=== PATIENT | female | born 1945 | race Caucasian/White ===

== ENCOUNTER → 2019-08-15 16:35 | Outpatient (CLI) | payer MEDICARE, SELFPAY ==
[2019-08-15 18:02] LABS: CRP < 2.90 mg/L (0.0-3.0)
[2019-08-17 20:07] LABS: Endomysial Antibody IgA Negative (Negative)
[2019-08-17 22:44] LABS: Immunoglobulin A 140 mg/dL (64-422); t-Transglutaminase IgA <2 U/mL (0-3)
== END ==
PROVIDERS: PCP Student in an Organized Health Care Education/Training Program; Referring Provider Internal Medicine Gastroenterology; Visit Provider Internal Medicine Gastroenterology
DX: R19.7 Diarrhea, unspecified (principal)
CPT/HCPCS: 36415; 82784; 83516; 86140; 86255

== ENCOUNTER → 2020-05-02 | Outpatient (CLI) | payer MEDICARE, SELFPAY ==
--- NOTE | 2020-05-02 13:52 | ECHOD_ITS ---
Reason For Study: Aortic Stenosis Procedure This was a 2D Doppler, Color Flow transthoracic echocardiogram. Exam performed in department. Left Ventricle Normal LV size. The estimated ejection fraction is 70 %. Unable to assess diastolic dysfunction. No regional wall motion abnormalities noted. Right Ventricle Normal RV size. Normal systolic function. Atria Normal left atrium. Normal right atrium. No doppler evidence for ASD. Mitral Valve There is moderate mitral annular calcification. There is no mitral valve stenosis. No mitral valve insufficiency. Tricuspid Valve There is no tricuspid stenosis. Mild tricuspid valve insufficiency. Pulmonary artery systolic pressure is 25-30 mmHg. Aortic Valve Mild diffuse aortic valve thickening. Mild aortic stenosis. Mild (1+) aortic valve insufficiency. Pulmonic Valve There is no pulmonic valvular stenosis. Trivial pulmonic valve insufficiency. Great Vessels Normal aortic root. Pericardium/Pleural There is a small to moderate localized pericardial effusion along the RV and RA with echodensities in it suggestive of hemorrhagic effusion. No evidence of tamponade physiology. MMode/2D Measurements & Calculations LVIDd: 2.7 cm IVSd: 1.1 cm LVOT diam: 2.0 cm LVIDs: 1.9 cm LVPWd: 1.1 cm LVOT area: 3.2 cm2 RVDd: 3.0 cm FS: 28.6 % Ao root diam: 4.0 cm LAV(MOD-bp): 23.0 ml LVAd ap4: 23.5 cm2 LA dimension: 2.6 cm LAV(MOD-bp) Indexed: 15.9 ml/m2 EDV(MOD-sp4): 61.3 ml LAV(MOD-sp2): 25.9 ml EDV(sp4-el): 62.5 ml LAV(MOD-sp4): 19.5 ml LVAs ap4: 11.6 cm2 ESV(MOD-sp4): 17.9 ml ESV(sp4-el): 18.3 ml EF(MOD-sp4): 70.7 % EF(sp4-el): 70.7 % SV(MOD-sp4): 43.4 ml SV(sp4-el): 44.2 ml Aortic Valve Planimetry: 1.5 cm2 LA A4 area: 10.4 cm2 RA A4 area: 10.8 cm2 Time Measurements MV dec time: 0.22 sec Doppler Measurements & Calculations MV E max homero: 64.2 cm/sec Lat Peak E' Homero: 3.5 cm/sec Med Peak E' Homero: 5.6 cm/sec MV A max homero: 104.9 cm/sec E/E' lat: 18.1 E/E' med: 11.4 MV E/A: 0.61 MV V2 max: 129.6 cm/sec MV P1/2t max homero: 98.1 cm/sec Ao V2 max: 242.3 cm/sec MV max P.7 mmHg MV P1/2t: 96.5 msec Ao max P.5 mmHg MV V2 mean: 65.2 cm/sec Ao V2 mean: 158.9 cm/sec MV mean P.0 mmHg MV dec slope: 297.8 cm/sec2 Ao mean P.0 mmHg MV V2 VTI: 34.4 cm MVA(P1/2t): 2.3 cm2 Ao V2 VTI: 53.0 cm MVA(VTI): 2.4 cm2 JORDNE(I,D): 1.6 cm2 JORDEN(V,D): 1.3 cm2 AI max homero: 368.5 cm/sec LV V1 max: 97.0 cm/sec SV(LVOT): 82.4 ml AI max P.3 mmHg LV V1 max P.8 mmHg LV V1 mean P.1 mmHg AI dec slope: 201.4 cm/sec2 LV V1 mean: 67.5 cm/sec AI P1/2t: 535.9 msec LV V1 VTI: 25.8 cm PA V2 max: 92.9 cm/sec TR max homero: 254.7 cm/sec TR max P.9 mmHg Interpretation Summary The estimated ejection fraction is 70 %. Unable to assess diastolic dysfunction. Mild aortic stenosis. Mild (1+) aortic valve insufficiency. There is a small to moderate localized pericardial effusion along the RV and RA with echodensities in it suggestive of hemorrhagic effusion. No evidence of tamponade physiology. Ordering Physician: Sean Cleary Referring Physician: Ed Maradiaga Performed By: Jared Shrestha RCS
== END | disposition home or self-care (01) ==
LOC: CVS 13:50
PROVIDERS: PCP Student in an Organized Health Care Education/Training Program; Referring Provider Colon & Rectal Surgery; Visit Provider Colon & Rectal Surgery
DX: I35.0 Nonrheumatic aortic (valve) stenosis (principal)
CPT/HCPCS: 93306

== ENCOUNTER → 2021-01-08 05:00 | Outpatient (REF) | payer MEDICARE, SELFPAY ==
[2021-01-08 06:57] LABS: Absolute Lymphocyte Count 2.42 X10^3/uL (0.83-4.51); Basophil# 0.04 X10^3/uL; Basophil% 0.6 % (0-1); Eosinophil# 0.09 X10^3/uL; Eosinophils% 1.5 % (0-5); Hematocrit 34.6 % (37-47); Lymphocyte # 2.42 X10^3/ul (0.83-4.51); Mean Corp Hgb Conc 31.8 g/dL (32-36); Mean Corpuscular Hgb 29.6 pg (27.0-32.0); Mean Corpuscular Volume 93.3 fL (81-99); Mean Platelet Vol. 11.1 fl (6.2-12.0); Monocyte# 0.61 X10^3/uL; Monocyte% 9.8 % (0-10); NRBC Flagged by Analyzer 0 % (0-5); Neutrophil # 3.01 X10^3/uL (2.7-7.7); Neutrophil % 48.6 % (47-70); Platelet Count 237 K/mm3 (150-450); RBC Distribution Width CV 17.1 % (11.6-14.6); RBC Distribution Width SD 58.9 fl (35.1-43.9); Red Blood Count 3.71 M/mm3 (4.2-5.4); White Blood Count 6.2 K/mm3 (4.4-11.0)
[2021-01-08 07:34] LABS: AST(SGOT) 11 U/L (15-37); Alanine Aminotransfer ALT/SGPT 14 U/L (13-56); Albumin, Serum 3.2 g/dL (3.2-5.0); Alkaline Phosphatase 71 U/L (45-117); Anion Gap 3 (5-15); BUN 24 mg/dL (7-18); BUN/Creat Ratio 18.6 RATIO (10-20); Calcium,Total 9.1 mg/dL (8.5-10.1); Chloride 111 mmol/L (98-107); Creatinine, Serum 1.29 mg/dL (0.55-1.02); EST Glomerular Filtration Rate 43 mL/min (>60); Est Glom Filt Rate - Afr Amer 52 mL/min (>60); Globulin 3.3 g/dL (2.2-4.2); Glucose 91 mg/dL (74-106); Potassium 3.9 mmol/L (3.5-5.1); Protein, Total 6.5 g/dL (6.4-8.2); Sodium Level 143 mmol/L (136-145); Thyroid Stim Hormone (TSH) 2.33 uIU/mL (0.358-3.74)
== END ==
LOC: OLS.DANBUR 05:00
PROVIDERS: PCP Student in an Organized Health Care Education/Training Program; Visit Provider Family Medicine
DX: I12.9 Hypertensive chronic kidney disease with stage 1 through stage 4 chronic kidney disease, or unspecified chronic kidney disease (principal); N18.30 Chronic kidney disease, stage 3 unspecified; G45.9 Transient cerebral ischemic attack, unspecified; E78.5 Hyperlipidemia, unspecified
CPT/HCPCS: 36415; 80053; 84443; 85025

== ENCOUNTER → 2021-03-12 05:00 | Outpatient (REF) | payer MEDICARE, SELFPAY ==
[2021-03-12 07:23] LABS: Hematocrit 35.1 % (37-47); Hemoglobin 11.5 g/dL (12.0-15.0); Mean Corp Hgb Conc 32.8 g/dL (32-36); Mean Corpuscular Hgb 31.5 pg (27.0-32.0); Mean Corpuscular Volume 96.2 fL (81-99); Mean Platelet Vol. 11.5 fl (6.2-12.0); Platelet Count 206 K/mm3 (150-450); RBC Distribution Width CV 15.3 % (11.6-14.6); RBC Distribution Width SD 53.3 fl (35.1-43.9); Red Blood Count 3.65 M/mm3 (4.2-5.4); White Blood Count 5.7 K/mm3 (4.4-11.0)
[2021-03-12 07:48] LABS: AST(SGOT) 15 U/L (15-37); Alanine Aminotransfer ALT/SGPT 18 U/L (13-56); Albumin, Serum 3.2 g/dL (3.2-5.0); Alkaline Phosphatase 75 U/L (45-117); Anion Gap 10 (5-15); BUN 19 mg/dL (7-18); BUN/Creat Ratio 16.8 RATIO (10-20); Calcium,Total 8.8 mg/dL (8.5-10.1); Chloride 108 mmol/L (98-107); Creatinine, Serum 1.13 mg/dL (0.55-1.02); EST Glomerular Filtration Rate 50 mL/min (>60); Est Glom Filt Rate - Afr Amer 60 mL/min (>60); Globulin 3.3 g/dL (2.2-4.2); Glucose 83 mg/dL (74-106); Potassium 3.6 mmol/L (3.5-5.1); Protein, Total 6.5 g/dL (6.4-8.2); Sodium Level 144 mmol/L (136-145)
== END ==
LOC: OLS.DANBUR 05:00
PROVIDERS: PCP Student in an Organized Health Care Education/Training Program; Visit Provider Family Medicine
DX: I10 Essential (primary) hypertension (principal); E78.5 Hyperlipidemia, unspecified
CPT/HCPCS: 36415; 80053; 85027

== ENCOUNTER → 2022-05-11 | Outpatient (REF) | payer MEDICARE, SELFPAY ==
[2022-05-12 08:16] LABS: Color, Urine Straw (Yellow); Glucose, Dipstick Normal (Normal); Ketone-Dipstick Negative (Negative); Leukocyte Esterase-Dipstick 100 /ul (Negative); Nitrite-Dipstick Negative (Negative); Occult Blood-Urine 25 /ul (Negative); Protein-Dipstick 30 mg/dl (Negative); Urine Bilirubin Dipstick Negative (Negative); Urine Clarity Sl. Cloudy (Clear); Urine Urobilinogen Normal (Normal)
== END ==
LOC: OLS.DANBUR 13:15
PROVIDERS: PCP Student in an Organized Health Care Education/Training Program; Visit Provider Family Medicine
DX: N39.0 Urinary tract infection, site not specified (principal)
CPT/HCPCS: 81002

== ENCOUNTER → 2022-05-13 | Outpatient (REF) | payer MEDICARE, SELFPAY ==
[2022-05-13 10:02] LABS: Hematocrit 41.6 % (37-47); Hemoglobin 13.3 g/dL (12.0-15.0); Mean Corpuscular Hgb 32.1 pg (27.0-32.0); Mean Corpuscular Volume 100.5 fL (81-99); Mean Platelet Vol. 11.4 fl (6.2-12.0); Platelet Count 243 K/mm3 (150-450); RBC Distribution Width CV 14.5 % (11.6-14.6); RBC Distribution Width SD 53.1 fl (35.1-43.9); Red Blood Count 4.14 M/mm3 (4.2-5.4)
[2022-05-13 10:16] LABS: ALB/GLOB Ratio 0.8 RATIO (0.9-2.4); AST(SGOT) 14 U/L (15-37); Alanine Aminotransfer ALT/SGPT 25 U/L (13-56); Albumin, Serum 3.5 g/dL (3.2-5.0); Alkaline Phosphatase 89 U/L (45-117); Anion Gap 5 (5-15); BUN 28 mg/dL (7-18); Calcium,Total 9.3 mg/dL (8.5-10.1); Chloride 108 mmol/L (98-107); Creatinine, Serum 1.47 mg/dL (0.55-1.02); EST Glomerular Filtration Rate 37 mL/min (>60); Est Glom Filt Rate - Afr Amer 44 mL/min (>60); Globulin 4.2 g/dL (2.2-4.2); Glucose 86 mg/dL (74-106); Potassium 3.6 mmol/L (3.5-5.1); Protein, Total 7.7 g/dL (6.4-8.2); Sodium Level 142 mmol/L (136-145)
== END ==
LOC: OLS.DANBUR 05:00
PROVIDERS: PCP Student in an Organized Health Care Education/Training Program; Visit Provider Family Medicine
DX: I12.9 Hypertensive chronic kidney disease with stage 1 through stage 4 chronic kidney disease, or unspecified chronic kidney disease (principal); N18.30 Chronic kidney disease, stage 3 unspecified; E78.5 Hyperlipidemia, unspecified
CPT/HCPCS: 36415; 80053; 85027

== ENCOUNTER 2022-07-27 10:23 | Inpatient (IN) | payer MEDICARE, SELFPAY ==
[2022-07-27] VITALS (14 sets, daily range): BP systolic 133–184; BP diastolic 66–97; PULSE 59–95; RESP 18–30; TEMP 36.1–36.7; O2SAT 85–99; BMI 19.5
--- NOTE | 2022-07-27 10:47 | EDS_ITS ---
HPI History of Present Illness Chief Complaint: Shortness of Breath Narrative Narrative: 76-year-old female past medical history of hypertension presents with increasing shortness of breath, cough, runny nose and nasal congestion that she has had intermittently over the last few days. She states her symptoms began on morning, 2 days ago, where she was congested and had mild shortness of breath. She denies any chest pain but has a loose, sometimes productive cough. That improved and she felt better until she woke up today and felt much worse. She has had increased difficulty breathing. She denies any leg swelling, no other symptoms. Upon arrival to the ED, she was hypoxic at 85% on room air. She does not wear oxygen at home. She is a former smoker but quit years ago. PFSH PFSH Allergy/AdvReac Type Severity Reaction Status Date / Time No Known Allergies Allergy Verified 07/27/22 10:26 Social History Smoking Status: Former smoker ROS ROS ED ROS Narrative Constitutional: No fever, no chills. HEENT: No sore throat. No neck pain. No loss of vision. Positive right-sided nasal congestion and rhinorrhea. Cardiovascular: No chest pain. No palpitations. No pedal edema. Respiratory: Positive cough, increasing shortness of breath. Abdominal: No abdominal pain. No nausea. No vomiting. Genitourinary: No dysuria. No hematuria. Musculoskeletal: No myalgias. No arthralgias. Neurologic: No headaches. No dizziness. No lightheadedness. Skin: No rash. No change in color. Psychiatric: No depression. No anxiety. EXAM Physical Exam Narrative Exam Narrative: Afebrile. Vital signs noted. HEENT: Normocephalic. Atraumatic. PERRL, EOMI. Neck soft and supple. No point tenderness or step off. Cardiovascular: Regular rate and rhythm. No murmurs, rubs, or gallops appreciated. Respiratory: No tachypnea. Decreased breath sounds left base greater than right. Rare rhonchi. Gastrointestinal: Abdomen soft, nontender, with normoactive bowel sounds. No rebound or guarding. Neurological: Awake. Alert. Nonfocal, nonlateralizing. Skin: No rash. Normal color. No pallor. Musculoskeletal: No pedal edema. Full range of motion extremities. Const Vital Signs: 07/27/22 10:24 07/27/22 10:54 07/27/22 11:41 Temperature 96.9 F L Temperature Source Temporal Pulse Rate 95 93 85 Respiratory Rate 20 H 20 H Respiratory Effort Respiratory Pattern Normal Blood Pressure 184/84 H 163/73 H Blood Pressure Mean 117 103 Pulse Ox 85 88 Oxygen Delivery Method Room Air Nasal Cannula Oxygen Flow Rate (L/min) 3 07/27/22 11:42 07/27/22 11:44 07/27/22 12:35 Temperature Temperature Source Pulse Rate 76 Respiratory Rate 26 H Respiratory Effort Short of Breath Respiratory Pattern Blood Pressure 150/73 H Blood Pressure Mean 98 Pulse Ox 89 91 Oxygen Delivery Method Nasal Cannula Nasal Cannula Oxygen Flow Rate (L/min) 5 5 MDM MDM MDM Narrative Medical decision making narrative: Comprehensive work-up was pursued. She was placed on nasal cannula oxygen with good resultant SPO2. She was swabbed for COVID and flu along with RSV. I do feel that given her physical examination with decreased breath sounds in the right base, that she may have developed a pneumonia causing her hypoxia. CBC shows normal white count of 5.3, hemoglobin 13.7 with hematocrit 42.7. Normal platelet count at 208. BNP normal at 77. High-sensitivity troponin within normal limits. CMP remarkable for BUN of 33 and a creatinine of 1.47. Chest x-ray 2 view interpreted by myself demonstrates a left lower lobe pneumonia. After aerosol treatment, she has a pulse ox of 91% on 5 L. Given her hypoxia and pneumonia, I do feel she requires admission. She was started on azithromycin and Rocephin 2 g intravenously. Patient discussed with Dr. Owens for admission to PCU. Patient is in stable condition. Lab Data Attestation: I reviewed the patient's lab results. Labs: Laboratory Results - last 24 hr 07/27/22 07/27/22 07/27/22 11:05 11:05 11:05 WBC 5.3 RBC 4.31 Hgb 13.7 Hct 42.7 MCV 99.1 H MCH 31.8 MCHC 32.1 RDW Std Deviation 53.2 H RDW Coeff of Arnulfo 14.6 Plt Count 208 MPV 11.8 Immature Gran % (Auto) 0.400 Neut % (Auto) 69.3 Lymph % (Auto) 24.8 Walker % (Auto) 5.1 Eos % (Auto) 0.0 Baso % (Auto) 0.4 Absolute Neuts (auto) 3.7 Absolute Lymphs (auto) 1.32 Nucleated RBC % 0 Sodium Potassium Chloride Carbon Dioxide Anion Gap BUN Creatinine Estim Creat Clear Calc Est GFR (MDRD) Af Amer Est GFR (MDRD) Non-Af BUN/Creatinine Ratio Glucose Calcium Total Bilirubin AST ALT Alkaline Phosphatase Troponin I High Sens Cancelled B-Natriuretic Peptide 77.8 Total Protein Albumin Globulin Albumin/Globulin Ratio 07/27/22 07/27/22 11:46 11:46 WBC RBC Hgb Hct MCV MCH MCHC RDW Std Deviation RDW Coeff of Arnulfo Plt Count MPV Immature Gran % (Auto) Neut % (Auto) Lymph % (Auto) Walker % (Auto) Eos % (Auto) Baso % (Auto) Absolute Neuts (auto) Absolute Lymphs (auto) Nucleated RBC % Sodium 141 Potassium 4.3 Chloride 108 H Carbon Dioxide 25.0 Anion Gap 8 BUN 33 H Creatinine 1.47 H Estim Creat Clear Calc 24.18 Est GFR (MDRD) Af Amer 44 L Est GFR (MDRD) Non-Af 37 L BUN/Creatinine Ratio 22.4 H Glucose 94 Calcium 9.1 Total Bilirubin 0.40 AST 38 H ALT 33 Alkaline Phosphatase 90 Troponin I High Sens 28 B-Natriuretic Peptide Total Protein 7.5 Albumin 3.5 Globulin 4.0 Albumin/Globulin Ratio 0.9 Radiography Diagnostic Testing: Clinical Impression(s) from Imaging Studies Chest X-Ray 07/27/22 11:48 IMPRESSION: Left lower lobe pneumonia. Electronically Signed: Kris Cavanaugh MD at 12:19 EST , Discharge Plan Dx/Rx/DC Orders Clinical Impression: Left lower lobe pneumonia, Hypoxia, SOB (shortness of breath) Disposition Disposition: Acute Care [facility]
[2022-07-27] MEDS: Ipratropium/Albuterol Sulfate 3 ML AMPUL.NEB INHALATION ×3 (10:54→23:06)
[2022-07-27 11:16] LABS: Absolute Lymphocyte Count 1.32 X10^3/uL (0.83-4.51); Absolute Neutrophil Count 3.7 X10^3/uL (2.0-7.7); Basophil# 0.02 X10^3/uL; Basophil% 0.4 % (0-1); Hematocrit 42.7 % (37-47); Hemoglobin 13.7 g/dL (12.0-15.0); Lymphocyte # 1.32 X10^3/ul (0.83-4.51); Lymphocyte % 24.8 % (19-41); Mean Corp Hgb Conc 32.1 g/dL (32-36); Mean Corpuscular Hgb 31.8 pg (27.0-32.0); Mean Corpuscular Volume 99.1 fL (81-99); Mean Platelet Vol. 11.8 fl (6.2-12.0); Monocyte# 0.27 X10^3/uL; Monocyte% 5.1 % (0-10); NRBC Flagged by Analyzer 0 % (0-5); Neutrophil # 3.69 X10^3/uL (2.7-7.7); Neutrophil % 69.3 % (47-70); Platelet Count 208 K/mm3 (150-450); RBC Distribution Width CV 14.6 % (11.6-14.6); RBC Distribution Width SD 53.2 fl (35.1-43.9); Red Blood Count 4.31 M/mm3 (4.2-5.4); White Blood Count 5.3 K/mm3 (4.4-11.0)
[2022-07-27 11:34] LABS: BNP,B-Type NATRIURETIC PEPTIDE 77.8 pg/mL (0-100)
--- NOTE | 2022-07-27 11:48 | RAD_ITS ---
STUDY: X-RAY CHEST REASON FOR EXAM: Female, 76 years old. shortness of breath TECHNIQUE: PA and lateral views of the chest. COMPARISON: None. FINDINGS: Alveolar opacity in the lower left lung consistent with left lower lobe pneumonia. There is no demonstrated pleural abnormality. There is moderate cardiac enlargement. Normal mediastinum and riana. Normal visualized pulmonary arteries. Normal visualized aortic arch and descending thoracic aorta. Moderate dextroscoliosis of the thoracic spine with deformity of the chest and abdomen. Normal visualized ribs, clavicles, and shoulders. There is no demonstrated abnormality of the visualized soft tissue structures of the upper abdomen. RAD/Chest PA and Lateral IMPRESSION: Left lower lobe pneumonia. Electronically Signed: Kris Cavanaugh MD at 12:19 EST ,
[2022-07-27 12:14] LABS: Troponin-I HS 28 pg/mL (3.0-54.0)
[2022-07-27 12:16] LABS: ALB/GLOB Ratio 0.9 RATIO (0.9-2.4); AST(SGOT) 38 U/L (15-37); Alanine Aminotransfer ALT/SGPT 33 U/L (13-56); Albumin, Serum 3.5 g/dL (3.2-5.0); Alkaline Phosphatase 90 U/L (45-117); Anion Gap 8 (5-15); BUN 33 mg/dL (7-18); BUN/Creat Ratio 22.4 RATIO (10-20); Calcium,Total 9.1 mg/dL (8.5-10.1); Chloride 108 mmol/L (98-107); Creatinine, Serum 1.47 mg/dL (0.55-1.02); EST Glomerular Filtration Rate 37 mL/min (>60); Est Glom Filt Rate - Afr Amer 44 mL/min (>60); Estimated Creatinine Clearance 24.18 ml/min; Glucose 94 mg/dL (74-106); Potassium 4.3 mmol/L (3.5-5.1); Protein, Total 7.5 g/dL (6.4-8.2); Sodium Level 141 mmol/L (136-145)
[2022-07-27] MEDS: levoFLOXacin IV 750 MG/150 ML BAG 100 MG IV (12:40)
--- NOTE | 2022-07-27 13:10 | PCM.HP.STD ---
HPI - General General Date of Admission: 07/27/22 Date of Service: 07/27/22 Chief Complaint: Increasing shortness of breath HPI Narrative SHERRI ZACARIAS, is a 76 F with a history of hypertension who presented to [facility] from [place] 07/27/2022 with increasing shortness of breath over the past 2 days. It did wax and wane in intensity but today worsened to the point that she was brought to the ER. Has also had a cough with thick sputum that was hard to expectorate. In the ED she was 85% on room air and was found to have a left lower lobe infiltrate on chest x-ray and received a breathing treatment and antibiotics and felt slight improvement. Given her hypoxia hospitalist consulted for admission. Seen in the ED with family at bedside. Does report the shortness of breath that has been worsening, slightly better with the breathing treatment in the ED. Also endorses a cough. Said she has multiple sick contacts because multiple things are going through [facility] where she currently resides but was negative for COVID a week ago. On 5 L in the ED and when conversing drops down to 86%. Will proceed with admission [facility] Allergy/AdvReac Type Severity Reaction Status Date / Time No Known Allergies Allergy Verified 07/27/22 10:26 Social History Smoking Status: Former smoker ROS Constitutional Constitutional: Denies change in weight, chills, fever(s) or night sweats Eyes Eyes: Denies change in vision ENT HEENT: Reports nasal congestion and other Details: Right-sided nasal congestion with some ear fullness ; Denies headache(s) or sore throat Cardiovascular Cardiovascular: Denies chest pain or palpitations Respiratory/Chest Respiratory/Chest: Reports cough, productive cough, shortness of breath at rest and shortness of breath with exertion Gastrointestinal Gastrointestinal: Reports other Details: denies changes in bowel or bladder ; Denies abdominal pain Genitourinary Genitourinary: Reports other Details: denies changes in urination Musculoskeletal Musculoskeletal: Denies joint pain Neurologic Neurologic: Denies dizziness, focal weakness, headache(s), numbness or tingling Psychiatric Psychiatric: Denies anxiety Hematologic/Lymphatic Hematologic/Lymphatic: Denies easy bleeding Allergic/Immunologic Allergic/Immunologic: Reports other Details: denies rashes Vital Signs Vital Signs Vital Signs: 07/27/22 10:24 07/27/22 10:54 07/27/22 11:41 Temperature 96.9 F L Temperature Source Temporal Pulse Rate 95 93 85 Respiratory Rate 20 H 20 H Respiratory Effort Respiratory Pattern Normal Blood Pressure 184/84 H 163/73 H Blood Pressure Mean 117 103 Pulse Ox 85 88 Oxygen Delivery Method Room Air Nasal Cannula Oxygen Flow Rate (L/min) 3 07/27/22 11:42 07/27/22 11:44 07/27/22 12:35 Temperature Temperature Source Pulse Rate 76 Respiratory Rate 26 H Respiratory Effort Short of Breath Respiratory Pattern Blood Pressure 150/73 H Blood Pressure Mean 98 Pulse Ox 89 91 Oxygen Delivery Method Nasal Cannula Nasal Cannula Oxygen Flow Rate (L/min) 5 5 Weight Weight: 48.081 kg Body Mass Index (BMI) 20.0 Physical Exam Const alert and no apparent distress Constitutional Narrative: Oriented HEENT normocephalic and head/scalp atraumatic Eyes Eyes Narrative: EOM grossly intact, anicteric Neck supple Resp Resp Narrative: Somewhat increased work of breathing, left side diminished at the base Cardio regular rate and regular rhythm GI soft to palpation, non-tender and non-distended Extremity Extremity Narrative: No edema appreciated Neuro moves all extremities Neuro Narrative: No overt focal deficits appreciated Psych Psych Narrative: Cooperative Results Lab / Micro Data Result Diagrams: 07/27/22 11:05 07/27/22 11:46 Labs: Laboratory Results - last 24 hr 07/27/22 11:05: WBC 5.3, RBC 4.31, Hgb 13.7, Hct 42.7, MCV 99.1 H, MCH 31.8, MCHC 32.1, RDW Std Deviation 53.2 H, RDW Coeff of Arnulfo 14.6, Plt Count 208, MPV 11.8, Immature Gran % (Auto) 0.400, Neut % (Auto) 69.3, Lymph % (Auto) 24.8, [place] % (Auto) 5.1, Eos % (Auto) 0.0, Baso % (Auto) 0.4, Absolute Neuts (auto) 3.7, Absolute Lymphs (auto) 1.32, Nucleated RBC % 0 07/27/22 11:05: Troponin I High Sens Cancelled 07/27/22 11:05: B-Natriuretic Peptide 77.8 07/27/22 11:46: Troponin I High Sens 28 07/27/22 11:46: Sodium 141, Potassium 4.3, Chloride 108 H, Carbon Dioxide 25.0, Anion Gap 8, BUN 33 H, Creatinine 1.47 H, Estim Creat Clear Calc 24.18, Est GFR (MDRD) Af Amer 44 L, Est GFR (MDRD) Non-Af 37 L, BUN/Creatinine Ratio 22.4 H, Glucose 94, Calcium 9.1, Total Bilirubin 0.40, AST 38 H, ALT 33, Alkaline Phosphatase 90, Total Protein 7.5, Albumin 3.5, Globulin 4.0, Albumin/Globulin Ratio 0.9 Micro: Microbiology 07/27/22 11:30 Nasal Secretion SARS-CoV-2 & FLU Antigen (Rapid) - Final 07/27/22 11:19 Interface Orders Rapid RSV (DFA) - Final Radiology Impression Chest X-Ray 07/27/22 11:48 IMPRESSION: Left lower lobe pneumonia. Electronically Signed: Kris Cavanaugh MD at 12:19 EST , Assessment & Plan Assessment/Plan (1) Left lower lobe pneumonia: (2) Hypoxia: PLAN: Plan #Hypoxia secondary to community-acquired pneumonia Chest x-ray with left lower lobe infiltrate DuoNebs and as needed albuterol Sputum culture, COVID and flu, respiratory panel Urine antigens Mucinex, I/S Rocephin and azithromycin #Hypertension Continue home medications Has systolic ejection murmur on exam, will check echo #CKD stage IIIb Avoid nephrotoxic agents Monitor BMP #DVT ppx: Subcu heparin Bisi Owens MD Charges/Coding Visit Charges Inpatient E&M: 48829 Init Hosp L2
--- NOTE | 2022-07-27 14:13 | ECHOD_ITS ---
Reason For Study: MURMUR Procedure This was a 2D Doppler, Color Flow transthoracic echocardiogram. The study was technically difficult. Exam performed portable in ED. Left Ventricle Normal size and thickness. The left ventricular ejection fraction is 65 %. Stage 2 diastolic dysfunction. Right Ventricle Normal right ventricle. Atria The left and right atria are normal. Mitral Valve Mild (1+) mitral valve insufficiency. Tricuspid Valve Normal pulmonary artery pressure. Mild tricuspid valve insufficiency. Aortic Valve The aortic valve is not well visualized. Mild aortic stenosis. Mild (1+) aortic valve insufficiency. Pulmonic Valve The pulmonic valve is not well visualized. Great Vessels Mildly dilated aortic root. Pericardium/Pleural Small pericardial effusion. MMode/2D Measurements & Calculations LVIDd: 4.0 cm IVSd: 1.0 cm LVOT diam: 2.0 cm LVIDs: 2.8 cm LVPWd: 1.0 cm LVOT area: 3.2 cm2 RVDd: 3.1 cm FS: 29.4 % Ao root diam: 3.7 cm LAV(MOD-bp): 38.8 ml LVAd ap4: 25.6 cm2 LAV(MOD-bp) Indexed: 27.3 ml/m2 LVLd ap4: 7.2 cm LAV(MOD-sp2): 33.3 ml EDV(MOD-sp4): 73.9 ml LAV(MOD-sp4): 40.7 ml EDV(sp4-el): 77.0 ml LVAs ap4: 13.6 cm2 LVLs ap4: 7.0 cm ESV(MOD-sp4): 25.9 ml ESV(sp4-el): 22.6 ml EF(MOD-sp4): 64.9 % EF(sp4-el): 70.7 % LVAd ap2: 18.9 cm2 SV(MOD-sp4): 47.9 ml SV(MOD-sp2): 29.4 ml LVLd ap2: 6.9 cm EDV(MOD-sp2): 42.0 ml EDV(sp2-el): 43.6 ml LVAs ap2: 9.6 cm2 LVLs ap2: 6.7 cm ESV(MOD-sp2): 12.5 ml ESV(sp2-el): 11.7 ml EF(MOD-sp2): 70.1 % SV(sp4-el): 54.5 ml LA A4 area: 15.6 cm2 RA A4 area: 11.1 cm2 Time Measurements MV dec time: 0.47 sec Doppler Measurements & Calculations MV E max homero: 75.0 cm/sec Lat Peak E' Homero: 3.9 cm/sec Med Peak E' Homero: 6.2 cm/sec MV A max homero: 119.5 cm/sec E/E' lat: 19.3 E/E' med: 12.1 MV E/A: 0.63 Ao V2 max: 217.4 cm/sec AI max homero: 361.4 cm/sec LV V1 max: 113.3 cm/sec Ao max P.9 mmHg AI max P.2 mmHg LV V1 max P.1 mmHg Ao V2 mean: 155.6 cm/sec AI dec slope: 224.4 cm/sec2 LV V1 mean P.6 mmHg Ao mean P.7 mmHg AI P1/2t: 471.7 msec LV V1 mean: 74.5 cm/sec Ao V2 VTI: 43.4 cm LV V1 VTI: 21.3 cm AV (velocity ratio): 0.49 JORDEN(I,D): 1.6 cm2 JORDEN(V,D): 1.7 cm2 SV(LVOT): 67.8 ml PA V2 max: 96.0 cm/sec TR max homero: 252.4 cm/sec TR max P.5 mmHg ECHO/Echo Complete Interpretation Summary The left ventricular ejection fraction is 65 %. Stage 2 diastolic dysfunction. Mild (1+) mitral valve insufficiency. Mild aortic stenosis. Mild (1+) aortic valve insufficiency. Mildly dilated aortic root. Small pericardial effusion. Ordering Physician: Bisi Owens Referring Physician: Umang Boyer Performed By: Sarah Ramos, ALOKCS, RVT
[2022-07-27] MEDS: Heparin Injection (Vial) 5,000 UNIT/ML VIAL 5000 UNIT SC (21:28)
[2022-07-27] MEDS: guaiFENesin 1,200 MG Tablet 1200 MG PO (21:28)
[2022-07-28] VITALS (21 sets, daily range): BP systolic 137–182; BP diastolic 72–89; PULSE 69–108; RESP 12–30; TEMP 36.6–37.1; O2SAT 91–94
[2022-07-28] MEDS: hydrALAZINE 20 MG/ML Vial 10 MG IV ×3 (03:04→16:54)
[2022-07-28] MEDS: Ipratropium/Albuterol Sulfate 3 ML AMPUL.NEB INHALATION ×5 (03:40→23:14)
--- NOTE | 2022-07-28 04:01 | PCM.HOSP.N ---
Hospitalist Note Patient with worsened hypoxia, discussed with RT, will place on BIPAP. Will dose with low dose ativan as extremely anxious about her dyspnea while transitioning onto BIPAP.
[2022-07-28] MEDS: LORazepam 2 MG/ML Syringe 0.5 MG IV (04:19)
[2022-07-28] MEDS: 0.9% Saline Lock 10 ML Syringe IV (04:19)
[2022-07-28 06:38] LABS: Absolute Lymphocyte Count 0.74 X10^3/uL (0.83-4.51); Absolute Neutrophil Count 4.9 X10^3/uL (2.0-7.7); Basophil# 0.01 X10^3/uL; Basophil% 0.2 % (0-1); Hematocrit 38.6 % (37-47); Hemoglobin 12.7 g/dL (12.0-15.0); Lymphocyte # 0.74 X10^3/ul (0.83-4.51); Mean Corp Hgb Conc 32.9 g/dL (32-36); Mean Corpuscular Hgb 33.2 pg (27.0-32.0); Mean Platelet Vol. 12.1 fl (6.2-12.0); Monocyte# 0.46 X10^3/uL; Monocyte% 7.5 % (0-10); NRBC Flagged by Analyzer 0 % (0-5); Neutrophil # 4.92 X10^3/uL (2.7-7.7); Platelet Count 179 K/mm3 (150-450); RBC Distribution Width CV 14.5 % (11.6-14.6); RBC Distribution Width SD 53.5 fl (35.1-43.9); Red Blood Count 3.82 M/mm3 (4.2-5.4); White Blood Count 6.2 K/mm3 (4.4-11.0)
[2022-07-28 09:31] LABS: ALB/GLOB Ratio 0.8 RATIO (0.9-2.4); AST(SGOT) 21 U/L (15-37); Alanine Aminotransfer ALT/SGPT 33 U/L (13-56); Albumin, Serum 3.3 g/dL (3.2-5.0); Alkaline Phosphatase 85 U/L (45-117); Anion Gap 9 (5-15); BUN 30 mg/dL (7-18); BUN/Creat Ratio 17.8 RATIO (10-20); Calcium,Total 9.3 mg/dL (8.5-10.1); Chloride 109 mmol/L (98-107); Creatinine, Serum 1.69 mg/dL (0.55-1.02); EST Glomerular Filtration Rate 31 mL/min (>60); Est Glom Filt Rate - Afr Amer 38 mL/min (>60); Estimated Creatinine Clearance 20.64 ml/min; Globulin 4.1 g/dL (2.2-4.2); Glucose 117 mg/dL (74-106); Potassium 3.9 mmol/L (3.5-5.1); Protein, Total 7.4 g/dL (6.4-8.2); Sodium Level 142 mmol/L (136-145)
[2022-07-28] MEDS: Heparin Injection (Vial) 5,000 UNIT/ML VIAL 5000 UNIT SC ×2 (09:44→22:36)
[2022-07-28] MEDS: guaiFENesin 1,200 MG Tablet 1200 MG PO ×2 (09:44→22:36)
--- NOTE | 2022-07-28 15:35 | PN.HOSP_ITS ---
Subjective Subjective Continues to be short of breath, feels generally unwell Objective Data Objective Data Vital Signs: Vital Signs Temp Pulse Resp BP Pulse Ox O2 Del Method O2 Flow Rate 98.8 F 105 H 18 142/75 H 91 Nasal Cannula 6 07/28/22 10:43 07/28/22 11:01 07/28/22 11:01 07/28/22 10:43 07/28/22 11:01 07/28/22 11:01 07/28/22 11:01 FiO2 50 07/28/22 05:41 Oxygen Flow Rate (L/min) 6 Oxygen Delivery Method Nasal Cannula Weight: 46.901 kg Body Mass Index (BMI) 19.5 Intake & Output: Intake and Output for Last 24 Hours 07/26/22 07/27/22 07/28/22 23:59 23:59 23:59 Intake Total 455 / 455 305 / 305 Balance 455 / 455 305 / 305 Lab / Micro Data Result Diagrams: 07/28/22 06:00 07/28/22 08:57 Labs: Laboratory Results - last 24 hr 07/27/22 17:20: COVID-19 (GRANT) Not Detected 07/28/22 06:00: WBC 6.2, RBC 3.82 L, Hgb 12.7, Hct 38.6, MCV 101.0 H, MCH 33.2 H , MCHC 32.9, RDW Std Deviation 53.5 H, RDW Coeff of Arnulfo 14.5, Plt Count 179, MPV 12.1 H, Immature Gran % (Auto) 0.300, Neut % (Auto) 80.0 H, Lymph % (Auto) 12.0 L, [place] % (Auto) 7.5, Eos % (Auto) 0.0, Baso % (Auto) 0.2, Absolute Neuts (auto) 4.9, Absolute Lymphs (auto) 0.74 L, Nucleated RBC % 0 07/28/22 06:00: Sodium Cancelled, Potassium Cancelled, Chloride Cancelled, Carbon Dioxide Cancelled, Anion Gap Cancelled, BUN Cancelled, Creatinine Cancelled, Estim Creat Clear Calc Cancelled, Est GFR (MDRD) Af Amer Cancelled, Est GFR (MDRD) Non-Af Cancelled, BUN/Creatinine Ratio Cancelled, Glucose Cance lled, Calcium Cancelled, Total Bilirubin Cancelled, AST Cancelled, ALT Cancelled, Alkaline Phosphatase Cancelled, Total Protein Cancelled, Albumin Cancelled, Globulin Cancelled, Albumin/Globulin Ratio Cancelled 07/28/22 08:57: Sodium 142, Potassium 3.9, Chloride 109 H, Carbon Dioxide 24.0, Anion Gap 9, BUN 30 H, Creatinine 1.69 H, Estim Creat Clear Calc 20.64, Est GFR (MDRD) Af Amer 38 L, Est GFR (MDRD) Non-Af 31 L, BUN/Creatinine Ratio 17.8, Glu cose 117 H, Calcium 9.3, Total Bilirubin 0.30, AST 21, ALT 33, Alkaline Phosphatase 85, Total Protein 7.4, Albumin 3.3, Globulin 4.1, Albumin/Globulin Ratio 0.8 L Micro: Microbiology 07/28/22 02:22 Urine, Clean Catch Legionella Antigen - Final 07/28/22 02:22 Urine, Clean Catch Streptococcus pneumoniae Antigen (M - Final 07/27/22 11:30 Nasal Secretion SARS-CoV-2 & FLU Antigen (Rapid) - Final 07/27/22 11:19 Interface Orders Rapid RSV (DFA) - Final Radiography Diagnostic Testing: Radiology Impression Echocardiogram 07/27/22 14:13 Interpretation Summary The left ventricular ejection fraction is 65 %. Stage 2 diastolic dysfunction. Mild (1+) mitral valve insufficiency. Mild aortic stenosis. Mild (1+) aortic valve insufficiency. Mildly dilated aortic root. Small pericardial effusion. Ordering Physician: Bisi Owens Referring Physician: Umang Boyer Performed By: Sarah Ramos, DEMETRI, RVT Physical Exam Const alert and no apparent distress Constitutional Narrative: Oriented HEENT normocephalic and head/scalp atraumatic Eyes Eyes Narrative: EOM grossly intact, anicteric Neck supple Resp Resp Narrative: Somewhat increased work of breathing, coarse at the bases Cardio regular rate and regular rhythm GI soft to palpation, non-tender and non-distended Extremity Extremity Narrative: No edema appreciated Neuro moves all extremities Neuro Narrative: No overt focal deficits appreciated Psych Psych Narrative: Cooperative Assessment & Plan Assessment/Plan (1) Left lower lobe pneumonia: (2) Hypoxia: PLAN: Plan #Hypoxia secondary to community-acquired pneumonia Chest x-ray with left lower lobe infiltrate DuoNebs and as needed albuterol Sputum culture, COVID and flu, respiratory panel Urine antigens Mucinex, I/S Rocephin and azithromycin 07/28/: Continues to have high oxygen requirements. Continue nebs and antibiotics #Hypertension Continue home medications Has systolic ejection murmur on exam, will check echo 07/28: Stage II diastolic dysfunction with mild mitral and aortic valve insufficiency and mild aortic stenosis #CKD stage IIIb Avoid nephrotoxic agents Monitor BMP 07/28: Slightly worsened today, given her diastolic dysfunction hesitant to give fluids. Will get renal ultrasound and urine lytes. Continue to hold ARB #DVT ppx: Subcu heparin Bisi Owens MD Charges/Coding Visit Charges Inpatient E&M: 58641 Subs Hosp L2
--- NOTE | 2022-07-28 15:40 | US_ITS ---
INDICATION: worsening kidney function EXAMINATION: US Kidney(s) complete (eg, kidneys and bladder) TECHNIQUE: Valenzuela scale and color doppler images were obtained of the kidneys. COMPARISON: None. FINDINGS: RIGHT KIDNEY: Measures 11.5 cm in length. Slight increased echogenicity.. There is no hydronephrosis. No shadowing calculus, focal solid mass or perinephric collection is demonstrated. Multiple anechoic simple cysts are again seen. LEFT KIDNEY: Measures 9.4 cm in length. slight increase in echogenicity... There is no hydronephrosis. No shadowing calculus, focal solid mass or perinephric collection is demonstrated. Multiple anechoic simple cysts are again seen. URINARY BLADDER: No acute abnormality. US/Kidney and Bladder IMPRESSION: Slight increase in echogenicity of the bilateral kidneys compatible with medical renal disease. No hydronephrosis. Electronically Signed: Deondre Sparrow MD at 19:39 EST ,
[2022-07-28] MEDS: Ensure Plus High Protein 120 ML LIQUID PO (16:54)
[2022-07-28 17:17] LABS: Urine Chloride 25 mmol/L (Not Establ.); Urine Sodium 32 mmol/L (Not Establ.)
[2022-07-29] VITALS (21 sets, daily range): BP systolic 149–197; BP diastolic 71–99; PULSE 85–109; RESP 12–28; TEMP 36.2–36.9; O2SAT 91–96
[2022-07-29] MEDS: Ipratropium/Albuterol Sulfate 3 ML AMPUL.NEB INHALATION ×5 (02:31→23:28)
[2022-07-29] MEDS: hydrALAZINE 20 MG/ML Vial 10 MG IV ×3 (04:39→22:45)
[2022-07-29 07:13] LABS: Absolute Lymphocyte Count 0.88 X10^3/uL (0.83-4.51); Absolute Neutrophil Count 4.2 X10^3/uL (2.0-7.7); Basophil# 0.01 X10^3/uL; Basophil% 0.2 % (0-1); Hematocrit 38.3 % (37-47); Hemoglobin 12.6 g/dL (12.0-15.0); Lymphocyte # 0.88 X10^3/ul (0.83-4.51); Lymphocyte % 16.2 % (19-41); Mean Corp Hgb Conc 32.9 g/dL (32-36); Mean Corpuscular Hgb 32.6 pg (27.0-32.0); Mean Corpuscular Volume 99.2 fL (81-99); Mean Platelet Vol. 11.6 fl (6.2-12.0); Monocyte# 0.34 X10^3/uL; Monocyte% 6.3 % (0-10); NRBC Flagged by Analyzer 0 % (0-5); Neutrophil # 4.18 X10^3/uL (2.7-7.7); Neutrophil % 76.9 % (47-70); Platelet Count 192 K/mm3 (150-450); RBC Distribution Width CV 14.7 % (11.6-14.6); RBC Distribution Width SD 53.4 fl (35.1-43.9); Red Blood Count 3.86 M/mm3 (4.2-5.4); White Blood Count 5.4 K/mm3 (4.4-11.0)
[2022-07-29 07:46] LABS: ALB/GLOB Ratio 0.8 RATIO (0.9-2.4); AST(SGOT) 28 U/L (15-37); Alanine Aminotransfer ALT/SGPT 29 U/L (13-56); Albumin, Serum 3.3 g/dL (3.2-5.0); Alkaline Phosphatase 82 U/L (45-117); Anion Gap 8 (5-15); BUN 25 mg/dL (7-18); BUN/Creat Ratio 19.4 RATIO (10-20); Calcium,Total 9.1 mg/dL (8.5-10.1); Chloride 112 mmol/L (98-107); Creatinine, Serum 1.29 mg/dL (0.55-1.02); EST Glomerular Filtration Rate 43 mL/min (>60); Est Glom Filt Rate - Afr Amer 51 mL/min (>60); Estimated Creatinine Clearance 27.04 ml/min; Globulin 3.9 g/dL (2.2-4.2); Glucose 112 mg/dL (74-106); Potassium 3.6 mmol/L (3.5-5.1); Protein, Total 7.2 g/dL (6.4-8.2); Sodium Level 144 mmol/L (136-145)
--- NOTE | 2022-07-29 09:00 | PCM.PN.HOSP ---
Subjective Subjective To have waxing and waning shortness of breath, slight cough, receiving breathing treatment this morning during evaluation Objective Data Objective Data Vital Signs: Vital Signs Temp Pulse Resp BP Pulse Ox O2 Del Method O2 Flow Rate 97.2 F L 107 H 24 H 171/99 H 91 Nasal Cannula 6 07/29/22 04:40 07/29/22 06:59 07/29/22 06:45 07/29/22 04:40 07/29/22 06:45 07/29/22 06:45 07/29/22 06:45 FiO2 50 07/29/22 04:40 Oxygen Flow Rate (L/min) 6 Oxygen Delivery Method Nasal Cannula Weight: 46.901 kg Body Mass Index (BMI) 19.5 Intake & Output: Intake and Output for Last 24 Hours 07/27/22 07/28/22 07/29/22 23:59 23:59 23:59 Intake Total 455 / 455 305 / 305 Balance 455 / 455 305 / 305 Lab / Micro Data Result Diagrams: 07/29/22 06:22 07/29/22 06:22 Labs: Laboratory Results - last 24 hr 07/28/22 08:57: Sodium 142, Potassium 3.9, Chloride 109 H, Carbon Dioxide 24.0, Anion Gap 9, BUN 30 H, Creatinine 1.69 H, Estim Creat Clear Calc 20.64, Est GFR (MDRD) Af Amer 38 L, Est GFR (MDRD) Non-Af 31 L, BUN/Creatinine Ratio 17.8, Glucose 117 H, Calcium 9.3, Total Bilirubin 0.30, AST 21, ALT 33, Alkaline Phosphatase 85, Total Protein 7.4, Albumin 3.3, Globulin 4.1, Albumin/Globulin Ratio 0.8 L 07/28/22 16:45: Ur Random Sodium 32, Urine Creatinine 124.00, Urine Potassium 59.0, Urine Chloride 25 07/29/22 06:22: WBC 5.4, RBC 3.86 L, Hgb 12.6, Hct 38.3, MCV 99.2 H, MCH 32.6 H, MCHC 32.9, RDW Std Deviation 53.4 H, RDW Coeff of Arnulfo 14.7 H, Plt Count 192, MPV 11.6, Immature Gran % (Auto) 0.400, Neut % (Auto) 76.9 H, Lymph % (Auto) 16.2 L, [place] % (Auto) 6.3, Eos % (Auto) 0.0, Baso % (Auto) 0.2, Absolute Neuts (auto) 4.2, Absolute Lymphs (auto) 0.88, Nucleated RBC % 0 07/29/22 06:22: Sodium 144, Potassium 3.6, Chloride 112 H, Carbon Dioxide 24.0, Anion Gap 8, BUN 25 H, Creatinine 1.29 H, Estim Creat Clear Calc 27.04, Est GFR (MDRD) Af Amer 51 L, Est GFR (MDRD) Non-Af 43 L, BUN/Creatinine Ratio 19.4, Glucose 112 H, Calcium 9.1, Total Bilirubin 0.50, AST 28, ALT 29, Alkaline Phosphatase 82, Total Protein 7.2, Albumin 3.3, Globulin 3.9, Albumin/Globulin Ratio 0.8 L Micro: Microbiology 07/27/22 17:20 Mucosa - Nasopharyngeal Respiratory Panel (PCR) - Final Parainfluenza 1 07/28/22 02:22 Urine, Clean Catch Legionella Antigen - Final 07/28/22 02:22 Urine, Clean Catch Streptococcus pneumoniae Antigen (M - Final 07/27/22 11:30 Nasal Secretion SARS-CoV-2 & FLU Antigen (Rapid) - Final 07/27/22 11:19 Interface Orders Rapid RSV (DFA) - Final Radiography Diagnostic Testing: Radiology Impression Renal Ultrasound 07/28/22 15:40 IMPRESSION: Slight increase in echogenicity of the bilateral kidneys compatible with medical renal disease. No hydronephrosis. Electronically Signed: Deondre Sparrow MD at 19:39 EST , Physical Exam Const alert and no apparent distress Constitutional Narrative: Oriented HEENT normocephalic and head/scalp atraumatic Eyes Eyes Narrative: EOM grossly intact, anicteric Neck supple Resp Resp Narrative: Somewhat increased work of breathing, coarse at the bases Cardio regular rate and regular rhythm GI soft to palpation, non-tender and non-distended Extremity Extremity Narrative: No edema appreciated Neuro moves all extremities Neuro Narrative: No overt focal deficits appreciated Psych Psych Narrative: Cooperative Assessment & Plan Assessment/Plan (1) Left lower lobe pneumonia: (2) Hypoxia: PLAN: Plan #Hypoxia secondary to community-acquired pneumonia Chest x-ray with left lower lobe infiltrate DuoNebs and as needed albuterol Sputum culture, COVID and flu, respiratory panel Urine antigens Mucinex, I/S Rocephin and azithromycin 07/28/22: Continues to have high oxygen requirements. Continue nebs and antibiotics 07/29: Urine antigens negative, continues to have high O2 requirements, respiratory panel did come back with parainfluenza which explains the lack of improvement with antibiotics. #Hypertension Continue home medications Has systolic ejection murmur on exam, will check echo 07/28: Stage II diastolic dysfunction with mild mitral and aortic valve insufficiency and mild aortic stenosis #CKD stage IIIb Avoid nephrotoxic agents Monitor BMP 07/28: Slightly worsened today, given her diastolic dysfunction hesitant to give fluids. Will get renal ultrasound and urine lytes. Continue to hold ARB 07/29: Slightly improved today, ultrasound showed slight increase in echogenicity compatible with medical renal disease #DVT ppx: Subcu heparin Bisi Owens MD Charges/Coding Visit Charges Inpatient E&M: 47283 Subs Hosp L2
[2022-07-29] MEDS: dilTIAZem CD 180 MG Capsule PO ×2 (10:10→12:08)
[2022-07-29] MEDS: Heparin Injection (Vial) 5,000 UNIT/ML VIAL 5000 UNIT SC ×2 (10:10→21:52)
[2022-07-29] MEDS: guaiFENesin 1,200 MG Tablet 1200 MG PO ×2 (10:11→21:52)
[2022-07-29] MEDS: Ensure Plus High Protein 120 ML LIQUID PO ×3 (10:18→16:52)
--- NOTE | 2022-07-29 11:37 | CASEMGMT ---
Social Work SW to room to meet with patient for initial transition planning/care coordination assessment. SWintroduced self and role at [facility]. Pt voices understanding and consents to assessment at this time. Pt resting in bed, is A/O at this time and answers all questions appropriately. Care providers, pharmacy, and demographics verified/updated at this time. PCP: Rosalind Specialists: none Preferred Pharmacy: [facility] Insurance: [facility] Living Will/HPOA: Pt states she does have a living will and Health care POA naming her daughter Nicole Arboleda LNOK: Daughter Nicole Arboleda Living Arrangements: Pt lives in the Independent Living at [facility]. Pt states she is able to ambulate independently without device, complete ADLS, and manage own meds. Pt goes to dining room for meals. Transportation: Pt does not drive. Dgt Nicole Arboleda transports as needed. DME: Denies using any DME. Pt does have a built in seat in the shower. Plan: Pt plans to return to her home at [place] and has no concerns at this time. Pt states her dgt Nicole will transport her at time of discharge. RNCM updated that pt will need to be monitored for home oxygen needs. MELISSA Wang
[2022-07-29] MEDS: Loperamide 2 MG Capsule PO (17:52)
[2022-07-30] VITALS (16 sets, daily range): BP systolic 135–165; BP diastolic 77–86; PULSE 74–95; RESP 16–20; TEMP 36.5–36.9; O2SAT 91–95
[2022-07-30 05:52] LABS: Absolute Lymphocyte Count 1.21 X10^3/uL (0.83-4.51); Absolute Neutrophil Count 5.2 X10^3/uL (2.0-7.7); Basophil# 0.02 X10^3/uL; Basophil% 0.3 % (0-1); Eosinophil# 0.01 X10^3/uL; Eosinophils% 0.1 % (0-5); Hematocrit 36.6 % (37-47); Hemoglobin 11.9 g/dL (12.0-15.0); Lymphocyte # 1.21 X10^3/ul (0.83-4.51); Lymphocyte % 17.4 % (19-41); Mean Corp Hgb Conc 32.5 g/dL (32-36); Mean Corpuscular Hgb 32.2 pg (27.0-32.0); Mean Corpuscular Volume 99.2 fL (81-99); Monocyte% 7.2 % (0-10); NRBC Flagged by Analyzer 0 % (0-5); Neutrophil # 5.18 X10^3/uL (2.7-7.7); Neutrophil % 74.4 % (47-70); Platelet Count 203 K/mm3 (150-450); RBC Distribution Width CV 14.9 % (11.6-14.6); RBC Distribution Width SD 53.5 fl (35.1-43.9); Red Blood Count 3.69 M/mm3 (4.2-5.4)
[2022-07-30 06:20] LABS: ALB/GLOB Ratio 0.8 RATIO (0.9-2.4); AST(SGOT) 26 U/L (15-37); Alanine Aminotransfer ALT/SGPT 29 U/L (13-56); Albumin, Serum 3.1 g/dL (3.2-5.0); Alkaline Phosphatase 75 U/L (45-117); Anion Gap 8 (5-15); BUN 29 mg/dL (7-18); BUN/Creat Ratio 23.8 RATIO (10-20); Chloride 111 mmol/L (98-107); Creatinine, Serum 1.22 mg/dL (0.55-1.02); EST Glomerular Filtration Rate 45 mL/min (>60); Est Glom Filt Rate - Afr Amer 55 mL/min (>60); Estimated Creatinine Clearance 28.59 ml/min; Globulin 3.7 g/dL (2.2-4.2); Glucose 102 mg/dL (74-106); Potassium 3.4 mmol/L (3.5-5.1); Protein, Total 6.8 g/dL (6.4-8.2); Sodium Level 143 mmol/L (136-145)
[2022-07-30] MEDS: Ipratropium/Albuterol Sulfate 3 ML AMPUL.NEB INHALATION ×5 (06:48→23:05)
[2022-07-30] MEDS: Ensure Plus High Protein 120 ML LIQUID PO (09:48)
[2022-07-30] MEDS: dilTIAZem CD 180 MG Capsule 360 MG PO (09:55)
[2022-07-30] MEDS: Heparin Injection (Vial) 5,000 UNIT/ML VIAL 5000 UNIT SC ×2 (09:56→22:12)
[2022-07-30] MEDS: guaiFENesin 1,200 MG Tablet 1200 MG PO ×2 (09:56→22:12)
[2022-07-30] MEDS: 0.9% Saline Lock 10 ML Syringe IV ×2 (09:57→14:05)
[2022-07-30] MEDS: Loperamide 2 MG Capsule PO (10:00)
--- NOTE | 2022-07-30 14:41 | PN.HOSP_ITS ---
Subjective Subjective Continues to be short of breath with high O2 requirements however feels better than she did yesterday, still has somewhat of a cough Objective Data Objective Data Vital Signs: Vital Signs Temp Pulse Resp BP Pulse Ox O2 Del Method O2 Flow Rate 98.0 F 90 18 135/77 H 95 Nasal Cannula 6 07/30/22 14:03 07/30/22 14:03 07/30/22 14:03 07/30/22 14:03 07/30/22 14:03 07/30/22 14:03 07/30/22 14:03 FiO2 92 07/30/22 10:00 Oxygen Flow Rate (L/min) 6 Oxygen Delivery Method Nasal Cannula Weight: 46.901 kg Body Mass Index (BMI) 19.5 Intake & Output: Intake and Output for Last 24 Hours 07/28/22 07/29/22 07/30/22 23:59 23:59 23:59 Intake Total 305 / 305 305 / 305 305 / 305 Output Total 100 / 100 Balance 305 / 305 205 / 205 305 / 305 Lab / Micro Data Result Diagrams: 07/30/22 05:08 07/30/22 05:08 Labs: Laboratory Results - last 24 hr 07/30/22 05:08: WBC 7.0, RBC 3.69 L, Hgb 11.9 L, Hct 36.6 L, MCV 99.2 H, MCH 32.2 H, MCHC 32.5, RDW Std Deviation 53.5 H, RDW Coeff of Arnulfo 14.9 H, Plt Count 203, MPV 12.0, Immature Gran % (Auto) 0.600, Neut % (Auto) 74.4 H, Lymph % (Auto) 17.4 L, [place] % (Auto) 7.2, Eos % (Auto) 0.1, Baso % (Auto) 0.3, Absolute Neuts (auto) 5.2, Absolute Lymphs (auto) 1.21, Nucleated RBC % 0 07/30/22 05:08: Sodium 143, Potassium 3.4 L, Chloride 111 H, Carbon Dioxide 24.0, Anion Gap 8, BUN 29 H, Creatinine 1.22 H, Estim Creat Clear Calc 28.59, Est GFR (MDRD) Af Amer 55 L, Est GFR (MDRD) Non-Af 45 L, BUN/Creatinine Ratio 23.8 H, Glucose 102, Calcium 9.0, Total Bilirubin 0.30, AST 26, ALT 29, Alkaline Phosphatase 75, Total Protein 6.8, Albumin 3.1 L, Globulin 3.7, Albumin/Globulin Ratio 0.8 L Micro: Microbiology 07/27/22 17:20 Mucosa - Nasopharyngeal Respiratory Panel (PCR) - Final Parainfluenza 1 07/28/22 02:22 Urine, Clean Catch Legionella Antigen - Final 07/28/22 02:22 Urine, Clean Catch Streptococcus pneumoniae Antigen (M - Final 07/27/22 11:30 Nasal Secretion SARS-CoV-2 & FLU Antigen (Rapid) - Final 07/27/22 11:19 Interface Orders Rapid RSV (DFA) - Final Physical Exam Const alert and no apparent distress Constitutional Narrative: Oriented HEENT normocephalic and head/scalp atraumatic Eyes Eyes Narrative: EOM grossly intact, anicteric Neck supple Resp Resp Narrative: Somewhat increased work of breathing, coarse at the bases Cardio regular rate and regular rhythm GI soft to palpation, non-tender and non-distended Extremity Extremity Narrative: No edema appreciated Neuro moves all extremities Neuro Narrative: No overt focal deficits appreciated Psych Psych Narrative: Cooperative Assessment & Plan Assessment/Plan (1) Left lower lobe pneumonia: (2) Hypoxia: PLAN: Plan #Hypoxia secondary to community-acquired pneumonia Chest x-ray with left lower lobe infiltrate DuoNebs and as needed albuterol Sputum culture, COVID and flu, respiratory panel Urine antigens Mucinex, I/S Rocephin and azithromycin 07/28/22: Continues to have high oxygen requirements. Continue nebs and antibiotics 07/29: Urine antigens negative, continues to have high O2 requirements, respiratory panel did come back with parainfluenza which explains the lack of improvement with antibiotics. 07/30: Slowly improving continue current management #Hypertension Continue home medications Has systolic ejection murmur on exam, will check echo 07/28: Stage II diastolic dysfunction with mild mitral and aortic valve insufficiency and mild aortic stenosis 07/30: Doing that her on home dose of Cardizem #CKD stage IIIb Avoid nephrotoxic agents Monitor BMP 07/28: Slightly worsened today, given her diastolic dysfunction hesitant to give fluids. Will get renal ultrasound and urine lytes. Continue to hold ARB 07/29: Slightly improved today, ultrasound showed slight increase in echogenicity compatible with medical renal disease #DVT ppx: Subcu heparin Bisi Owens MD Charges/Coding Visit Charges Inpatient E&M: 07339 Subs Hosp L2
[2022-07-30] MEDS: Potassium Chloride Oral Tablet 20 MEQ 40 MEQ PO (16:55)
--- NOTE | 2022-07-30 17:22 | CASEMGMT ---
Addendum entered by Fabby Reaves 07/30/22 17:49: SN also added to HHC order and VM left w/Chanell @ [facility] re: same Original Note: JULIA TAYLOR NOTE: Per Dr Owens, pt may be medically ready for discharge back to [facility] over the weekend, as long as she is requiring less than 6 l/m w/ambulation. Currently pt on 6 l/m @ rest. JULIA CM to room to talk w/pt and to discuss discharge planning. Pt states she wishes to return to [facility]. She is aware she may qualify for O2 @ discharge and has no preference of DME co. She was made aware [facility] is affiliated w/[facility] and she chooses [employer]. She also states would like a walker and chooses [employer]. Script for Adebayo walker placed on pt's chart, awaiting signature from physician. Melissa from [facility] made aware pt may d/c over the weekend. She placed a Jr walker on MS2 @ ns station. Walker to be provided to pt if she d/c's over the weekend, once script is signed by physician. Script to be faxed to [facility] as well. Pt states is interested in HHC and she denies having a preference. She was made aware [facility] has HHC and she chooses [facility]. Order placed for PT/OT and ST. Call placed to [facility] re: referral. No answer. VM left for return call. JULIA TAYLOR to f/u with [facility] on Tuesday re: referral. Green sheet placed on chart. D/C plan: Return to [facility]. Follow for Home O2 needs and pt to be provided w/adebayo walker. Favian SINGLETON RN, CM
[2022-07-31] VITALS (18 sets, daily range): BP systolic 142–174; BP diastolic 72–89; PULSE 74–93; RESP 16–22; TEMP 36.6–37.2; O2SAT 92–96
[2022-07-31] MEDS: Ipratropium/Albuterol Sulfate 3 ML AMPUL.NEB INHALATION ×5 (06:56→23:10)
[2022-07-31 07:06] LABS: Absolute Lymphocyte Count 1.54 X10^3/uL (0.83-4.51); Absolute Neutrophil Count 5.1 X10^3/uL (2.0-7.7); Basophil# 0.02 X10^3/uL; Basophil% 0.3 % (0-1); Eosinophil# 0.01 X10^3/uL; Eosinophils% 0.1 % (0-5); Hematocrit 38.5 % (37-47); Hemoglobin 12.2 g/dL (12.0-15.0); Lymphocyte # 1.54 X10^3/ul (0.83-4.51); Lymphocyte % 21.2 % (19-41); Mean Corp Hgb Conc 31.7 g/dL (32-36); Mean Platelet Vol. 11.8 fl (6.2-12.0); Monocyte# 0.55 X10^3/uL; Monocyte% 7.6 % (0-10); NRBC Flagged by Analyzer 0 % (0-5); Neutrophil # 5.09 X10^3/uL (2.7-7.7); Neutrophil % 70.2 % (47-70); Platelet Count 204 K/mm3 (150-450); RBC Distribution Width CV 14.9 % (11.6-14.6); RBC Distribution Width SD 54.9 fl (35.1-43.9); Red Blood Count 3.81 M/mm3 (4.2-5.4); White Blood Count 7.3 K/mm3 (4.4-11.0)
[2022-07-31 07:31] LABS: Anion Gap 4 (5-15); BUN 27 mg/dL (7-18); BUN/Creat Ratio 24.8 RATIO (10-20); Calcium,Total 9.1 mg/dL (8.5-10.1); Chloride 112 mmol/L (98-107); Creatinine, Serum 1.09 mg/dL (0.55-1.02); EST Glomerular Filtration Rate 52 mL/min (>60); Est Glom Filt Rate - Afr Amer 62 mL/min (>60); Glucose 97 mg/dL (74-106); Sodium Level 143 mmol/L (136-145)
[2022-07-31] MEDS: Potassium Chloride Oral Tablet 20 MEQ 40 MEQ PO (08:12)
[2022-07-31] MEDS: Loperamide 2 MG Capsule PO ×2 (08:15→20:13)
--- NOTE | 2022-07-31 09:07 | PCM.PN.HOSP ---
Subjective Subjective Breathing was slightly better this morning however she began having coughing check and it worsened her breathing, having difficulty coughing up thick secretions. Overall is feeling better but is weak. Physical therapy recommended placement and she is tentatively willing to consider this Objective Data Objective Data Vital Signs: Vital Signs Temp Pulse Resp BP Pulse Ox O2 Del Method O2 Flow Rate 98.4 F 77 20 H 160/84 H 92 High Flow 6 07/31/22 06:15 07/31/22 08:00 07/31/22 06:58 07/31/22 06:15 07/31/22 06:58 07/31/22 06:58 07/31/22 06:58 FiO2 93 07/30/22 22:00 Oxygen Flow Rate (L/min) 6 Oxygen Delivery Method High Flow Weight: 46.901 kg Body Mass Index (BMI) 19.5 Intake & Output: Intake and Output for Last 24 Hours 07/29/22 07/30/22 07/31/22 23:59 23:59 23:59 Intake Total 305 / 305 505 / 505 Output Total 100 / 100 Balance 205 / 205 505 / 505 Lab / Micro Data Result Diagrams: 07/31/22 06:30 07/31/22 06:30 Labs: Laboratory Results - last 24 hr 07/31/22 06:30: WBC 7.3, RBC 3.81 L, Hgb 12.2, Hct 38.5, MCV 101.0 H, MCH 32.0, MCHC 31.7 L, RDW Std Deviation 54.9 H, RDW Coeff of Arnulfo 14.9 H, Plt Count 204, MPV 11.8, Immature Gran % (Auto) 0.600, Neut % (Auto) 70.2 H, Lymph % (Auto) 21.2, [place] % (Auto) 7.6, Eos % (Auto) 0.1, Baso % (Auto) 0.3, Absolute Neuts (auto) 5.1, Absolute Lymphs (auto) 1.54, Nucleated RBC % 0 07/31/22 06:30: Sodium 143, Potassium 4.0, Chloride 112 H, Carbon Dioxide 27.0, Anion Gap 4 L, BUN 27 H, Creatinine 1.09 H, Estim Creat Clear Calc 32.00, Est GFR (MDRD) Af Amer 62, Est GFR (MDRD) Non-Af 52 L, BUN/Creatinine Ratio 24.8 H, Glucose 97, Calcium 9.1 Micro: Microbiology 07/27/22 17:20 Mucosa - Nasopharyngeal Respiratory Panel (PCR) - Final Parainfluenza 1 07/28/22 02:22 Urine, Clean Catch Legionella Antigen - Final 07/28/22 02:22 Urine, Clean Catch Streptococcus pneumoniae Antigen (M - Final 07/27/22 11:30 Nasal Secretion SARS-CoV-2 & FLU Antigen (Rapid) - Final 07/27/22 11:19 Interface Orders Rapid RSV (DFA) - Final Physical Exam Const alert Constitutional Narrative: Oriented HEENT normocephalic and head/scalp atraumatic Eyes Eyes Narrative: EOM grossly intact, anicteric Neck supple Resp Resp Narrative: Actively coughing, somewhat coarse at the bases, improved work of breathing Cardio regular rate and regular rhythm GI soft to palpation, non-tender and non-distended Extremity Extremity Narrative: No edema appreciated Neuro moves all extremities Neuro Narrative: No overt focal deficits appreciated Psych Psych Narrative: Cooperative Assessment & Plan Assessment/Plan (1) Left lower lobe pneumonia: (2) Hypoxia: PLAN: Plan #Hypoxia secondary to community-acquired pneumonia Chest x-ray with left lower lobe infiltrate DuoNebs and as needed albuterol Sputum culture, COVID and flu, respiratory panel Urine antigens Mucinex, I/S Rocephin and azithromycin 07/28/22: Continues to have high oxygen requirements. Continue nebs and antibiotics 07/29: Urine antigens negative, continues to have high O2 requirements, respiratory panel did come back with parainfluenza which explains the lack of improvement with antibiotics. 07/30: Slowly improving continue current management 07/31: Had been doing better this morning until she began coughing, continue Mucinex, will order chest physiotherapy. Slowly improving, will likely need placement upon discharge. Remains on antibiotics and nebs #Hypertension Continue home medications Has systolic ejection murmur on exam, will check echo 07/28: Stage II diastolic dysfunction with mild mitral and aortic valve insufficiency and mild aortic stenosis 07/30: Doing better on her home dose of Cardizem #CKD stage IIIb Avoid nephrotoxic agents Monitor BMP 07/28: Slightly worsened today, given her diastolic dysfunction hesitant to give fluids. Will get renal ultrasound and urine lytes. Continue to hold ARB 07/29: Slightly improved today, ultrasound showed slight increase in echogenicity compatible with medical renal disease #DVT ppx: Subcu heparin Bisi Owens MD Charges/Coding Visit Charges Inpatient E&M: 86559 Subs Hosp L2
[2022-07-31] MEDS: guaiFENesin 1,200 MG Tablet 1200 MG PO ×2 (10:30→20:13)
[2022-07-31] MEDS: Heparin Injection (Vial) 5,000 UNIT/ML VIAL 5000 UNIT SC ×2 (10:31→20:13)
[2022-07-31] MEDS: dilTIAZem CD 180 MG Capsule 360 MG PO (10:31)
[2022-07-31] MEDS: Psyllium 1 PACKET PO ×2 (13:19→20:13)
[2022-08-01] VITALS (18 sets, daily range): BP systolic 129–165; BP diastolic 63–86; PULSE 71–105; RESP 16–21; TEMP 36.4–36.8; O2SAT 87–98
[2022-08-01] MEDS: hydrALAZINE 20 MG/ML Vial 10 MG IV (02:09)
[2022-08-01] MEDS: 0.9% Saline Lock 10 ML Syringe IV ×2 (02:09→09:12)
[2022-08-01 05:17] LABS: Absolute Lymphocyte Count 1.36 X10^3/uL (0.83-4.51); Absolute Neutrophil Count 5.6 X10^3/uL (2.0-7.7); Basophil# 0.03 X10^3/uL; Basophil% 0.4 % (0-1); Eosinophil# 0.05 X10^3/uL; Eosinophils% 0.6 % (0-5); Hematocrit 37.7 % (37-47); Hemoglobin 12.4 g/dL (12.0-15.0); Lymphocyte # 1.36 X10^3/ul (0.83-4.51); Lymphocyte % 17.6 % (19-41); Mean Corp Hgb Conc 32.9 g/dL (32-36); Mean Corpuscular Hgb 33.5 pg (27.0-32.0); Mean Corpuscular Volume 101.9 fL (81-99); Mean Platelet Vol. 11.8 fl (6.2-12.0); Monocyte# 0.69 X10^3/uL; Monocyte% 8.9 % (0-10); NRBC Flagged by Analyzer 0 % (0-5); Neutrophil # 5.57 X10^3/uL (2.7-7.7); Neutrophil % 72.1 % (47-70); Platelet Count 182 K/mm3 (150-450); RBC Distribution Width CV 14.6 % (11.6-14.6); RBC Distribution Width SD 54.7 fl (35.1-43.9); White Blood Count 7.7 K/mm3 (4.4-11.0)
[2022-08-01 05:44] LABS: Anion Gap 6 (5-15); BUN 30 mg/dL (7-18); Calcium,Total 8.9 mg/dL (8.5-10.1); Chloride 111 mmol/L (98-107); Creatinine, Serum 1.07 mg/dL (0.55-1.02); EST Glomerular Filtration Rate 53 mL/min (>60); Est Glom Filt Rate - Afr Amer 64 mL/min (>60); Glucose 89 mg/dL (74-106); Potassium 4.3 mmol/L (3.5-5.1); Sodium Level 141 mmol/L (136-145)
[2022-08-01] MEDS: Ipratropium/Albuterol Sulfate 3 ML AMPUL.NEB INHALATION ×5 (07:25→23:23)
--- NOTE | 2022-08-01 08:46 | PN.HOSP_ITS ---
Subjective Subjective Continues to improve, on O2 but O2 sat improving. Still generally weak. Beginning to work toward d/c planning once she can ambulate and needs 6L O2 or less can work on placement. Objective Data Objective Data Vital Signs: Vital Signs Temp Pulse Resp BP Pulse Ox O2 Del Method O2 Flow Rate 97.5 F L 78 18 155/79 H 95 Nasal Cannula 5 08/01/22 02:15 08/01/22 07:05 08/01/22 07:05 08/01/22 02:28 08/01/22 08:41 08/01/22 08:41 08/01/22 08:41 FiO2 93 07/30/22 22:00 Oxygen Flow Rate (L/min) 5 Oxygen Delivery Method Nasal Cannula Weight: 46.901 kg Body Mass Index (BMI) 19.5 Intake & Output: Intake and Output for Last 24 Hours 07/30/22 07/31/22 08/01/22 23:59 23:59 23:59 Intake Total 505 / 505 1605 / 1605 Balance 505 / 505 1605 / 1605 Lab / Micro Data Result Diagrams: 08/01/22 04:35 08/01/22 04:35 Labs: Laboratory Results - last 24 hr 08/01/22 04:35: WBC 7.7, RBC 3.70 L, Hgb 12.4, Hct 37.7, MCV 101.9 H, MCH 33.5 H , MCHC 32.9, RDW Std Deviation 54.7 H, RDW Coeff of Arnulfo 14.6, Plt Count 182, MPV 11.8, Immature Gran % (Auto) 0.400, Neut % (Auto) 72.1 H, Lymph % (Auto) 17.6 L, [place] % (Auto) 8.9, Eos % (Auto) 0.6, Baso % (Auto) 0.4, Absolute Neuts (auto) 5.6, Absolute Lymphs (auto) 1.36, Nucleated RBC % 0 08/01/22 04:35: Sodium 141, Potassium 4.3, Chloride 111 H, Carbon Dioxide 24.0, Anion Gap 6, BUN 30 H, Creatinine 1.07 H, Estim Creat Clear Calc 32.60, Est GFR (MDRD) Af Amer 64, Est GFR (MDRD) Non-Af 53 L, BUN/Creatinine Ratio 28.0 H, Glucose 89, Calcium 8.9 Micro: Microbiology 07/27/22 17:20 Mucosa - Nasopharyngeal Respiratory Panel (PCR) - Final Parainfluenza 1 07/28/22 02:22 Urine, Clean Catch Legionella Antigen - Final 07/28/22 02:22 Urine, Clean Catch Streptococcus pneumoniae Antigen (M - Final 07/27/22 11:30 Nasal Secretion SARS-CoV-2 & FLU Antigen (Rapid) - Final 07/27/22 11:19 Interface Orders Rapid RSV (DFA) - Final Physical Exam Const alert Constitutional Narrative: Oriented HEENT normocephalic and head/scalp atraumatic Eyes Eyes Narrative: EOM grossly intact, anicteric Neck supple Resp Resp Narrative: Aeration improving, work of breathing improving Cardio regular rate and regular rhythm GI soft to palpation, non-tender and non-distended Extremity Extremity Narrative: No edema appreciated Neuro moves all extremities Neuro Narrative: No overt focal deficits appreciated Psych Psych Narrative: Cooperative Assessment & Plan Assessment/Plan (1) Left lower lobe pneumonia: (2) Hypoxia: PLAN: Plan #Hypoxia secondary to community-acquired pneumonia Chest x-ray with left lower lobe infiltrate DuoNebs and as needed albuterol Sputum culture, COVID and flu, respiratory panel Urine antigens Mucinex, I/S Rocephin and azithromycin 07/28/22: Continues to have high oxygen requirements. Continue nebs and antibiotics 07/29: Urine antigens negative, continues to have high O2 requirements, respiratory panel did come back with parainfluenza which explains the lack of improvement with antibiotics. 07/30: Slowly improving continue current management 07/31: Had been doing better this morning until she began coughing, continue Mucinex, will order chest physiotherapy. Slowly improving, will likely need placement upon discharge. Remains on antibiotics and nebs 08/01: Certainly improving, once able to ambulate and need 6 L of oxygen or less we will work towards placement. Have discussed with her and her daughter and they are open to discussion of SNF prior to going back to [place] #Hypertension Continue home medications Has systolic ejection murmur on exam, will check echo 07/28: Stage II diastolic dysfunction with mild mitral and aortic valve insufficiency and mild aortic stenosis 07/30: Doing better on her home dose of Cardizem #CKD stage IIIb Avoid nephrotoxic agents Monitor BMP 07/28: Slightly worsened today, given her diastolic dysfunction hesitant to give fluids. Will get renal ultrasound and urine lytes. Continue to hold ARB 07/29: Slightly improved today, ultrasound showed slight increase in echogenicity compatible with medical renal disease 08/01: Continues to improve but BUN increased, concern she is slightly dry, will give very small bolus #DVT ppx: Subcu heparin Bisi Owens MD Charges/Coding Visit Charges Inpatient E&M: 46127 Subs Hosp L2
[2022-08-01] MEDS: Loperamide 2 MG Capsule PO (09:06)
[2022-08-01] MEDS: guaiFENesin 1,200 MG Tablet 1200 MG PO ×2 (09:07→21:27)
[2022-08-01] MEDS: Heparin Injection (Vial) 5,000 UNIT/ML VIAL 5000 UNIT SC ×2 (09:07→21:27)
[2022-08-01] MEDS: dilTIAZem CD 180 MG Capsule 360 MG PO (09:07)
[2022-08-01] MEDS: Ensure Plus High Protein 120 ML LIQUID PO ×3 (09:22→17:39)
[2022-08-02] VITALS (17 sets, daily range): BP systolic 135–161; BP diastolic 71–81; PULSE 83–103; RESP 16–20; TEMP 36.6–37; O2SAT 90–98
[2022-08-02] MEDS: Ipratropium/Albuterol Sulfate 3 ML AMPUL.NEB INHALATION ×3 (07:11→15:32)
[2022-08-02 07:30] LABS: Absolute Lymphocyte Count 1.39 X10^3/uL (0.83-4.51); Absolute Neutrophil Count 5.3 X10^3/uL (2.0-7.7); Basophil# 0.03 X10^3/uL; Basophil% 0.4 % (0-1); Eosinophil# 0.06 X10^3/uL; Eosinophils% 0.8 % (0-5); Hematocrit 34.7 % (37-47); Hemoglobin 11.1 g/dL (12.0-15.0); Lymphocyte # 1.39 X10^3/ul (0.83-4.51); Lymphocyte % 18.4 % (19-41); Mean Corpuscular Hgb 32.7 pg (27.0-32.0); Mean Corpuscular Volume 102.4 fL (81-99); Mean Platelet Vol. 11.7 fl (6.2-12.0); Monocyte# 0.72 X10^3/uL; Monocyte% 9.5 % (0-10); NRBC Flagged by Analyzer 0 % (0-5); Neutrophil # 5.32 X10^3/uL (2.7-7.7); Neutrophil % 70.4 % (47-70); Platelet Count 196 K/mm3 (150-450); RBC Distribution Width CV 14.7 % (11.6-14.6); RBC Distribution Width SD 54.7 fl (35.1-43.9); Red Blood Count 3.39 M/mm3 (4.2-5.4); White Blood Count 7.6 K/mm3 (4.4-11.0)
[2022-08-02 07:52] LABS: Anion Gap 2 (5-15); BUN 39 mg/dL (7-18); Calcium,Total 8.8 mg/dL (8.5-10.1); Chloride 113 mmol/L (98-107); Creatinine, Serum 1.26 mg/dL (0.55-1.02); EST Glomerular Filtration Rate 44 mL/min (>60); Est Glom Filt Rate - Afr Amer 53 mL/min (>60); Estimated Creatinine Clearance 27.68 ml/min; Glucose 93 mg/dL (74-106); Potassium 4.5 mmol/L (3.5-5.1); Sodium Level 140 mmol/L (136-145)
--- NOTE | 2022-08-02 08:01 | PCM.PN.HOSP ---
Subjective Subjective Complains of pimples on inside of mouth. Having diarrhea. Concerned that she is not on loperamide. Objective Data Objective Data Vital Signs: Vital Signs Temp Pulse Resp BP Pulse Ox O2 Del Method O2 Flow Rate 37.0 C 103 H 20 H 155/71 H 97 Nasal Cannula 3 08/02/22 04:00 08/02/22 07:12 08/02/22 07:12 08/02/22 04:00 08/02/22 07:12 08/02/22 07:12 08/02/22 07:12 FiO2 93 07/30/22 22:00 Oxygen Flow Rate (L/min) 3 Oxygen Delivery Method Nasal Cannula Weight: 46.901 kg Body Mass Index (BMI) 19.5 Intake & Output: Intake and Output for Last 24 Hours 07/31/22 08/01/22 08/02/22 23:59 23:59 23:59 Intake Total 1605 / 1605 615 / 615 Balance 1605 / 1605 615 / 615 Lab / Micro Data Result Diagrams: 08/02/22 06:10 08/02/22 06:10 Labs: Laboratory Results - last 24 hr 08/02/22 06:10: WBC 7.6, RBC 3.39 L, Hgb 11.1 L, Hct 34.7 L, MCV 102.4 H, MCH 32.7 H, MCHC 32.0, RDW Std Deviation 54.7 H, RDW Coeff of [place] 14.7 H, Plt Count 196, MPV 11.7, Immature Gran % (Auto) 0.500, Neut % (Auto) 70.4 H, Lymph % (Auto) 18.4 L, [place] % (Auto) 9.5, Eos % (Auto) 0.8, Baso % (Auto) 0.4, Absolute Neuts (auto) 5.3, Absolute Lymphs (auto) 1.39, Nucleated RBC % 0 08/02/22 06:10: Sodium 140, Potassium 4.5, Chloride 113 H, Carbon Dioxide 25.0, Anion Gap 2 L, BUN 39 H, Creatinine 1.26 H, Estim Creat Clear Calc 27.68, Est GFR (MDRD) Af Amer 53 L, Est GFR (MDRD) Non-Af 44 L, BUN/Creatinine Ratio 31.0 H, Glucose 93, Calcium 8.8 Micro: Microbiology 07/27/22 17:20 Mucosa - Nasopharyngeal Respiratory Panel (PCR) - Final Parainfluenza 1 07/28/22 02:22 Urine, Clean Catch Legionella Antigen - Final 07/28/22 02:22 Urine, Clean Catch Streptococcus pneumoniae Antigen (M - Final 07/27/22 11:30 Nasal Secretion SARS-CoV-2 & FLU Antigen (Rapid) - Final 07/27/22 11:19 Interface Orders Rapid RSV (DFA) - Final Physical Exam Const alert and no apparent distress HEENT HEENT Narrative: thrush on buccal mucosa. Resp normal respiratory effort, no retractions, no use of accessory muscles and clear to auscultation bilaterally Cardio regular rate, regular rhythm, S1 normal heart sound and S2 normal heart sound GI normal to inspection, nondistended, normoactive bowel sounds, soft to palpation, non-tender and non-distended Assessment & Plan Assessment/Plan (1) Left lower lobe pneumonia: PLAN: Suspect pneumococcal + Parainfluenza 1 Chest x-ray with left lower lobe infiltrate DuoNebs and as needed albuterol Sputum culture, COVID and flu, respiratory panel Urine antigens Mucinex, I/S Rocephin and azithromycin 07/28/22: Continues to have high oxygen requirements. Continue nebs and antibiotics 07/29: Urine antigens negative, continues to have high O2 requirements, respiratory panel did come back with parainfluenza which explains the lack of improvement with antibiotics. 07/30: Slowly improving continue current management 07/31: Had been doing better this morning until she began coughing, continue Mucinex, will order chest physiotherapy. Slowly improving, will likely need placement upon discharge. Remains on antibiotics and nebs 08/01: Certainly improving, once able to ambulate and need 6 L of oxygen or less we will work towards placement. Have discussed with her and her daughter and they are open to discussion of SNF prior to going back to [place] (2) Hypoxia: PLAN: Improved 2/2 pneumonia (3) Aortic stenosis: PLAN: Mild on Follow up with cardiology as outpt. (4) Thrush: PLAN: add nystatin (5) Diarrhea: PLAN: chronic. takes immodium chronically. unclear etiology, but not different than at baseline check C. diff, if negative, resume anticoagulation. PLAN: Plan chronic conditions: Hypertension: Continue home medications. 07/28: Stage II diastolic dysfunction with mild mitral and aortic valve insufficiency and mild aortic stenosis. 07/30: Doing better on her home dose of Cardizem CKD stage IIIb: Avoid nephrotoxic agents Monitor BMP 07/28: Slightly worsened today, given her diastolic dysfunction hesitant to give fluids. Will get renal ultrasound and urine lytes. Continue to hold ARB 07/29: Slightly improved today, ultrasound showed slight increase in echogenicity compatible with medical renal disease 08/01: Continues to improve but BUN increased, concern she is slightly dry, will give very small bolus #DVT ppx: Subcu heparin Charges/Coding Visit Charges Inpatient E&M: 08946 Subs Hosp L2
[2022-08-02] MEDS: 0.9% Saline Lock 10 ML Syringe IV ×2 (09:10→16:41)
[2022-08-02] MEDS: Ensure Plus High Protein 120 ML LIQUID PO ×3 (09:16→16:40)
[2022-08-02] MEDS: dilTIAZem CD 180 MG Capsule 360 MG PO (09:16)
[2022-08-02] MEDS: Heparin Injection (Vial) 5,000 UNIT/ML VIAL 5000 UNIT SC ×2 (09:16→22:11)
[2022-08-02] MEDS: guaiFENesin 1,200 MG Tablet 1200 MG PO ×2 (11:36→22:11)
[2022-08-02] MEDS: Sodium Chloride 0.65% 1 SPRAY SPRAY.BTL 2 SPRAY NASAL (15:52)
[2022-08-02] MEDS: hydrALAZINE 20 MG/ML Vial 10 MG IV (16:40)
[2022-08-02] MEDS: NYSTATIN 500,000 UNIT/5 ML UDC 500000 UNIT PO ×2 (16:40→22:11)
--- NOTE | 2022-08-02 17:47 | EKG12_ITS ---
Test Reason : SOB Blood Pressure : / mmHG Vent. Rate : 087 BPM Atrial Rate : 087 BPM P-R Int : 142 ms QRS Dur : 084 ms QT Int : 358 ms P-R-T Axes : 071 066 064 degrees QTc Int : 430 ms Normal sinus rhythm Left ventricular hypertrophy Abnormal ECG Confirmed by YAIMA UKO, EILEEN ([id number]), rewrite editor EDUAR JESUS ([id number]) on 08/05/2022 10:17:18 AM Referred By: ULICES Confirmed By:EILEEN ERWIN MD
--- NOTE | 2022-08-02 18:40 | RAD_ITS ---
STUDY: X-RAY CHEST REASON FOR EXAM: Female, 76 years old. SOB TECHNIQUE: XR Chest 1 View COMPARISON: 07.27.22 FINDINGS: There is atherosclerotic calcification of the aortic arch with tortuosity. There are diffuse degenerative changes of the visualized thoracic spine. There is degenerative osteoarthritis of the bilateral shoulders. Scoliosis of the thoracic spine. Normal size heart. Normal mediastinum and riana. Normal visualized pulmonary arteries. There is no demonstrated abnormality of the visualized soft tissue structures of the upper abdomen. RAD/Chest 1 View (Portable) IMPRESSION: There are no acute findings. Electronically Signed: Mark Gannon MD at 18:57 EST ,
[2022-08-02] MEDS: Albuterol 2.5 MG/3 ML VIAL.NEB. INHALATION (19:15)
--- NOTE | 2022-08-02 21:05 | NURSING ---
Called RT to inquire about vest percussion therapy. States they will be up to place on patient.
[2022-08-02] MEDS: Psyllium 1 PACKET PO (22:11)
[2022-08-03] VITALS (13 sets, daily range): BP systolic 142–159; BP diastolic 70–86; PULSE 76–94; RESP 16–20; TEMP 36.7–36.9; O2SAT 92–96
--- NOTE | 2022-08-03 02:05 | CPS ---
RT busy with critical patient, unable to do TX or PEP
[2022-08-03] MEDS: Ipratropium/Albuterol Sulfate 3 ML AMPUL.NEB INHALATION ×5 (03:43→20:37)
--- NOTE | 2022-08-03 04:35 | CPS ---
Chest vest held per physician until 08/03/22 AM
[2022-08-03 06:48] LABS: Anion Gap 5 (5-15); BUN 29 mg/dL (7-18); BUN/Creat Ratio 28.2 RATIO (10-20); Calcium,Total 9.1 mg/dL (8.5-10.1); Chloride 111 mmol/L (98-107); Creatinine, Serum 1.03 mg/dL (0.55-1.02); EST Glomerular Filtration Rate 55 mL/min (>60); Est Glom Filt Rate - Afr Amer 67 mL/min (>60); Estimated Creatinine Clearance 33.87 ml/min; Glucose 96 mg/dL (74-106); Potassium 4.3 mmol/L (3.5-5.1); Sodium Level 142 mmol/L (136-145)
--- NOTE | 2022-08-03 07:21 | PCM.PN.HOSP ---
Subjective Subjective Became acutely short of breath yesterday. Breathing better today. Objective Data Objective Data Vital Signs: Vital Signs Temp Pulse Resp BP Pulse Ox O2 Del Method O2 Flow Rate 36.9 C 76 16 153/76 H 95 Nasal Cannula 3 08/03/22 04:00 08/03/22 04:11 08/03/22 04:11 08/03/22 04:00 08/03/22 04:20 08/03/22 04:20 08/03/22 04:20 FiO2 93 07/30/22 22:00 Oxygen Flow Rate (L/min) 3 Oxygen Delivery Method Nasal Cannula Weight: 46.901 kg Body Mass Index (BMI) 19.5 Intake & Output: Intake and Output for Last 24 Hours 08/01/22 08/02/22 08/03/22 23:59 23:59 23:59 Intake Total 615 / 615 305 / 305 330 / 330 Output Total 300 / 300 Balance 615 / 615 305 / 305 30 / 30 Lab / Micro Data Result Diagrams: 08/02/22 06:10 08/03/22 05:16 Labs: Laboratory Results - last 24 hr 08/02/22 06:10: WBC 7.6, RBC 3.39 L, Hgb 11.1 L, Hct 34.7 L, MCV 102.4 H, MCH 32.7 H, MCHC 32.0, RDW Std Deviation 54.7 H, RDW Coeff of [place] 14.7 H, Plt Count 196, MPV 11.7, Immature Gran % (Auto) 0.500, Neut % (Auto) 70.4 H, Lymph % (Auto) 18.4 L, [place] % (Auto) 9.5, Eos % (Auto) 0.8, Baso % (Auto) 0.4, Absolute Neuts (auto) 5.3, Absolute Lymphs (auto) 1.39, Nucleated RBC % 0 08/02/22 06:10: Sodium 140, Potassium 4.5, Chloride 113 H, Carbon Dioxide 25.0, Anion Gap 2 L, BUN 39 H, Creatinine 1.26 H, Estim Creat Clear Calc 27.68, Est GFR (MDRD) Af Amer 53 L, Est GFR (MDRD) Non-Af 44 L, BUN/Creatinine Ratio 31.0 H, Glucose 93, Calcium 8.8 08/03/22 05:16: Sodium 142, Potassium 4.3, Chloride 111 H, Carbon Dioxide 26.0, Anion Gap 5, BUN 29 H, Creatinine 1.03 H, Estim Creat Clear Calc 33.87, Est GFR (MDRD) Af Amer 67, Est GFR (MDRD) Non-Af 55 L, BUN/Creatinine Ratio 28.2 H, Glucose 96, Calcium 9.1 Micro: Microbiology 07/27/22 17:20 Mucosa - Nasopharyngeal Respiratory Panel (PCR) - Final Parainfluenza 1 07/28/22 02:22 Urine, Clean Catch Legionella Antigen - Final 07/28/22 02:22 Urine, Clean Catch Streptococcus pneumoniae Antigen (M - Final 07/27/22 11:30 Nasal Secretion SARS-CoV-2 & FLU Antigen (Rapid) - Final 07/27/22 11:19 Interface Orders Rapid RSV (DFA) - Final Radiography Diagnostic Testing: Radiology Impression Chest X-Ray 08/02/22 18:40 IMPRESSION: There are no acute findings. Electronically Signed: Mark Gannon MD at 18:57 EST Reading Location ID and State: [facility] / [place] , Service support , Physical Exam Const alert and no apparent distress HEENT HEENT Narrative: Improving thrush on the buccal mucosa. Resp normal respiratory effort, no retractions, no use of accessory muscles and clear to auscultation bilaterally Cardio regular rate, regular rhythm, S1 normal heart sound and S2 normal heart sound GI normal to inspection, nondistended, normoactive bowel sounds and soft to palpation Assessment & Plan Assessment/Plan (1) Left lower lobe pneumonia: PLAN: Suspect pneumococcal + Parainfluenza 1 Chest x-ray with left lower lobe infiltrate DuoNebs and as needed albuterol Sputum culture, COVID and flu, respiratory panel Urine antigens Mucinex, I/S Rocephin and azithromycin 07/28/22: Continues to have high oxygen requirements. Continue nebs and antibiotics 07/29: Urine antigens negative, continues to have high O2 requirements, respiratory panel did come back with parainfluenza which explains the lack of improvement with antibiotics. 07/30: Slowly improving continue current management 07/31: Had been doing better this morning until she began coughing, continue Mucinex, will order chest physiotherapy. Slowly improving, will likely need placement upon discharge. Remains on antibiotics and nebs 08/01: Certainly improving, once able to ambulate and need 6 L of oxygen or less we will work towards placement. Have discussed with her and her daughter and they are open to discussion of SNF prior to going back to [place] 08/02: repeat CXR showed no change. oxygen has been able to be weaned back down. (2) Hypoxia: PLAN: Improved /2 pneumonia (3) Aortic stenosis: PLAN: Mild on Follow up with cardiology as outpt. (4) Thrush: PLAN: add nystatin. Continue for 14 days, through the (5) Diarrhea: PLAN: chronic. Discussed with nursing is more of soft stool. takes immodium chronically. unclear etiology, but not different than at baseline check C. diff, if negative, resume anticoagulation. PLAN: Plan chronic conditions: Hypertension: Continue home medications. 07/28: Stage II diastolic dysfunction with mild mitral and aortic valve insufficiency and mild aortic stenosis. 07/30: Doing better on her home dose of Cardizem CKD stage IIIb: Avoid nephrotoxic agents Monitor BMP 07/28: Slightly worsened today, given her diastolic dysfunction hesitant to give fluids. Will get renal ultrasound and urine lytes. Continue to hold ARB 07/29: Slightly improved today, ultrasound showed slight increase in echogenicity compatible with medical renal disease 08/01: Continues to improve but BUN increased, concern she is slightly dry, will give very small bolus #DVT ppx: Subcu heparin Charges/Coding Visit Charges Inpatient E&M: 24815 Subs Hosp L2
[2022-08-03] MEDS: dilTIAZem CD 180 MG Capsule 360 MG PO (09:23)
[2022-08-03] MEDS: Loperamide 2 MG Capsule PO (09:24)
[2022-08-03] MEDS: Heparin Injection (Vial) 5,000 UNIT/ML VIAL 5000 UNIT SC ×2 (09:25→22:32)
[2022-08-03] MEDS: Ensure Plus High Protein 120 ML LIQUID PO ×3 (09:27→17:09)
[2022-08-03] MEDS: 0.9% Saline Lock 10 ML Syringe IV (09:28)
[2022-08-03] MEDS: NYSTATIN 500,000 UNIT/5 ML UDC 500000 UNIT PO ×4 (09:29→22:32)
[2022-08-03] MEDS: guaiFENesin 1,200 MG Tablet 1200 MG PO ×2 (09:35→22:32)
--- NOTE | 2022-08-03 16:04 | CASEMGMT ---
Social Work SW in to meet with pt following update from that pt will need placement at nursing facility. SW introduced self and role at the hospital. Pt agreeable to discussing discharge planning. A list of SNF providers including quality and resource use data and consistent with the patient?s preferred geographic region, medical needs, and insurance network were provided from the [employer]. Pt unable to review list due to limited eye sight. Pt also unable to hear SW well due to hearing impairment. Pt requested SW speak with daughter, Nicole regarding choice. [facility] called Nicole. Nicole willing to review SNF List. [facility] sent list electronically via [employer]. Nicole to review and pick choices electronically this evening. [facility] to send referral tomorrow morning. PLAN: SNF? [facility]? ?
--- NOTE | 2022-08-03 19:17 | CASEMGMT ---
JULIA TAYLOR NOTE: PEDRITO left @ [facility] to notify them pt is now going to SNF. Order for HHC cancelled. E-mail sent to Melissa @ [facility] to inform her the Jr walker placed on MS2 @ the [facility] station will need to be picked up, as pt will no longer need it. Favian SINGLETON RN CM
[2022-08-04] VITALS (11 sets, daily range): BP systolic 127–170; BP diastolic 66–84; PULSE 84–93; RESP 16–32; TEMP 36.6–37.3; O2SAT 94–97
[2022-08-04] MEDS: Ipratropium/Albuterol Sulfate 3 ML AMPUL.NEB INHALATION ×4 (07:10→19:57)
--- NOTE | 2022-08-04 07:18 | CPS ---
Pt declined Vest Therapy @this time.
--- NOTE | 2022-08-04 07:38 | PN.HOSP_ITS ---
Subjective Subjective No events overnight. Objective Data Objective Data Vital Signs: Vital Signs Temp Pulse Resp BP Pulse Ox O2 Del Method O2 Flow Rate 36.6 C 84 22 H 137/69 H 95 Nasal Cannula 2 08/04/22 04:00 08/04/22 07:10 08/04/22 07:10 08/04/22 04:00 08/04/22 07:18 08/04/22 07:18 08/04/22 07:18 FiO2 93 07/30/22 22:00 Oxygen Flow Rate (L/min) 2 Oxygen Delivery Method Nasal Cannula Weight: 46.901 kg Body Mass Index (BMI) 19.5 Intake & Output: Intake and Output for Last 24 Hours 08/02/22 08/03/22 08/04/22 23:59 23:59 23:59 Intake Total 305 / 305 380 / 380 Output Total 300 / 300 Balance 305 / 305 80 / 80 Lab / Micro Data Result Diagrams: 08/02/22 06:10 08/03/22 05:16 Micro: Microbiology 08/03/22 09:45 Stool C. difficile DNA Amplification - Final 07/27/22 17:20 Mucosa - Nasopharyngeal Respiratory Panel (PCR) - Final Parainfluenza 1 07/28/22 02:22 Urine, Clean Catch Legionella Antigen - Final 07/28/22 02:22 Urine, Clean Catch Streptococcus pneumoniae Antigen (M - Final 07/27/22 11:30 Nasal Secretion SARS-CoV-2 & FLU Antigen (Rapid) - Final 07/27/22 11:19 Interface Orders Rapid RSV (DFA) - Final Physical Exam Const alert and no apparent distress HEENT head/scalp atraumatic, moist oral mucous membranes, oropharynx normal and dentition normal Eyes PERRL Resp normal respiratory effort, no retractions, no use of accessory muscles and clear to auscultation bilaterally Cardio regular rate, regular rhythm, S1 normal heart sound and S2 normal heart sound GI normal to inspection, nondistended, normoactive bowel sounds, soft to palpation, non-tender and non-distended Assessment & Plan Assessment/Plan (1) Left lower lobe pneumonia: QUALIFIERS: Pneumonia type: due to Pneumococcus Qualified Code(s): J13 - Pneumonia due to Streptococcus pneumoniae PLAN: Suspect pneumococcal + Parainfluenza 1 Mucinex, I/S Rocephin and azithromycin 07/28/22: Continues to have high oxygen requirements. Continue nebs and antibiotics 07/29: Urine antigens negative, continues to have high O2 requirements, respiratory panel did come back with parainfluenza which explains the lack of improvement with antibiotics. 07/30: Slowly improving continue current management 07/31: Had been doing better this morning until she began coughing, continue Mucinex, will order chest physiotherapy. Slowly improving, will likely need placement upon discharge. Remains on antibiotics and nebs 08/01: Certainly improving, once able to ambulate and need 6 L of oxygen or less we will work towards placement. Have discussed with her and her daughter and they are open to discussion of SNF prior to going back to [place] 08/02: repeat CXR showed no change. oxygen has been able to be weaned back down. 08/04: Abx discontinued. (2) Hypoxia: PLAN: Improved 09/02 pneumonia (3) Aortic stenosis: PLAN: Mild on Follow up with cardiology as outpt. (4) Thrush: PLAN: Improving with nystatin Continue for 14 days, through the (5) Diarrhea: PLAN: chronic. Discussed with nursing is more of soft stool. takes immodium chronically. unclear etiology, but not different than at baseline C. diff negative. May be IBS. PLAN: Plan chronic conditions: * Hypertension: Continue home medications. 07/28: Stage II diastolic dysfunction with mild mitral and aortic valve insufficiency and mild aortic stenosis. 07/30: Doing better on her home dose of Cardizem * CKD stage IIIb: Avoid nephrotoxic agents Monitor BMP 07/28: Slightly worsened today, given her diastolic dysfunction hesitant to give fluids. Will get renal ultrasound and urine lytes. Continue to hold ARB 07/29: Slightly improved today, ultrasound showed slight increase in echogenicity compatible with medical renal disease 08/01: Continues to improve but BUN increased, concern she is slightly dry, will give very small bolus * Macular degeneration #DVT ppx: Subcu heparin Disposition: to SNF pending pt and family decision on location. Charges/Coding Visit Charges Inpatient E&M: 16189 Subs Hosp L2
--- NOTE | 2022-08-04 08:27 | CASEMGMT ---
Social Work SW noticed pt daughter selected choices for SNF in [facility]. [facility] is first choice. SW sent referral to Bhumi at TCU. Bhumi stated next bed would be open tomorrow. Bhumi to review case and inform SW if able to accept pt. PLAN: TCU, pending acceptance [facility]
[2022-08-04] MEDS: 0.9% Saline Lock 10 ML Syringe IV (09:18)
[2022-08-04] MEDS: guaiFENesin 1,200 MG Tablet 1200 MG PO ×2 (09:18→20:20)
[2022-08-04] MEDS: NYSTATIN 500,000 UNIT/5 ML UDC 500000 UNIT PO ×4 (09:18→20:20)
[2022-08-04] MEDS: dilTIAZem CD 180 MG Capsule 360 MG PO (09:19)
[2022-08-04] MEDS: Psyllium 1 PACKET PO ×2 (09:19→20:20)
[2022-08-04] MEDS: Heparin Injection (Vial) 5,000 UNIT/ML VIAL 5000 UNIT SC ×2 (09:19→20:20)
[2022-08-04] MEDS: Ensure Plus High Protein 120 ML LIQUID PO ×2 (13:43→17:49)
--- NOTE | 2022-08-04 14:17 | CPS ---
Vest therapy not done, pt just now got done eating lunch.
[2022-08-05] VITALS (8 sets, daily range): BP systolic 147–193; BP diastolic 75–96; PULSE 82–100; RESP 18–20; TEMP 37.1–37.3; O2SAT 85–96
--- NOTE | 2022-08-05 07:34 | PCM.PN.HOSP ---
Subjective Subjective No events overnight. Objective Data Objective Data Vital Signs: Vital Signs Temp Pulse Resp BP Pulse Ox O2 Del Method O2 Flow Rate 37.3 C H 90 18 147/75 H 91 Nasal Cannula 3 08/05/22 02:45 08/05/22 02:45 08/05/22 02:45 08/05/22 02:45 08/05/22 07:32 08/05/22 07:32 08/05/22 07:32 FiO2 93 07/30/22 22:00 Oxygen Flow Rate (L/min) [ 3 AMBULATING with Oxygen #1] Oxygen Flow Rate (L/min) 3 Oxygen Delivery Method Nasal Cannula Weight: 46.901 kg Body Mass Index (BMI) 19.5 Intake & Output: Intake and Output for Last 24 Hours 08/03/22 08/04/22 08/05/22 23:59 23:59 23:59 Intake Total 380 / 380 50 / 250 200 / 200 Output Total 300 / 300 Balance 80 / 80 50 / 250 200 / 200 Lab / Micro Data Result Diagrams: 08/02/22 06:10 08/03/22 05:16 Micro: Microbiology 08/03/22 09:45 Stool C. difficile DNA Amplification - Final 07/27/22 17:20 Mucosa - Nasopharyngeal Respiratory Panel (PCR) - Final Parainfluenza 1 07/28/22 02:22 Urine, Clean Catch Legionella Antigen - Final 07/28/22 02:22 Urine, Clean Catch Streptococcus pneumoniae Antigen (M - Final 07/27/22 11:30 Nasal Secretion SARS-CoV-2 & FLU Antigen (Rapid) - Final 07/27/22 11:19 Interface Orders Rapid RSV (DFA) - Final Physical Exam Const alert and no apparent distress Resp normal respiratory effort, no retractions, no use of accessory muscles and clear to auscultation bilaterally Cardio regular rate, regular rhythm, S1 normal heart sound and S2 normal heart sound GI normal to inspection, nondistended, normoactive bowel sounds, soft to palpation, non-tender and non-distended Assessment & Plan Assessment/Plan (1) Left lower lobe pneumonia: QUALIFIERS: Pneumonia type: due to Pneumococcus Qualified Code(s): J13 - Pneumonia due to Streptococcus pneumoniae PLAN: Suspect pneumococcal + Parainfluenza 1 Mucinex, I/S Rocephin and azithromycin 07/28/22: Continues to have high oxygen requirements. Continue nebs and antibiotics 07/29: Urine antigens negative, continues to have high O2 requirements, respiratory panel did come back with parainfluenza which explains the lack of improvement with antibiotics. 07/30: Slowly improving continue current management 07/31: Had been doing better this morning until she began coughing, continue Mucinex, will order chest physiotherapy. Slowly improving, will likely need placement upon discharge. Remains on antibiotics and nebs 08/01: Certainly improving, once able to ambulate and need 6 L of oxygen or less we will work towards placement. Have discussed with her and her daughter and they are open to discussion of SNF prior to going back to [place] 08/02: repeat CXR showed no change. oxygen has been able to be weaned back down. 08/04: Abx discontinued. (2) Hypoxia: PLAN: Improved 09/02 pneumonia (3) Aortic stenosis: PLAN: Mild on Follow up with cardiology as outpt. (4) Thrush: PLAN: Improving with nystatin Continue for 14 days, through the (5) Diarrhea: PLAN: chronic. Discussed with nursing is more of soft stool. takes immodium chronically. unclear etiology, but not different than at baseline C. diff negative. May be IBS. (6) Debility: PLAN: Therapy Note: Gait training performed to monitor safety and maximize performance in simulated household environments. Avg. gait speed across 4m = . 46 m/sec. Ambulating nonconsecutive distances of 40 'x2 with FWW and SBA for safety due to impaired vision , progressing to no AD ambulating 20' and 40' with SBA for safety and O2 line management. Ambulating with continuous reciprocal gait , chronic postural deficits limiting trunk ext. Performed task initiation/ progression, multi directional head movements, obstacle negotiation, and challenging patient outside [place], while facilitating self-correction to simulate functional task performance during mobility and facilitate minimized risk for falls Pt will need SNF PLAN: Plan chronic conditions: Hypertension: Continue home medications. 07/28: Stage II diastolic dysfunction with mild mitral and aortic valve insufficiency and mild aortic stenosis. 07/30: Doing better on her home dose of Cardizem CKD stage IIIb: Avoid nephrotoxic agents Monitor BMP 07/28: Slightly worsened today, given her diastolic dysfunction hesitant to give fluids. Will get renal ultrasound and urine lytes. Continue to hold ARB 07/29: Slightly improved today, ultrasound showed slight increase in echogenicity compatible with medical renal disease 08/01: Continues to improve but BUN increased, concern she is slightly dry, will give very small bolus Macular degeneration #DVT ppx: Subcu heparin Disposition: to [facility] today
[2022-08-05] MEDS: Loperamide 2 MG Capsule PO (09:15)
[2022-08-05] MEDS: hydrALAZINE 20 MG/ML Vial 10 MG IV (09:15)
[2022-08-05] MEDS: Ensure Plus High Protein 120 ML LIQUID PO ×2 (09:15→13:16)
[2022-08-05] MEDS: NYSTATIN 500,000 UNIT/5 ML UDC 500000 UNIT PO ×2 (09:15→13:16)
[2022-08-05] MEDS: Psyllium 1 PACKET PO (09:16)
[2022-08-05] MEDS: guaiFENesin 1,200 MG Tablet 1200 MG PO (09:17)
[2022-08-05] MEDS: dilTIAZem CD 180 MG Capsule 360 MG PO (09:17)
[2022-08-05] MEDS: Heparin Injection (Vial) 5,000 UNIT/ML VIAL 5000 UNIT SC (09:17)
[2022-08-05] MEDS: 0.9% Saline Lock 10 ML Syringe IV (09:19)
--- NOTE | 2022-08-05 09:43 | TREXTCAR_ITS ---
Diet Diet Order/Speech Therapy: 07/30/22 14:07 Diet: Renal - General Food consistency:: Easy to Chew Liquid Consistency:: Regular/Thin Is pt able to select menu?: Yes Routine Orders/Code Status Routine Lab Work: CBC and BMP Code Status: Full Code Therapies Physical Therapy: Eval and Treat Occupational Therapy: Eval and Treat Problem/Diagnosis (1) Left lower lobe pneumonia: Status: Acute Code(s): J18.9 - Pneumonia, unspecified organism Plan: Suspect pneumococcal + Parainfluenza 1 Mucinex, I/S Rocephin and azithromycin 07/28/22: Continues to have high oxygen requirements. Continue nebs and antibiotics 07/29: Urine antigens negative, continues to have high O2 requirements, respiratory panel did come back with parainfluenza which explains the lack of improvement with antibiotics. 07/30: Slowly improving continue current management 07/31: Had been doing better this morning until she began coughing, continue Mucinex, will order chest physiotherapy. Slowly improving, will likely need placement upon discharge. Remains on antibiotics and nebs 08/01: Certainly improving, once able to ambulate and need 6 L of oxygen or less we will work towards placement. Have discussed with her and her daughter and they are open to discussion of SNF prior to going back to [place] 08/02: repeat CXR showed no change. oxygen has been able to be weaned back down. 08/04: Abx discontinued. (2) Hypoxia: Status: Acute Code(s): R09.02 - Hypoxemia Plan: Improved 2/2 pneumonia (3) Aortic stenosis: Status: Acute Code(s): I35.0 - Nonrheumatic aortic (valve) stenosis Plan: Mild on Follow up with cardiology as outpt. (4) Thrush: Status: Acute Code(s): B37.0 - Candidal stomatitis Plan: Improving with nystatin Continue for 14 days, through the (5) Diarrhea: Status: Acute Code(s): R19.7 - Diarrhea, unspecified Plan: chronic. Discussed with nursing is more of soft stool. takes immodium chronically. unclear etiology, but not different than at baseline C. diff negative. May be IBS. (6) Debility: Status: Acute Code(s): R53.81 - Other malaise Plan: Therapy Note: * Gait training performed to monitor safety and maximize performance in simulated household environments. Avg. gait speed across 4m = . 46 m/sec. Ambulating nonconsecutive distances of 40 'x2 with FWW and SBA for safety due to impaired vision , progressing to no AD ambulating 20' and 40' with SBA for safety and O2 line management. Ambulating with continuous reciprocal gait , chronic postural deficits limiting trunk ext. Performed task initiation/ progression, multi directional head movements, obstacle negotiation, and challenging patient outside [place], while facilitating self-correction to simulate functional task performance during mobility and facilitate minimized risk for falls Pt will need SNF Plan chronic conditions: * Hypertension: Continue home medications. 07/28: Stage II diastolic dysfunction with mild mitral and aortic valve insufficiency and mild aortic stenosis. 07/30: Doing better on her home dose of Cardizem * CKD stage IIIb: Avoid nephrotoxic agents Monitor BMP 07/28: Slightly worsened today, given her diastolic dysfunction hesitant to give fluids. Will get renal ultrasound and urine lytes. Continue to hold ARB 07/29: Slightly improved today, ultrasound showed slight increase in echogenicity compatible with medical renal disease 08/01: Continues to improve but BUN increased, concern she is slightly dry, will give very small bolus * Macular degeneration #DVT ppx: Subcu heparin Disposition: to SNF today Allergies/Procedures Done in Hospital Allergies No Known Allergies Allergy (Verified 07/27/22 10:26) Procedures: 2-D Echocardiogram Type of Care/Length of Stay Estimated LOS: Convalescent Care Less Than 30 days Type of Care Needed: Skilled Rehab Potential: Good Prognosis: Good Additional Orders/Day of Discharge Day of Discharge: 08/05/22 Dietary and Speech Recommendations Dietitian Recommendations/Changes: consider resumption of regular diet pending renal function; otherwise continue regular diet as tolerated; ensure plus high protein 120mL 4x/day given risk for malnutrition Discharge Plan Admission Admit Date/Time: 07/27/22 12:56 Primary Reason for Your Visit: pneumonia Attending Provider: Lizandro Singh Primary Care Provider: Umang Boyer Consulting Providers: Bisi Owens Discharge Orders/Prescriptions Prescriptions: New nystatin 100,000 unit/mL Suspension 500,000 unit PO 4X/DAY Qty: 60 0RF acetaminophen [Tylenol] 325 mg Tablet 650 mg PO Q6H PRN PRN (Reason: Pain 1-10 Or Fever>100.7) Qty: 0 0RF Deep Sea Nasal 0.65 % Aerosol,[place] 2 spray NASAL TID PRN PRN (Reason: NASAL DRYNESS) Qty: 0 0RF Chloraseptic Sore Throat 6-10 mg Lozenge 1 joan mucous membrane Q2H PRN PRN (Reason: SORE THROAT) Qty: 0 0RF Ensure Plus High Protein 0.08 gram-1.5 kcal/mL Liquid 120 ml PO 4X/DAY Qty: 0 0RF Continued atorvastatin 10 mg tablet 10 mg PO QHS diltiazem HCl 180 mg capsule,extended release 24hr 360 mg PO DAILY telmisartan 80 mg tablet 80 mg PO DAILY probenecid 500 mg tablet 500 mg PO DAILY omega 2-spb-ueq-fish oil [Fish Oil] 1,200 (144-216) mg Capsule 1 cap PO DAILY loperamide 2 mg Tablet 2 mg PO BID PRN (Reason: Diarrhea) aspirin 81 mg Tablet,Delayed Release (Dr/Ec) 81 mg PO DAILY Referrals / Follow Up: [facility] [Provider Group] - Within 1 Month Umang Boyer MD [Primary Care Provider] - Within 2 Weeks Disposition Disposition (needs filled in before D/C Order can be placed): [facility] (1) Left lower lobe pneumonia Qualifiers: Pneumonia type: due to Pneumococcus Qualified Code(s): J13 - Pneumonia due to Streptococcus pneumoniae
--- NOTE | 2022-08-05 09:50 | DS.PCM_ITS ---
Providers Date of Admission: 07/27/22 Primary Care Physician: Dr. Umang Boyer MD Reason For Visit: RENEWED ACQUIRED PNEUMONIA W HYPOXIA Diagnosis Discharge Diagnosis (1) Left lower lobe pneumonia: Status: Acute Code(s): J18.9 - Pneumonia, unspecified organism Qualifiers: Pneumonia type: due to Pneumococcus Qualified Code(s): J13 - Pneumonia due to Streptococcus pneumoniae Plan: Suspect pneumococcal + Parainfluenza 1 Mucinex, I/S Rocephin and azithromycin 07/28/22: Continues to have high oxygen requirements. Continue nebs and antibiotics 07/29: Urine antigens negative, continues to have high O2 requirements, respiratory panel did come back with parainfluenza which explains the lack of improvement with antibiotics. 07/30: Slowly improving continue current management 07/31: Had been doing better this morning until she began coughing, continue Mucinex, will order chest physiotherapy. Slowly improving, will likely need placement upon discharge. Remains on antibiotics and nebs 08/01: Certainly improving, once able to ambulate and need 6 L of oxygen or less we will work towards placement. Have discussed with her and her daughter and they are open to discussion of SNF prior to going back to [place] 08/02: repeat CXR showed no change. oxygen has been able to be weaned back down. 08/04: Abx discontinued. (2) Hypoxia: Status: Acute Code(s): R09.02 - Hypoxemia Plan: Improved 2/2 pneumonia (3) Aortic stenosis: Status: Acute Code(s): I35.0 - Nonrheumatic aortic (valve) stenosis Plan: Mild on Follow up with cardiology as outpt. (4) Thrush: Status: Acute Code(s): B37.0 - Candidal stomatitis Plan: Improving with nystatin Continue for 14 days, through the (5) Diarrhea: Status: Acute Code(s): R19.7 - Diarrhea, unspecified Plan: chronic. Discussed with nursing is more of soft stool. takes immodium chronically. unclear etiology, but not different than at baseline C. diff negative. May be IBS. (6) Debility: Status: Acute Code(s): R53.81 - Other malaise Plan: Therapy Note: * Gait training performed to monitor safety and maximize performance in simulated household environments. Avg. gait speed across 4m = . 46 m/sec. Ambulating nonconsecutive distances of 40 'x2 with FWW and SBA for safety due to impaired vision , progressing to no AD ambulating 20' and 40' with SBA for safety and O2 line management. Ambulating with continuous reciprocal gait , chronic postural deficits limiting trunk ext. Performed task initiation/ progression, multi directional head movements, obstacle negotiation, and challenging patient outside [place], while facilitating self-correction to simulate functional task performance during mobility and facilitate minimized risk for falls Pt will need SNF Plan chronic conditions: * Hypertension: Continue home medications. 07/28: Stage II diastolic dysfunction with mild mitral and aortic valve insufficiency and mild aortic stenosis. 07/30: Doing better on her home dose of Cardizem * CKD stage IIIb: Avoid nephrotoxic agents Monitor BMP 07/28: Slightly worsened today, given her diastolic dysfunction hesitant to give fluids. Will get renal ultrasound and urine lytes. Continue to hold ARB 07/29: Slightly improved today, ultrasound showed slight increase in echogenicity compatible with medical renal disease 08/01: Continues to improve but BUN increased, concern she is slightly dry, will give very small bolus * Macular degeneration #DVT ppx: Subcu heparin Disposition: to SNF today Medications at Discharge Home Medications aspirin 81 mg tablet,delayed release 81 mg PO DAILY HEART HEALTH 07/27/22 atorvastatin 10 mg tablet 10 mg PO QHS CHOLESTEROL 07/27/22 diltiazem HCl 180 mg capsule,extended release 24 hr 360 mg PO DAILY BLOOD PRESSURE 07/27/22 loperamide 2 mg tablet 2 mg PO BID PRN Diarrhea 07/27/22 omega 8-ehq-nan-fish oil 1,200 mg (144 mg-216 mg) capsule (Fish Oil) 1 cap PO DAILY SUPPLEMENT 07/27/22 probenecid 500 mg tablet 500 mg PO DAILY GOUT 07/27/22 telmisartan 80 mg tablet 80 mg PO DAILY BLOOD PRESSURE 07/27/22 acetaminophen 325 mg tablet (Tylenol) 650 mg PO Q6H PRN PRN Pain 1-10 Or Fever>100.7 #0 tabs 08/05/22 benzocaine 6 mg-menthol 10 mg lozenges (Chloraseptic Sore Throat) 1 joan mucous membrane Q2H PRN PRN SORE THROAT #0 ea 08/05/22 food supplemt, lactose-reduced 0.08 gram-1.5 kcal/mL oral liquid (Ensure Plus High Protein) 120 ml PO 4X/DAY #0 mL 08/05/22 nystatin 100,000 unit/mL oral suspension 500,000 unit (5 mL) PO 4X/DAY #60 mL 08/05/22 sodium chloride 0.65 % nasal spray aerosol (Deep Sea Nasal) 2 spray NASAL TID P RN PRN NASAL DRYNESS #0 mL 08/05/22 Hospital Course Operations None Procedures 2-D Echocardiogram Summary of Care Provided Minutes Spent on Discharge: 32 Weight / BMI Weight Weight: 46.901 kg Body Mass Index (BMI) 19.5 ABG / Lab / Microbiology Data Result Diagrams: 08/02/22 06:10 08/03/22 05:16 Microbiology: Microbiology 08/03/22 09:45 Stool C. difficile DNA Amplification - Final 07/27/22 17:20 Mucosa - Nasopharyngeal Respiratory Panel (PCR) - Final Parainfluenza 1 07/28/22 02:22 Urine, Clean Catch Legionella Antigen - Final 07/28/22 02:22 Urine, Clean Catch Streptococcus pneumoniae Antigen (M - Final 07/27/22 11:30 Nasal Secretion SARS-CoV-2 & FLU Antigen (Rapid) - Final 07/27/22 11:19 Interface Orders Rapid RSV (DFA) - Final Meaningful Use Info Meaningful Use Diagnoses (Choose all that apply): None applicable Discharge Plan Admission Admit Date/Time: 07/27/22 12:56 Primary Reason for Your Visit: pneumonia Attending Provider: Lizandro Singh Primary Care Provider: Umang Boyer Consulting Providers: Bisi Owens Discharge Orders/Prescriptions Prescriptions: New nystatin 100,000 unit/mL Suspension 500,000 unit PO 4X/DAY Qty: 60 0RF acetaminophen [Tylenol] 325 mg Tablet 650 mg PO Q6H PRN PRN (Reason: Pain 1-10 Or Fever>100.7) Qty: 0 0RF Deep Sea Nasal 0.65 % Aerosol,[place] 2 spray NASAL TID PRN PRN (Reason: NASAL DRYNESS) Qty: 0 0RF Chloraseptic Sore Throat 6-10 mg Lozenge 1 joan mucous membrane Q2H PRN PRN (Reason: SORE THROAT) Qty: 0 0RF Ensure Plus High Protein 0.08 gram-1.5 kcal/mL Liquid 120 ml PO 4X/DAY Qty: 0 0RF Continued atorvastatin 10 mg tablet 10 mg PO QHS diltiazem HCl 180 mg capsule,extended release 24hr 360 mg PO DAILY telmisartan 80 mg tablet 80 mg PO DAILY probenecid 500 mg tablet 500 mg PO DAILY omega 5-enf-mol-fish oil [Fish Oil] 1,200 (144-216) mg Capsule 1 cap PO DAILY loperamide 2 mg Tablet 2 mg PO BID PRN (Reason: Diarrhea) aspirin 81 mg Tablet,Delayed Release (Dr/Ec) 81 mg PO DAILY Referrals / Follow Up: [facility] [Provider Group] - Within 1 Month Umang Boyer MD [Primary Care Provider] - Within 2 Weeks Disposition Disposition (needs filled in before D/C Order can be placed): Shelter Facility Charges/Coding Visit Charges Inpatient E&M: 63535 Disch Hosp >30min
--- NOTE | 2022-08-05 10:17 | CASEMGMT ---
Social Work SW spoke with Bhumi in TCU and pt is able to admit to TCU today. Physician updated and pt is ready for discharge. Phone call to pt dgt Nicole and updated on discharge plan, Nicole is agreeable and states she has spoken to pt regarding plan and pt is agreeable. Charge nurse updated, Pt can discharge after negative covid test obtained and nursing to work out time of discharge with TCU nurse. Disposition: TCU, skilled level of care MELISSA Becerra
[2022-08-05] MEDS: Ipratropium/Albuterol Sulfate 3 ML AMPUL.NEB INHALATION (10:53)
== END 2022-08-05 14:19 | disposition skilled nursing facility (03) | DRG 193 ==
LOC: ED 12:27 → PCU 12:55 → MS2 07-28 08:59
PROVIDERS: Admitting Provider Internal Medicine; Emergency Provider Emergency Medicine; PCP Family Medicine
DX: J12.2 Parainfluenza virus pneumonia (principal); J96.01 Acute respiratory failure with hypoxia; B37.0 Candidal stomatitis; J13 Pneumonia due to Streptococcus pneumoniae; N18.32 Chronic kidney disease, stage 3b; I08.0 Rheumatic disorders of both mitral and aortic valves; I12.9 Hypertensive chronic kidney disease with stage 1 through stage 4 chronic kidney disease, or unspecified chronic kidney disease; H35.30 Unspecified macular degeneration; K52.9 Noninfective gastroenteritis and colitis, unspecified; Z20.822 Contact with and (suspected) exposure to COVID-19; Z79.82 Long term (current) use of aspirin; Z79.899 Other long term (current) drug therapy; Z87.891 Personal history of nicotine dependence
CPT/HCPCS: 36415; 71045; 71046; 76770; 80048; 80053; 82436; 82570; 83880; 84133; 84300; 84484; 85025; 87426; 87428; 87449; 87493; 87633; 87635; 87807; 92507; 92526; 92610; 93005; 93306; 94002; 94003; 94640; 94667; 94668; 94762; 97110; 97116; 97162; 97166; 97530; 97535; 99251; 99285; J7050; A4216; G0463; J0696; U0003; U0005

== ENCOUNTER 2022-08-05 14:30 | Inpatient (IN) | payer MEDICARE, SELFPAY ==
[2022-08-05 14:59] VITALS: BP 151/83; PULSE 104; RESP 20; TEMP 36.6; O2SAT 94
--- NOTE | 2022-08-05 18:37 | HP.PCM_ITS ---
HPI - General General Date of Admission: 08/05/22 Date of Service: 08/05/22 Chief Complaint: Here for rehabilitation. HPI Narrative 07/27/2022 SHERRI ZACARIAS, is a 76 Female who presents to [facility] Emergency Department with shortness of breath. Worsening shortness of breath, cough, runny nose, nasal congestion, for a few days. Mild shortness of breath, productive cough. Pulsox 85% on room air, oxygen applied. WBC okay, Hemoglobin ok, BMP okay, Troponin okay, BUN 33, Creatinine 1.47. Chest X-ray showed left lower lobe pneumonia. 91% on 5 liters oxygen. Rocephin, Azithromycin given for pneumonia. 07/27/2022 Admit to Hospital. Rocephin, Azithromycin, Duoneb, Albuterol, sputum culture, covid19, flu, respiratory panel, urine antigens for left lower lobe pneumonia. 07/27/2022 Echo LVEF 65%. Stage 2 diastolic dysfunction. Small pericardial effusion. 07/28/2022 BiPAP, Ativan for worsening hypoxia. 07/28/2022 Sick, short of breath. Renal ultrasound, urine lytes, hold ARB for acute kidney injury. 07/29/2022 Waxing, waning shortness of breath. Respiratory panel positive parainfluenza. Renal ultrasound consistent with medical renal disease. 07/30/2022 High oxygen requirements. 07/31/2022 Breathing slightly better. PT/OT recommends SNF. 08/01/2022 Weak. Hypertension improved on cardizem. IV fluids for dehydration. 08/02/2022 Nystatin for thrush. Check C. diff for diarrhea. 08/03/2022 Breathing better today, Chest Xray unchanged. C. Diff negative. 08/04/2022 Antibiotics stopped. 08/05/2022 Admit to TCU with debility, here for rehabilitation, strengthening, prior to discharge to [facility]. [facility] Medical History Gout Hypertension Macular degeneration Stroke/cerebrovascular accident Wrist fracture Home Medications aspirin 81 mg tablet,delayed release 81 mg PO DAILY HEART HEALTH 07/27/22 [History Last Taken 07/27/22] atorvastatin 10 mg tablet 10 mg PO QHS CHOLESTEROL 07/27/22 [History Last Taken 07/26/22] diltiazem HCl 180 mg capsule,extended release 24 hr 360 mg PO DAILY BLOOD PRESSURE 07/27/22 [History Last Taken 07/27/22] loperamide 2 mg tablet 2 mg PO BID PRN Diarrhea 07/27/22 [History Last Taken Unknown] omega 3-hhu-yqb-fish oil 1,200 mg (144 mg-216 mg) capsule (Fish Oil) 1 cap PO DAILY SUPPLEMENT 07/27/22 [History Last Taken 07/27/22] probenecid 500 mg tablet 500 mg PO DAILY GOUT 07/27/22 [History Last Taken 07/27/22] telmisartan 80 mg tablet 80 mg PO DAILY BLOOD PRESSURE 07/27/22 [History Last Taken 07/27/22] acetaminophen 325 mg tablet (Tylenol) 650 mg PO Q6H PRN PRN Pain 1-10 Or Fever>100.7 #0 tabs 08/05/22 [Rx Last Taken Unknown] benzocaine 6 mg-menthol 10 mg lozenges (Chloraseptic Sore Throat) 1 joan mucous membrane Q2H PRN PRN SORE THROAT #0 ea 08/05/22 [Rx Last Taken Unknown] food supplemt, lactose-reduced 0.08 gram-1.5 kcal/mL oral liquid (Ensure Plus High Protein) 120 ml PO 4X/DAY Supplement 08/05/22 [History Last Taken Unknown] nystatin 100,000 unit/mL oral suspension 500,000 unit PO 4X/DAY Skin 08/05/22 [History Last Taken Unknown] sodium chloride 0.65 % nasal spray aerosol (Deep Sea Nasal) 2 spray NASAL TID PRN PRN NASAL DRYNESS #0 mL 08/05/22 [Rx Last Taken Unknown] Allergy/AdvReac Type Severity Reaction Status Date / Time No Known Allergies Allergy Verified 07/27/22 10:26 Social History (Updated 08/05/22 @ 18:[address] Medardo Vegas MD) housing: assisted living facility Smoking Status: Former smoker alcohol intake: never substance use type: does not use ROS Constitutional Constitutional: Reports fatigue and weakness; Denies chills, fever(s) or weight gain ENT HEENT: Denies headache(s), nasal congestion or nasal discharge Cardiovascular Cardiovascular: Denies chest pain or palpitations Respiratory/Chest Respiratory/Chest: Reports shortness of breath with exertion; Denies cough or excessive phlegm production Gastrointestinal Gastrointestinal: Denies abdominal pain, nausea or vomiting Genitourinary Genitourinary: Denies dysuria Musculoskeletal Musculoskeletal: Denies joint pain or joint swelling Integumentary Integumentary: Denies rash or wounds Neurologic Neurologic: Denies focal weakness, numbness or tingling Psychiatric Psychiatric: Denies anxiety, auditory hallucinations, depression, homicidal ideation or suicidal ideation Vital Signs Vital Signs Vital Signs: 08/05/22 14:59 08/05/22 16:44 Temperature 97.8 F Temperature Source Temporal Pulse Rate 104 H Pulse Rhythm Regular Pulse Strength Normal (2+) Respiratory Rate 20 H Respiratory Effort Normal Non-Labored Respiratory Depth Normal Respiratory Pattern Normal Blood Pressure 151/83 H Blood Pressure Mean 105 Blood Pressure Source Monitor Blood Pressure Position Semi-Fowlers Blood Pressure Location Left Arm Pulse Ox 94 Oxygen Delivery Method Nasal Cannula Room Air Oxygen Flow Rate (L/min) 3 Weight Weight: 43.5 kg Physical Exam Const alert General Appearance: cooperative HEENT normocephalic Eyes PERRL and EOMs intact bilaterally Neck supple, no JVD and no carotid bruits Resp normal respiratory effort, normal air movement and clear to auscultation bilaterally Auscultation: rhonchi, wheezes and diminished lung sounds Cardio regular rate and regular rhythm GI normal to inspection, nondistended, normoactive bowel sounds, non-tender and non-distended Extremity normal capillary refill General Extremity: Negative for edema Skin no rashes or lesions noted General Skin Exam: no breakdown Psych affect normal Appearance: appropriate Assessment & Plan Assessment/Plan (1) Debility: (2) Acute respiratory failure with hypoxia: (3) Left lower lobe pneumonia: QUALIFIERS: Pneumonia type: due to Pneumococcus Qualified Code(s): J13 - Pneumonia due to Streptococcus pneumoniae (4) Acute kidney injury: (5) Dehydration: (6) Parainfluenza: (7) Thrush: (8) Hypertension: (9) Stroke: (10) Gout: PLAN: Plan 76 year old female with below past medical history hospitalized for acute respiratory failure with hypoxia secondary parainfluenza pneumonia, complicated by acute kidney injury, dehydration, thrush, admitted to TCU with debility, here for rehabilitation, strengthening, prior to discharge to [facility]. * Debility - PT/OT. * Pain - Tylenol 1000mg q6h prn pain (1-10). * Bowel - Loperamide 2mg bid prn, monitor for constipation. * Adult immunization - Administer pneumonia vaccine, covid19 vaccine, flu vaccine as appropriate. * DVT prophylaxis - HAS-BLED score 3 high risk of bleeding, Luke score 6 high risk of blood clots, Rx Xarelto 10mg daily x 10 days. * Hypoxia - wean oxygen as tolerated. * Stroke - Aspirin 81mg daily. * Hyperlipidemia - Atorvastatin 10mg qhs, [place] 3 1 gm daily. * Sore throat - Cepacol 1 lozenge q2h prn. * Hypertension - Losartan 100mg daily, Cardizem 360mg daily. * Nutrition - Ensure Plus 120ml 4x/day. * Thrush - Nystatin 500,000 4x/day thru 08/12/2022. * Gout - Probenecid 500mg daily. * Dry nose - sodium chloride 2 sprays nasal tid prn.
[2022-08-05] MEDS: NYSTATIN 500,000 UNIT/5 ML UDC 500000 UNIT PO ×2 (18:51→22:11)
[2022-08-05] MEDS: Ensure Plus High Protein 120 ML LIQUID PO (18:51)
--- NOTE | 2022-08-05 18:58 | NURSING ---
Updated family and Pt on positive covid resident.
[2022-08-05] MEDS: Atorvastatin Calcium 10 MG Tablet PO (22:11)
[2022-08-06 05:16] LABS: Absolute Lymphocyte Count 1.81 X10^3/uL (0.83-4.51); Absolute Neutrophil Count 4.1 X10^3/uL (2.0-7.7); Basophil# 0.05 X10^3/uL; Basophil% 0.7 % (0-1); Eosinophil# 0.11 X10^3/uL; Eosinophils% 1.6 % (0-5); Hematocrit 34.7 % (37-47); Hemoglobin 11.1 g/dL (12.0-15.0); Lymphocyte # 1.81 X10^3/ul (0.83-4.51); Lymphocyte % 26.1 % (19-41); Mean Corpuscular Hgb 32.4 pg (27.0-32.0); Mean Corpuscular Volume 101.2 fL (81-99); Mean Platelet Vol. 11.3 fl (6.2-12.0); Monocyte# 0.84 X10^3/uL; Monocyte% 12.1 % (0-10); NRBC Flagged by Analyzer 0 % (0-5); Neutrophil # 4.05 X10^3/uL (2.7-7.7); Neutrophil % 58.5 % (47-70); Platelet Count 211 K/mm3 (150-450); RBC Distribution Width CV 14.7 % (11.6-14.6); RBC Distribution Width SD 54.3 fl (35.1-43.9); Red Blood Count 3.43 M/mm3 (4.2-5.4); White Blood Count 6.9 K/mm3 (4.4-11.0)
[2022-08-06 05:43] LABS: Anion Gap 6 (5-15); BUN 35 mg/dL (7-18); Calcium,Total 9.1 mg/dL (8.5-10.1); Chloride 112 mmol/L (98-107); Creatinine, Serum 1.06 mg/dL (0.55-1.02); EST Glomerular Filtration Rate 53 mL/min (>60); Est Glom Filt Rate - Afr Amer 65 mL/min (>60); Estimated Creatinine Clearance 30.04 ml/min; Glucose 94 mg/dL (74-106); Potassium 4.7 mmol/L (3.5-5.1); Sodium Level 143 mmol/L (136-145)
[2022-08-06] MEDS: Omega-3 Acid Ethyl Esters 1 GM Capsule PO (06:11)
[2022-08-06] MEDS: 0.9% Saline Lock 10 ML Syringe IV (06:11)
[2022-08-06] MEDS: Losartan Potassium 100 MG Tablet PO (06:11)
[2022-08-06] MEDS: Ensure Plus High Protein 120 ML LIQUID PO ×3 (06:11→16:24)
[2022-08-06] MEDS: NYSTATIN 500,000 UNIT/5 ML UDC 500000 UNIT PO ×4 (06:11→19:44)
[2022-08-06] MEDS: dilTIAZem CD 180 MG Capsule 360 MG PO (06:11)
[2022-08-06] MEDS: Menthol/Lanolin/Calamine/Znox 113 GM Tube 1 APPLIC TOPICAL ×2 (06:36→16:32)
[2022-08-06] MEDS: Aspirin E.C. 81 MG Tablet PO (08:02)
[2022-08-06] MEDS: Loperamide 2 MG Capsule PO ×2 (09:23→19:48)
[2022-08-06 10:03] VITALS: O2SAT 99
[2022-08-06 10:08] VITALS: O2SAT 94
[2022-08-06] MEDS: Tuberculin,Purif.prot.deriv. 50 TU/ML Vial 0.1 ML ID (11:58)
--- NOTE | 2022-08-06 13:21 | NURSING ---
Meteorological Technician Note; Activity Asset: Kathy Islas is legally blind and unable to read or watch tv however she enjoys listing to the game show channel. She is very pleasant and will need 1.1 weekly visits for extra social interaction.
[2022-08-06 14:36] VITALS: O2SAT 93
[2022-08-06 15:01] VITALS: BP 127/68; PULSE 81; RESP 18; TEMP 36.3; O2SAT 98
--- NOTE | 2022-08-06 15:14 | CASEMGMT ---
Addendum entered by Tierra Vera 08/06/22 15:26: Per pt, family is unable to provide copies of advanced directives Original Note: Social Work Met with patient to complete initial assessment. Introduced self and role. Verified contacts. Discussed patient's code status and MOLST form. Pt confirmed full code. MOLST completed and placed in Dr folder. Educated to Medicare benefit. Pt does not have a secondary insurance. Educated to day 21-100 is OOP cost of $200/day. [place] and legally blind. SW to update family in POC mtg as well. Pt's goal is to return to [facility]. Pt is new on O2 and was going to get a JR FWW ordered through [facility] prior to DC home. SW to coordinate. CAN DuttonW
[2022-08-06] MEDS: Rivaroxaban 10 MG Tablet PO (16:24)
--- NOTE | 2022-08-06 16:27 | NURSING ---
PCP office called and they do not have records of a pneumo vaccine and patient has agreed to get one while here.
[2022-08-06] MEDS: Atorvastatin Calcium 10 MG Tablet PO (19:45)
[2022-08-07] MEDS: NYSTATIN 500,000 UNIT/5 ML UDC 500000 UNIT PO ×4 (05:45→20:09)
[2022-08-07] MEDS: Ensure Plus High Protein 120 ML LIQUID PO ×4 (05:45→20:11)
[2022-08-07] MEDS: Losartan Potassium 100 MG Tablet PO (05:46)
[2022-08-07] MEDS: Omega-3 Acid Ethyl Esters 1 GM Capsule PO (05:46)
[2022-08-07] MEDS: dilTIAZem CD 180 MG Capsule 360 MG PO (05:46)
[2022-08-07] MEDS: Menthol/Lanolin/Calamine/Znox 113 GM Tube 1 APPLIC TOPICAL ×2 (05:54→18:16)
[2022-08-07 07:50] VITALS: O2SAT 98
--- NOTE | 2022-08-07 07:50 | CPS ---
Went into pt room, pt on 3L NC, pt sat was 98%. Turn pt down to 2L NC
[2022-08-07] MEDS: Aspirin E.C. 81 MG Tablet PO (08:05)
[2022-08-07] MEDS: Pneumococcal Vaccine 20 Valent 0.5 ML Syringe IM (11:38)
[2022-08-07 16:00] VITALS: BP 136/71; PULSE 86; RESP 18; TEMP 36.8; O2SAT 95
[2022-08-07] MEDS: Rivaroxaban 10 MG Tablet PO (18:15)
[2022-08-07] MEDS: Atorvastatin Calcium 10 MG Tablet PO (20:09)
[2022-08-07 20:36] VITALS: PULSE 84; RESP 16; O2SAT 98
[2022-08-08 04:47] VITALS: BP 142/59; PULSE 71
[2022-08-08] MEDS: NYSTATIN 500,000 UNIT/5 ML UDC 500000 UNIT PO ×3 (04:48→20:27)
[2022-08-08] MEDS: Omega-3 Acid Ethyl Esters 1 GM Capsule PO (04:48)
[2022-08-08] MEDS: dilTIAZem CD 180 MG Capsule 360 MG PO (04:49)
[2022-08-08] MEDS: Losartan Potassium 100 MG Tablet PO (04:49)
[2022-08-08] MEDS: Menthol/Lanolin/Calamine/Znox 113 GM Tube 1 APPLIC TOPICAL ×2 (04:51→17:39)
[2022-08-08] MEDS: Ensure Plus High Protein 120 ML LIQUID PO ×3 (04:51→17:42)
[2022-08-08] MEDS: Aspirin E.C. 81 MG Tablet PO (08:51)
[2022-08-08] MEDS: Loperamide 2 MG Capsule PO (08:58)
[2022-08-08 11:10] VITALS: O2SAT 99
[2022-08-08 16:00] VITALS: BP 146/76; PULSE 91; RESP 20; TEMP 36.3; O2SAT 96
[2022-08-08] MEDS: Rivaroxaban 10 MG Tablet PO (17:39)
--- NOTE | 2022-08-08 20:15 | NURSING ---
Pt w/ a bloody nose. Is gently blowing nose. Multiple small spots of blood noted on several tissues. Denies passing any clots. No drainage dripping from nare(s). Denies any chest pain, dizziness, lightheadedness, shortness of breath, or palpitations. Currently on Xarelto for DVT prophylaxis. Will update Dr. Vegas.
[2022-08-08] MEDS: Atorvastatin Calcium 10 MG Tablet PO (20:26)
[2022-08-08] MEDS: Sodium Chloride 0.65% 1 SPRAY SPRAY.BTL 2 SPRAY NASAL (20:27)
--- NOTE | 2022-08-08 21:20 | NURSING ---
Paged Dr. Vegas w/ immediate return phone call. Updated on nosebleed. New order received to [facility]. Will continue to monitor.
[2022-08-09] MEDS: Omega-3 Acid Ethyl Esters 1 GM Capsule PO (05:56)
[2022-08-09] MEDS: dilTIAZem CD 180 MG Capsule 360 MG PO (05:56)
[2022-08-09] MEDS: Losartan Potassium 100 MG Tablet PO (05:56)
[2022-08-09] MEDS: NYSTATIN 500,000 UNIT/5 ML UDC 500000 UNIT PO ×4 (05:57→20:10)
[2022-08-09] MEDS: Sodium Chloride 0.65% 1 SPRAY SPRAY.BTL 2 SPRAY NASAL (05:58)
[2022-08-09] MEDS: Menthol/Lanolin/Calamine/Znox 113 GM Tube 1 APPLIC TOPICAL ×2 (06:02→17:24)
[2022-08-09 06:04] VITALS: BP 176/90; PULSE 87
--- NOTE | 2022-08-09 07:56 | NURSING ---
COVID swab held at this time d/t continued bloody nares. JULIA Mariee, updated.
[2022-08-09] MEDS: Aspirin E.C. 81 MG Tablet PO (08:24)
[2022-08-09 08:29] VITALS: O2SAT 98
--- NOTE | 2022-08-09 14:45 | NURSING ---
Notified patient's daughter of staff member testing positive for covid.
--- NOTE | 2022-08-09 15:23 | PHA.CONS_ITS ---
TCU RX Drug Regimen Review Subjective: TCU Admission. 77 YOF presented to the ER with shortness of breath. Hospitalized for acute respiratory failure with hypoxia secondary parainfluenza pneumonia, complicated by acute kidney injury, dehydration, thrush. Admitted to TCU with debility for strengthening and rehabilitation. Objective: Allergies No Known Allergies Allergy (Verified 07/27/22 10:26) Current Medications Generic Name Dose Route Start Last Admin Trade Name Freq PRN Reason Stop Dose Admin Acetaminophen 1,000 mg 08/05/22 19:02 Acetaminophen 500 Mg Tablet PO Q6H PRN PRN Pain Score 1-10 Aspirin 81 mg 08/06/22 08:00 08/09/22 08:24 Aspirin E.C. 81 Mg Tablet PO 81 mg DAILYCM DHARA Administration Atorvastatin Calcium 10 mg 08/05/22 22:00 08/08/22 20:26 Atorvastatin Calcium 10 Mg Tablet PO 10 mg QHS DHARA Administration Calamine/Phenol 1 applic 08/06/22 06:00 08/09/22 06:02 Menthol/Lanolin/Calamine/Znox 113 Gm Tube TOPICAL 1 applic BID DHARA Administration Protocol Diltiazem HCl 360 mg 08/06/22 06:00 08/09/22 05:56 Diltiazem Cd 180 Mg Capsule PO 360 mg DAILY DHARA Administration Loperamide HCl 2 mg 08/05/22 15:31 08/08/22 08:58 Loperamide 2 Mg Capsule PO 2 mg BID PRN Administration Diarrhea Losartan Potassium 100 mg 08/06/22 06:00 08/09/22 05:56 Losartan Potassium 100 Mg Tablet PO 100 mg DAILY DHARA Administration Nutritional Formula (Lactose Free) 120 ml 08/05/22 17:00 08/09/22 12:58 Ensure Plus High Protein 120 Ml Liquid PO Not Given 4X/DAY DHARA Nystatin 500,000 unit 08/05/22 17:00 08/09/22 12:58 Nystatin 500,000 Unit/5 Ml Udc PO 08/12/22 23:59 500,000 unit 4X/DAY DHARA Administration Gsyjs-4-Xtvh Ethyl Esters 1 gm 08/06/22 06:00 08/09/22 05:56 [place]-3 Acid Ethyl Esters 1 Gm Capsule PO 1 gm DAILY DHARA Administration Probenecid 500 mg 08/07/22 06:00 08/09/22 05:56 Probenecid 500 Mg Tablet PO 500 mg DAILY DHARA Administration Sodium Chloride 2 spray 08/05/22 15:04 08/09/22 05:58 Sodium Chloride 0.65% 1 [place].Btl NASAL 2 spray TID PRN PRN Administration NASAL DRYNESS Sodium Chloride 10 - 40 ml 08/05/22 15:55 08/06/22 06:11 0.9% Saline Lock 10 Ml Syringe IV 10 ml UD PRN Administration SALINE FLUSH Throat Lozenges 1 lozenge 08/05/22 15:04 Benzocaine/Menthol 1 Lozenge MUCOUS MEM Q2H PRN PRN SORE THROAT Tuberculin PPD 0.1 ml 08/13/22 10:00 Tuberculin,Purif.Prot.Deriv. 50 Tu/Ml Vial ID 08/13/22 10:01 X1 ONE Problem List (Last Reviewed 08/05/22 @ 18:[address] Medardo Vegas MD) Gout (Acute) Stroke (Acute) Hypertension (Chronic) Thrush (Acute) Parainfluenza (Acute) Dehydration (Acute) Acute kidney injury (Acute) Acute respiratory failure with hypoxia (Acute) Debility (Acute) Left lower lobe pneumonia (Acute) Vital Signs Temp Pulse Resp BP Pulse Ox O2 Del Method O2 Flow Rate 97.3 F L 87 20 H 176/90 H 98 Nasal Cannula 1 08/08/22 16:00 08/09/22 06:04 08/08/22 16:00 08/09/22 06:04 08/09/22 08:29 08/09/22 12:48 08/09/22 10:57 Oxygen Flow Rate (L/min) 1 Oxygen Delivery Method Nasal Cannula Weight: 43.5 kg Sodium 143 mmol/L (136-145) 08/06/22 04:54 Potassium 4.7 mmol/L (3.5-5.1) 08/06/22 04:54 Chloride 112 mmol/L (98-107) H 08/06/22 04:54 Carbon Dioxide 25.0 mmol/L (21.0-32.0) 08/06/22 04:54 Anion Gap 6 (5-15) 08/06/22 04:54 BUN 35 mg/dL (7-18) H 08/06/22 04:54 Creatinine 1.06 mg/dL (0.55-1.02) H 08/06/22 04:54 Est GFR (MDRD) Af Amer 65 mL/min (>60) 08/06/22 04:54 Est GFR (MDRD) Non-Af 53 mL/min (>60) L 08/06/22 04:54 BUN/Creatinine Ratio 33.0 RATIO (10-20) H 08/06/22 04:54 Glucose 94 mg/dL (74-106) 08/06/22 04:54 Assessment/Plan: 1. Pain: acetaminophen 1000mg PO Q6H PRN pain 1-10. Resident has not had any doses so far. Please continue to monitor for increased pain and PRN usage. 2. Bowel: loperamide 2mg PO BID PRN diarrhea. Resident has had 3 doses of loperamide. Last documented bowel movement 08/08/22. Please continue to monitor for diarrhea, constipation and PRN usage. 3. Stroke: aspirin 81mg PO daily. Please continue to monitor for S/S of bleeding and hemoglobin (last 11.1g/dL). 4. Hyperlipidemia: atorvastatin 10mg PO QHS and omega-3 1gm PO daily. Please consider ordering a lipid panel now and then annually if clinically appropriate. Resident does not have a lipid panel in the chart. Thanks. Please continue to monitor LFTs (last 07/30/22) and muscle pain. 5. Sore throat: Cepacol 1lozenge MM Q2H PRN sore throat. Resident has not had a ny doses so far. Please continue to monitor for sore throat and PRN usage. 6. Hypertension: losartan 100mg PO daily and diltiazem CD 360mg PO daily. Please continue to monitor BP (last 176/90), HR (last 87), potassium (last 4.7mmol/L) and renal function. 7. Gout: probenecid 500mg PO daily. Please continue to monitor for S/S of gout and renal function (BEERs criteria, dose appropriate at this time, not recommenced for CrCl <30mL/min due to loss of effectiveness, resident's CrCl is 30mL/min). 8. Dry nose: sodium chloride nasal spray 2sprays nasal TID PRN nasal dryness. Resident has used 2 doses. Please continue to monitor for nasal dryness and PRN usage. 9. Thrush: nystatin 500,000units 4x/day thru 08/12/22. Please continue to monitor for improvement in thrush and dry mouth. Assessment/Plan for indications treated with psychotropic medications: None Medical chart and medication regimen reviewed. The following medication irregularities or issues were identified: *1. Atorvastatin 10mg PO QHS and omega-3 1gm PO daily. Please consider ordering a lipid panel now and then annually if clinically appropriate. Resident does not have a lipid panel in the chart. Thanks. Date of Note:: 08/09/22
[2022-08-09 15:54] VITALS: BP 169/75; PULSE 84; RESP 16; TEMP 36.2; O2SAT 96
--- NOTE | 2022-08-09 17:20 | NURSING ---
Patient agreed to the covid vaccine booster.
[2022-08-09] MEDS: Atorvastatin Calcium 10 MG Tablet PO (20:09)
[2022-08-09 22:00] VITALS: PULSE 75; RESP 18; O2SAT 95
[2022-08-10] MEDS: Omega-3 Acid Ethyl Esters 1 GM Capsule PO (06:12)
[2022-08-10] MEDS: Losartan Potassium 100 MG Tablet PO (06:12)
[2022-08-10] MEDS: Menthol/Lanolin/Calamine/Znox 113 GM Tube 1 APPLIC TOPICAL ×2 (06:12→18:43)
[2022-08-10] MEDS: NYSTATIN 500,000 UNIT/5 ML UDC 500000 UNIT PO ×4 (06:12→22:44)
[2022-08-10] MEDS: dilTIAZem CD 180 MG Capsule 360 MG PO (06:12)
[2022-08-10] MEDS: Aspirin E.C. 81 MG Tablet PO (08:11)
[2022-08-10] MEDS: Sodium Chloride 0.65% 1 SPRAY SPRAY.BTL 2 SPRAY NASAL (08:12)
[2022-08-10 10:47] VITALS: BP 92/49; PULSE 62
[2022-08-10 11:00] VITALS: O2SAT 93
[2022-08-10] MEDS: Loperamide 2 MG Capsule PO (11:16)
[2022-08-10 15:23] VITALS: PULSE 76
[2022-08-10 15:30] VITALS: BP 151/69; PULSE 83; RESP 16; TEMP 36.2; O2SAT 97
[2022-08-10] MEDS: Atorvastatin Calcium 10 MG Tablet PO (22:44)
[2022-08-11] MEDS: Omega-3 Acid Ethyl Esters 1 GM Capsule PO (06:15)
[2022-08-11] MEDS: NYSTATIN 500,000 UNIT/5 ML UDC 500000 UNIT PO ×4 (06:15→20:21)
[2022-08-11] MEDS: Menthol/Lanolin/Calamine/Znox 113 GM Tube 1 APPLIC TOPICAL ×2 (06:15→17:35)
[2022-08-11] MEDS: Loperamide 2 MG Capsule PO (06:15)
[2022-08-11] MEDS: Losartan Potassium 100 MG Tablet PO (06:17)
[2022-08-11] MEDS: dilTIAZem CD 180 MG Capsule 360 MG PO (06:17)
[2022-08-11 06:19] VITALS: BP 183/88; PULSE 87
[2022-08-11] MEDS: Sodium Chloride 0.65% 1 SPRAY SPRAY.BTL 2 SPRAY NASAL (06:23)
[2022-08-11] MEDS: Aspirin E.C. 81 MG Tablet PO (08:00)
--- NOTE | 2022-08-11 09:05 | CASEMGMT ---
Social Work IDT met with patient, son and dtr for care plan meeting. Discussed patient's progress in PT/OT/SN. Educated to Medicare benefit. Pt does not have a secondary insurance, thus copays start on day 21 which is 08/25. Pt is new on O2 and goal is to wean off by DC. Pt will return to [facility]. Offered for pt/family to set DC when ready. IDT states pt will be ready before/by 08/25. SW to coordinate HHC and DME needs. SW to continue to follow. Tierra Vera, CD REACTOR OPERATOR HEAD WET CHEMISTRY ANALYST
--- NOTE | 2022-08-11 10:37 | CASEMGMT ---
Social Work Brief interview for mental status (BIMS) and resident mood assessment (PHQ-9) completed on this day. BIMS score . PHQ-9 score 08/27. Dutch NORTH, JOHNS
[2022-08-11 16:00] VITALS: BP 162/85; PULSE 91; RESP 16; TEMP 36.3; O2SAT 94
[2022-08-11] MEDS: Ensure Clear 120 ML Liquid PO (17:29)
--- NOTE | 2022-08-11 18:27 | RAD_ITS ---
STUDY: X-RAY - ABDOMEN/PELVIS REASON FOR EXAM: Female, 77 years old. Diarrhea. TECHNIQUE: Single AP view of the abdomen / pelvis. COMPARISON: None. FINDINGS: Normal visualized lung bases. There is an unremarkable bowel gas pattern. There is no demonstrated free abdominal air. There are atherosclerotic calcifications. There is demineralization of the visualized osseous structures. RAD/Abdomen Single View IMPRESSION: No obstruction. Electronically Signed: Tam Joseph MD at 23:53 EST ,
[2022-08-11] MEDS: Atorvastatin Calcium 10 MG Tablet PO (20:21)
[2022-08-11 20:27] VITALS: PULSE 78; RESP 16; O2SAT 93
[2022-08-12] MEDS: dilTIAZem CD 180 MG Capsule 360 MG PO (04:50)
[2022-08-12] MEDS: Omega-3 Acid Ethyl Esters 1 GM Capsule PO (04:50)
[2022-08-12] MEDS: Losartan Potassium 100 MG Tablet PO (04:52)
[2022-08-12] MEDS: NYSTATIN 500,000 UNIT/5 ML UDC 500000 UNIT PO ×4 (04:57→21:24)
[2022-08-12 05:25] VITALS: BP 168/89; PULSE 87
[2022-08-12] MEDS: Aspirin E.C. 81 MG Tablet PO (08:01)
[2022-08-12] MEDS: Ensure Clear 120 ML Liquid PO ×3 (08:01→17:35)
[2022-08-12] MEDS: Menthol/Lanolin/Calamine/Znox 113 GM Tube 1 APPLIC TOPICAL ×2 (08:02→17:35)
[2022-08-12 15:08] VITALS: BP 157/79; PULSE 79; RESP 18; TEMP 36.7; O2SAT 94
[2022-08-12] MEDS: Atorvastatin Calcium 10 MG Tablet PO (21:24)
[2022-08-13 05:05] VITALS: BP 177/68; PULSE 73
[2022-08-13] MEDS: Menthol/Lanolin/Calamine/Znox 113 GM Tube 1 APPLIC TOPICAL ×2 (05:16→17:11)
[2022-08-13] MEDS: Losartan Potassium 100 MG Tablet PO (05:16)
[2022-08-13] MEDS: Omega-3 Acid Ethyl Esters 1 GM Capsule PO (05:16)
[2022-08-13] MEDS: dilTIAZem CD 180 MG Capsule 360 MG PO (05:16)
[2022-08-13 05:29] LABS: Absolute Lymphocyte Count 1.46 X10^3/uL (0.83-4.51); Absolute Neutrophil Count 3.3 X10^3/uL (2.0-7.7); Basophil# 0.05 X10^3/uL; Basophil% 0.9 % (0-1); Eosinophils% 3.6 % (0-5); Hematocrit 34.8 % (37-47); Hemoglobin 11.1 g/dL (12.0-15.0); Lymphocyte # 1.46 X10^3/ul (0.83-4.51); Lymphocyte % 26.3 % (19-41); Mean Corp Hgb Conc 31.9 g/dL (32-36); Mean Corpuscular Hgb 32.5 pg (27.0-32.0); Mean Corpuscular Volume 101.8 fL (81-99); Mean Platelet Vol. 10.8 fl (6.2-12.0); Monocyte# 0.56 X10^3/uL; Monocyte% 10.1 % (0-10); NRBC Flagged by Analyzer 0 % (0-5); Neutrophil # 3.25 X10^3/uL (2.7-7.7); Neutrophil % 58.6 % (47-70); Platelet Count 207 K/mm3 (150-450); RBC Distribution Width CV 14.6 % (11.6-14.6); RBC Distribution Width SD 53.8 fl (35.1-43.9); Red Blood Count 3.42 M/mm3 (4.2-5.4); White Blood Count 5.6 K/mm3 (4.4-11.0)
[2022-08-13 05:48] LABS: Anion Gap 6 (5-15); BUN 29 mg/dL (7-18); BUN/Creat Ratio 26.1 RATIO (10-20); Calcium,Total 8.8 mg/dL (8.5-10.1); Chloride 109 mmol/L (98-107); Creatinine, Serum 1.11 mg/dL (0.55-1.02); EST Glomerular Filtration Rate 51 mL/min (>60); Est Glom Filt Rate - Afr Amer 61 mL/min (>60); Estimated Creatinine Clearance 28.59 ml/min; Glucose 91 mg/dL (74-106); Potassium 3.9 mmol/L (3.5-5.1); Sodium Level 143 mmol/L (136-145)
[2022-08-13] MEDS: Ensure Clear 120 ML Liquid PO ×3 (08:14→17:02)
[2022-08-13] MEDS: Aspirin E.C. 81 MG Tablet PO (08:16)
--- NOTE | 2022-08-13 09:04 | NURSING ---
Show Host/Hostess Note; MDS for 08/12/2022 Complete
[2022-08-13 09:14] VITALS: PULSE 79
[2022-08-13] MEDS: Metoprolol Tartrate 25 MG Tablet 12.5 MG PO ×2 (09:14→17:02)
[2022-08-13] MEDS: Tuberculin,Purif.prot.deriv. 50 TU/ML Vial 0.1 ML ID (10:26)
[2022-08-13 11:50] VITALS: PULSE 79; RESP 16
[2022-08-13 14:28] VITALS: BP 152/71; PULSE 67; RESP 14; TEMP 36.5; O2SAT 93
[2022-08-13 17:02] VITALS: BP 152/71; PULSE 67
[2022-08-13] MEDS: Atorvastatin Calcium 10 MG Tablet PO (20:55)
[2022-08-14] MEDS: Omega-3 Acid Ethyl Esters 1 GM Capsule PO (05:14)
[2022-08-14] MEDS: Losartan Potassium 100 MG Tablet PO (05:14)
[2022-08-14 05:15] VITALS: BP 147/64; PULSE 62
[2022-08-14] MEDS: Metoprolol Tartrate 25 MG Tablet 12.5 MG PO ×2 (05:15→18:03)
[2022-08-14] MEDS: Menthol/Lanolin/Calamine/Znox 113 GM Tube 1 APPLIC TOPICAL ×2 (05:15→18:04)
[2022-08-14] MEDS: dilTIAZem CD 180 MG Capsule 360 MG PO (05:17)
[2022-08-14] MEDS: Loperamide 2 MG Capsule PO (05:22)
[2022-08-14] MEDS: Aspirin E.C. 81 MG Tablet PO (08:11)
[2022-08-14] MEDS: Ensure Clear 120 ML Liquid PO ×3 (08:11→18:03)
[2022-08-14 15:24] VITALS: BP 147/62; PULSE 63; RESP 14; TEMP 36.9; O2SAT 95
[2022-08-14 18:03] VITALS: BP 166/73; PULSE 77
[2022-08-14] MEDS: Atorvastatin Calcium 10 MG Tablet PO (20:57)
[2022-08-14 22:00] VITALS: O2SAT 99
[2022-08-15] MEDS: Menthol/Lanolin/Calamine/Znox 113 GM Tube 1 APPLIC TOPICAL ×2 (05:10→17:11)
[2022-08-15 05:11] VITALS: BP 157/60; PULSE 66
[2022-08-15] MEDS: dilTIAZem CD 180 MG Capsule 360 MG PO (05:11)
[2022-08-15] MEDS: Omega-3 Acid Ethyl Esters 1 GM Capsule PO (05:11)
[2022-08-15] MEDS: Losartan Potassium 100 MG Tablet PO (05:11)
[2022-08-15] MEDS: Metoprolol Tartrate 25 MG Tablet 12.5 MG PO ×2 (05:11→17:06)
[2022-08-15] MEDS: Loperamide 2 MG Capsule PO (05:17)
[2022-08-15] MEDS: Ensure Clear 120 ML Liquid PO ×3 (08:55→17:06)
[2022-08-15] MEDS: Aspirin E.C. 81 MG Tablet PO (08:55)
[2022-08-15 10:00] VITALS: O2SAT 93
[2022-08-15 14:43] VITALS: BP 141/67; PULSE 68; RESP 16; TEMP 36.8; O2SAT 94
[2022-08-15 17:06] VITALS: BP 157/70; PULSE 66
--- NOTE | 2022-08-15 21:00 | NURSING ---
Paged Dr. Vegas w/ return phone call within minutes. Requested an order for a nocturnal pulse ox prior to dc as pt does not have O2 at home. Order read back for nocturnal pulse ox to be completed prior to dc.
[2022-08-15] MEDS: Atorvastatin Calcium 10 MG Tablet PO (21:17)
[2022-08-16 05:19] VITALS: BP 157/68; PULSE 65
[2022-08-16] MEDS: Losartan Potassium 100 MG Tablet PO (05:19)
[2022-08-16] MEDS: Metoprolol Tartrate 25 MG Tablet 12.5 MG PO ×2 (05:19→17:41)
[2022-08-16] MEDS: dilTIAZem CD 180 MG Capsule 360 MG PO (05:19)
[2022-08-16] MEDS: Menthol/Lanolin/Calamine/Znox 113 GM Tube 1 APPLIC TOPICAL ×2 (05:23→17:43)
[2022-08-16] MEDS: Omega-3 Acid Ethyl Esters 1 GM Capsule PO (05:23)
[2022-08-16] MEDS: Loperamide 2 MG Capsule PO (05:27)
[2022-08-16] MEDS: Aspirin E.C. 81 MG Tablet PO (08:21)
[2022-08-16] MEDS: Ensure Clear 120 ML Liquid PO ×3 (08:22→17:41)
--- NOTE | 2022-08-16 15:06 | CASEMGMT ---
Addendum entered by Tierra Vera 08/16/22 16:05: Added C SN for monitoring of O2 needs and admitting dx. Original Note: Social Work Pt requesting to DC home this weekend, per therapy. SW spoke with dtr to discuss. Pt is doing well in therapy; just needing some assistance with bathing. IDT agreeable with pt discharging home this weekend. Dtr is agreeable as well and will transport. SW stated pt requesting [facility]. SW to coordinate PT/OT and UNIFORM ROOM ATTENDANT for bathing assistance. Dtr agreeable. Pt is off of O2 currently. Dtr stated she purchased pt a rollator. SW educated to difference of rollator and FWW, and on acute CM ordered pt a FWW before pt DC to TCU. SW offered for dtr to bring in rollator for therapy to practice and assess safety prior to DC. Dtr agreeable and appreciative. Dtr and pt requesting DC 08/21. SW phoned referral to [facility] for PT/OT/GALICIA. Will monitor for O2 needs. Plan: DC 08/21 to [facility] (home) [facility] PT/OT/GALICIA Tierra Vera, PRECISION LENS TECHNICIAN DIRECTOR OF COLLECTIONS AND ARCHIVES
[2022-08-16 15:21] VITALS: BP 134/65; PULSE 63; RESP 16; TEMP 36.3; O2SAT 94
[2022-08-16 17:41] VITALS: PULSE 63
--- NOTE | 2022-08-16 18:58 | DS.PCM_ITS ---
Providers Date of Admission: 08/05/22 Primary Care Physician: Dr. Umang Boyer MD Reason For Visit: RENEWED AQUIRED PNEMONIA WITH HYPOXIA Diagnosis Discharge Diagnosis (1) Debility: Status: Acute Code(s): R53.81 - Other malaise (2) Acute respiratory failure with hypoxia: Status: Acute Code(s): J96.01 - Acute respiratory failure with hypoxia (3) Left lower lobe pneumonia: Status: Resolved Code(s): J18.9 - Pneumonia, unspecified organism Qualifiers: Pneumonia type: due to Pneumococcus Qualified Code(s): J13 - Pneumonia due to Streptococcus pneumoniae (4) Acute kidney injury: Status: Acute Code(s): N17.9 - Acute kidney failure, unspecified (5) Dehydration: Status: Acute Code(s): E86.0 - Dehydration (6) Parainfluenza: Status: Acute Code(s): B34.8 - Other viral infections of unspecified site (7) Thrush: Status: Acute Code(s): B37.0 - Candidal stomatitis (8) Hypertension: Status: Chronic Code(s): I10 - Essential (primary) hypertension (9) Stroke: Status: Acute Code(s): I63.9 - Cerebral infarction, unspecified (10) Gout: Status: Acute Code(s): M10.9 - Gout, unspecified Plan 76 year old female with below past medical history hospitalized for acute respiratory failure with hypoxia secondary parainfluenza pneumonia, complicated by acute kidney injury, dehydration, thrush, admitted to TCU with debility, here for rehabilitation, strengthening, prior to discharge to [facility]. * Debility - PT/OT. * Pain - Tylenol 1000mg q6h prn pain (1-10). * Bowel - Loperamide 2mg bid prn, monitor for constipation. * Adult immunization - Administer pneumonia vaccine, covid19 vaccine, flu vaccine as appropriate. * DVT prophylaxis - HAS-BLED score 3 high risk of bleeding, Luke score 6 high risk of blood clots, Rx Xarelto 10mg daily x 10 days. * Hypoxia - wean oxygen as tolerated. * Stroke - Aspirin 81mg daily. * Hyperlipidemia - Atorvastatin 10mg qhs, Ecru 3 1 gm daily. * Sore throat - Cepacol 1 lozenge q2h prn. * Hypertension - Losartan 100mg daily, Cardizem 360mg daily. * Nutrition - Ensure Plus 120ml 4x/day. * Thrush - Nystatin 500,000 4x/day thru 08/12/2022. * Gout - Probenecid 500mg daily. * Dry nose - sodium chloride 2 sprays nasal tid prn. Medications at Discharge Home Medications aspirin 81 mg tablet,delayed release 81 mg PO DAILY HEART HEALTH 07/27/22 atorvastatin 10 mg tablet 10 mg PO QHS CHOLESTEROL 07/27/22 diltiazem HCl 180 mg capsule,extended release 24 hr 360 mg PO DAILY BLOOD PRESSURE 07/27/22 omega 1-gyz-mqh-fish oil 1,200 mg (144 mg-216 mg) capsule (Fish Oil) 1 cap PO DAILY SUPPLEMENT 07/27/22 probenecid 500 mg tablet 500 mg PO DAILY GOUT 07/27/22 telmisartan 80 mg tablet 80 mg PO DAILY BLOOD PRESSURE 07/27/22 sodium chloride 0.65 % nasal spray aerosol (Deep Sea Nasal) 2 spray NASAL TID PRN PRN NASAL DRYNESS #0 mL 08/05/22 loperamide 2 mg capsule 2 mg PO Q6H PRN PRN Diarrhea #0 caps 08/16/22 metoprolol tartrate 25 mg tablet 12.5 mg PO BID 30 days #30 tabs 08/16/22 Hospital Course Operations None Procedures None Summary of Care Provided Minutes Spent on Discharge: 35 Hospital Course: 76 year old female with below past medical history hospitalized for acute r espiratory failure with hypoxia secondary parainfluenza pneumonia, complicated by acute kidney injury, dehydration, thrush, admitted to TCU with debility, here for rehabilitation, strengthening, prior to discharge to [facility]. Discharge to [facility] (Home) 08/21/2022, [facility] PT/OT/GALICIA. Physical Exam Const alert General Appearance: cooperative HEENT normocephalic Eyes PERRL and EOMs intact bilaterally Neck supple, no JVD and no carotid bruits Resp normal respiratory effort, normal air movement and clear to auscultation bilaterally Cardio regular rate and regular rhythm GI normal to inspection, nondistended, normoactive bowel sounds, non-tender and non-distended Extremity normal capillary refill General Extremity: Negative for edema Skin no rashes or lesions noted General Skin Exam: no breakdown Psych affect normal Appearance: appropriate Medical Records Data Medical Nutrition Assessment Dietitian: Malnutrition Criteria Met Start: 08/06/22 13:28 Freq: Status: Active Protocol: Document 08/06/22 13:28 GUZMAN (Rec: 08/06/22 13:29 [facility] [id number]) Nutrition Malnutrition Evidence of Malnutrition Exists Yes Malnutrition (severe): Acute Illness/Injury Evidenced By Suboptimal Energy Intake ( Severe),Weight Loss (Severe), Physical Changes (Moderate) Clinical Problem Acute Disease or Injury Related Malnutrition Etiology related to acute illness making it difficult for res to consume adequate nutrition to meet est needs Signs/Symptoms as evidenced by 7.3% wt loss x past 10 days and po intake meeting <75% of est needs; also fat/muscle loss in temporals/buccal/orbital, scapula, clavicle, upper/lower extremities Status Active Problem Recommendation Dietitian Recommendations/Changes Will continue liberal regular diet, consistency per TEMPER MILL ROLLER, d/t signs and symptoms of malnutrition Will continue ensure plus high protein w/ medpass 4x/day Will provide fortified foods at meals as able. Weight / BMI Weight Weight: 43.363 kg ABG / Lab / Microbiology Data Result Diagrams: 08/13/22 05:11 08/13/22 05:11 Microbiology: Microbiology 08/13/22 10:20 Nasal Secretion SARS-CoV-2 Antigen (Rapid) - Final 08/11/22 06:22 Nasal Secretion SARS-CoV-2 Antigen (Rapid) - Final 08/09/22 13:30 Nasal Secretion SARS-CoV-2 Antigen (Rapid) - Final 08/07/22 05:00 Nasal Secretion SARS-CoV-2 Antigen (Rapid) - Final D/C Instructions Discharge Diet: No restrictions Discharge Activity: Return to Normal Activity, May Shower and Use Walker Weight Bearing Status: Weight bearing as tolerated Call your doctor if you observe: Fever of 101 or Higher, Inability to urinate, Inability to have a bowel movement, Shortness of breath, Dizziness, Fainting spells, Swelling in the ankles, Chest pain and Uncontrolled pain Additional Instructions: Discharge to [facility] (Home) 08/21/2022, [facility] PT/OT/GALICIA. Meaningful Use Info Meaningful Use Diagnoses (Choose all that apply): None applicable Discharge Plan Admission Admit Date/Time: 08/05/22 14:30 Primary Reason for Your Visit: Debility. Attending Provider: Medardo Vegas Chi Primary Care Provider: Umang Boyer Instructions Additional Instructions / Restrictions: Discharge to [facility] (Home) 08/21/2022, [facility] PT/OT/GALICIA. Discharge Orders/Prescriptions Prescriptions: New loperamide 2 mg Capsule 2 mg PO Q6H PRN PRN (Reason: Diarrhea) Qty: 0 0RF metoprolol tartrate 25 mg Tablet 12.5 mg PO BID 30 Days Qty: 30 0RF Continued atorvastatin 10 mg tablet 10 mg PO QHS diltiazem HCl 180 mg capsule,extended release 24hr 360 mg PO DAILY telmisartan 80 mg tablet 80 mg PO DAILY probenecid 500 mg tablet 500 mg PO DAILY omega 3-gcb-upe-fish oil [Fish Oil] 1,200 (144-216) mg Capsule 1 cap PO DAILY aspirin 81 mg Tablet,Delayed Release (Dr/Ec) 81 mg PO DAILY Deep Sea Nasal 0.65 % Aerosol,[place] 2 spray NASAL TID PRN PRN (Reason: NASAL DRYNESS) Qty: 0 0RF Discontinued loperamide 2 mg Tablet 2 mg PO BID PRN (Reason: Diarrhea) acetaminophen [Tylenol] 325 mg Tablet 650 mg PO Q6H PRN PRN (Reason: Pain 1-10 Or Fever>100.7) Qty: 0 0RF Chloraseptic Sore Throat 6-10 mg Lozenge 1 joan mucous membrane Q2H PRN PRN (Reason: SORE THROAT) Qty: 0 0RF nystatin 100,000 unit/mL suspension 500,000 unit PO 4X/DAY Ensure Plus High Protein 0.08 gram-1.5 kcal/mL liquid 120 ml PO 4X/DAY Referrals / Follow Up: Umang Boyer MD [Primary Care Provider] - Disposition Disposition (needs filled in before D/C Order can be placed): Home Health Service
[2022-08-16] MEDS: Atorvastatin Calcium 10 MG Tablet PO (20:12)
[2022-08-16 20:15] VITALS: PULSE 63; RESP 16; O2SAT 93
[2022-08-17] MEDS: Loperamide 2 MG Capsule PO (05:29)
[2022-08-17] MEDS: Omega-3 Acid Ethyl Esters 1 GM Capsule PO (05:29)
[2022-08-17 05:30] VITALS: BP 169/67; PULSE 71
[2022-08-17] MEDS: dilTIAZem CD 180 MG Capsule 360 MG PO (05:30)
[2022-08-17] MEDS: Metoprolol Tartrate 25 MG Tablet 12.5 MG PO ×2 (05:30→17:28)
[2022-08-17] MEDS: Losartan Potassium 100 MG Tablet PO (05:31)
[2022-08-17] MEDS: Menthol/Lanolin/Calamine/Znox 113 GM Tube 1 APPLIC TOPICAL ×2 (05:32→17:29)
[2022-08-17] MEDS: Ensure Clear 120 ML Liquid PO ×3 (09:01→17:28)
[2022-08-17] MEDS: Aspirin E.C. 81 MG Tablet PO (09:01)
--- NOTE | 2022-08-17 10:02 | MDS.RN ---
Information for the mds was obtained from review of the clinical record, interview of resident, staff, and direct observation of resident's care.
[2022-08-17 12:46] VITALS: O2SAT 97
[2022-08-17 14:40] VITALS: BP 130/67; PULSE 70; RESP 16; TEMP 36.1; O2SAT 96
[2022-08-17 17:28] VITALS: BP 130/67; PULSE 70
[2022-08-17] MEDS: Atorvastatin Calcium 10 MG Tablet PO (19:55)
[2022-08-17 21:30] VITALS: PULSE 62; O2SAT 92
--- NOTE | 2022-08-18 00:25 | NURSING ---
Patient with night SpO2 monitor on, currently reading at 92% on rounds. No distress noted. Will continue to monitor.
[2022-08-18 06:09] VITALS: BP 144/64; PULSE 64
[2022-08-18] MEDS: Metoprolol Tartrate 25 MG Tablet 12.5 MG PO ×2 (06:09→17:32)
[2022-08-18] MEDS: Omega-3 Acid Ethyl Esters 1 GM Capsule PO (06:09)
[2022-08-18] MEDS: Menthol/Lanolin/Calamine/Znox 113 GM Tube 1 APPLIC TOPICAL ×2 (06:14→17:31)
[2022-08-18] MEDS: Losartan Potassium 100 MG Tablet PO (06:14)
[2022-08-18] MEDS: Loperamide 2 MG Capsule PO (06:14)
[2022-08-18] MEDS: dilTIAZem CD 180 MG Capsule 360 MG PO (06:14)
[2022-08-18] MEDS: Aspirin E.C. 81 MG Tablet PO (08:11)
[2022-08-18] MEDS: Ensure Clear 120 ML Liquid PO ×3 (08:11→17:32)
[2022-08-18 14:07] VITALS: BP 155/77; PULSE 74; RESP 19; TEMP 36.1; O2SAT 96
[2022-08-18 17:32] VITALS: BP 163/80; PULSE 68
[2022-08-18] MEDS: Atorvastatin Calcium 10 MG Tablet PO (20:39)
[2022-08-18 20:42] VITALS: PULSE 63; RESP 18; O2SAT 97
[2022-08-19] VITALS (9 sets, daily range): BP systolic 125–157; BP diastolic 56–63; PULSE 52–62; RESP 16; TEMP 36.4; O2SAT 93–95
[2022-08-19] MEDS: Metoprolol Tartrate 25 MG Tablet 12.5 MG PO ×2 (05:07→17:27)
[2022-08-19] MEDS: Losartan Potassium 100 MG Tablet PO (05:07)
[2022-08-19] MEDS: dilTIAZem CD 180 MG Capsule 360 MG PO (05:07)
[2022-08-19] MEDS: Menthol/Lanolin/Calamine/Znox 113 GM Tube 1 APPLIC TOPICAL ×2 (05:08→17:29)
[2022-08-19] MEDS: Omega-3 Acid Ethyl Esters 1 GM Capsule PO (05:08)
[2022-08-19] MEDS: Loperamide 2 MG Capsule PO (05:16)
[2022-08-19] MEDS: Aspirin E.C. 81 MG Tablet PO (08:16)
[2022-08-19] MEDS: Ensure Clear 120 ML Liquid PO (08:16)
[2022-08-19] MEDS: hydrALAZINE 25 MG Tablet PO ×3 (08:39→20:48)
--- NOTE | 2022-08-19 11:51 | CASEMGMT ---
Social Work BIMS () and PHQ-9 () completed for MDS assessment. Tierra Vera MSW ENERGY AND SUSTAINABILITY MANAGER
--- NOTE | 2022-08-19 14:05 | MDS.RN ---
Pain assessment for TABBY 08/21/22.
[2022-08-19] MEDS: Atorvastatin Calcium 10 MG Tablet PO (20:48)
[2022-08-20] VITALS (7 sets, daily range): BP systolic 130–155; BP diastolic 49–71; PULSE 53–81; RESP 16; TEMP 36.4; O2SAT 95
[2022-08-20] MEDS: Menthol/Lanolin/Calamine/Znox 113 GM Tube 1 APPLIC TOPICAL ×2 (05:28→17:15)
[2022-08-20] MEDS: Losartan Potassium 100 MG Tablet PO (05:32)
[2022-08-20] MEDS: Loperamide 2 MG Capsule PO (05:32)
[2022-08-20] MEDS: dilTIAZem CD 180 MG Capsule 360 MG PO (05:32)
[2022-08-20] MEDS: Omega-3 Acid Ethyl Esters 1 GM Capsule PO (05:33)
[2022-08-20] MEDS: Metoprolol Tartrate 25 MG Tablet 12.5 MG PO ×2 (05:33→17:13)
[2022-08-20] MEDS: hydrALAZINE 25 MG Tablet PO ×2 (05:37→20:56)
[2022-08-20 05:41] LABS: Absolute Neutrophil Count 3.3 X10^3/uL (2.0-7.7); Basophil# 0.03 X10^3/uL; Basophil% 0.5 % (0-1); Eosinophil# 0.09 X10^3/uL; Eosinophils% 1.5 % (0-5); Hematocrit 33.7 % (37-47); Hemoglobin 10.9 g/dL (12.0-15.0); Lymphocyte % 30.9 % (19-41); Mean Corp Hgb Conc 32.3 g/dL (32-36); Mean Corpuscular Hgb 32.5 pg (27.0-32.0); Mean Corpuscular Volume 100.6 fL (81-99); Mean Platelet Vol. 10.6 fl (6.2-12.0); Monocyte# 0.54 X10^3/uL; Monocyte% 9.3 % (0-10); NRBC Flagged by Analyzer 0 % (0-5); Neutrophil # 3.33 X10^3/uL (2.7-7.7); Neutrophil % 57.1 % (47-70); Platelet Count 259 K/mm3 (150-450); RBC Distribution Width CV 14.6 % (11.6-14.6); RBC Distribution Width SD 53.6 fl (35.1-43.9); Red Blood Count 3.35 M/mm3 (4.2-5.4); White Blood Count 5.8 K/mm3 (4.4-11.0)
[2022-08-20 06:07] LABS: Anion Gap 9 (5-15); BUN 36 mg/dL (7-18); BUN/Creat Ratio 27.3 RATIO (10-20); Calcium,Total 8.6 mg/dL (8.5-10.1); Chloride 113 mmol/L (98-107); Creatinine, Serum 1.32 mg/dL (0.55-1.02); EST Glomerular Filtration Rate 41 mL/min (>60); Est Glom Filt Rate - Afr Amer 50 mL/min (>60); Glucose 89 mg/dL (74-106); Potassium 3.9 mmol/L (3.5-5.1); Sodium Level 144 mmol/L (136-145)
[2022-08-20] MEDS: Ensure Clear 120 ML Liquid PO ×3 (08:08→17:13)
[2022-08-20] MEDS: Aspirin E.C. 81 MG Tablet PO (08:08)
[2022-08-20] MEDS: Atorvastatin Calcium 10 MG Tablet PO (20:56)
[2022-08-21] MEDS: Loperamide 2 MG Capsule PO (06:27)
[2022-08-21 06:28] VITALS: BP 156/67; PULSE 74
[2022-08-21] MEDS: Omega-3 Acid Ethyl Esters 1 GM Capsule PO (06:28)
[2022-08-21] MEDS: dilTIAZem CD 180 MG Capsule 360 MG PO (06:28)
[2022-08-21] MEDS: Losartan Potassium 100 MG Tablet PO (06:28)
[2022-08-21] MEDS: Metoprolol Tartrate 25 MG Tablet 12.5 MG PO (06:28)
[2022-08-21 06:32] VITALS: BP 156/67; PULSE 74
[2022-08-21] MEDS: hydrALAZINE 25 MG Tablet PO (06:32)
[2022-08-21] MEDS: Menthol/Lanolin/Calamine/Znox 113 GM Tube 1 APPLIC TOPICAL (06:40)
[2022-08-21] MEDS: Aspirin E.C. 81 MG Tablet PO (07:57)
[2022-08-21] MEDS: Ensure Clear 120 ML Liquid PO (07:57)
[2022-08-21 08:03] VITALS: BP 154/85; PULSE 75; RESP 16; TEMP 36.6; O2SAT 95
[2022-08-21 08:04] VITALS: PULSE 75; RESP 16; O2SAT 95
[2022-08-21 08:10] VITALS: O2SAT 94
== END 2022-08-21 10:18 | disposition home health service (06) | DRG 194 ==
PROVIDERS: Admitting Provider Family Medicine Geriatric Medicine; PCP Family Medicine; Visit Provider Family Medicine Geriatric Medicine
DX: J13 Pneumonia due to Streptococcus pneumoniae (principal); B37.0 Candidal stomatitis; M10.9 Gout, unspecified; I10 Essential (primary) hypertension; Z79.82 Long term (current) use of aspirin; B95.3 Streptococcus pneumoniae as the cause of diseases classified elsewhere; B97.89 Other viral agents as the cause of diseases classified elsewhere; Z87.891 Personal history of nicotine dependence; Z79.899 Other long term (current) drug therapy; Z23 Encounter for immunization
CPT/HCPCS: 0134A; 36415; 74018; 80048; 85025; 87426; 87811; 90677; 91313; 94762; 97110; 97116; 97162; 97166; 97530; 97535; 97802; G0009; A4216

== ENCOUNTER 2023-05-11 09:02 | Inpatient (IN) | payer MEDICARE, SELFPAY ==
[2023-05-11] VITALS (9 sets, daily range): BP systolic 162–189; BP diastolic 64–88; PULSE 85–100; RESP 14–24; TEMP 36.7–36.9; O2SAT 87–96; BMI 19.7
--- NOTE | 2023-05-11 09:26 | EKG12_ITS ---
Test Reason : SOB Blood Pressure : / mmHG Vent. Rate : 091 BPM Atrial Rate : 091 BPM P-R Int : 174 ms QRS Dur : 086 ms QT Int : 350 ms P-R-T Axes : 058 063 049 degrees QTc Int : 430 ms Normal sinus rhythm Normal ECG Confirmed by MARGOT KUO, GERMAINE ([id number]), editorial manager ANAI LANZA ([id number]) on 05/16/2023 2:13:26 PM Referred By: RONNIE Confirmed By:GERMAINE FROST MD
--- NOTE | 2023-05-11 09:27 | ED.VIS.DYS ---
HPI History of Present Illness Chief Complaint: Shortness of Breath Detail of Chief Complaint: Shortness of breath Informant: patient Narrative Narrative: Patient presents with shortness of breath that started this morning. She got up to use the restroom and noted she was short of breath. She had a hard time getting down to breakfast this morning at the assisted living without feeling very short of breath. At shelter pulse ox to 89% on room air. In triage pulse ox was 87% on room air. Patient denies chest pain. She denies fever. She has had minimal cough. No history of CHF or COPD. She denies recent travel or surgery. [facility] Medical History Gout Hypertension Macular degeneration Stroke/cerebrovascular accident Wrist fracture Home Medications aspirin 81 mg tablet,delayed release 81 mg PO DAILY HEART HEALTH 07/27/22 [History Last Taken 07/27/22] atorvastatin 10 mg tablet 10 mg PO QHS CHOLESTEROL 07/27/22 [History Last Taken 07/26/22] diltiazem HCl 180 mg capsule,extended release 24 hr 360 mg PO DAILY BLOOD PRESSURE 07/27/22 [History Last Taken 07/27/22] omega 4-uvd-xmk-fish oil 1,200 mg (144 mg-216 mg) capsule (Fish Oil) 1 cap PO DAILY SUPPLEMENT 07/27/22 [History Last Taken 07/27/22] probenecid 500 mg tablet 500 mg PO DAILY GOUT 07/27/22 [History Last Taken 07/27/22] telmisartan 80 mg tablet 80 mg PO DAILY BLOOD PRESSURE 07/27/22 [History Last Taken 07/27/22] sodium chloride 0.65 % nasal spray aerosol (Deep Sea Nasal) 2 spray NASAL TID PRN PRN NASAL DRYNESS #0 mL 08/05/22 [Rx Last Taken Unknown] loperamide 2 mg capsule 2 mg PO Q6H PRN PRN Diarrhea #0 caps 08/16/22 [Rx Last Taken Unknown] metoprolol tartrate 25 mg tablet 12.5 mg (1/2 x 25 mg) PO BID 30 days #30 tabs 08/16/22 [Rx Last Taken Unknown] Allergy/AdvReac Type Severity Reaction Status Date / Time No Known Allergies Allergy Verified 05/11/23 09:04 Social History (Updated 08/05/22 @ 18:[address] Medardo Vegas MD) housing: assisted living facility Smoking Status: Former smoker alcohol intake: never substance use type: does not use ROS ROS ED Review of Systems ROS Unobtainable: other Constitutional Constitutional ED: Reports lethargy; Denies chills, fever(s), sweats or weight loss Eyes Eyes: Denies blurry vision, change in vision or diplopia ENT ENT ED: Denies rhinorrhea or sore throat Cardiovascular Cardiovascular: Denies chest pain, orthopnea or racing heartbeat Respiratory/Chest Respiratory/Chest: Reports cough, dyspnea and dyspnea on exertion; Denies orthopnea or sputum Gastrointestinal Gastrointestinal: Denies abdominal pain, diarrhea, nausea or vomiting Genitourinary Genitourinary ED: Denies dysuria, hematuria or urinary frequency Musculoskeletal Musculoskeletal: Denies arthralgias, back pain, myalgias or neck pain Integumentary Denies abscess, Abrasions or rash Neurologic Neurologic: Denies headache(s) or weakness Psychiatric Psychiatric: Denies anxiety, depression or suicidal thoughts Endocrine Endocrinology: Denies polydipsia, polyphagia or polyuria Hematologic/Lymphatic Hematologic/Lymphatic: Denies easy bleeding, easy bruising or lymphadenopathy Allergic/Immunologic Allergic/Immunologic ED: Denies mouth swelling, tongue swelling or urticaria EXAM Physical Exam Const Vital Signs: 05/11/23 09:03 05/11/23 09:26 05/11/23 09:26 Temperature 98.4 F Temperature Source Temporal Pulse Rate 100 Respiratory Rate 20 H Respiratory Effort Short of Breath Respiratory Depth Normal Respiratory Pattern Normal Blood Pressure 182/88 H Blood Pressure Mean 119 Pulse Ox 87 Oxygen Delivery Method Room Air Room Air 05/11/23 10:02 Temperature Temperature Source Pulse Rate 90 Respiratory Rate 14 Respiratory Effort Respiratory Depth Respiratory Pattern Blood Pressure 172/64 H Blood Pressure Mean 100 Pulse Ox 88 Oxygen Delivery Method Room Air Positive well nourished and well developed General Appearance ED: well developed and NAD HEENT Reports TM's clear and moist mucous membranes normocephalic and atraumatic; Negative for trauma or tenderness Tympanic Membrane ED: Yes TM's clear Eyes PERRL and EOMs intact bilaterally General Eye ED: Negative for pale conjunctiva or scleral icterus Neck no lymphadenopathy, supple and no JVD General: Negative for tenderness Chest Wall inspection of chest normal and palpation of chest normal Chest: Negative for tenderness Resp normal respiratory effort and clear to auscultation bilaterally Effort and Inspection: Negative for respiratory distress or pain with movement Auscultation: Negative for rhonchi, wheezes or diminished lung sounds Cardio regular rate, regular rhythm, S1 normal heart sound, S2 normal heart sound and no murmurs Peripheral Pulses: pulses 2+ throughout GI normal to inspection, nondistended, normoactive bowel sounds, soft to palpation, non-tender, non-distended and no masses Back/Spine no CVA tenderness and no thoracic nor lumbar tenderness Back/Spine Narrative: Severe scoliosis Extremity normal to inspection General Extremety ED: Negative for edema General Extremity: Negative for edema Neuro oriented x3, CN's II-XII intact bilaterally, no sensory deficits noted and gait normal Sensorium / Orientation: awake, alert, oriented to person, oriented to place and oriented to time Motor Exam: strength 5/5 throughout and strength abnormal Psych mental status grossly normal Skin no rashes or lesions noted and no wounds MDM MDM MDM Narrative Medical decision making narrative: Patient presents with dyspnea with hypoxemia. In the differential would be infectious etiology such as pneumonia versus pneumothorax or PE. IV line established. Patient placed on a satellite project site monitor. CBC with differential obtained showed a white count of 13.9 with platelet count of 376 and hemoglobin 11.4. Chemistries unremarkable. BUN 24 and creatinine 1.55. Troponin was 14 and BNP was 311. Chest x-ray obtained noted possible infiltrate in the right lower lobe with small right pleural effusion. Patient's D-dimer was elevated at 1.[address] of the chest was obtained to rule out PE. There is no evidence of PE. There was evidence of consolidation in the right lung may be related to pneumonia and atelectasis. Patient started on Rocephin and Zithromax IV. Blood cultures ordered and lactate ordered. Case discussed with hospitalist to evaluate patient for admission Lab Data Attestation: I reviewed the patient's lab results. Labs: Laboratory Results - last 24 hr 05/11/23 10:20 WBC 13.9 H RBC 3.57 L Hgb 11.4 L Hct 35.8 L MCV 100.3 H MCH 31.9 MCHC 31.8 L RDW Std Deviation 54.1 H RDW Coeff of Arnulfo 14.6 Plt Count 376 MPV 9.5 Immature Gran % (Auto) 1.800 H Neut % (Auto) 84.2 H Lymph % (Auto) 6.8 L [place] % (Auto) 6.6 Eos % (Auto) 0.1 Baso % (Auto) 0.5 Absolute Neuts (auto) 11.7 H Absolute Lymphs (auto) 0.95 Nucleated RBC % 0 D-Dimer Quant (PE/DVT) 1.46 H* Sodium 138 Potassium 3.9 Chloride 106 Carbon Dioxide 27.0 Anion Gap 5 BUN 24 H Creatinine 1.55 H Estim Creat Clear Calc 23.13 Est GFR (MDRD) Af Amer 42 L Est GFR (MDRD) Non-Af 34 L BUN/Creatinine Ratio 15.5 Glucose 110 H Calcium 9.2 Troponin I High Sens 14 B-Natriuretic Peptide 311.0 H Radiography Diagnostic Testing: Clinical Impression(s) from Imaging Studies Chest X-Ray 05/11/23 10:15 IMPRESSION: Possible airspace disease at the right lung base and small right pleural effusion appearing since the prior study. Electronically Signed: Sascha Maxwell MD at 10:28 EDT Reading Location ID and State: [address] [place] [address] Tel , Service support , EKG Initial EKG: Attestation: I personally reviewed and interpreted this EKG as follows: Comments: Sinus rhythm with a rate of 91 bpm, no acute ST segment changes noted Discharge Plan Triage Chief Complaint: Shortness of Breath ED Provider: Renée Tamayo Dx/Rx/DC Orders Clinical Impression: Acute dyspnea, Hypoxemia, Hypertension, Pneumonia Prescriptions: No Action atorvastatin 10 mg tablet 10 mg PO QHS diltiazem HCl 180 mg capsule,extended release 24hr 360 mg PO DAILY telmisartan 80 mg tablet 80 mg PO DAILY probenecid 500 mg tablet 500 mg PO DAILY omega 5-mgr-dyf-fish oil [Fish Oil] 1,200 (144-216) mg Capsule 1 cap PO DAILY aspirin 81 mg Tablet,Delayed Release (Dr/Ec) 81 mg PO DAILY Deep Sea Nasal 0.65 % Aerosol,[place] 2 spray NASAL TID PRN PRN (Reason: NASAL DRYNESS) Qty: 0 0RF loperamide 2 mg Capsule 2 mg PO Q6H PRN PRN (Reason: Diarrhea) Qty: 0 0RF metoprolol tartrate 25 mg Tablet 12.5 mg PO BID 30 Days Qty: 30 0RF Primary Care Provider: Umang Boyer Referrals: Umang Boyer MD [Primary Care Provider] - Disposition Disposition: Acute Care Hospital [facility]
--- NOTE | 2023-05-11 10:15 | RAD_ITS ---
INDICATION: dyspnea EXAMINATION/TECHNIQUE: X-RAY - XR Chest 1 View COMPARISON: August 02, 2022 FINDINGS: LINES/DEVICES: None. LUNGS: There is airspace disease at the right lung base and possible small right pleural effusion. MEDIASTINUM AND CARDIOVASCULAR STRUCTURES: Cardiac silhouette not enlarged. Central airways and mediastinal contour are unremarkable. BONES AND SOFT TISSUES: Unremarkable. RAD/Chest 1 View (Portable) IMPRESSION: Possible airspace disease at the right lung base and small right pleural effusion appearing since the prior study. Electronically Signed: Sascha Maxwell MD at 10:28 EDT ,
[2023-05-11 10:31] LABS: Absolute Lymphocyte Count 0.95 X10^3/uL (0.83-4.51); Absolute Neutrophil Count 11.7 X10^3/uL (2.0-7.7); Basophil# 0.07 X10^3/uL; Basophil% 0.5 % (0-1); Eosinophil# 0.01 X10^3/uL; Eosinophils% 0.1 % (0-5); Hematocrit 35.8 % (37-47); Hemoglobin 11.4 g/dL (12.0-15.0); Lymphocyte # 0.95 X10^3/ul (0.83-4.51); Lymphocyte % 6.8 % (19-41); Mean Corp Hgb Conc 31.8 g/dL (32-36); Mean Corpuscular Hgb 31.9 pg (27.0-32.0); Mean Corpuscular Volume 100.3 fL (81-99); Mean Platelet Vol. 9.5 fl (6.2-12.0); Monocyte# 0.92 X10^3/uL; Monocyte% 6.6 % (0-10); NRBC Flagged by Analyzer 0 % (0-5); Neutrophil % 84.2 % (47-70); Platelet Count 376 K/mm3 (150-450); RBC Distribution Width CV 14.6 % (11.6-14.6); RBC Distribution Width SD 54.1 fl (35.1-43.9); Red Blood Count 3.57 M/mm3 (4.2-5.4); White Blood Count 13.9 K/mm3 (4.4-11.0)
[2023-05-11 10:56] LABS: Anion Gap 5 (5-15); BUN 24 mg/dL (7-18); BUN/Creat Ratio 15.5 RATIO (10-20); Calcium,Total 9.2 mg/dL (8.5-10.1); Chloride 106 mmol/L (98-107); Creatinine, Serum 1.55 mg/dL (0.55-1.02); EST Glomerular Filtration Rate 34 mL/min (>60); Est Glom Filt Rate - Afr Amer 42 mL/min (>60); Estimated Creatinine Clearance 23.13 ml/min; Glucose 110 mg/dL (74-106); Potassium 3.9 mmol/L (3.5-5.1); Sodium Level 138 mmol/L (136-145); Troponin-I HS 14 pg/mL (3.0-54.0)
[2023-05-11 11:05] LABS: D-Dimer Quantitative (DVT/PE) 1.46 FEU/ug/m (0.27-0.49)
--- NOTE | 2023-05-11 11:16 | CT_ITS ---
STUDY: CTA CHEST REASON FOR EXAM: Female, 77 years old. Elevated d-dimer, dyspnea RADIATION DOSAGE (If Supplied By Facility): CTDIvol = ( 5.17 ) mGy, DLP = ( 148.50 ) mGycm TECHNIQUE: The examination was performed with the intravenous administration of 100 CC ISOVUE 370. Post-processing of the angiographic images was performed, with multiplanar reformation and 3D reconstruction. Individualized dose optimization techniques were used for this CT. COMPARISON: No relevant prior comparison study available FINDINGS: There is a right pleural effusion. There is right middle lobe consolidation. Normal enhancement of the main pulmonary artery and right and left pulmonary arteries. Normal enhancement of the bilateral peripheral pulmonary arteries. There is no demonstrated pulmonary embolism. There is atherosclerotic calcification of the aortic arch with tortuosity. The ascending thoracic aorta measures 4.4 x 4.2 cm in diameter. The descending thoracic aorta measures 2.7 x 2.1 cm in diameter. There is no demonstrated aortic dissection. There are calcifications of the coronary arteries. Normal mediastinum. Normal hilar regions. Normal visualized trachea and bronchi. Normal chest wall structures. There is a dextroscoliosis of the upper/mid thoracic spine. There are degenerative changes of the thoracic spine. The limited images of the upper abdomen demonstrate right renal cysts. CT/CTA Chest W/WO Contrast IMPRESSION: No demonstrated pulmonary embolism or arterial dissection. Right middle lobe consolidation likely secondary to atelectasis and possible pneumonia, cannot exclude a neoplastic process, recommend follow-up chest CT in 6-8 weeks. Right pleural effusion. Atherosclerosis. Ectatic ascending thoracic aorta measuring up to 4.4 x 4.2 cm. Dextroscoliosis of the thoracic spine. Electronically Signed: Ada Lee MD at 12:28 EDT ,
--- NOTE | 2023-05-11 13:04 | NURSING ---
pcu bautista pneumonia, hypoxia, hypertension
--- NOTE | 2023-05-11 13:26 | HP.PCM.HOS_ITS ---
HPI - General General Date of Admission: 05/11/23 Date of Service: 05/11/23 Chief Complaint: SOB and hypoxia HPI Narrative SHERRI ZACARIAS, is a 77 F with a history of hypertension, chronic HFpEF, and gout who presented to [facility] 05/11/2023 from her assisted living facility due to low O2. She reports she was in her usual health but when she woke up in the middle of the night she was short of breath going to the bath room but went back to bed and went to sleep. In the morning she got up to go to breakfast and was found to have an O2 sat of 89% and was short of breath so she sent to the ED. In ED she was 87% on room air and dropped to 85 when she went to the bathroom, O2 sats in the 90s on 2 L of O2. Chest x-ray concerning for right lower lobe infiltrate and a D-dimer slightly elevated so CTA obtained which demonstrated right middle lobe consolidation possibly pneumonia and recommended follow-up chest CT in 6 to 8 weeks to exclude underlying neoplastic process. White blood cell count also 13.9 patient hypertensive in ED with blood pressure 182/88. Hospitalist consulted for admission due to her hypoxia. Patient seen with family member at bedside and they confirm above story, patient has had slight dry cough but nothing productive, will have clear nasal drainage at times but nothing new and no sore throat. She feels slightly better in the ED right now but did drop to 85% when she took her oxygen off and went to the bathroom. Aside from shortness of breath ROS negative. [facility] Medical History Gout Hypertension Macular degeneration Stroke/cerebrovascular accident Wrist fracture Home Medications aspirin 81 mg tablet,delayed release 81 mg PO DAILY HEART HEALTH 07/27/22 [History Last Taken 07/27/22] atorvastatin 10 mg tablet 10 mg PO QHS CHOLESTEROL 07/27/22 [History Last Taken 07/26/22] diltiazem HCl 180 mg capsule,extended release 24 hr 360 mg PO DAILY BLOOD PRESSURE 07/27/22 [History Last Taken 07/27/22] omega 3-zye-art-fish oil 1,200 mg (144 mg-216 mg) capsule (Fish Oil) 1 cap PO DAILY SUPPLEMENT 07/27/22 [History Last Taken 07/27/22] probenecid 500 mg tablet 500 mg PO DAILY GOUT 07/27/22 [History Last Taken 07/27/22] telmisartan 80 mg tablet 80 mg PO DAILY BLOOD PRESSURE 07/27/22 [History Last Taken 07/27/22] sodium chloride 0.65 % nasal spray aerosol (Deep Sea Nasal) 2 spray NASAL TID PRN PRN NASAL DRYNESS #0 mL 08/05/22 [Rx Last Taken Unknown] loperamide 2 mg capsule 2 mg PO Q6H PRN PRN Diarrhea #0 caps 08/16/22 [Rx Last Taken Unknown] metoprolol tartrate 25 mg tablet 12.5 mg (1/2 x 25 mg) PO BID 30 days #30 tabs 08/16/22 [Rx Last Taken Unknown] Allergy/AdvReac Type Severity Reaction Status Date / Time No Known Allergies Allergy Verified 05/11/23 09:04 Social History (Updated 08/05/22 @ 18:[address] Medardo Vegas MD) housing: assisted living facility Smoking Status: Former smoker alcohol intake: never substance use type: does not use ROS ROS Narrative General: Denies fever/chills HENT: Denies headache, occasionally has runny nose, denies sore throat EYES: Denies changes in vision Resp: Occasional dry cough, shortness of breath for past 1 day Cardiac: Denies chest pain GI: Denies abdominal pain, denies changes in bowel, denies nausea/vomiting : Denies changes in urination Extremity: Denies swelling MSK: Denies weakness Neuro: Denies any numbness/tingling Heme: Denies any bleeding or bruising Skin: Denies rashes Psychiatric: No complaints voiced Vital Signs Vital Signs Vital Signs: 05/11/23 09:03 05/11/23 09:26 05/11/23 09:26 Temperature 98.4 F Temperature Source Temporal Pulse Rate 100 Respiratory Rate 20 H Respiratory Effort Short of Breath Respiratory Depth Normal Respiratory Pattern Normal Blood Pressure 182/88 H Blood Pressure Mean 119 Pulse Ox 87 Oxygen Delivery Method Room Air Room Air 05/11/23 10:02 Temperature Temperature Source Pulse Rate 90 Respiratory Rate 14 Respiratory Effort Respiratory Depth Respiratory Pattern Blood Pressure 172/64 H Blood Pressure Mean 100 Pulse Ox 88 Oxygen Delivery Method Room Air Weight Weight: 48.988 kg Body Mass Index (BMI) 19.7 Physical Exam Narrative General: Alert, oriented, no apparent distress HEENT: Atraumatic, normocephalic Eyes: Anicteric, normal conjunctiva, extraocular movements grossly intact Neck: Supple Respiratory: Coarse right middle lobe, normal respiratory effort Cardiovascular: Regular rate and rhythm GI: Soft, nontender, nondistended Extremities: No edema Musculoskeletal: Moving all extremities, does have significant scoliosis Neuro: No overt focal neurological deficits Skin: No rashes appreciated Psych: Cooperative Results Lab / Micro Data 05/11/23 10:20 05/11/23 10:20 Labs: Laboratory Results - last 24 hr 05/11/23 10:20: WBC 13.9 H, RBC 3.57 L, Hgb 11.4 L, Hct 35.8 L, MCV 100.3 H, MCH 31.9, MCHC 31.8 L, RDW Std Deviation 54.1 H, RDW Coeff of Arnulfo 14.6, Plt Count 376, MPV 9.5, Immature Gran % (Auto) 1.800 H, Neut % (Auto) 84.2 H, Lymph % (Auto) 6.8 L, [place] % (Auto) 6.6, Eos % (Auto) 0.1, Baso % (Auto) 0.5, Absolute Neuts (auto) 11.7 H, Absolute Lymphs (auto) 0.95, Nucleated RBC % 0, D-Dimer Quant (PE/DVT) 1.46 H*, Sodium 138, Potassium 3.9, Chloride 106, Carbon Dioxide 27.0, Anion Gap 5, BUN 24 H, Creatinine 1.55 H, Estim Creat Clear Calc 23.13, Est GFR (MDRD) Af Amer 42 L, Est GFR (MDRD) Non-Af 34 L, BUN/Creatinine Ratio 15.5, Glucose 110 H, Calcium 9.2, Troponin I High Sens 14, B-Natriuretic Peptide 311.0 H Micro: Microbiology 05/11/23 10:40 Nasal Secretion SARS-CoV-2 & FLU Antigen (Rapid) - Final Radiology Impression Chest X-Ray 05/11/23 10:15 IMPRESSION: Possible airspace disease at the right lung base and small right pleural effusion appearing since the prior study. Electronically Signed: Sascha Maxwell MD at 10:28 EDT Reading Location ID and State: [address] [place] [address] Tel , Service support , Chest CTA 05/11/23 11:16 IMPRESSION: No demonstrated pulmonary embolism or arterial dissection. Right middle lobe consolidation likely secondary to atelectasis and possible pneumonia, cannot exclude a neoplastic process, recommend follow-up chest CT in 6-8 weeks. Right pleural effusion. Atherosclerosis. Ectatic ascending thoracic aorta measuring up to 4.4 x 4.2 cm. Dextroscoliosis of the thoracic spine. Electronically Signed: Ada Lee MD at 12:28 EDT , Assessment & Plan Assessment/Plan (1) Hypoxemia: (2) Pneumonia: PLAN: Plan #Community-acquired pneumonia and hypoxia with O2 down to 85% on room air -Imaging: Chest x-ray concerning for infiltrate and CTA showed no PE however had right middle lobe consolidation and was recommended repeat CT in 6 to 8 weeks to verify no other underlying neoplastic process -DuoNebs and as needed albuterol -Sputum culture, COVID and flu, respiratory panel -Urine antigens -I/S -Rocephin and azithromycin #HTN/HFpEF chronic -BP elevated with systolic 170s to 180s in ED -Continue home blood pressure medications -Monitor I's and O's, daily weights -Last echocardiogram 07/27/2022 with stage II diastolic dysfunction and preserved EF -BNP 311 however patient does not appear fluid overloaded, only has small right pleural effusion and does not appear to have pulmonary edema and history does not seem to be consistent with exacerbation of heart failure #CKD stage IIIb -Baseline Cr between 1.03 and 1.3, today is 1.55, slightly up from baseline but no [place] -Monitor closely #DVT ppx: William Owens MD Time spent in the patient's overall evaluation,decision-making process, review of diagnostic data, adjustment of management, discussion with other providers, nursing nursing and ancillary staff involved in patient's care documentation, 56 minutes Charges/Coding Visit Charges Inpatient E&M: 50917 Init Hosp L2
[2023-05-11] MEDS: Ceftriaxone 1 GM/50 ML BAG IV (13:28)
[2023-05-11 14:22] LABS: Lactic Acid 1.5 mmol/L (0.4-1.9)
[2023-05-11] MEDS: Azithromycin 500 MG in Dextrose 5%-Water (250mL Bag) 250 ML 250 MG IV (15:23)
[2023-05-11] MEDS: 0.9% Normal Saline (250mL Bag) 250 ML 15 ML IV (15:23)
[2023-05-11] MEDS: 0.9% Saline Lock 10 ML Syringe IV (15:25)
[2023-05-11] MEDS: Ipratropium/Albuterol Sulfate 3 ML AMPUL.NEB INHALATION (20:20)
[2023-05-11] MEDS: Acetaminophen 325 MG Tablet 650 MG PO (20:45)
[2023-05-11] MEDS: Atorvastatin Calcium 10 MG Tablet PO (20:45)
[2023-05-11] MEDS: Metoprolol Tartrate 25 MG Tablet 12.5 MG PO (20:45)
[2023-05-12] VITALS (11 sets, daily range): BP systolic 161–184; BP diastolic 71–92; PULSE 88–110; RESP 18; TEMP 36.7–37.2; O2SAT 86–95; BMI 20.5
[2023-05-12 06:16] LABS: Absolute Lymphocyte Count 0.89 X10^3/uL (0.83-4.51); Absolute Neutrophil Count 10.3 X10^3/uL (2.0-7.7); Basophil# 0.05 X10^3/uL; Basophil% 0.4 % (0-1); Eosinophil# 0.04 X10^3/uL; Eosinophils% 0.3 % (0-5); Hematocrit 32.5 % (37-47); Hemoglobin 10.4 g/dL (12.0-15.0); Lymphocyte # 0.89 X10^3/ul (0.83-4.51); Lymphocyte % 7.1 % (19-41); Mean Corpuscular Hgb 32.1 pg (27.0-32.0); Mean Corpuscular Volume 100.3 fL (81-99); Mean Platelet Vol. 9.8 fl (6.2-12.0); Monocyte# 1.07 X10^3/uL; Monocyte% 8.5 % (0-10); NRBC Flagged by Analyzer 0 % (0-5); Neutrophil # 10.27 X10^3/uL (2.7-7.7); Platelet Count 354 K/mm3 (150-450); RBC Distribution Width CV 14.6 % (11.6-14.6); Red Blood Count 3.24 M/mm3 (4.2-5.4); White Blood Count 12.5 K/mm3 (4.4-11.0)
[2023-05-12 06:42] LABS: Anion Gap 8 (5-15); BUN 20 mg/dL (7-18); BUN/Creat Ratio 13.6 RATIO (10-20); Calcium,Total 8.7 mg/dL (8.5-10.1); Chloride 107 mmol/L (98-107); Creatinine, Serum 1.47 mg/dL (0.55-1.02); EST Glomerular Filtration Rate 37 mL/min (>60); Est Glom Filt Rate - Afr Amer 44 mL/min (>60); Estimated Creatinine Clearance 24.95 ml/min; Glucose 91 mg/dL (74-106); Sodium Level 140 mmol/L (136-145)
[2023-05-12] MEDS: Aspirin E.C. 81 MG Tablet PO (08:51)
[2023-05-12] MEDS: Metoprolol Tartrate 25 MG Tablet 12.5 MG PO (08:51)
[2023-05-12] MEDS: dilTIAZem CD 180 MG Capsule 360 MG PO (08:52)
[2023-05-12] MEDS: Ceftriaxone 2 GM in 0.9% Normal Saline (50mL MB+) 50 ML IV (08:52)
[2023-05-12] MEDS: Enoxaparin 30 MG/0.3 ML Syringe SC (08:52)
[2023-05-12] MEDS: Acetaminophen 325 MG Tablet 650 MG PO (09:01)
[2023-05-12] MEDS: Azithromycin 500 MG in Dextrose 5%-Water (250mL Bag) 250 ML 250 MG IV (10:02)
--- NOTE | 2023-05-12 13:35 | DCINST_ITS ---
Discharge Instructions Diet Discharge Diet: - (DASH diet) Activity Discharge Activity: Use Walker Follow Up Care Test Results: Test results from this visit will be discussed in further detail at your follow- up appointment, if applicable. Discharge Plan Admission Admit Date/Time: 05/11/23 13:25 Primary Reason for Your Visit: Shortness of breath Attending Provider: Bisi Owens Primary Care Provider: Umang Boyer Instructions Patient Instructions: ED Pneumonia (Adult) Additional Instructions / Restrictions: DISCHARGE INSTRUCTIONS PLEASE READ *Please take this with you to your next doctors appointment* -You will be discharged on Augmentin 500 mg twice daily for 6 more days and azithromycin 500 mg daily for 5 more days -You are found to have a right-sided pneumonia, however it is recommended that you have a repeat chest CT in 6 to 8 weeks to assess for improvement as the CT was unable to rule out any other underlying process -Please call your primary care provider's office upon discharge to schedule a hospital follow up within 1 week. -For any concerning signs or symptoms please call 911 or proceed to the nearest emergency department Discharge Orders/Prescriptions Prescriptions: New amoxicillin-pot clavulanate [Augmentin] 500-125 mg tablet 1 tab PO BID 6 Days Qty: 12 0RF azithromycin 500 mg tablet 500 mg PO DAILY 5 Days Qty: 5 0RF Continued atorvastatin 10 mg tablet 10 mg PO QHS diltiazem HCl 180 mg capsule,extended release 24hr 360 mg PO DAILY telmisartan 80 mg tablet 80 mg PO DAILY probenecid 500 mg tablet 500 mg PO DAILY omega 3-jza-bjt-fish oil [Fish Oil] 1,200 (144-216) mg Capsule 1 cap PO DAILY aspirin 81 mg Tablet,Delayed Release (Dr/Ec) 81 mg PO DAILY loperamide 2 mg Capsule 2 mg PO Q6H PRN PRN (Reason: Diarrhea) Qty: 0 0RF metoprolol tartrate 25 mg Tablet 12.5 mg PO BID 30 Days Qty: 30 0RF acetaminophen [Aphen] 325 mg tablet 650 mg PO Q6H PRN (Reason: back pain) Referrals / Follow Up: Umang Boyer MD [Primary Care Provider] - Within 1 Week Disposition Disposition (needs filled in before D/C Order can be placed): Assisted Living
--- NOTE | 2023-05-12 13:39 | PCM.DC.SUM ---
Providers Date of Admission: 05/11/23 Date of Discharge: 05/12/23 Primary Care Physician: Dr. Umang Boyer MD Reason For Visit: PNEUMONIA Diagnosis Discharge Diagnosis (1) Hypoxemia: Status: Acute Code(s): R09.02 - Hypoxemia (2) Pneumonia: Status: Acute Code(s): J18.9 - Pneumonia, unspecified organism Plan #Community-acquired pneumonia and hypoxia with O2 down to 85% on room air #HTN/HFpEF chronic #CKD stage IIIb Medications at Discharge Home Medications aspirin 81 mg tablet,delayed release 81 mg PO DAILY HEART HEALTH 07/27/22 atorvastatin 10 mg tablet 10 mg PO QHS CHOLESTEROL 07/27/22 diltiazem HCl 180 mg capsule,extended release 24 hr 360 mg PO DAILY BLOOD PRESSURE 07/27/22 omega 1-hfp-lcn-fish oil 1,200 mg (144 mg-216 mg) capsule (Fish Oil) 1 cap PO DAILY SUPPLEMENT 07/27/22 probenecid 500 mg tablet 500 mg PO DAILY GOUT 07/27/22 telmisartan 80 mg tablet 80 mg PO DAILY BLOOD PRESSURE 07/27/22 loperamide 2 mg capsule 2 mg PO Q6H PRN PRN Diarrhea #0 caps 08/16/22 metoprolol tartrate 25 mg tablet 12.5 mg (1/2 x 25 mg) PO BID 30 days #30 tabs 08/16/22 acetaminophen 325 mg tablet (Aphen) 650 mg PO Q6H PRN back pain 05/11/23 amoxicillin 500 mg-potassium clavulanate 125 mg tablet (Augmentin) 1 tab PO BID 6 days #12 tabs 05/12/23 azithromycin 500 mg tablet 500 mg PO DAILY 5 days #5 tabs 05/12/23 Hospital Course Summary of Care Provided Minutes Spent on Discharge: 32 Hospital Course: SHERRI ZACARIAS, is a 77 F with a history of hypertension, chronic HFpEF, and gout who presented to [facility] 05/11/2023 from her assisted living facility due to low O2. She reports she was in her usual health but when she woke up in the middle of the night she was short of breath going to the bathroom but went back to bed and went to sleep. In the morning she got up to go to breakfast and was found to have an O2 sat of 89% and was short of breath so she sent to the ED. In ED she was 87% on room air and dropped to 85 when she went to the bathroom, O2 sats in the 90s on 2 L of O2. Chest x-ray concerning for right lower lobe infiltrate and a D-dimer slightly elevated so CTA obtained which demonstrated right middle lobe consolidation possibly pneumonia and recommended follow-up chest CT in 6 to 8 weeks to exclude underlying neoplastic process. White blood cell count also 13.9 patient hypertensive in ED with blood pressure 182/88. Hospitalist consulted for admission due to her hypoxia. Patient improved on antibiotics and felt much better, ambulated to assess for short-term home O2 needs prior to discharge. Patient is ambulatory in the home and in the community and requires home oxygen with portability. Discharged on appropriate oral antibiotic regimen in stable condition. Physical Exam Narrative General: Alert, oriented, no apparent distress HEENT: Atraumatic, normocephalic Eyes: Anicteric, normal conjunctiva, extraocular movements grossly intact Neck: Supple Respiratory: Improving aeration, normal respiratory effort Cardiovascular: Regular rate and rhythm GI: Soft, nontender, nondistended Extremities: No edema Musculoskeletal: Moving all extremities, does have significant scoliosis Neuro: No overt focal neurological deficits Skin: No rashes appreciated Psych: Cooperative Weight / BMI Weight Weight: 50.8 kg Body Mass Index (BMI) 20.5 ABG / Lab / Microbiology Data 05/12/23 04:50 05/12/23 04:50 Laboratory: Laboratory Results - last 24 hr 05/11/23 13:05: Lactic Acid 1.5 05/12/23 04:50: WBC 12.5 H, RBC 3.24 L, Hgb 10.4 L, Hct 32.5 L, MCV 100.3 H, MCH 32.1 H, MCHC 32.0, RDW Std Deviation 55.0 H, RDW Coeff of Arnulfo 14.6, Plt Count 354, MPV 9.8, Immature Gran % (Auto) 1.700 H, Neut % (Auto) 82.0 H, Lymph % (Auto) 7.1 L, [place] % (Auto) 8.5, Eos % (Auto) 0.3, Baso % (Auto) 0.4, Absolute Neuts (auto) 10.3 H, Absolute Lymphs (auto) 0.89, Nucleated RBC % 0, Sodium 140, Potassium 4.0, Chloride 107, Carbon Dioxide 25.0, Anion Gap 8, BUN 20 H, Creatinine 1.47 H, Estim Creat Clear Calc 24.95, Est GFR (MDRD) Af Amer 44 L, Est GFR (MDRD) Non-Af 37 L, BUN/Creatinine Ratio 13.6, Glucose 91, Calcium 8.7 Microbiology: Microbiology 05/12/23 05:12 Urine, Random Legionella Antigen - Final 05/12/23 05:12 Urine, Random Streptococcus pneumoniae Antigen (M - Final 05/11/23 14:05 Mucosa - Nose Respiratory Panel (PCR) - Final 05/11/23 10:40 Nasal Secretion SARS-CoV-2 & FLU Antigen (Rapid) - Final D/C Instructions Discharge Diet: - (DASH diet) Meaningful Use Info Meaningful Use Diagnoses (Choose all that apply): None applicable Discharge Plan Admission Admit Date/Time: 05/11/23 13:25 Primary Reason for Your Visit: Shortness of breath Attending Provider: Bisi Owens Primary Care Provider: Umang Boyer Instructions Patient Instructions: ED Pneumonia (Adult) Additional Instructions / Restrictions: DISCHARGE INSTRUCTIONS PLEASE READ *Please take this with you to your next doctors appointment* -You will be discharged on Augmentin 500 mg twice daily for 6 more days and azithromycin 500 mg daily for 5 more days -You are found to have a right-sided pneumonia, however it is recommended that you have a repeat chest CT in 6 to 8 weeks to assess for improvement as the CT was unable to rule out any other underlying process -Please call your primary care provider's office upon discharge to schedule a hospital follow up within 1 week. -For any concerning signs or symptoms please call 911 or proceed to the nearest emergency department Discharge Orders/Prescriptions Prescriptions: New amoxicillin-pot clavulanate [Augmentin] 500-125 mg tablet 1 tab PO BID 6 Days Qty: 12 0RF azithromycin 500 mg tablet 500 mg PO DAILY 5 Days Qty: 5 0RF Continued atorvastatin 10 mg tablet 10 mg PO QHS diltiazem HCl 180 mg capsule,extended release 24hr 360 mg PO DAILY telmisartan 80 mg tablet 80 mg PO DAILY probenecid 500 mg tablet 500 mg PO DAILY omega 2-mhj-pmr-fish oil [Fish Oil] 1,200 (144-216) mg Capsule 1 cap PO DAILY aspirin 81 mg Tablet,Delayed Release (Dr/Ec) 81 mg PO DAILY loperamide 2 mg Capsule 2 mg PO Q6H PRN PRN (Reason: Diarrhea) Qty: 0 0RF metoprolol tartrate 25 mg Tablet 12.5 mg PO BID 30 Days Qty: 30 0RF acetaminophen [Aphen] 325 mg tablet 650 mg PO Q6H PRN (Reason: back pain) Referrals / Follow Up: Umang Boyer MD [Primary Care Provider] - Within 1 Week Disposition Disposition (needs filled in before D/C Order can be placed): Assisted Living Charges/Coding Visit Charges Inpatient E&M: 27911 Disch Hosp >30min
--- NOTE | 2023-05-12 14:02 | CASEMGMT ---
Per Jayne d/c gynecological assistant Ame prefers [employer] for O2 company. TREE spoke with patient and asked if her daughter would be transporting her and patient was not sure. TREE called patient's daughter, Nicole and let her know patient will be discharged today. Nicole will transport patient back to [place] around 530. Plan: d/c back to [place] [facility] [employer]
--- NOTE | 2023-05-12 14:15 | CASEMGMT ---
JULIA TAYLOR updated that patient will need home oxygen at discharge. JULIA TAYLOR updated by TREE that [place] [facility] [place]. Script received and referral sent to [facility] [place] [employer]. JULIA TAYLOR arranged for portable tank to be delivered to patient's room. JULIA TAYLOR updated SW of oxygen setup.
--- NOTE | 2023-05-12 14:27 | PHA.DC.MR.R ---
Pharmacy [place] Med Reconciliation Pharmacy Service has performed discharge medication reconciliation for this patient upon transfer to [facility]. The patient's discharge medication list was reviewed for discrepancies and discrepancies were resolved. Medications at Discharge Home Medications aspirin 81 mg tablet,delayed release 81 mg PO DAILY HEART HEALTH 07/27/22 atorvastatin 10 mg tablet 10 mg PO QHS CHOLESTEROL 07/27/22 diltiazem HCl 180 mg capsule,extended release 24 hr 360 mg PO DAILY BLOOD PRESSURE 07/27/22 omega 2-xkq-asi-fish oil 1,200 mg (144 mg-216 mg) capsule (Fish Oil) 1 cap PO DAILY SUPPLEMENT 07/27/22 probenecid 500 mg tablet 500 mg PO DAILY GOUT 07/27/22 telmisartan 80 mg tablet 80 mg PO DAILY BLOOD PRESSURE 07/27/22 loperamide 2 mg capsule 2 mg PO Q6H PRN PRN Diarrhea #0 caps 08/16/22 metoprolol tartrate 25 mg tablet 12.5 mg (1/2 x 25 mg) PO BID 30 days #30 tabs 08/16/22 acetaminophen 325 mg tablet (Aphen) 650 mg PO Q6H PRN back pain 05/11/23 amoxicillin 500 mg-potassium clavulanate 125 mg tablet (Augmentin) 1 tab PO BID 6 days #12 tabs 05/12/23 azithromycin 500 mg tablet 500 mg PO DAILY 5 days #5 tabs 05/12/23
[2023-05-12] MEDS: Flu Vacc QS2023-24(65YR UP)/PF 240 MCG/0.7 ML Syringe IM (17:56)
== END 2023-05-12 18:11 | disposition home or self-care (01) | DRG 194 ==
LOC: ED 12:54 → PCU 13:41
PROVIDERS: Admitting Provider Internal Medicine; Emergency Provider Emergency Medicine; PCP Family Medicine; Visit Provider Internal Medicine
DX: J18.9 Pneumonia, unspecified organism (principal); I50.32 Chronic diastolic (congestive) heart failure; I13.0 Hypertensive heart and chronic kidney disease with heart failure and stage 1 through stage 4 chronic kidney disease, or unspecified chronic kidney disease; N18.32 Chronic kidney disease, stage 3b; R09.02 Hypoxemia; Z23 Encounter for immunization; Z79.82 Long term (current) use of aspirin; Z79.899 Other long term (current) drug therapy; Z87.891 Personal history of nicotine dependence; Z86.73 Personal history of transient ischemic attack (TIA), and cerebral infarction without residual deficits
CPT/HCPCS: 36415; 71045; 71275; 80048; 83605; 83880; 84484; 85025; 85379; 87040; 87428; 87449; 87633; 93005; 94640; 94668; 97162; 97166; 99283; J7050; Q9967; 90662; A4216; J0696

== ENCOUNTER 2023-07-05 16:14 | Inpatient (IN) | payer MEDICARE, SELFPAY ==
[2023-07-05 16:15] VITALS: BP 183/82; PULSE 69; RESP 16; TEMP 36.9; O2SAT 94
--- NOTE | 2023-07-05 16:36 | RAD_ITS ---
STUDY: X-RAY - PELVIS AND LEFT HIP REASON FOR EXAM: Female, 77 years old. pain, fall TECHNIQUE: 3 views of the pelvis and hip. COMPARISON: None. FINDINGS: Comminuted intratrochanteric fractures are seen of the left femur, with mild displacement and moderate angulation. No dislocation. Normal bilateral iliac wings, sacroiliac joints and visualized sacrum. Normal bilateral superior and inferior pubic rami. Normal pubic symphysis. Normal bilateral ischial tuberosities. RAD/HIP, UNI W/ Pelvis 2-3 Views IMPRESSION: Angulated and mildly displaced intratrochanteric fractures of the proximal left femur. Electronically Signed: Louis Herring MD at 16:55 EST ,
--- NOTE | 2023-07-05 16:40 | EDS_ITS ---
HPI HPI - Fall History of Present Illness Chief Complaint: Fall Informant: patient Occured/Mechanism Occurred: Today Mechanism/Context: Yes trip Pain/Injury Location: Left hip, left back, and left face Pain Location: face, back and lower extremity (Left hip) Quality of Pain: Aching Worsened by: Nothing Relieved by: Nothing Associated Symptoms Associated Symptoms: Positive for Inability to ambulate; Negative for Parasthesias, Weakness, Loss of function, Loss of consciousness or Amnesia Narrative Narrative: Patient presents with pain in her left hip and back that began after a fall today. Patient states she was getting up from her recliner and her foot got caught on the footboard of the recliner which caused her to fall. Patient hit her face and hit the left side of her hip. Patient was unable to ambulate after the fall. Patient states her pain is worse with any movement. Patient states nothing seems to help with her pain. Patient denies any loss of consciousness. Patient denies any paresthesias or weakness. Patient denies any other injuries. PFSH [facility] Medical History Aortic stenosis Former smoker Gout Hypertension Macular degeneration Stroke/cerebrovascular accident Wrist fracture Home Medications aspirin 81 mg tablet,delayed release 81 mg PO DAILY HEART HEALTH 07/27/22 [History Last Taken 07/27/22] atorvastatin 10 mg tablet 10 mg PO QHS CHOLESTEROL 07/27/22 [History Last Taken 07/26/22] diltiazem HCl 180 mg capsule,extended release 24 hr 360 mg PO DAILY BLOOD PRESSURE 07/27/22 [History Last Taken 07/27/22] omega 5-uzw-nlq-fish oil 1,200 mg (144 mg-216 mg) capsule (Fish Oil) 1 cap PO DAILY SUPPLEMENT 07/27/22 [History Last Taken 07/27/22] probenecid 500 mg tablet 500 mg PO DAILY GOUT 07/27/22 [History Last Taken 07/27/22] telmisartan 80 mg tablet 80 mg PO DAILY BLOOD PRESSURE 07/27/22 [History Last Taken 07/27/22] loperamide 2 mg capsule 2 mg PO Q6H PRN PRN Diarrhea #0 caps 08/16/22 [Rx Last Taken Unknown] metoprolol tartrate 25 mg tablet 12.5 mg (1/2 x 25 mg) PO BID 30 days #30 tabs 08/16/22 [Rx Last Taken Unknown] acetaminophen 325 mg tablet (Aphen) 650 mg PO Q6H PRN back pain 05/11/23 [History Last Taken Unknown] amoxicillin 500 mg-potassium clavulanate 125 mg tablet (Augmentin) 1 tab PO BID 6 days #12 tabs 05/12/23 [Rx Last Taken Unknown] azithromycin 500 mg tablet 500 mg PO DAILY 5 days #5 tabs 05/12/23 [Rx Last Taken Unknown] Allergy/AdvReac Type Severity Reaction Status Date / Time No Known Allergies Allergy Verified 07/05/23 16:15 Surgical History History of appendectomy Social History housing: assisted living facility Smoking Status: Former smoker alcohol intake: never substance use type: does not use ROS ROS ED Constitutional Constitutional ED: Denies chills or fever(s) Eyes Eyes: Denies blurry vision or change in vision ENT ENT ED: Denies rhinorrhea or sore throat Cardiovascular Cardiovascular: Denies chest pain or palpitations Respiratory/Chest Respiratory/Chest: Denies cough or dyspnea Gastrointestinal Gastrointestinal: Denies nausea or vomiting Genitourinary Genitourinary ED: Denies dysuria or hematuria Musculoskeletal Musculoskeletal: Reports back pain; Denies neck pain Integumentary Denies abscess or rash Neurologic Neurologic: Denies headache(s) or weakness Allergic/Immunologic Allergic/Immunologic ED: Denies mouth swelling or urticaria EXAM Physical Exam Const Vital Signs: 07/05/23 16:15 07/05/23 17:10 Temperature 98.5 F Temperature Source Oral Pulse Rate 69 75 Respiratory Rate 16 Blood Pressure 183/82 H Blood Pressure Mean 115 Pulse Ox 94 92 Oxygen Delivery Method Room Air Room Air Positive well nourished and well developed General Appearance ED: well developed and NAD HEENT Reports normocephalic HEENT Narrative: There is mild tenderness over the left cheek. There is no bony crepitance or step-off noted. There is some mild edema. There is no ecchymosis noted. Neck full ROM and supple GI non-tender and non-distended Palpation: soft Back/Spine Back/Spine Narrative: There is tenderness over the lower lumbar spine and paraspinal muscles. There is some mild midline tenderness. There is no bony crepitance or step-off. Strength is 5/5 bilaterally in the lower extremities. There are no sensory deficits noted. Extremity Extremity Narrative: There is tenderness to palpation over the left hip. There is no obvious deformity noted. Range of motion was limited in all motions of the left hip secondary to pain. Sensation was intact to light touch bilaterally in the lower extremities. Pedal pulses are equal bilaterally. Neuro oriented x3, CN's II-XII intact bilaterally, moves all extremities, no focal motor deficits and no sensory deficits noted [place] Coma Scale: document GCS findings Spontaneous Obeys Commands Oriented 15 Sensorium / Orientation: alert Motor Exam: strength 5/5 throughout Psych mental status grossly normal MDM MDM MDM Narrative Medical decision making narrative: Differential diagnosis includes hip fracture, lumbar compression fracture, contusion, and closed head injury. X-rays of the left hip will be obtained to assess for left hip fracture. Lab Data Labs: Laboratory Results - last 24 hr 07/05/23 17:15 WBC 7.7 RBC 3.67 L Hgb 12.2 Hct 37.2 MCV 101.4 H MCH 33.2 H MCHC 32.8 RDW Std Deviation 57.3 H RDW Coeff of Arnulfo 15.3 H Plt Count 243 MPV 10.8 Immature Gran % (Auto) 0.800 Neut % (Auto) 66.5 Lymph % (Auto) 24.7 [place] % (Auto) 6.6 Eos % (Auto) 1.0 Baso % (Auto) 0.4 Absolute Neuts (auto) 5.1 Absolute Lymphs (auto) 1.91 Nucleated RBC % 0 Sodium 141 Potassium 4.0 Chloride 110 H Carbon Dioxide 24.0 Anion Gap 7 BUN 37 H Creatinine 1.67 H Estim Creat Clear Calc 22.97 Est GFR (MDRD) Af Amer 38 L Est GFR (MDRD) Non-Af 32 L BUN/Creatinine Ratio 22.2 H Glucose 95 Calcium 8.7 Troponin I High Sens 11 Radiography Chest X-Ray - ED: 1 View, Read by ED Physician, Read by Radiologist, No Acute Disease and Chronic Changes Diagnostic Testing: Clinical Impression(s) from Imaging Studies Hip/Pelvis X-Ray 07/05/23 16:36 IMPRESSION: Angulated and mildly displaced intratrochanteric fractures of the proximal left femur. Electronically Signed: Louis Herring MD at 16:55 EST , Chest X-Ray 07/05/23 16:45 IMPRESSION: There are findings consistent with COPD. There is no evidence of acute chest disease. Electronically Signed: Louis Herring MD at 16:57 EST , X-rays of the left hip were obtained. There are 3 views. On my independent interpretation, there is an intertrochanteric fracture of the left hip that is angulated. There are some degenerative changes of the visualized portion of the lumbar spine. There is no acute fracture noted. Radiologist also interpreted the x-rays and agrees. Portable chest x-ray was obtained. There is 1 view. On my independent interpretation, there is no acute cardiopulmonary process. There is no infiltrate noted. There is scoliosis noted. There is no pneumothorax noted. There is no cardiomegaly noted. There is evidence of COPD. Radiologist also interpreted the x-rays and agrees. EKG Initial EKG: Attestation: I personally reviewed and interpreted this EKG as follows: Interpretation: Sinus Rhythm (71) and No Acute Injury Pattern Comments: EKG was obtained. On my independent interpretation, it showed a normal sinus rhythm with a rate of 71. VT interval, QRS interval, and QTc intervals were all normal. [place] was normal. There are no acute ST or T wave changes. Prior EKG tracings: available for review Prior: Unchanged (05/11/2023) Management Discussion w/another healthcare provider: Hospitalist and Hand Plug Shaper (Dr. Steiner) Treatment and Re-Evaluation Narrative: Patient was advised of her findings. Because of the hip fracture, preoperative labs will be obtained. CBC will be obtained to assess for leukocytosis and anem ia. Basic metabolic profile will be obtained to assess for electrolyte abnormality and renal function. PT with INR and PTT will be obtained to assess for coagulopathy. EKG will be obtained to assess for cardiac dysrhythmia and cardiac ischemia. Chest x-ray will be obtained to assess for pneumonia and congestive heart failure. High-sensitivity troponin will be obtained to assess for cardiac ischemia. Case will be discussed with orthopedics and hospitalist. Case was discussed with Dr. Blunt from orthopedics. He recommend placing the patient in Cannon's traction when she gets to the floor. He is planning on taking her to the operating room tomorrow for fixation. Case was discussed with the hospitalist. He will admit the patient to his service. Patient and family understand and are agreeable with the plan. All questions were answered. Discharge Plan Dx/Rx/DC Orders Clinical Impression: Intertrochanteric fracture of left hip, Hypertension, Fall Disposition Disposition: Acute Care Hospital [facility] [place]
--- NOTE | 2023-07-05 16:45 | RAD_ITS ---
STUDY: X-RAY CHEST REASON FOR EXAM: Female, 77 years old. Fall TECHNIQUE: Single AP portable view of the chest. COMPARISON: Chest x-ray and CT scan 05/11/2023. FINDINGS: The lungs are clear and hyperexpanded. No evidence for COPD. There is no demonstrated pleural abnormality. There is mild cardiac enlargement. Normal mediastinum and riana. Normal visualized pulmonary arteries. Normal visualized aortic arch and descending thoracic aorta. There is marked dextroscoliosis of the thoracic spine. Normal visualized ribs, clavicles, and shoulders. There is no demonstrated abnormality of the visualized soft tissue structures of the upper abdomen. RAD/Chest 1 View (Portable) IMPRESSION: There are findings consistent with COPD. There is no evidence of acute chest disease. Electronically Signed: Louis Herring MD at 16:57 EST ,
[2023-07-05 17:10] VITALS: PULSE 75; O2SAT 92
[2023-07-05] MEDS: Ondansetron 4 MG/2 ML Vial IV (17:10)
[2023-07-05] MEDS: Morphine 4 MG/ML Syringe IV ×2 (17:10→17:48)
[2023-07-05 17:11] VITALS: BMI 23.8
[2023-07-05 17:25] LABS: Absolute Lymphocyte Count 1.91 X10^3/uL (0.83-4.51); Absolute Neutrophil Count 5.1 X10^3/uL (2.0-7.7); Basophil# 0.03 X10^3/uL; Basophil% 0.4 % (0-1); Eosinophil# 0.08 X10^3/uL; Hematocrit 37.2 % (37-47); Hemoglobin 12.2 g/dL (12.0-15.0); Lymphocyte # 1.91 X10^3/ul (0.83-4.51); Lymphocyte % 24.7 % (19-41); Mean Corp Hgb Conc 32.8 g/dL (32-36); Mean Corpuscular Hgb 33.2 pg (27.0-32.0); Mean Corpuscular Volume 101.4 fL (81-99); Mean Platelet Vol. 10.8 fl (6.2-12.0); Monocyte# 0.51 X10^3/uL; Monocyte% 6.6 % (0-10); NRBC Flagged by Analyzer 0 % (0-5); Neutrophil # 5.14 X10^3/uL (2.7-7.7); Neutrophil % 66.5 % (47-70); Platelet Count 243 K/mm3 (150-450); RBC Distribution Width CV 15.3 % (11.6-14.6); RBC Distribution Width SD 57.3 fl (35.1-43.9); Red Blood Count 3.67 M/mm3 (4.2-5.4); White Blood Count 7.7 K/mm3 (4.4-11.0)
[2023-07-05 17:45] LABS: Anion Gap 7 (5-15); BUN 37 mg/dL (7-18); BUN/Creat Ratio 22.2 RATIO (10-20); Calcium,Total 8.7 mg/dL (8.5-10.1); Chloride 110 mmol/L (98-107); Creatinine, Serum 1.67 mg/dL (0.55-1.02); EST Glomerular Filtration Rate 32 mL/min (>60); Est Glom Filt Rate - Afr Amer 38 mL/min (>60); Estimated Creatinine Clearance 22.97 ml/min; Glucose 95 mg/dL (74-106); Sodium Level 141 mmol/L (136-145); Troponin-I HS 11 pg/mL (3.0-54.0)
[2023-07-05 17:49] LABS: Bacteria 0 SEEN /hpf (None Seen); Mucous, Urine 0 SEEN /hpf (<or=2+); Red Blood Cells-Urine 0 SEEN /hpf (0-5); Squamous Epithelial Cells - UA 0 SEEN /hpf (5-10); White Blood Cells 0 SEEN /hpf (0-5)
--- NOTE | 2023-07-05 17:49 | NURSING ---
DR REN FOR DR BHAKTA
[2023-07-05 17:58] LABS: Color, Urine Yellow (Yellow); Glucose, Dipstick Normal (Normal); Ketone-Dipstick Negative (Negative); Leukocyte Esterase-Dipstick Negative /ul (Negative); Nitrite-Dipstick Negative (Negative); Occult Blood-Urine 10 /ul (Negative); Protein-Dipstick 30 mg/dl (Negative); Urine Bilirubin Dipstick Negative (Negative); Urine Clarity Clear (Clear); Urine Urobilinogen Normal (Normal)
[2023-07-05 18:04] LABS: International Normalized Ratio 0.9; Prothrombin Time (Protime)PT. 12.5 SECONDS (11.7-14.9)
--- NOTE | 2023-07-05 18:17 | NURSING ---
MED SURG MIKAL INTEROCHANTERIC FRACTURE LEFT HIP, HYPERTENSION
[2023-07-05 18:29] VITALS: BMI 21.2
[2023-07-05 18:32] VITALS: BP 185/81; PULSE 68; RESP 18; TEMP 36.1; O2SAT 92
--- NOTE | 2023-07-05 19:05 | PCM.HP.STD ---
HPI - General General Date of Admission: 07/05/23 HPI Narrative SHERRI ZACARIAS, is a 77 F who presents to the hospital after mechanical fall with a left intertrochanteric femur fracture. She was try to get out of her chair and she tripped over the foot rest, she denies any loss of consciousness but does think that that she hit the side of her face as it is little bit swollen. She denies any headaches and only complains of left hip pain. Orthopedic surgery was consulted by the ER recommended a Cannon traction system on admission. She denies any palpitations or chest pain prior to the event and no seizure-like activity. FORMERLY [facility], [facility] Medical History Aortic stenosis Former smoker Gout Hypertension Macular degeneration Stroke/cerebrovascular accident Wrist fracture Home Medications aspirin 81 mg tablet,delayed release 81 mg PO DAILY HEART HEALTH 07/27/22 [History Last Taken 07/27/22] atorvastatin 10 mg tablet 10 mg PO QHS CHOLESTEROL 07/27/22 [History Last Taken 07/26/22] diltiazem HCl 180 mg capsule,extended release 24 hr 360 mg PO DAILY BLOOD PRESSURE 07/27/22 [History Last Taken 07/27/22] probenecid 500 mg tablet 500 mg PO DAILY GOUT 07/27/22 [History Last Taken 07/27/22] telmisartan 80 mg tablet 80 mg PO DAILY BLOOD PRESSURE 07/27/22 [History Last Taken 07/27/22] loperamide 2 mg capsule 2 mg PO Q6H PRN PRN Diarrhea #0 caps 08/16/22 [Rx Last Taken Unknown] metoprolol tartrate 25 mg tablet 12.5 mg (1/2 x 25 mg) PO BID blood pressure 30 days #30 tabs 08/16/22 [Rx Last Taken Unknown] Allergy/AdvReac Type Severity Reaction Status Date / Time No Known Allergies Allergy Verified 07/05/23 16:15 Family History (Updated 07/05/23 @ 19:[address] Gilbert Blevins MD) Other Heart disease Surgical History History of appendectomy Social History housing: assisted living facility Smoking Status: Former smoker alcohol intake: never substance use type: does not use ROS Constitutional Constitutional: Denies chills, fatigue, fever(s) or malaise Eyes Eyes: Denies blurry vision ENT HEENT: Denies headache(s) or nasal discharge Cardiovascular Cardiovascular: Denies chest pain, dyspnea on exertion or syncope Respiratory/Chest Respiratory/Chest: Denies cough, shortness of breath at rest or shortness of breath with exertion Gastrointestinal Gastrointestinal: Denies constipation, diarrhea, nausea or vomiting Genitourinary Genitourinary: Denies dysuria Musculoskeletal Musculoskeletal: Reports joint pain Neurologic Neurologic: Denies focal weakness, numbness or tremor(s) Psychiatric Psychiatric: Denies anxiety or depression Vital Signs Vital Signs Vital Signs: 07/05/23 16:15 07/05/23 17:10 07/05/23 18:30 Temperature 98.5 F Temperature Source Oral Pulse Rate 69 75 Respiratory Rate 16 Respiratory Effort Normal Non-Labored Respiratory Pattern Normal Blood Pressure 183/82 H Blood Pressure Mean 115 Pulse Ox 94 92 Oxygen Delivery Method Room Air Room Air Room Air 07/05/23 18:32 Temperature 97 F L Temperature Source Pulse Rate 68 Respiratory Rate 18 Respiratory Effort Respiratory Pattern Blood Pressure 185/81 H Blood Pressure Mean 115 Pulse Ox 92 Oxygen Delivery Method Weight Weight: 119 lb 11.376 oz Body Mass Index (BMI) 21.2 Physical Exam Narrative General: Alert, Oriented x3, Cooperative, No apparent distress HEENT: Atraumatic, PERRLA, EOMI, Normocephalic Oral: Moist Mucosa Neck: Supple, No JVD Lungs: Clear to auscultation, Normal air movement, No rhonchi, No wheeze, No rales Cardiovascular: Regular rate, Regular Rhythm, Normal S1, Normal S2, murmurs Abdomen: Soft, Non Tender, Non-Distended, No Hepato-splenomegaly Extremities: No edema, Capillary Refill Less than 3 Seconds Skin: No rashes, No breakdown Musculoskeletal: Tenderness to palpation of the left hip Neurological: Cranial nerves II-XII grossly intact, Motor Exam 5/5 strength throughout, Sensory exam intact to light touch and pain Psych/Mental Status: Normal Affect, Appropriate Results Lab / Micro Data 07/05/23 17:15 07/05/23 17:15 Labs: Laboratory Results - last 24 hr 07/05/23 17:15: WBC 7.7, RBC 3.67 L, Hgb 12.2, Hct 37.2, MCV 101.4 H, MCH 33.2 H, MCHC 32.8, RDW Std Deviation 57.3 H, RDW Coeff of Arnulfo 15.3 H, Plt Count 243, MPV 10.8, Immature Gran % (Auto) 0.800, Neut % (Auto) 66.5, Lymph % (Auto) 24.7, [place] % (Auto) 6.6, Eos % (Auto) 1.0, Baso % (Auto) 0.4, Absolute Neuts (auto) 5.1, Absolute Lymphs (auto) 1.91, Nucleated RBC % 0, PT 12.5, INR 0.9, APTT 29.0, Sodium 141, Potassium 4.0, Chloride 110 H, Carbon Dioxide 24.0, Anion Gap 7, BUN 37 H, Creatinine 1.67 H, Estim Creat Clear Calc 22.97, Est GFR (MDRD) Af Amer 38 L, Est GFR (MDRD) Non-Af 32 L, BUN/Creatinine Ratio 22.2 H, Glucose 95, Calcium 8.7, Troponin I High Sens 11 07/05/23 17:45: Urine Color Yellow, Urine Clarity Clear, Urine pH 6.0, Ur Specific [place] 1.020, Urine Protein 30 H, Urine Glucose (UA) Normal, Urine Ketones Negative, Urine Occult Blood 10 H, Urine Nitrite Negative, Urine Bilirubin Negative, Urine Urobilinogen Normal, Ur Leukocyte Esterase Negative, Urine RBC 0 SEEN, Urine WBC 0 SEEN, Ur Squamous Epith Cells 0 SEEN, Urine Bacteria 0 SEEN, Urine Mucus 0 SEEN Imagaing Radiology Impression Hip/Pelvis X-Ray 07/05/23 16:36 IMPRESSION: Angulated and mildly displaced intratrochanteric fractures of the proximal left femur. Electronically Signed: Louis Herring MD at 16:55 EST , Chest X-Ray 07/05/23 16:45 IMPRESSION: There are findings consistent with COPD. There is no evidence of acute chest disease. Electronically Signed: Louis Herring MD at 16:57 EST , Assessment & Plan Assessment/Plan (1) Intertrochanteric fracture of left hip: PLAN: Plan 1. Left intertrochanteric hip fracture from mechanical fall ? Consult orthopedic surgery ? Low to moderate risk for surgery ? Continue with pain medications 2. HTN/HLD ? Blood pressures are stable ? Can resume her home blood pressure medications and make adjustments as necessary ? Pending surgery therefore we will hold her aspirin ? Continue with Lipitor DVT: SCDs Charges/Coding Visit Charges Inpatient E&M: 74643 Init Hosp L2
[2023-07-05 19:11] VITALS: BP 194/82; O2SAT 94
[2023-07-05 20:02] VITALS: BMI 20.3
[2023-07-05] MEDS: oxyCODONE 5 MG Tablet PO (21:29)
[2023-07-05] MEDS: 0.9% Saline Lock 10 ML Syringe IV (21:30)
[2023-07-05] MEDS: Acetaminophen 500 MG Tablet 1000 MG PO (21:30)
[2023-07-05 21:44] VITALS: BP 163/80; PULSE 76
[2023-07-05 21:46] VITALS: BP 163/80; PULSE 76
[2023-07-05] MEDS: Metoprolol Tartrate 25 MG Tablet 12.5 MG PO (21:46)
[2023-07-05] MEDS: Atorvastatin Calcium 10 MG Tablet PO (21:46)
[2023-07-05] MEDS: Morphine 2 MG/ML Syringe IV (22:49)
[2023-07-06] VITALS (17 sets, daily range): BP systolic 126–192; BP diastolic 53–98; PULSE 71–87; RESP 14–18; TEMP 36.4–37.1; O2SAT 86–97; BMI 20.4
[2023-07-06] MEDS: Morphine 4 MG/ML Syringe IV (04:18)
[2023-07-06 06:08] LABS: Absolute Lymphocyte Count 1.36 X10^3/uL (0.83-4.51); Absolute Neutrophil Count 7.7 X10^3/uL (2.0-7.7); Basophil# 0.04 X10^3/uL; Basophil% 0.4 % (0-1); Eosinophil# 0.01 X10^3/uL; Eosinophils% 0.1 % (0-5); Hematocrit 29.5 % (37-47); Hemoglobin 9.2 g/dL (12.0-15.0); Lymphocyte # 1.36 X10^3/ul (0.83-4.51); Lymphocyte % 13.7 % (19-41); Mean Corp Hgb Conc 31.2 g/dL (32-36); Mean Corpuscular Hgb 32.2 pg (27.0-32.0); Mean Corpuscular Volume 103.1 fL (81-99); Mean Platelet Vol. 10.5 fl (6.2-12.0); Monocyte# 0.82 X10^3/uL; Monocyte% 8.2 % (0-10); NRBC Flagged by Analyzer 0 % (0-5); Neutrophil # 7.67 X10^3/uL (2.7-7.7); Neutrophil % 77.2 % (47-70); Platelet Count 202 K/mm3 (150-450); RBC Distribution Width CV 15.4 % (11.6-14.6); RBC Distribution Width SD 58.4 fl (35.1-43.9); Red Blood Count 2.86 M/mm3 (4.2-5.4); White Blood Count 9.9 K/mm3 (4.4-11.0)
[2023-07-06 06:39] LABS: Anion Gap 3 (5-15); BUN 38 mg/dL (7-18); BUN/Creat Ratio 20.9 RATIO (10-20); Calcium,Total 8.5 mg/dL (8.5-10.1); Chloride 112 mmol/L (98-107); Creatinine, Serum 1.82 mg/dL (0.55-1.02); EST Glomerular Filtration Rate 29 mL/min (>60); Est Glom Filt Rate - Afr Amer 35 mL/min (>60); Estimated Creatinine Clearance 20.98 ml/min; Glucose 114 mg/dL (74-106); Potassium 4.3 mmol/L (3.5-5.1); Sodium Level 140 mmol/L (136-145)
[2023-07-06] MEDS: dilTIAZem CD 180 MG Capsule 360 MG PO (08:37)
[2023-07-06] MEDS: Losartan Potassium 100 MG Tablet PO (08:37)
[2023-07-06] MEDS: Metoprolol Tartrate 25 MG Tablet 12.5 MG PO ×2 (08:37→22:31)
[2023-07-06] MEDS: Morphine 2 MG/ML Syringe IV (10:58)
[2023-07-06] MEDS: 0.9% Saline Lock 10 ML Syringe IV ×2 (10:58→11:47)
[2023-07-06 11:24] LABS: Bedside Glucose 102 mg/dL (74-106)
--- NOTE | 2023-07-06 11:28 | RAD_ITS ---
STUDY: X-RAY - LEFT FEMUR REASON FOR STUDY: Female, 77 years old. Known fracture, pain TECHNIQUE: 4 view(s) of the femur. COMPARISON: 07/05/2023 FINDINGS: Bones are demineralized. No interval change in the appearance of a previously noted acute, displaced intertrochanteric fracture of the left femur with varus angulation. No other fracture identified. Specifically, no pelvic fracture or femoral shaft fracture noted. There is associated soft tissue swelling. Age consistent left hip and knee joint arthrosis. RAD/Femur Min 2 Views IMPRESSION: Stable appearance of a previously noted acute, displaced intertrochanteric fracture of the left femur with varus angulation. Electronically Signed: Palomo Solano MD at 12:35 EST ,
[2023-07-06] MEDS: hydrALAZINE 20 MG/ML Vial 10 MG IV (11:47)
--- NOTE | 2023-07-06 13:09 | PCM.PN.HOSP ---
Reason for Visit Reason for Visit: Diagnoses Displaced intertrochanteric fracture of left femur, initial encounter for closed fracture (07/05/23) Objective Data Objective Data Vital Signs: Vital Signs Temp Pulse Resp BP Pulse Ox O2 Del Method 98.4 F 76 18 137/68 H 86 Room Air 07/06/23 11:45 07/06/23 11:47 07/06/23 11:45 07/06/23 12:28 07/06/23 11:45 07/06/23 11:45 Oxygen Delivery Method Room Air Weight: 115 lb Body Mass Index (BMI) 20.3 Intake & Output: Intake and Output for Last 24 Hours 07/04/23 07/05/23 07/06/23 23:59 23:59 23:59 Intake Total 280 / 280 Output Total 500 / 500 Balance -220 / -220 Lab / Micro Data 07/06/23 05:55 07/06/23 05:55 Labs: Laboratory Results - last 24 hr 07/05/23 17:15: WBC 7.7, RBC 3.67 L, Hgb 12.2, Hct 37.2, MCV 101.4 H, MCH 33.2 H, MCHC 32.8, RDW Std Deviation 57.3 H, RDW Coeff of Arnulfo 15.3 H, Plt Count 243, MPV 10.8, Immature Gran % (Auto) 0.800, Neut % (Auto) 66.5, Lymph % (Auto) 24.7, [place] % (Auto) 6.6, Eos % (Auto) 1.0, Baso % (Auto) 0.4, Absolute Neuts (auto) 5.1, Absolute Lymphs (auto) 1.91, Nucleated RBC % 0, PT 12.5, INR 0.9, APTT 29.0, Sodium 141, Potassium 4.0, Chloride 110 H, Carbon Dioxide 24.0, Anion Gap 7, BUN 37 H, Creatinine 1.67 H, Estim Creat Clear Calc 22.97, Est GFR (MDRD) Af Amer 38 L, Est GFR (MDRD) Non-Af 32 L, BUN/Creatinine Ratio 22.2 H, Glucose 95, Calcium 8.7, Troponin I High Sens 11 07/05/23 17:45: Urine Color Yellow, Urine Clarity Clear, Urine pH 6.0, Ur Specific [place] 1.020, Urine Protein 30 H, Urine Glucose (UA) Normal, Urine Ketones Negative, Urine Occult Blood 10 H, Urine Nitrite Negative, Urine Bilirubin Negative, Urine Urobilinogen Normal, Ur Leukocyte Esterase Negative, Urine RBC 0 SEEN, Urine WBC 0 SEEN, Ur Squamous Epith Cells 0 SEEN, Urine Bacteria 0 SEEN, Urine Mucus 0 SEEN 07/05/23 18:01: Blood Type A POSITIVE, Antibody Screen NEGATIVE 07/06/23 05:55: WBC 9.9, RBC 2.86 L, Hgb 9.2 L, Hct 29.5 L, MCV 103.1 H, MCH 32.2 H, MCHC 31.2 L, RDW Std Deviation 58.4 H, RDW Coeff of Arnulfo 15.4 H, Plt Count 202, MPV 10.5, Immature Gran % (Auto) 0.400, Neut % (Auto) 77.2 H, Lymph % (Auto) 13.7 L, [place] % (Auto) 8.2, Eos % (Auto) 0.1, Baso % (Auto) 0.4, Absolute Neuts (auto) 7.7, Absolute Lymphs (auto) 1.36, Nucleated RBC % 0, Sodium 140, Potassium 4.3, Chloride 112 H, Carbon Dioxide 25.0, Anion Gap 3 L, BUN 38 H, Creatinine 1.82 H, Estim Creat Clear Calc 20.98, Est GFR (MDRD) Af Amer 35 L, Est GFR (MDRD) Non-Af 29 L, BUN/Creatinine Ratio 20.9 H, Glucose 114 H, Calcium 8.5 07/06/23 10:54: POC Glucose 102 Radiography Diagnostic Testing: Radiology Impression Hip/Pelvis X-Ray 07/05/23 16:36 IMPRESSION: Angulated and mildly displaced intratrochanteric fractures of the proximal left femur. Electronically Signed: Louis Herring MD at 16:55 EST , Chest X-Ray 07/05/23 16:45 IMPRESSION: There are findings consistent with COPD. There is no evidence of acute chest disease. Electronically Signed: Louis Herring MD at 16:57 EST , Femur X-Ray 07/06/23 11:28 IMPRESSION: Stable appearance of a previously noted acute, displaced intertrochanteric fracture of the left femur with varus angulation. Electronically Signed: Palomo Solano MD at 12:35 EST , Physical Exam Narrative Seen and examined. Patient looks debilitated. Denies history of smoking or COPD but chest x-ray suggestive of COPD. Physical exam General: Alert, Oriented x3, Cooperative HEENT: Atraumatic, PERRLA, EOMI, Normocephalic Oral: No Gingival or Mucosal Lesions/ Ulcerations Neck: Supple, No JVD, Negative Carotid Bruits Lungs: Air entry diminished in bilateral lung bases. No crepitation/rhonchi/wheezing. Cardiovascular: Regular rate, Regular Rhythm, Normal S1, Normal S2, systolic and diastolic murmur 2-3+. Abdomen: Bowel Sounds Present, Soft, Non Tender, Non-Distended : No renal angle tenderness. No suprapubic tenderness. Extremities: No edema, Capillary Refill Less than 3 Seconds Skin: No rashes, No breakdown Musculoskeletal: Tenderness over left hip. Left hip externally rotated and flexed. ROM not attempted. Neurological: Cranial nerves II-XII grossly intact, DTR 2+/4. No acute focal neurological deficit. Psych/Mental Status: Normal Affect, Appropriate. Assessment & Plan Assessment/Plan (1) Intertrochanteric fracture of left hip: PLAN: Plan 1. Left intertrochanteric hip fracture from mechanical fall: Patient is being admitted for preorthopedic surgery consulted. Note reviewed. Patient scheduled for surgery probably cephalomedullary nailing. Perioperative risk evaluation done and moderate risk. 2. Chronic HFpEF, valvular heart disease, HTN/HLD: Blood pressures are in normal range. Continue home medications. 2D echo from July 2022 reviewed. EF 65% stage II diastolic dysfunction, mild aortic insufficiency and aortic Estinyl. Mild TR. On auscultation, it seems AI about 2-3+ and more predominant than aortic stenosis. Need outpatient follow-up with canine enforcement officer. ? Continue with Lipitor 3. X-ray suggestive of COPD: Patient had remote history of smoking in the past. Incentive spirometry ordered. DuoNeb as needed. DVT: SCDs Charges/Coding Visit Charges Inpatient E&M: 38379 Subs Hosp L2
[2023-07-06] MEDS: Lactated Ringers 1,000 ML 15 ML IV (13:55)
--- NOTE | 2023-07-06 14:21 | CON.PCM_ITS ---
Assessment & Plan Assessment/Plan (1) Intertrochanteric fracture of left hip: QUALIFIERS: Encounter type: initial encounter Fracture type: closed Fracture alignment: displaced Qualified Code(s): S72.142A - Displaced intertrochanteric fracture of left femur, initial encounter for closed fracture PLAN: Plan Patient was seen at bedside with her family including her power of clinical project assistant we discussed operative versus nonoperative intervention of her left hip fracture we discussed proceeding with cephalomedullary fixation. She understands risk benefits alternatives of the procedure including risk of bleeding infection nerve artery tissue damage need for source surgery continued pain. Antibiotics were ordered on-call to the OR as well as tranexamic acid 1 g We will proceed formal consent signed and placed on the chart. HPI Consult Data Date of Consult: 07/06/23 HPI Narrative HPI Narrative: SHERRI ZACARIAS, is a 77 F who presents who had a ground-level fall tripping getting out of her chair injuring her left hip denies any other injury immediate pain inability ambulate x-rays taken in the ER demonstrated left hip intertrochanteric fracture displaced she was placed in 7 pounds of Cannon's traction and medically cleared [facility] Medical History (Updated 07/06/23 @ 14:[address] Mario Steiner, ) Aortic stenosis Former smoker Gout Hypertension Macular degeneration On home oxygen therapy Stroke/cerebrovascular accident TIA (transient ischemic attack) Wrist fracture Home Medications aspirin 81 mg tablet,delayed release 81 mg PO DAILY HEART HEALTH 07/27/22 [History Last Taken 07/27/22] atorvastatin 10 mg tablet 10 mg PO QHS CHOLESTEROL 07/27/22 [History Last Taken 07/26/22] diltiazem HCl 180 mg capsule,extended release 24 hr 360 mg PO DAILY BLOOD PRESSURE 07/27/22 [History Last Taken 07/27/22] probenecid 500 mg tablet 500 mg PO DAILY GOUT 07/27/22 [History Last Taken 07/27/22] telmisartan 80 mg tablet 80 mg PO DAILY BLOOD PRESSURE 07/27/22 [History Last Taken 07/27/22] loperamide 2 mg capsule 2 mg PO Q6H PRN PRN Diarrhea #0 caps 08/16/22 [Rx Last Taken Unknown] metoprolol tartrate 25 mg tablet 12.5 mg (1/2 x 25 mg) PO BID blood pressure 30 days #30 tabs 08/16/22 [Rx Last Taken Unknown] Allergy/AdvReac Type Severity Reaction Status Date / Time No Known Allergies Allergy Verified 07/05/23 16:15 Family History (Updated 07/05/23 @ 19:[address] Gilbert Blevins MD) Other Heart disease Surgical History History of appendectomy Social History housing: assisted living facility Smoking Status: Former smoker alcohol intake: never substance use type: does not use Physical Exam Const alert, oriented x3 and no apparent distress Extremity Extremity Narrative: Left hip no open wounds ecchymosis she is tender she has a positive logroll intact sensation to light touch she is able to wiggle her toes Lab / Micro Data 07/06/23 05:55 07/06/23 05:55 Labs: Laboratory Results - last 24 hr 07/05/23 17:15: WBC 7.7, RBC 3.67 L, Hgb 12.2, Hct 37.2, MCV 101.4 H, MCH 33.2 H , MCHC 32.8, RDW Std Deviation 57.3 H, RDW Coeff of Arnulfo 15.3 H, Plt Count 243, MPV 10.8, Immature Gran % (Auto) 0.800, Neut % (Auto) 66.5, Lymph % (Auto) 24.7, [place] % (Auto) 6.6, Eos % (Auto) 1.0, Baso % (Auto) 0.4, Absolute Neuts (auto) 5.1, Absolute Lymphs (auto) 1.91, Nucleated RBC % 0, PT 12.5, INR 0.9, APTT 29.0, Sodium 141, Potassium 4.0, Chloride 110 H, Carbon Dioxide 24.0, Anion Gap 7, BUN 37 H, Creatinine 1.67 H, Estim Creat Clear Calc 22.97, Est GFR (MDRD) Af Amer 38 L, Est GFR (MDRD) Non-Af 32 L, BUN/Creatinine Ratio 22.2 H, Glucose 95, Calcium 8.7, Troponin I High Sens 11 07/05/23 17:45: Urine Color Yellow, Urine Clarity Clear, Urine pH 6.0, Ur Specific [place] 1.020, Urine Protein 30 H, Urine Glucose (UA) Normal, Urine Ketones Negative, Urine Occult Blood 10 H, Urine Nitrite Negative, Urine B ilirubin Negative, Urine Urobilinogen Normal, Ur Leukocyte Esterase Negative, Urine RBC 0 SEEN, Urine WBC 0 SEEN, Ur Squamous Epith Cells 0 SEEN, Urine Bacteria 0 SEEN, Urine Mucus 0 SEEN 07/05/23 18:01: Blood Type A POSITIVE, Antibody Screen NEGATIVE 07/06/23 05:55: WBC 9.9, RBC 2.86 L, Hgb 9.2 L, Hct 29.5 L, MCV 103.1 H, MCH 32.2 H, MCHC 31.2 L, RDW Std Deviation 58.4 H, RDW Coeff of Arnulfo 15.4 H, Plt Count 202, MPV 10.5, Immature Gran % (Auto) 0.400, Neut % (Auto) 77.2 H, Lymph % (Auto) 13.7 L, [place] % (Auto) 8.2, Eos % (Auto) 0.1, Baso % (Auto) 0.4, Absolute Neuts (auto) 7.7, Absolute Lymphs (auto) 1.36, Nucleated RBC % 0, Sodium 140, Potassium 4.3, Chloride 112 H, Carbon Dioxide 25.0, Anion Gap 3 L, BUN 38 H, Creatinine 1.82 H, Estim Creat Clear Calc 20.98, Est GFR (MDRD) Af Amer 35 L, Est GFR (MDRD) Non-Af 29 L, BUN/Creatinine Ratio 20.9 H, Glucose 114 H, Calcium 8.5 07/06/23 10:54: POC Glucose 102 Imagaing Radiology Impression Hip/Pelvis X-Ray 07/05/23 16:36 IMPRESSION: Angulated and mildly displaced intratrochanteric fractures of the proximal left femur. Electronically Signed: Louis Herring MD at 16:55 EST , Chest X-Ray 07/05/23 16:45 IMPRESSION: There are findings consistent with COPD. There is no evidence of acute chest disease. Electronically Signed: Louis Herring MD at 16:57 EST , Femur X-Ray 07/06/23 11:28 IMPRESSION: Stable appearance of a previously noted acute, displaced intertrochanteric fracture of the left femur with varus angulation. Electronically Signed: Palomo Solano MD at 12:35 EST ,
[2023-07-06] MEDS: Cefazolin 2 GM in 0.9% Normal Saline (100mL Bag) 100 ML IV (14:27)
--- NOTE | 2023-07-06 14:36 | RAD_ITS ---
EXAM: FL FLUOROSCOPY < 1 HOUR CLINICAL INDICATION: NAIL FIXATION TECHNIQUE: Fluoroscopic images performed in multiple projections. A total 7 fluoroscopically guided spot images were obtained. Fluoroscopic guidance was provided by a physician. 98.3 seconds of fluoroscopy time was utilized. COMPARISON: No relevant prior studies available. FINDINGS: BONES/JOINTS: Final image demonstrates nail fixation of the left hip in good position. SOFT TISSUES: Unremarkable. RAD/HIP, UNI W/ Pelvis 2-3 Views IMPRESSION: Fluoroscopically guided needle fixation left hip. Electronically Signed: Ed Gandara MD at 22:40 EST ,
[2023-07-06] MEDS: TRANEXAMIC ACID 1,000 MG in 0.9% Normal Saline (100mL Bag) 100 ML 440 MG IV (14:42)
--- NOTE | 2023-07-06 14:45 | CASEMGMT ---
Social Work Pt is admitted from [facility]. Pt currently in surgery. SW will followup tomorrow for discharge planning. MELISSA Wang
[2023-07-06] MEDS: Bupivacaine 0.25% 30 ML Vial (15:51)
--- NOTE | 2023-07-06 15:53 | OP.PCM_ITS ---
Operative Report Date of Procedure: 07/06/23 Preoperative diagnosis: Left hip intertrochanteric femur fracture Postoperative diagnosis: Same Procedure: Cephalo-medullary fixation left hip Implants: Synthes long nail [id number], 95 mm helical blade, 48 mm screw Anesthesia: General EBL: 75 Complications: None Condition: Stable to PACU Indication for procedure: 77-year-old female ground-level fall sustaining injury to left hip. fracture demonstrated displaced intertrochanteric femur fracture, risk benefits and alternatives were reviewed including risk of bleeding infection nerve, artery, bone, tissue damage, blood clot, RSD need for further surgery and continued pain. Procedure: Patient met in the preoperative holding area once again the operative extremity was identified by both patient and physician and was marked. Patient was met by anesthesia and IV was started she was brought back to the to the operating room anesthesia was started. She was then positioned on the fracture table all bony prominences were well-padded. She was then positioned with adduction internal rotation and traction and fluoroscopy was brought in to ensure that an adequate reduction could be performed. Patient was then prepped and draped in usual sterile fashion and timeout was called to ensure the proper patient procedure and extremity were being contemplated. Fluoroscopy was used to effie the tip of the greater trochanter and a 3 fingerbreadth incision was made 2 finger breaths proximal to the tip of the greater trochanter. Was ca rried carried down through the skin and subcutaneous tissue as well as the gluteal fascia. A guide pin was then inserted through the tip of the greater trochanter directed towards the level of lesser trochanter this was checked in both AP and lateral projections. An opening reamer was performed. A guide pin was bent and placed down the femoral canal to the level of the superior patella then measured this and placed the corresponding length nail after flexible reamers were used to achieve cortical chatter and achieving 1.5 mm greater than the nail was chosen . following this was the insertion of the nail the appropriate height jig was used and a triple trocar sleeve was advanced to the skin and a stab incision was made at the trocar was inserted to the level of the bone and a guidepin was placed into the femoral neck and head checked on both AP and lateral projections. This was then measured and appropriately sized helical blade was inserted the nail was locked proximally to allow dynamic compression, the fracture was compressed and a locking screw was placed distally using perfect [place] technique. This was then drilled and measured under fluoroscopy and the appropriate size screw was inserted. Final AP and lateral projections were saved to the PACS system of the entire construct. the wounds were thoroughly irrigated the fascia was closed with #1 [id number] Vicryls f ollowed by 2-0 Vicryl in the subcutaneous tissues followed by brayan in the skin. 0.5% Marcaine with epinephrine was injected into the subcutaneous tissues dressing was applied form of Xeroform 4 x 4 ABD and Ioban tape. Patient tolerated procedure well there is no intraoperative complications she was brought back to the PACU in stable condition.
--- NOTE | 2023-07-06 16:03 | CASEMGMT ---
Received tc from who states pt had OR and family is leaving for cruise in the morning and is wanting rehab. He states they would like [facility] or [facility] and not [facility] or [facility]. Pt dtr is MAX and her info is listed on the chart. Updated SW.
[2023-07-06 17:12] LABS: Hematocrit 30.3 % (37-47); Hemoglobin 9.7 g/dL (12.0-15.0); Mean Corpuscular Hgb 33.3 pg (27.0-32.0); Mean Corpuscular Volume 104.1 fL (81-99); Mean Platelet Vol. 11.1 fl (6.2-12.0); Platelet Count 234 K/mm3 (150-450); RBC Distribution Width CV 15.6 % (11.6-14.6); RBC Distribution Width SD 59.4 fl (35.1-43.9); Red Blood Count 2.91 M/mm3 (4.2-5.4); White Blood Count 15.4 K/mm3 (4.4-11.0)
[2023-07-06 18:51] LABS: Anion Gap 10 (5-15); BUN 40 mg/dL (7-18); BUN/Creat Ratio 19.9 RATIO (10-20); Calcium,Total 8.5 mg/dL (8.5-10.1); Chloride 110 mmol/L (98-107); Creatinine, Serum 2.01 mg/dL (0.55-1.02); EST Glomerular Filtration Rate 25 mL/min (>60); Est Glom Filt Rate - Afr Amer 31 mL/min (>60); Glucose 115 mg/dL (74-106); Potassium 4.5 mmol/L (3.5-5.1); Sodium Level 142 mmol/L (136-145)
[2023-07-06] MEDS: Atorvastatin Calcium 10 MG Tablet PO (22:31)
[2023-07-06] MEDS: Acetaminophen 500 MG Tablet 1000 MG PO (22:32)
[2023-07-06] MEDS: oxyCODONE 5 MG Tablet PO (22:32)
[2023-07-07] VITALS (7 sets, daily range): BP systolic 126–142; BP diastolic 57–64; PULSE 67–80; RESP 18; TEMP 36.5–37.1; O2SAT 91–95; BMI 20.4
[2023-07-07] MEDS: Morphine 4 MG/ML Syringe IV (04:27)
[2023-07-07] MEDS: Acetaminophen 500 MG Tablet 1000 MG PO ×3 (06:38→20:30)
[2023-07-07 08:02] LABS: Absolute Lymphocyte Count 0.81 X10^3/uL (0.83-4.51); Absolute Neutrophil Count 10.1 X10^3/uL (2.0-7.7); Basophil# 0.02 X10^3/uL; Basophil% 0.2 % (0-1); Hemoglobin 8.5 g/dL (12.0-15.0); Lymphocyte # 0.81 X10^3/ul (0.83-4.51); Lymphocyte % 6.8 % (19-41); Mean Corp Hgb Conc 31.5 g/dL (32-36); Mean Corpuscular Hgb 33.1 pg (27.0-32.0); Mean Corpuscular Volume 105.1 fL (81-99); Mean Platelet Vol. 11.6 fl (6.2-12.0); Monocyte# 0.78 X10^3/uL; Monocyte% 6.6 % (0-10); NRBC Flagged by Analyzer 0 % (0-5); Neutrophil # 10.14 X10^3/uL (2.7-7.7); Neutrophil % 85.6 % (47-70); Platelet Count 200 K/mm3 (150-450); RBC Distribution Width CV 15.7 % (11.6-14.6); Red Blood Count 2.57 M/mm3 (4.2-5.4); White Blood Count 11.8 K/mm3 (4.4-11.0)
--- NOTE | 2023-07-07 08:06 | PCM.PN.ORT ---
Subjective Subjective Examined. Doing okay. Pain controlled. Denies nausea vomit shortness of breath or chest pain fevers or chills. Objective Data Objective Data Vital Signs: Vital Signs Temp Pulse Resp BP Pulse Ox O2 Del Method O2 Flow Rate 98.3 F 71 18 132/57 H 91 Room Air 2 07/07/23 06:35 07/07/23 06:35 07/07/23 06:35 07/07/23 06:35 07/07/23 06:35 07/07/23 06:35 07/07/23 01:48 Oxygen Flow Rate (L/min) 2 Oxygen Delivery Method Room Air Weight: 115 lb Body Mass Index (BMI) 20.3 Intake & Output: Intake and Output for Last 24 Hours 07/05/23 07/06/23 07/07/23 23:59 23:59 23:59 Intake Total 510 / 1010 500 / 500 Output Total 800 / 1350 550 / 550 Balance -290 / -340 -50 / -50 Lab / Micro Data 07/07/23 06:45 07/06/23 16:45 Labs: Laboratory Results - last 24 hr 07/06/23 10:54: POC Glucose 102 07/06/23 16:45: WBC 15.4 H, RBC 2.91 L, Hgb 9.7 L, Hct 30.3 L, MCV 104.1 H, MCH 33.3 H, MCHC 32.0, RDW Std Deviation 59.4 H, RDW Coeff of Arnulfo 15.6 H, Plt Count 234, MPV 11.1, Sodium 142, Potassium 4.5, Chloride 110 H, Carbon Dioxide 22.0, Anion Gap 10, BUN 40 H, Creatinine 2.01 H, Estim Creat Clear Calc 19.00, Est GFR (MDRD) Af Amer 31 L, Est GFR (MDRD) Non-Af 25 L, BUN/Creatinine Ratio 19.9, Glucose 115 H, Calcium 8.5 07/07/23 06:45: WBC 11.8 H, RBC 2.57 L, Hgb 8.5 L, Hct 27.0 L, MCV 105.1 H, MCH 33.1 H, MCHC 31.5 L, RDW Std Deviation 60.0 H, RDW Coeff of [place]ul[place] 15.7 H, Plt Count 200, MPV 11.6, Immature Gran % (Auto) 0.800, Neut % (Auto) 85.6 H, Lymph % (Auto) 6.8 L, [place] % (Auto) 6.6, Eos % (Auto) 0.0, Baso % (Auto) 0.2, Absolute Neuts (auto) 10.1 H, Absolute Lymphs (auto) 0.81 L, Nucleated RBC % 0 Radiography Diagnostic Testing: Radiology Impression Femur X-Ray 07/06/23 11:28 IMPRESSION: Stable appearance of a previously noted acute, displaced intertrochanteric fracture of the left femur with varus angulation. Electronically Signed: Palomo Solano MD at 12:35 EST , Hip/Pelvis X-Ray 07/06/23 14:36 IMPRESSION: Fluoroscopically guided needle fixation left hip. Electronically Signed: Ed Gandara MD at 22:40 EST , Physical Exam Narrative Left hip dressing clean dry intact compartment soft neurovascular intact EHL tibialis anterior gastrocsoleus intact sensation light touch palpable pedal pulses Const alert, oriented x3 and no apparent distress General Appearance: cooperative Assessment & Plan Assessment/Plan (1) Intertrochanteric fracture of left hip: QUALIFIERS: Encounter type: initial encounter Fracture type: closed Fracture alignment: displaced Qualified Code(s): S72.142A - Displaced intertrochanteric fracture of left femur, initial encounter for closed fracture PLAN: Plan Postop day #1 left hip trochanteric femoral nail for intertrochanteric femur fracture PT OT weightbearing as tolerated DVT prophylaxis SCDs ANDRIY hose Eliquis 2.5 mg twice daily for 3 weeks Dressing should be undisturbed for 72 hours postop then should be removed prior to first shower and cleaned with warm water and antibacterial soap and change to daily after at this point. Patient will need rehab/TCU , if she is there am happy to see her there for her 2-week postop otherwise follow-up in the office in 2 weeks.
[2023-07-07 08:49] LABS: Anion Gap 8 (5-15); BUN 47 mg/dL (7-18); BUN/Creat Ratio 20.3 RATIO (10-20); Calcium,Total 8.5 mg/dL (8.5-10.1); Chloride 109 mmol/L (98-107); Creatinine, Serum 2.32 mg/dL (0.55-1.02); EST Glomerular Filtration Rate 22 mL/min (>60); Est Glom Filt Rate - Afr Amer 26 mL/min (>60); Estimated Creatinine Clearance 16.46 ml/min; Glucose 127 mg/dL (74-106); Potassium 4.6 mmol/L (3.5-5.1); Sodium Level 139 mmol/L (136-145)
[2023-07-07] MEDS: Calcium Carbonate 500 MG Tablet PO ×3 (09:17→17:03)
[2023-07-07] MEDS: Cholecalciferol (VIT D3) 25 MCG TABLET (1,000 UNITS) PO (09:18)
[2023-07-07] MEDS: Losartan Potassium 100 MG Tablet PO (09:24)
[2023-07-07] MEDS: dilTIAZem CD 180 MG Capsule 360 MG PO (09:24)
[2023-07-07] MEDS: Metoprolol Tartrate 25 MG Tablet 12.5 MG PO ×2 (09:24→20:30)
--- NOTE | 2023-07-07 09:59 | CASEMGMT ---
Social Work SW met with pt, pt's dgt and son in law Rivera and Darrian Arboleda and introduced self and role of SW. Pt currently resides in the independent living at [facility]. Pt is independent with all ADLS including med management. Pt ambulate at community distances with a walker. Facility provides cleaning, meals and laundry services. SW spoke with pt and family regarding discharge plan. Pt is agreeable that she will need SNF placement for short term rehab prior to return to her home at [facility]. A list of SNF providers including quality and resource use data and consistent with the patient?s preferred geographic region, medical needs, and insurance network were provided from the [facility] Guide. Pt's preferred providers are 1. [facility] 2. [facility]. Referral made to [facility] will await determination of acceptance. Plan: TCU, pending acceptance MELISSA Wang
--- NOTE | 2023-07-07 10:08 | CASEMGMT ---
Social Work SW spoke with pt's family. Pt's daughter and NADEEN Nicole and Darrian Arboleda are able to be reached by phone until 5pm on Tuesday ([phone]). They will be going on a cruise over the weekend and unavailable by phone until Tuesday at 6am. Pt's granddaughter will be contact while Nicole is away. Xi Worrell [phone]. Contacts: Nicole Arboleda [phone] Now through 5pm on Tuesday and after Tuesday at 6am Xi Worrell [phone] Tuesday at 5pm through Tuesday at 6am MELISSA Wang
--- NOTE | 2023-07-07 12:04 | CHAPLAIN ---
Type of Pastoral Visit _x__ Initial Visit ___ Follow-up Visit ___ On-call Visit ___ General Patient Visit ___ Spiritual Assessment ___ Family Conference ___ Bereavement ___ Rapid Response ___ Code Blue ___ Other (describe below) Pastoral Care Referral From _x__ Patient ___ Family ___ Nurse ___ Physician ___ Centerless Grinder Operator ___ Handle Turner ___ Other (describe below) Sacrament/Intervention _x__ Active listening ___ Anointing ___ Hindu ___ Bereavement ___ Communion ___ Vandana exploration ___ _x__ Life review _x__ Prayer ___ Reconciliation ___ Sacrament of Sick _x__ Supportive presence ___ Wedding ___ Other (describe below) Pastoral Comments patient was napping in the chair but awoke easily to mention of her name; pt had to be reminded where she was but then as able to answer questions about her surgery and about her overall life summary; pt enjoys music and this was topic of some discussion; pt does not present with any concerns and expresses contentment at her senior living community; prayer is welcomed
--- NOTE | 2023-07-07 13:31 | CASEMGMT ---
Social Work TCU is able to accept pt on Tuesday. SW updated pt and phone call to Dgt Nicole and updated that TCU can accept tomorrow. Both pt and dgt agreeable. Plan: TCU, pt can be accepted on Tuesday. MELISSA Becerra
--- NOTE | 2023-07-07 16:43 | PCM.PN.HOSP ---
Reason for Visit Reason for Visit: Diagnoses Displaced intertrochanteric fracture of left femur, initial encounter for closed fracture (07/05/23) Objective Data Objective Data Vital Signs: Vital Signs Temp Pulse Resp BP Pulse Ox O2 Del Method O2 Flow Rate 98.2 F 80 18 130/64 H 95 Room Air 2 07/07/23 09:22 07/07/23 09:24 07/07/23 09:22 07/07/23 09:24 07/07/23 09:22 07/07/23 09:35 07/07/23 01:48 Oxygen Flow Rate (L/min) 2 Oxygen Delivery Method Room Air Weight: 115 lb Body Mass Index (BMI) 20.3 Intake & Output: Intake and Output for Last 24 Hours 07/05/23 07/06/23 07/07/23 23:59 23:59 23:59 Intake Total 510 / 1010 1100 / 1100 Output Total 800 / 1350 550 / 550 Balance -290 / -340 550 / 550 Lab / Micro Data 07/07/23 06:45 07/07/23 06:45 Labs: Laboratory Results - last 24 hr 07/06/23 16:45: WBC 15.4 H, RBC 2.91 L, Hgb 9.7 L, Hct 30.3 L, MCV 104.1 H, MCH 33.3 H, MCHC 32.0, RDW Std Deviation 59.4 H, RDW Coeff of Arnulfo 15.6 H, Plt Count 234, MPV 11.1, Sodium 142, Potassium 4.5, Chloride 110 H, Carbon Dioxide 22.0, Anion Gap 10, BUN 40 H, Creatinine 2.01 H, Estim Creat Clear Calc 19.00, Est GFR (MDRD) Af Amer 31 L, Est GFR (MDRD) Non-Af 25 L, BUN/Creatinine Ratio 19.9, Glucose 115 H, Calcium 8.5 07/07/23 06:45: WBC 11.8 H, RBC 2.57 L, Hgb 8.5 L, Hct 27.0 L, MCV 105.1 H, MCH 33.1 H, MCHC 31.5 L, RDW Std Deviation 60.0 H, RDW Coeff of Arnulfo 15.7 H, Plt Count 200, MPV 11.6, Immature Gran % (Auto) 0.800, Neut % (Auto) 85.6 H, Lymph % (Auto) 6.8 L, [place] % (Auto) 6.6, Eos % (Auto) 0.0, Baso % (Auto) 0.2, Absolute Neuts (auto) 10.1 H, Absolute Lymphs (auto) 0.81 L, Nucleated RBC % 0, Sodium 139, Potassium 4.6, Chloride 109 H, Carbon Dioxide 22.0, Anion Gap 8, BUN 47 H, Creatinine 2.32 H, Estim Creat Clear Calc 16.46, Est GFR (MDRD) Af Amer 26 L, Est GFR (MDRD) Non-Af 22 L, BUN/Creatinine Ratio 20.3 H, Glucose 127 H, Calcium 8.5 Radiography Diagnostic Testing: Radiology Impression Hip/Pelvis X-Ray 07/06/23 14:36 IMPRESSION: Fluoroscopically guided needle fixation left hip. Electronically Signed: Ed Gandara MD at 22:40 EST Reading Location ID and State: [address] [place] [address] Tel , Service support , Physical Exam Narrative Seen and examined. Patient looks debilitated. No acute pain. Had hip surgery. Denies history of smoking or COPD but chest x-ray suggestive of COPD. Physical exam General: Alert, Oriented x3, Cooperative HEENT: Atraumatic, PERRLA, EOMI, Normocephalic Oral: No Gingival or Mucosal Lesions/ Ulcerations Neck: Supple, No JVD, Negative Carotid Bruits Lungs: Air entry diminished in bilateral lung bases. No crepitation/rhonchi/wheezing. Cardiovascular: Regular rate, Regular Rhythm, Normal S1, Normal S2, systolic and diastolic murmur 2-3+. Abdomen: Bowel Sounds Present, Soft, Non Tender, Non-Distended : No renal angle tenderness. No suprapubic tenderness. Extremities: No edema, Capillary Refill Less than 3 Seconds Skin: No rashes, No breakdown Musculoskeletal: Left hip surgical dressing is dry. No hematoma or acute bruising. ROM not attempted. Neurological: Cranial nerves II-XII grossly intact, DTR 2+/4. No acute focal neurological deficit. Psych/Mental Status: Normal Affect, Appropriate. Assessment & Plan Assessment/Plan (1) Intertrochanteric fracture of left hip: QUALIFIERS: Encounter type: initial encounter Fracture type: closed Fracture alignment: displaced Qualified Code(s): S72.142A - Displaced intertrochanteric fracture of left femur, initial encounter for closed fracture PLAN: Plan 1. Left intertrochanteric hip fracture from mechanical fall: Patient is being admitted for preorthopedic surgery consulted. Note reviewed. Patient scheduled for surgery probably cephalomedullary nailing. Perioperative risk evaluation done and moderate risk. 07/07: Mild acute blood loss postoperative anemia due to hip surgery: Mild drop in hemoglobin 8.5 from baseline 10.5 g on 05/12/2023. No indication for blood transfusion. Ferrous sulfate ordered. Bladder and bowel care. On stool softeners. PT and OT. 2. Chronic HFpEF, valvular heart disease, HTN/HLD: Blood pressures are in normal range. Continue home medications. 2D echo from July 2022 reviewed. EF 65% stage II diastolic dysfunction, mild aortic insufficiency and aortic Estinyl. Mild TR. On auscultation, it seems AI about 2-3+ and more predominant than aortic stenosis. Need outpatient follow-up with welding engineer. ? Continue with Lipitor 3. X-ray suggestive of COPD: Patient had remote history of smoking in the past. Incentive spirometry ordered. DuoNeb as needed. DVT: SCDs Charges/Coding Visit Charges Inpatient E&M: 45569 Subs Hosp L2
[2023-07-07] MEDS: Atorvastatin Calcium 10 MG Tablet PO (20:30)
[2023-07-08 02:30] VITALS: BP 140/68; PULSE 68; RESP 16; TEMP 36.6; O2SAT 92
[2023-07-08] MEDS: Acetaminophen 500 MG Tablet 1000 MG PO (05:07)
[2023-07-08 05:33] LABS: Basophil# 0.03 X10^3/uL; Basophil% 0.2 % (0-1); Hematocrit 24.4 % (37-47); Hemoglobin 7.8 g/dL (12.0-15.0); Lymphocyte % 12.5 % (19-41); Mean Corpuscular Hgb 33.2 pg (27.0-32.0); Mean Corpuscular Volume 103.8 fL (81-99); Mean Platelet Vol. 11.6 fl (6.2-12.0); Monocyte# 1.12 X10^3/uL; Monocyte% 8.7 % (0-10); NRBC Flagged by Analyzer 0 % (0-5); Neutrophil # 10.01 X10^3/uL (2.7-7.7); Neutrophil % 78.2 % (47-70); Platelet Count 193 K/mm3 (150-450); RBC Distribution Width CV 15.9 % (11.6-14.6); RBC Distribution Width SD 60.3 fl (35.1-43.9); Red Blood Count 2.35 M/mm3 (4.2-5.4); White Blood Count 12.8 K/mm3 (4.4-11.0)
[2023-07-08 06:12] LABS: Anion Gap 6 (5-15); BUN 61 mg/dL (7-18); Calcium,Total 8.5 mg/dL (8.5-10.1); Chloride 108 mmol/L (98-107); Creatinine, Serum 2.44 mg/dL (0.55-1.02); EST Glomerular Filtration Rate 20 mL/min (>60); Est Glom Filt Rate - Afr Amer 25 mL/min (>60); Estimated Creatinine Clearance 15.65 ml/min; Glucose 101 mg/dL (74-106); Potassium 4.2 mmol/L (3.5-5.1); Sodium Level 139 mmol/L (136-145)
[2023-07-08] MEDS: Calcium Carbonate 500 MG Tablet PO ×2 (07:42→12:04)
[2023-07-08 07:43] VITALS: BP 150/78; PULSE 78
[2023-07-08] MEDS: Losartan Potassium 100 MG Tablet PO (07:43)
[2023-07-08] MEDS: dilTIAZem CD 180 MG Capsule 360 MG PO (07:43)
[2023-07-08] MEDS: Cholecalciferol (VIT D3) 25 MCG TABLET (1,000 UNITS) PO (07:43)
[2023-07-08] MEDS: Metoprolol Tartrate 25 MG Tablet 12.5 MG PO (07:43)
[2023-07-08] MEDS: Ascorbic Acid 500 MG Tablet PO (07:47)
[2023-07-08 08:30] VITALS: BP 150/78; PULSE 78; RESP 16; TEMP 36.9; O2SAT 98
--- NOTE | 2023-07-08 09:47 | TREXTCAR_ITS ---
Diet Diet Order/Speech Therapy: 07/06/23 17:52 Diet: Regular - General Is pt able to select menu?: Yes Routine Orders/Code Status Suppository Type: Dulcolax 10mg Suppository Frequency: Daily PRN Code Status: Full Code Wound(s) LEFT HIP: Wound Type: Surgical Incision Therapies Weight Bearing: Weight bearing as tolerated Extremity Affected:: Left Lower Physical Therapy: Eval and Treat Occupational Therapy: Eval and Treat Speech Therapy: Eval and Treat Problem/Diagnosis (1) Intertrochanteric fracture of left hip: Status: Acute Code(s): S72.142A - Displaced intertrochanteric fracture of left femur, initial encounter for closed fracture Plan 1. Left intertrochanteric hip fracture from mechanical fall: Patient is being admitted for preorthopedic surgery consulted. Note reviewed. Patient scheduled for surgery probably cephalomedullary nailing. Perioperative risk evaluation done and moderate risk. 07/07: Mild acute blood loss postoperative anemia due to hip surgery: Mild drop in hemoglobin 8.5 from baseline 10.5 g on 05/12/2023. No indication for blood transfusion. Ferrous sulfate ordered. Bladder and bowel care. On stool softeners. PT and OT. 2. Chronic HFpEF, valvular heart disease, HTN/HLD: Blood pressures are in normal range. Continue home medications. 2D echo from July 2022 reviewed. EF 65% stage II diastolic dysfunction, mild aortic insufficiency and aortic Estinyl. Mild TR. On auscultation, it seems AI about 2-3+ and more predominant than aortic stenosis. Need outpatient follow-up with tankroom worker. ? Continue with Lipitor 3. X-ray suggestive of COPD: Patient had remote history of smoking in the past. Incentive spirometry ordered. DuoNeb as needed. DVT: SCDs Allergies/Procedures Done in Hospital Allergies No Known Allergies Allergy (Verified 07/05/23 16:15) Type of Care/Length of Stay Estimated LOS: Convalescent Care Less Than 30 days Type of Care Needed: Skilled Rehab Potential: Good Prognosis: Good Additional Orders/Day of Discharge Day of Discharge: 07/08/23 Discharge Plan Admission Admit Date/Time: 07/05/23 17:50 Primary Reason for Your Visit: Left intertrochanteric hip fracture Attending Provider: Sidney Gonzalez Primary Care Provider: Umang Boyer Consulting Providers: Mario Steiner; Glibert Blevins Discharge Orders/Prescriptions Prescriptions: New sennosides-docusate sodium [Stool Softener-Stimulant Laxat] 8.6-50 mg Tablet 2 tab PO BID Qty: 0 0RF polyethylene glycol 3350 17 gram Powder In Packet 17 g PO DAILY Qty: 0 0RF oxycodone 5 mg Tablet 2.5 - 5 mg PO Q4H PRN PRN (Reason: Pain Score 4-10) Qty: 0 0RF Rx Instructions: 2.5 mg for moderate pain and 5 mg for severe pain respectively. cholecalciferol (vitamin D3) 25 mcg (1,000 unit) Tablet 125 mcg PO DAILYCM Qty: 0 0RF calcium carbonate 200 mg calcium (500 mg) Tablet,Chewable 500 mg PO TIDCM Qty: 0 0RF bisacodyl 10 mg Suppository 10 mg DC DAILY PRN (Reason: Severe constipation.) Qty: 0 0RF ascorbic acid (vitamin C) 500 mg Tablet 500 mg PO BIDCM Qty: 0 0RF acetaminophen 500 mg Tablet 1,000 mg PO Q8 Qty: 0 0RF Rx Instructions: 1000 mg daily for 1 week and then as needed as needed for moderate pain. ferrous sulfate [FeroSul] 325 mg (65 mg iron) Tablet 325 mg PO DAILY@1200 Qty: 0 0RF Eliquis 2.5 mg tablet 2.5 mg PO BID Qty: 60 0RF Rx Instructions: DVT prophylaxis for 1 month for hip surgery. Continued atorvastatin 10 mg tablet 10 mg PO QHS diltiazem HCl 180 mg capsule,extended release 24hr 360 mg PO DAILY telmisartan 80 mg tablet 80 mg PO DAILY probenecid 500 mg tablet 500 mg PO DAILY loperamide 2 mg Capsule 2 mg PO Q6H PRN PRN (Reason: Diarrhea) Qty: 0 0RF metoprolol tartrate 25 mg Tablet 12.5 mg PO BID 30 Days Qty: 30 0RF Held aspirin 81 mg Tablet,Delayed Release (Dr/Ec) 81 mg PO DAILY Hold Instructions: Hold while patient is on Eliquis for Referrals / Follow Up: Umang Boyer MD [Primary Care Provider] - In 1 Week Mario Steiner DO [Med Staff - Active Staff] - Within 2 Weeks Disposition Disposition (needs filled in before D/C Order can be placed): Home, Self Care (1) Intertrochanteric fracture of left hip Qualifiers: Encounter type: initial encounter Fracture type: closed Fracture alignment: displaced Qualified Code(s): S72.142A - Displaced intertrochanteric fracture of left femur, initial encounter for closed fracture
--- NOTE | 2023-07-08 09:56 | DS.PCM_ITS ---
Providers Date of Admission: 07/05/23 Date of Discharge: 07/08/23 Primary Care Physician: Dr. Umang Boyer MD Consultations 07/05/23 20:21 Consult: Orthopedics Routine Consulting Provider: Mario Steiner Reason for Consult: left femur fracture EMERGENT Consult: No MD Notified: Yes Date Notified: 07/05/23 Time Notified: 17:55 Method of Notification: ED Physician Initiated Reason For Visit: FEMUR FRACTURE Diagnosis Discharge Diagnosis (1) Intertrochanteric fracture of left hip: Status: Acute Code(s): S72.142A - Displaced intertrochanteric fracture of left femur, initial encounter for closed fracture Qualifiers: Encounter type: initial encounter Fracture alignment: displaced Fracture type: closed Qualified Code(s): S72.142A - Displaced intertrochanteric fracture of left femur, initial encounter for closed fracture Plan This 77-year-old female was admitted after mechanical fall leading to left intertrochanteric femur fracture. 1. Left intertrochanteric hip fracture from mechanical fall: Patient is being admitted for preorthopedic surgery consulted. Note reviewed. Patient scheduled for surgery probably cephalomedullary nailing. Perioperative risk evaluation done and moderate risk. 07/07: Mild acute blood loss postoperative anemia due to hip surgery: Mild drop in hemoglobin 8.5 from baseline 10.5 g on 05/12/2023. No indication for blood transfusion. Ferrous sulfate ordered. Bladder and bowel care. On stool softeners. PT and OT. 07/08: Patient hemoglobin further dropped to 7.8. IV iron infusion ordered. Patient on ferrous sulfate and ascorbic acid. PT and OT. Patient is approved for TCU and is discharged after IV infusion. 2. Chronic HFpEF, valvular heart disease, HTN/HLD: Blood pressures are in normal range. Continue home medications. 2D echo from July 2022 reviewed. EF 65% stage II diastolic dysfunction, mild aortic insufficiency and aortic Estinyl. Mild TR. On auscultation, it seems AI about 2-3+ and more predominant than aortic stenosis. Need outpatient follow-up with inspector paper products. ? Continue with Lipitor 3. X-ray suggestive of COPD: Patient had remote history of smoking in the past. Incentive spirometry ordered. DuoNeb as needed. DVT: SCDs Discharge medication reconciliation done. Discharge follow-up instructions completed. Discharge process discussed with the patient and all questions were answered to patient's satisfaction. Follow with PCP in 1 to 2 weeks Total time spent, exact 35 minutes on discharge meds reconciliation, examination, coordination of care with nurses and ancillary staff, review of imaging and blood test and discussion with the patient on follow-up instructions. Medications at Discharge Home Medications aspirin 81 mg tablet,delayed release 81 mg PO DAILY HEART HEALTH 07/27/22 atorvastatin 10 mg tablet 10 mg PO QHS CHOLESTEROL 07/27/22 diltiazem HCl 180 mg capsule,extended release 24 hr 360 mg PO DAILY BLOOD PRES SURE 07/27/22 probenecid 500 mg tablet 500 mg PO DAILY GOUT 07/27/22 telmisartan 80 mg tablet 80 mg PO DAILY BLOOD PRESSURE 07/27/22 loperamide 2 mg capsule 2 mg PO Q6H PRN PRN Diarrhea #0 caps 08/16/22 metoprolol tartrate 25 mg tablet 12.5 mg (1/2 x 25 mg) PO BID blood pressure 30 days #30 tabs 08/16/22 acetaminophen 500 mg tablet 1,000 mg (2 x 500 mg) PO Q8 #0 tabs 07/08/23 apixaban 2.5 mg tablet (Eliquis) 2.5 mg PO BID #60 tabs 07/08/23 ascorbic acid (vitamin C) 500 mg tablet 500 mg PO BIDCM #0 tabs 07/08/23 bisacodyl 10 mg rectal suppository 10 mg FL DAILY PRN Severe constipation. #0 ea 07/08/23 calcium carbonate 200 mg calcium (500 mg) chewable tablet 500 mg (2.5 x 200 mg calcium (500 mg)) PO TIDCM #0 tabs 07/08/23 cholecalciferol (vitamin D3) 25 mcg (1,000 unit) tablet 125 mcg (5 x 25 mcg (1,000 unit)) PO DAILYCM #0 tabs 07/08/23 ferrous sulfate 325 mg (65 mg iron) tablet (FeroSul) 325 mg PO DAILY@1200 #0 tabs 07/08/23 oxycodone 5 mg tablet 2.5 - 5 mg (0.5 - 1 x 5 mg) PO Q4H PRN PRN Pain Score 4-10 #0 tabs 07/08/23 polyethylene glycol 3350 17 gram oral powder packet 17 g PO DAILY #0 ea 07/08/23 sennosides 8.6 mg-docusate sodium 50 mg tablet (Stool Softener-Stimulant Laxative) 2 tab PO BID #0 tabs 07/08/23 Physical Exam Narrative Seen and examined. Patient looks debilitated. No acute pain. Had hip surgery. Denies history of smoking or COPD but chest x-ray suggestive of COPD. Physical exam General: Alert, Oriented x3, Cooperative HEENT: Pale looking. Atraumatic, PERRLA, EOMI, Normocephalic Oral: No Gingival or Mucosal Lesions/ Ulcerations Neck: Supple, No JVD, Negative Carotid Bruits Lungs: Air entry diminished in bilateral lung bases. No crepitation/rhonchi/wheezing. Cardiovascular: Regular rate, Regular Rhythm, Normal S1, Normal S2, systolic and diastolic murmur moderate severity. Abdomen: Bowel Sounds Present, Soft, Non Tender, Non-Distended : No renal angle tenderness. No suprapubic tenderness. Extremities: No edema, Capillary Refill Less than 3 Seconds Skin: Surgical dressing is dry over left hip. No hematoma. Musculoskeletal: Left hip surgical dressing is dry. No hematoma or acute bruising. ROM not attempted. Neurological: Cranial nerves II-XII grossly intact, DTR 2+/4. No acute focal neurological deficit. Psych/Mental Status: Normal Affect, Appropriate. Weight / BMI Weight Weight: 115 lb Body Mass Index (BMI) 20.3 ABG / Lab / Microbiology Data 07/08/23 04:25 07/08/23 04:25 Laboratory: Laboratory Results - last 24 hr 07/08/23 04:25: WBC 12.8 H, RBC 2.35 L, Hgb 7.8 L, Hct 24.4 L, MCV 103.8 H, MCH 33.2 H, MCHC 32.0, RDW Std Deviation 60.3 H, RDW Coeff of Arnul[place] 15.9 H, Plt Count 193, MPV 11.6, Immature Gran % (Auto) 0.400, Neut % (Auto) 78.2 H, Lymph % (Auto) 12.5 L, [place] % (Auto) 8.7, Eos % (Auto) 0.0, Baso % (Auto) 0.2, Absolute Neuts (auto) 10.0 H, Absolute Lymphs (auto) 1.60, Nucleated RBC % 0, Sodium 139, Potassium 4.2, Chloride 108 H, Carbon Dioxide 25.0, Anion Gap 6, BUN 61 H, Creatinine 2.44 H, Estim Creat Clear Calc 15.65, Est GFR (MDRD) Af Amer 25 L, Est GFR (MDRD) Non-Af 20 L, BUN/Creatinine Ratio 25.0 H, Glucose 101, Calcium 8.5 Meaningful Use Info Meaningful Use Diagnoses (Choose all that apply): None applicable Discharge Plan Admission Admit Date/Time: 07/05/23 17:50 Primary Reason for Your Visit: Left intertrochanteric hip fracture Attending Provider: Sidney Gonzalez Primary Care Provider: Umang Boyer Consulting Providers: Mario Steiner; Gilbert Blevins Discharge Orders/Prescriptions Prescriptions: New sennosides-docusate sodium [Stool Softener-Stimulant Laxat] 8.6-50 mg Tablet 2 tab PO BID Qty: 0 0RF polyethylene glycol 3350 17 gram Powder In Packet 17 g PO DAILY Qty: 0 0RF oxycodone 5 mg Tablet 2.5 - 5 mg PO Q4H PRN PRN (Reason: Pain Score 4-10) Qty: 0 0RF Rx Instructions: 2.5 mg for moderate pain and 5 mg for severe pain respectively. cholecalciferol (vitamin D3) 25 mcg (1,000 unit) Tablet 125 mcg PO DAILYCM Qty: 0 0RF calcium carbonate 200 mg calcium (500 mg) Tablet,Chewable 500 mg PO TIDCM Qty: 0 0RF bisacodyl 10 mg Suppository 10 mg [place] DAILY PRN (Reason: Severe constipation.) Qty: 0 0RF ascorbic acid (vitamin C) 500 mg Tablet 500 mg PO BIDCM Qty: 0 0RF acetaminophen 500 mg Tablet 1,000 mg PO Q8 Qty: 0 0RF Rx Instructions: 1000 mg daily for 1 week and then as needed as needed for moderate pain. ferrous sulfate [FeroSul] 325 mg (65 mg iron) Tablet 325 mg PO DAILY@1200 Qty: 0 0RF Eliquis 2.5 mg tablet 2.5 mg PO BID Qty: 60 0RF Rx Instructions: DVT prophylaxis for 1 month for hip surgery. Continued atorvastatin 10 mg tablet 10 mg PO QHS diltiazem HCl 180 mg capsule,extended release 24hr 360 mg PO DAILY telmisartan 80 mg tablet 80 mg PO DAILY probenecid 500 mg tablet 500 mg PO DAILY loperamide 2 mg Capsule 2 mg PO Q6H PRN PRN (Reason: Diarrhea) Qty: 0 0RF metoprolol tartrate 25 mg Tablet 12.5 mg PO BID 30 Days Qty: 30 0RF Held aspirin 81 mg Tablet,Delayed Release (Dr/Ec) 81 mg PO DAILY Hold Instructions: Hold while patient is on Eliquis for Referrals / Follow Up: Umang Boyer MD [Primary Care Provider] - In 1 Week Mario Steiner DO [Med Staff - Active Staff] - Within 2 Weeks Disposition Disposition (needs filled in before D/C Order can be placed): Home, Self Care Charges/Coding Visit Charges Inpatient E&M: 16156 Disch Hosp >30min
--- NOTE | 2023-07-08 10:11 | PHA.DC_ITS ---
[facility] has performed discharge medication reconciliation for this patient upon transfer to TCU. The patient's discharge medication list was reviewed for discrepancies and discrepancies were resolved. Medications at Discharge Home Medications aspirin 81 mg tablet,delayed release 81 mg PO DAILY HEART HEALTH 07/27/22 atorvastatin 10 mg tablet 10 mg PO QHS CHOLESTEROL 07/27/22 diltiazem HCl 180 mg capsule,extended release 24 hr 360 mg PO DAILY BLOOD PRE SSURE 07/27/22 probenecid 500 mg tablet 500 mg PO DAILY GOUT 07/27/22 telmisartan 80 mg tablet 80 mg PO DAILY BLOOD PRESSURE 07/27/22 loperamide 2 mg capsule 2 mg PO Q6H PRN PRN Diarrhea #0 caps 08/16/22 metoprolol tartrate 25 mg tablet 12.5 mg (1/2 x 25 mg) PO BID blood pressure 30 days #30 tabs 08/16/22 acetaminophen 500 mg tablet 1,000 mg (2 x 500 mg) PO Q8 #0 tabs 07/08/23 apixaban 2.5 mg tablet (Eliquis) 2.5 mg PO BID #60 tabs 07/08/23 ascorbic acid (vitamin C) 500 mg tablet 500 mg PO BIDCM #0 tabs 07/08/23 bisacodyl 10 mg rectal suppository 10 mg RI DAILY PRN Severe constipation. #0 ea 07/08/23 calcium carbonate 200 mg calcium (500 mg) chewable tablet 500 mg (2.5 x 200 mg calcium (500 mg)) PO TIDCM #0 tabs 07/08/23 cholecalciferol (vitamin D3) 25 mcg (1,000 unit) tablet 125 mcg (5 x 25 mcg (1,000 unit)) PO DAILYCM #0 tabs 07/08/23 ferrous sulfate 325 mg (65 mg iron) tablet (FeroSul) 325 mg PO DAILY@1200 #0 tabs 07/08/23 oxycodone 5 mg tablet 2.5 - 5 mg (0.5 - 1 x 5 mg) PO Q4H PRN PRN Pain Score 4-10 #0 tabs 07/08/23 polyethylene glycol 3350 17 gram oral powder packet 17 g PO DAILY #0 ea 07/08/23 sennosides 8.6 mg-docusate sodium 50 mg tablet (Stool Softener-Stimulant Laxative) 2 tab PO BID #0 tabs 07/08/23
[2023-07-08 10:18] VITALS: O2SAT 92
[2023-07-08] MEDS: Sodium Ferric Gluconat/Sucrose 250 MG in 0.9% Normal Saline (250mL Bag) 250 ML 135 MG IV (10:36)
[2023-07-08] MEDS: Senna/Docusate Sodium 1 Tablet 2 TABLET PO (10:40)
[2023-07-08] MEDS: Polyethylene Glycol 3350 17 GM PACKET PO (10:40)
--- NOTE | 2023-07-08 11:54 | CASEMGMT ---
Social Work Per physician pt is ready for dc today. TCU is able to accept today. TREE met with pt and granddaughter Xi and updated and they are agreeable to dc to TCU. Xi will notify pt's dgt Nicole. Discharge orders faxed to TCU. Disposition: TCU, skilled level of care MELISSA Wang
[2023-07-08] MEDS: Ferrous Sulfate 325 MG Tablet PO (12:04)
[2023-07-08 13:34] VITALS: BP 144/53; PULSE 78; RESP 16; TEMP 37.2; O2SAT 94
== END 2023-07-08 14:32 | disposition home or self-care (01) | DRG 481 ==
LOC: ED 18:05 → MS3 18:20
PROVIDERS: Orthopaedic Surgery; Admitting Provider Family Medicine; Emergency Provider Emergency Medicine; PCP Family Medicine; Referring Provider Emergency Medicine; Visit Provider Internal Medicine
PROC: 0QS736Z Reposition Left Upper Femur with Intramedullary Internal Fixation Device, Percutaneous Approach (ICD-10-PCS; principal; 2023-07-06 07:30)
DX: S72.142A Displaced intertrochanteric fracture of left femur, initial encounter for closed fracture (principal); D62 Acute posthemorrhagic anemia; I50.32 Chronic diastolic (congestive) heart failure; I11.0 Hypertensive heart disease with heart failure; J44.9 Chronic obstructive pulmonary disease, unspecified; I35.2 Nonrheumatic aortic (valve) stenosis with insufficiency; E78.5 Hyperlipidemia, unspecified; W18.09XA Striking against other object with subsequent fall, initial encounter; Z79.82 Long term (current) use of aspirin; Z79.899 Other long term (current) drug therapy; Z87.891 Personal history of nicotine dependence; Z86.73 Personal history of transient ischemic attack (TIA), and cerebral infarction without residual deficits
CPT/HCPCS: 36415; 51702; 71045; 73502; 73552; 76000; 80048; 81001; 82962; 84484; 85025; 85027; 85610; 85730; 86850; 86900; 86901; 93005; 94668; 97162; 97166; 99285; C1713; J7050; J7120; A4216; J2405; J2916

== ENCOUNTER 2023-07-08 14:35 | Inpatient (IN) | payer MEDICARE, SELFPAY ==
[2023-07-08 15:00] VITALS: BP 153/85; PULSE 86; RESP 21; TEMP 36.2; O2SAT 93; BMI 20.3; BMI 20.4
--- NOTE | 2023-07-08 15:00 | HP.PCM_ITS ---
HPI - General General Date of Admission: 07/08/23 Date of Service: 07/08/23 Chief Complaint: Here for rehabilitation. HPI Narrative 07/05/2023 SHERRI ZACARIAS, is a 77 Female who presents to [facility] ED with fall. Fall, left hip, back pain, getting up from recliner, foot caught. Hit face, hit left hip, unable to walk, pain worse with movement. X-ray showed left hip fracture. 07/05/2023 Admit to Hospital. Pain control, prepare for surgery. 07/06/2023 Presurgical risk moderate. 07/06/2023 Dr. Steiner performed left hip CMN fixation. 07/07/2023 Pain controlled. WBAT, PT/OT debility. Eliquis 2.5mg bid x 3 weeks, SCD's, TEDs, DVT prophylaxis. 07/07/2023 Weak. Hemoglobin dropped from 10.5 to 8.5, iron ordered. No transfusion necessary. Chest X-ray showed COPD, IS, Duoneb prn, remote smoking history, recent hospitalizations for pneumonia. 07/08/2023 Hemoglobin 7.8, Venofer IV given, iron, vitamin C. 07/08/2023 Admit to TCU with debility, here for rehabilitation, strengthening, prior to discharge to [facility]. [facility] Medical History (Updated 07/08/23 @ 15:[address] Medardo Vegas MD) Aortic stenosis Former smoker Gout Hypertension Macular degeneration On home oxygen therapy Stroke/cerebrovascular accident TIA (transient ischemic attack) Wrist fracture Home Medications aspirin 81 mg tablet,delayed release 81 mg PO DAILY HEART HEALTH 07/27/22 [History Last Taken 07/27/22] atorvastatin 10 mg tablet 10 mg PO QHS CHOLESTEROL 07/27/22 [History Last Taken 07/26/22] diltiazem HCl 180 mg capsule,extended release 24 hr 360 mg PO DAILY BLOOD PRESSURE 07/27/22 [History Last Taken 07/27/22] probenecid 500 mg tablet 500 mg PO DAILY GOUT 07/27/22 [History Last Taken 07/27/22] telmisartan 80 mg tablet 80 mg PO DAILY BLOOD PRESSURE 07/27/22 [History Last Taken 07/27/22] loperamide 2 mg capsule 2 mg PO Q6H PRN PRN Diarrhea #0 caps 08/16/22 [Rx Last Taken Unknown] metoprolol tartrate 25 mg tablet 12.5 mg (1/2 x 25 mg) PO BID blood pressure 30 days #30 tabs 08/16/22 [Rx Last Taken Unknown] acetaminophen 500 mg tablet 1,000 mg (2 x 500 mg) PO Q8 #0 tabs 07/08/23 [Rx Last Taken Unknown] apixaban 2.5 mg tablet (Eliquis) 2.5 mg PO BID #60 tabs 07/08/23 [Rx Last Taken Unknown] ascorbic acid (vitamin C) 500 mg tablet 500 mg PO BIDCM #0 tabs 07/08/23 [Rx Last Taken Unknown] bisacodyl 10 mg rectal suppository 10 mg MT DAILY PRN Severe constipation. #0 ea 07/08/23 [Rx Last Taken Unknown] calcium carbonate 200 mg calcium (500 mg) chewable tablet 500 mg (2.5 x 200 mg calcium (500 mg)) PO TIDCM #0 tabs 07/08/23 [Rx Last Taken Unknown] cholecalciferol (vitamin D3) 25 mcg (1,000 unit) tablet 125 mcg (5 x 25 mcg (1,000 unit)) PO DAILYCM #0 tabs 07/08/23 [Rx Last Taken Unknown] ferrous sulfate 325 mg (65 mg iron) tablet (FeroSul) 325 mg PO DAILY@1200 #0 tabs 07/08/23 [Rx Last Taken Unknown] oxycodone 5 mg tablet 2.5 - 5 mg (0.5 - 1 x 5 mg) PO Q4H PRN PRN Pain Score 4-10 #0 tabs 07/08/23 [Rx Last Taken Unknown] polyethylene glycol 3350 17 gram oral powder packet 17 g PO DAILY #0 ea 07/08/23 [Rx Last Taken Unknown] sennosides 8.6 mg-docusate sodium 50 mg tablet (Stool Softener-Stimulant Laxative) 2 tab PO BID #0 tabs 07/08/23 [Rx Last Taken Unknown] Allergy/AdvReac Type Severity Reaction Status Date / Time No Known Allergies Allergy Verified 07/05/23 16:15 Family History Other Heart disease Surgical History History of appendectomy Social History (Updated 07/08/23 @ 15:[address] Medardo Vegas MD) housing: assisted living facility Smoking Status: Former smoker alcohol intake: never substance use type: does not use ROS Constitutional Constitutional: Denies chills, fever(s) or weight gain ENT HEENT: Denies headache(s), nasal congestion or nasal discharge Cardiovascular Cardiovascular: Denies chest pain or palpitations Respiratory/Chest Respiratory/Chest: Denies cough, excessive phlegm production or shortness of breath with exertion Gastrointestinal Gastrointestinal: Denies abdominal pain, nausea or vomiting Genitourinary Genitourinary: Denies dysuria Musculoskeletal Musculoskeletal: Denies joint pain or joint swelling Integumentary Integumentary: Denies rash or wounds Neurologic Neurologic: Denies focal weakness, numbness or tingling Psychiatric Psychiatric: Denies anxiety, auditory hallucinations, depression, homicidal ideation or suicidal ideation Physical Exam Const alert General Appearance: cooperative HEENT normocephalic Eyes PERRL and EOMs intact bilaterally Neck supple, no JVD and no carotid bruits Resp normal respiratory effort, normal air movement and clear to auscultation bilaterally Cardio regular rate and regular rhythm GI normal to inspection, nondistended, normoactive bowel sounds, non-tender and non-distended Extremity normal capillary refill General Extremity: Negative for edema Skin no rashes or lesions noted General Skin Exam: no breakdown Psych affect normal Appearance: appropriate Assessment & Plan Assessment/Plan (1) Debility: (2) Intertrochanteric fracture of left hip: QUALIFIERS: Encounter type: initial encounter Fracture alignment: displaced Fracture type: closed Qualified Code(s): S72.142A - Displaced intertrochanteric fracture of left femur, initial encounter for closed fracture (3) Fall: (4) Hypoxemia: (5) Macular degeneration: (6) Stroke/cerebrovascular accident: (7) Hypertension: (8) Hyperlipidemia: (9) Gout: (10) Postoperative anemia: PLAN: Plan 77 year old female with below past medical history hospitalized for left hip fracture, underwent left hip CMN fixation 07/06/[address] Steiner, postoperative course complicated by postoperative anemia, admitted to TCU with debility, here for rehabilitation, strengthening, prior to discharge to [facility]. * Debility - PT/OT. * Pain - Tylenol 1000mg q8, Oxycodone 2.5-5mg q4h prn pain (4-10). * Bowel - Miralax 17gm daily, senna/colace 2 tablets bid, Dulcolax 10mg daily prn, Loperamide 2mg q6 prn. * Adult immunization - Administer pneumonia vaccine, covid vaccine, flu vaccine as appropriate. * DVT prophylaxis - Eliquis 2.5mg bid x 30 days. * Vitamin D deficiency - D3 25mcg daily. * Calcium deficiency - TUMS 500mg tidcm. * Iron deficiency anemia - Ferrous sulfate 325mg daily, Vitamin C 500mg daily. * Hyperlipidemia - Atorvastatin 10mg qhs. * Hypertension - Metoprolol 12.5mg bid, Diltiazem 180mg daily, Telmisartan 80mg daily. * Gout - Probenecid 500mg daily. * Stroke - Aspirin 81mg held, restart after done with Eliquis.
[2023-07-08 15:13] VITALS: BP 153/85; PULSE 86; RESP 21; TEMP 36.2; O2SAT 93
[2023-07-08] MEDS: Calcium Carbonate 500 MG Tablet PO (16:16)
[2023-07-08] MEDS: oxyCODONE 5 MG Tablet PO (16:17)
[2023-07-08] MEDS: Ascorbic Acid 500 MG Tablet PO (17:51)
[2023-07-08 20:55] VITALS: BP 166/76; PULSE 77
[2023-07-08] MEDS: Atorvastatin Calcium 10 MG Tablet PO (20:55)
[2023-07-08] MEDS: Metoprolol Tartrate 25 MG Tablet 12.5 MG PO (20:55)
[2023-07-08] MEDS: APIXABAN 2.5 MG TABLET (WCH) PO (20:55)
[2023-07-08] MEDS: Acetaminophen 500 MG Tablet 1000 MG PO (20:56)
--- NOTE | 2023-07-09 03:42 | NURSING ---
Patient woke up very confused. Did not know where she was, why she was here. Discussed events that brought her to the hospital. Patient verbalized understanding, but continued to be confused about things. Did ask us who she was at [facility] point. She was then able to tell her name. Assisted to BSC and then back to bed. Will continue to monitor.
[2023-07-09] MEDS: Acetaminophen 500 MG Tablet 1000 MG PO ×3 (06:32→22:05)
[2023-07-09 07:34] VITALS: PULSE 95; RESP 16; O2SAT 94
[2023-07-09 08:42] LABS: Absolute Lymphocyte Count 1.09 X10^3/uL (0.83-4.51); Basophil# 0.03 X10^3/uL; Basophil% 0.4 % (0-1); Eosinophil# 0.02 X10^3/uL; Eosinophils% 0.3 % (0-5); Hematocrit 24.9 % (37-47); Hemoglobin 8.1 g/dL (12.0-15.0); Lymphocyte # 1.09 X10^3/ul (0.83-4.51); Lymphocyte % 13.8 % (19-41); Mean Corp Hgb Conc 32.5 g/dL (32-36); Mean Corpuscular Hgb 33.1 pg (27.0-32.0); Mean Corpuscular Volume 101.6 fL (81-99); Mean Platelet Vol. 10.9 fl (6.2-12.0); Monocyte# 0.71 X10^3/uL; NRBC Flagged by Analyzer 0 % (0-5); Neutrophil % 75.7 % (47-70); Platelet Count 203 K/mm3 (150-450); RBC Distribution Width CV 15.7 % (11.6-14.6); RBC Distribution Width SD 58.5 fl (35.1-43.9); Red Blood Count 2.45 M/mm3 (4.2-5.4); White Blood Count 7.9 K/mm3 (4.4-11.0)
[2023-07-09 09:01] LABS: Anion Gap 5 (5-15); BUN 51 mg/dL (7-18); BUN/Creat Ratio 29.5 RATIO (10-20); Calcium,Total 8.9 mg/dL (8.5-10.1); Chloride 111 mmol/L (98-107); Creatinine, Serum 1.73 mg/dL (0.55-1.02); EST Glomerular Filtration Rate 30 mL/min (>60); Est Glom Filt Rate - Afr Amer 37 mL/min (>60); Estimated Creatinine Clearance 22.13 ml/min; Glucose 97 mg/dL (74-106); Potassium 4.1 mmol/L (3.5-5.1); Sodium Level 141 mmol/L (136-145)
[2023-07-09 09:18] VITALS: BP 161/75; PULSE 83; RESP 17; TEMP 36.5; O2SAT 93
[2023-07-09] MEDS: Ascorbic Acid 500 MG Tablet PO ×2 (09:20→17:30)
[2023-07-09] MEDS: Calcium Carbonate 500 MG Tablet PO ×3 (09:20→17:30)
[2023-07-09] MEDS: dilTIAZem CD 180 MG Capsule 360 MG PO (09:21)
[2023-07-09] MEDS: Cholecalciferol (Vit D3) 125 MCG CAPSULE (5,000 UNITS) PO (09:22)
[2023-07-09] MEDS: Losartan Potassium 100 MG Tablet PO (09:22)
[2023-07-09 09:23] VITALS: PULSE 83
[2023-07-09] MEDS: APIXABAN 2.5 MG TABLET (WCH) PO ×2 (09:23→22:06)
[2023-07-09] MEDS: Metoprolol Tartrate 25 MG Tablet 12.5 MG PO ×2 (09:23→22:06)
[2023-07-09] MEDS: Loperamide 2 MG Capsule PO ×2 (09:33→17:30)
[2023-07-09] MEDS: Ferrous Sulfate 325 MG Tablet PO (13:17)
[2023-07-09] MEDS: Tuberculin,Purif.prot.deriv. 50 TU/ML Vial 0.1 ML ID (13:17)
[2023-07-09] MEDS: 0.9% Saline Lock 10 ML Syringe IV (13:22)
[2023-07-09 22:06] VITALS: BP 187/75; PULSE 74
[2023-07-09] MEDS: Atorvastatin Calcium 10 MG Tablet PO (22:06)
[2023-07-09] MEDS: Senna/Docusate Sodium 1 Tablet 2 TABLET PO (22:06)
--- NOTE | 2023-07-09 22:45 | NURSING ---
Dressing removed per order to left hip, sx sites x3 observed with brayan intact. Proximal sx site with 8 brayan, middle sx site with 5 brayan, distal sx site with 3 brayan intact. No redness/no heat/ slight edema/no drainage. DSD applied. No c/o pain. No distress observed or reported. Call light in reach.
[2023-07-10 04:54] LABS: Hematocrit 25.5 % (37-47); Hemoglobin 8.1 g/dL (12.0-15.0)
[2023-07-10] MEDS: Acetaminophen 500 MG Tablet 1000 MG PO ×3 (05:44→21:38)
[2023-07-10 10:10] VITALS: BP 178/70; PULSE 88; RESP 17; TEMP 36.3; O2SAT 95
[2023-07-10] MEDS: Ascorbic Acid 500 MG Tablet PO ×2 (10:17→17:08)
[2023-07-10] MEDS: Cholecalciferol (Vit D3) 125 MCG CAPSULE (5,000 UNITS) PO (10:17)
[2023-07-10] MEDS: APIXABAN 2.5 MG TABLET (WCH) PO ×2 (10:18→21:38)
[2023-07-10] MEDS: dilTIAZem CD 180 MG Capsule 360 MG PO (10:18)
[2023-07-10] MEDS: Losartan Potassium 100 MG Tablet PO (10:18)
[2023-07-10 10:19] VITALS: PULSE 88
[2023-07-10] MEDS: Metoprolol Tartrate 25 MG Tablet 12.5 MG PO ×2 (10:19→21:42)
[2023-07-10] MEDS: Calcium Carbonate 500 MG Tablet PO ×2 (12:56→17:08)
[2023-07-10] MEDS: Ferrous Sulfate 325 MG Tablet PO (12:56)
[2023-07-10] MEDS: Loperamide 2 MG Capsule PO (17:10)
[2023-07-10] MEDS: Atorvastatin Calcium 10 MG Tablet PO (21:41)
[2023-07-10 21:42] VITALS: BP 154/73; PULSE 75
[2023-07-10 22:00] VITALS: PULSE 75; RESP 18; O2SAT 97
[2023-07-11] MEDS: Acetaminophen 500 MG Tablet 1000 MG PO ×3 (05:23→21:34)
[2023-07-11 06:17] LABS: Hematocrit 27.6 % (37-47); Hemoglobin 8.5 g/dL (12.0-15.0)
[2023-07-11] MEDS: Loperamide 2 MG Capsule PO ×3 (08:53→17:09)
[2023-07-11] MEDS: Losartan Potassium 100 MG Tablet PO (08:54)
[2023-07-11] MEDS: Calcium Carbonate 500 MG Tablet PO ×3 (08:55→17:09)
[2023-07-11] MEDS: Cholecalciferol (Vit D3) 125 MCG CAPSULE (5,000 UNITS) PO (08:55)
--- NOTE | 2023-07-11 08:58 | NURSING ---
Room Cleaner Note; Activity Asset: Complete Janel has returned to TCU for continued therapy. She is legally blind and unable to read or watch tv however she enjoys listing to the game show channel. She is very pleasant and will need 1.1 weekly visits for extra social interaction. Janel welcomes visit from the sports media and therapy dog when available. Staff will remind her of daily group and in room activities and respect her right to say no.
[2023-07-11 08:59] VITALS: BP 189/84; PULSE 84
[2023-07-11] MEDS: Metoprolol Tartrate 25 MG Tablet 12.5 MG PO ×2 (08:59→21:33)
[2023-07-11] MEDS: dilTIAZem CD 180 MG Capsule 360 MG PO (08:59)
[2023-07-11] MEDS: APIXABAN 2.5 MG TABLET (WCH) PO ×2 (08:59→21:34)
[2023-07-11] MEDS: Ascorbic Acid 500 MG Tablet PO ×2 (08:59→17:09)
[2023-07-11 10:30] VITALS: BP 169/75; PULSE 75; RESP 16; TEMP 36.2; O2SAT 95
[2023-07-11] MEDS: Ferrous Sulfate 325 MG Tablet PO (12:46)
--- NOTE | 2023-07-11 13:01 | NURSING ---
Offered Covid vaccine. Patient reports she had in June. Staff at [facility] confirmed date of last covid shot was in June. Added to chart, too soon to receive another.
--- NOTE | 2023-07-11 13:05 | CASEMGMT ---
Social Work: Met with pt to complete initial assessment Introduced self and role Verified daughter as main contact Pt reported her goal is to return home to [facility] Discussed possibly utilizing AL at [facility] for a short time if needed SW to continue to follow for DC planning Olesya TORRES
--- NOTE | 2023-07-11 16:05 | PCM.PN.DRR ---
Documented by User: Rina Chowdary 07/11/23 16:32 TCU RX Drug Regimen Review Subjective/Objective Subjective/Objective: Subjective: TCU Admission. 77 YOF presented to the ER with a fall. Hospitalized for left hip fracture, underwent left hip CMN fixation 07/06/[address] Steiner, postoperative course complicated by postoperative anemia. Admitted to TCU with debility for strengthening and rehabilitation. Objective: Allergies No Known Allergies Allergy (Verified 07/05/23 16:15) Current Medications Generic Name Dose Route Start Last Admin Trade Name Freq PRN Reason Stop Dose Admin Acetaminophen 1,000 mg 07/08/23 22:00 07/11/23 14:22 Acetaminophen 500 Mg Tablet PO 1,000 mg Q8 DHARA Administration Apixaban 2.5 mg 07/08/23 22:00 07/11/23 08:59 Apixaban 2.5 Mg Tablet ([facility]) PO 08/07/23 10:01 2.5 mg BID DHARA Administration Ascorbic Acid 500 mg 07/08/23 17:00 07/11/23 08:59 Ascorbic Acid 500 Mg Tablet PO 500 mg BIDCM REPLACED BY [facility] Administration Aspirin 81 mg 08/08/23 08:00 Aspirin E.C. 81 Mg Tablet PO DAILYCM REPLACED BY [facility] Atorvastatin Calcium 10 mg 07/08/23 22:00 07/10/23 21:41 Atorvastatin Calcium 10 Mg Tablet PO 10 mg QHS DHARA Administration Bisacodyl 10 mg 07/08/23 15:27 Bisacodyl 10 Mg Suppository RC DAILY PRN Severe constipation. Calcium Carbonate 500 mg 07/08/23 17:45 07/11/23 12:46 Calcium Carbonate 500 Mg Tablet PO 500 mg TIDCM DHARA Administration Cholecalciferol 125 mcg 07/09/23 08:00 07/11/23 08:55 Cholecalciferol (Vit D3) 125 Mcg Capsule (5,000 Units) PO 125 mcg DAILYCM REPLACED BY [facility] Administration Diltiazem HCl 360 mg 07/09/23 10:00 07/11/23 08:59 Diltiazem Cd 180 Mg Capsule PO 360 mg DAILY DHARA Administration Protocol Ferrous Sulfate 325 mg 07/09/23 12:00 07/11/23 12:46 Ferrous Sulfate 325 Mg Tablet PO 325 mg LUNCH DHARA Administration Sodium Chloride 250 mls @ 15 mls/hr 07/08/23 18:36 IV .[id number] PRN Additional IVPB Infusion Sodium Chloride 250 mls @ 15 mls/hr 07/08/23 18:36 IV .[id number] PRN Saline Flush Loperamide HCl 2 mg 07/11/23 11:45 07/11/23 11:57 Loperamide 2 Mg Capsule PO 2 mg TIDAC DHARA Administration Losartan Potassium 100 mg 07/09/23 10:00 07/11/23 08:54 Losartan Potassium 100 Mg Tablet PO 100 mg DAILY DHARA Administration Metoprolol Tartrate 12.5 mg 07/08/23 22:00 07/11/23 08:59 Metoprolol Tartrate 25 Mg Tablet PO 12.5 mg BID DHARA Administration Protocol Oxycodone HCl 2.5 - 5 mg 07/08/23 15:27 07/08/23 16:17 Oxycodone 5 Mg Tablet PO 5 mg Q4H PRN PRN Administration Pain Score 4-10 Polyethylene Glycol 17 gm 07/09/23 10:00 07/11/23 09:00 Polyethylene Glycol 3350 17 Gm Packet PO Not Given DAILY DHARA Probenecid 500 mg 07/09/23 10:00 07/11/23 08:54 Probenecid 500 Mg Tablet PO 500 mg DAILY DHARA Administration Senna/Docusate Sodium 2 tablet 07/11/23 07:42 Senna/Docusate Sodium 1 Tablet PO BID PRN PRN Constipation Sodium Chloride 10 - 40 ml 07/08/23 18:36 07/09/23 13:22 0.9% Saline Lock 10 Ml Syringe IV 10 ml UD PRN Administration SALINE FLUSH Tuberculin PPD 0.1 ml 07/16/23 10:00 Tuberculin,Purif.Prot.Deriv. 50 Tu/Ml Vial ID 07/16/23 10:01 X1 ONE Problem List (Updated 07/08/23 @ 15:[address] Medardo Vegas MD) Postoperative anemia (Acute) Gout (Acute) Hyperlipidemia (Acute) Stroke/cerebrovascular accident (Acute) Macular degeneration (Acute) Fall (Acute) Intertrochanteric fracture of left hip (Acute) Hypertension (Chronic) Hypoxemia (Acute) Debility (Acute) Vital Signs Temp Pulse Resp BP Pulse Ox O2 Del Method 97.1 F L 75 16 169/75 H 95 Room Air 07/11/23 10:30 07/11/23 10:30 07/11/23 10:30 07/11/23 10:30 07/11/23 10:30 07/11/23 10:30 Oxygen Delivery Method Room Air Weight: 52.3 kg Body Mass Index (BMI) 20.4 Sodium 141 mmol/L (136-145) 07/09/23 08:05 Potassium 4.1 mmol/L (3.5-5.1) 07/09/23 08:05 Chloride 111 mmol/L (98-107) H 07/09/23 08:05 Carbon Dioxide 25.0 mmol/L (21.0-32.0) 07/09/23 08:05 Anion Gap 5 (5-15) 07/09/23 08:05 BUN 51 mg/dL (7-18) H 07/09/23 08:05 Creatinine 1.73 mg/dL (0.55-1.02) H 07/09/23 08:05 Est GFR (MDRD) Af Amer 37 mL/min (>60) L 07/09/23 08:05 Est GFR (MDRD) Non-Af 30 mL/min (>60) L 07/09/23 08:05 BUN/Creatinine Ratio 29.5 RATIO (10-20) H 07/09/23 08:05 Glucose 97 mg/dL (74-106) 07/09/23 08:05 Assessment/Plan: 1. Pain: acetaminophen 1000mg PO Q8 and oxycodone 2.5-5mg PO Q4H PRN pain 4-10. Resident has had 1 dose of oxycodone for a pain of 7 in the back. Please continue to monitor for increased pain, PRN usage, constipation and respiratory depression. 2. Bowel: Miralax 17gm PO daily, senna/docusate 2T PO BID, bisacodyl 10mg RC daily PRN constipation and loperamide 2mg PO TIDAC. Resident has not had any doses of Miralax or senna/docusate; please consider discontinuing both. Thanks. Resident has not had any PRN doses. Please continue to monitor for constipation, diarrhea and PRN usage. Last documented bowel movement 07/09. 3. DVT prophylaxis: apixaban 2.5mg PO BID thru 08/07/23. Please continue to monitor for S/S of bleeding and hemoglobin (last 8.5g/dL). 4. Stroke: aspirin 81mg on hold until apixaban is completed. Please continue to monitor for S/S of stroke. 5. Hyperlipidemia: atorvastatin 10mg PO QHS. Please consider ordering a lipid panel if clinically appropriate as there is no panel in the chart. Thanks. Please continue to monitor for muscle pain and LFTs (last 07/30/22). 6. Hypertension: metoprolol 12.5mg PO BID, diltiazem CD 360mg PO daily and losartan 100mg PO daily. Please continue to monitor BP (last 169/75), HR (last 75), renal function and potassium (last 4.1mmol/L). 7. Iron deficiency anemia: ferrous sulfate 325mg PO daily and ascorbic acid 500mg PO daily. Please continue to monitor hemoglobin, dark stools and constipation. 8. Gout: probenecid 500mg PO daily. Please consider alternative agent for gout. Per the BEERs criteria, probenecid loses efficacy in CrCl <30mL/min. Resident's current CrCl is 22 mL/min. Thanks. Please continue to monitor for S/S of gout and renal function. 9. Calcium/vitamin D deficiencies: calcium carbonate 500mg PO TIDCM and cholecalciferol 25mcg PO daily. Please consider ordering a vitamin D level as there is no level in the chart. Thanks. Please continue to monitor calcium levels (last 8.9mg/dL). Assessment/Plan for indications treated with psychotropic medications: None Medical chart and medication regimen reviewed. The following medication irregularities or issues were identified: *1. Miralax 17gm PO daily and senna/docusate 2T PO BID. Resident has not had any doses of Miralax or senna/docusate; please consider discontinuing both. Thanks. *2. Atorvastatin 10mg PO QHS. Please consider ordering a lipid panel if clinically appropriate as there is no panel in the chart. Thanks. *3. Probenecid 500mg PO daily. Please consider alternative agent for gout. Per the BEERs criteria, probenecid loses efficacy in CrCl <30mL/min. Resident's current CrCl is 22 mL/min. Thanks. *4. Cholecalciferol 25mcg PO daily. Please consider ordering a vitamin D level as there is no level in the chart. Thanks. Date Date of Note:: 07/11/23 Documented by User: Dr. Medardo Vegas MD 07/11/23 16:45 TCU RX Drug Regimen Review Provider Comments Provider responsibility Provider Comments to Recommendations by Pharmacy: Agree
[2023-07-11 21:16] VITALS: PULSE 71; RESP 16; O2SAT 97
[2023-07-11 21:33] VITALS: BP 138/65; PULSE 71
[2023-07-11] MEDS: Atorvastatin Calcium 10 MG Tablet PO (21:34)
[2023-07-12] MEDS: Acetaminophen 500 MG Tablet 1000 MG PO ×3 (06:31→20:47)
[2023-07-12] MEDS: Loperamide 2 MG Capsule PO ×3 (06:31→17:13)
[2023-07-12] MEDS: Calcium Carbonate 500 MG Tablet PO ×3 (08:01→17:12)
[2023-07-12] MEDS: Losartan Potassium 100 MG Tablet PO (08:01)
[2023-07-12] MEDS: Ascorbic Acid 500 MG Tablet PO ×2 (08:01→17:12)
[2023-07-12] MEDS: APIXABAN 2.5 MG TABLET (WCH) PO ×2 (08:01→20:47)
[2023-07-12] MEDS: Cholecalciferol (Vit D3) 125 MCG CAPSULE (5,000 UNITS) PO (08:01)
[2023-07-12] MEDS: dilTIAZem CD 180 MG Capsule 360 MG PO (08:02)
[2023-07-12 08:06] VITALS: BP 176/74; PULSE 86
[2023-07-12] MEDS: Metoprolol Tartrate 25 MG Tablet 12.5 MG PO ×2 (08:06→20:47)
[2023-07-12 09:37] VITALS: BMI 18.6
[2023-07-12 10:00] VITALS: PULSE 76; RESP 16; O2SAT 91
[2023-07-12] MEDS: Ferrous Sulfate 325 MG Tablet PO (11:30)
[2023-07-12 15:06] VITALS: BP 114/52; PULSE 80; RESP 19; TEMP 36.2; O2SAT 93
[2023-07-12 20:47] VITALS: BP 132/66; PULSE 73
[2023-07-12] MEDS: Atorvastatin Calcium 10 MG Tablet PO (20:47)
[2023-07-13 05:36] LABS: Hematocrit 24.7 % (37-47); Hemoglobin 7.6 g/dL (12.0-15.0)
[2023-07-13] MEDS: Acetaminophen 500 MG Tablet 1000 MG PO ×3 (06:07→21:10)
[2023-07-13] MEDS: Loperamide 2 MG Capsule PO ×3 (06:08→16:24)
[2023-07-13 09:18] VITALS: BP 131/68; PULSE 105
[2023-07-13] MEDS: Metoprolol Tartrate 25 MG Tablet 12.5 MG PO ×2 (09:18→21:10)
[2023-07-13] MEDS: Calcium Carbonate 500 MG Tablet PO ×3 (09:19→16:24)
[2023-07-13] MEDS: Ascorbic Acid 500 MG Tablet PO ×2 (09:19→16:25)
[2023-07-13] MEDS: Losartan Potassium 100 MG Tablet PO (09:19)
[2023-07-13] MEDS: Cholecalciferol (Vit D3) 125 MCG CAPSULE (5,000 UNITS) PO (09:19)
[2023-07-13] MEDS: dilTIAZem CD 180 MG Capsule 360 MG PO (09:19)
--- NOTE | 2023-07-13 09:36 | NURSING ---
Called infusion center, order faxed to them. They scheduled patient to receive blood tomorrow (07/14/23) at 0830.
--- NOTE | 2023-07-13 09:41 | CASEMGMT ---
Social Work IDT met with patient and dtr for care plan meeting. Discussed patient's progress in PT/OT/SN. Educated to Medicare benefit and copay coverage. Pt confirmed she does not have secondary insurance. Educated to day 21 to begin copays of $200/day, which is 07/28. Pt lives at [facility]. Pt confirmed if needed, she would be open to going to [place] until she improves to return to [place]. However, dtr interjected that pt's [place] apartment is in the [place] facility, where she has a call-light and access to the staff. SW to send updated clinicals once pt is closer to DC to determine if [facility] can meet her needs where she is located. Dtr expressed understanding. SW will continue to follow for DC planning. CAN Dutton
[2023-07-13] MEDS: Ferrous Sulfate 325 MG Tablet PO (12:05)
[2023-07-13 14:33] VITALS: PULSE 77
[2023-07-13 15:50] VITALS: BP 128/65; PULSE 73; RESP 16; TEMP 36.5; O2SAT 93
[2023-07-13 21:10] VITALS: BP 138/60; PULSE 75
[2023-07-13] MEDS: Atorvastatin Calcium 10 MG Tablet PO (21:10)
[2023-07-14] MEDS: Loperamide 2 MG Capsule PO ×3 (06:02→17:09)
[2023-07-14] MEDS: Acetaminophen 500 MG Tablet 1000 MG PO ×3 (06:02→22:41)
[2023-07-14 06:18] VITALS: PULSE 78; RESP 16; O2SAT 98
[2023-07-14] MEDS: Calcium Carbonate 500 MG Tablet PO ×3 (07:49→17:09)
[2023-07-14] MEDS: Ascorbic Acid 500 MG Tablet PO ×2 (07:49→17:09)
[2023-07-14] MEDS: dilTIAZem CD 180 MG Capsule 360 MG PO (07:51)
[2023-07-14 07:52] VITALS: BP 164/75; PULSE 79
[2023-07-14] MEDS: Metoprolol Tartrate 25 MG Tablet 12.5 MG PO ×2 (07:52→22:42)
[2023-07-14] MEDS: Losartan Potassium 100 MG Tablet PO (07:52)
[2023-07-14] MEDS: Cholecalciferol (Vit D3) 125 MCG CAPSULE (5,000 UNITS) PO (07:55)
[2023-07-14] MEDS: Ferrous Sulfate 325 MG Tablet PO (12:07)
[2023-07-14 15:12] VITALS: BP 135/71; PULSE 72; RESP 17; TEMP 36.4; O2SAT 97
--- NOTE | 2023-07-14 15:13 | CASEMGMT ---
Social Work Dtr has agreed to provide copies of pt's advanced directives. Tierra Vera, SPEECH THERAPIST CRANE ASSEMBLER
[2023-07-14 22:42] VITALS: BP 165/69; PULSE 79
[2023-07-14] MEDS: Atorvastatin Calcium 10 MG Tablet PO (22:43)
[2023-07-15] MEDS: 0.9% Saline Lock 10 ML Syringe IV (06:50)
[2023-07-15] MEDS: Acetaminophen 500 MG Tablet 1000 MG PO ×3 (06:51→21:14)
[2023-07-15] MEDS: Loperamide 2 MG Capsule PO ×3 (06:51→17:29)
--- NOTE | 2023-07-15 08:50 | NURSING ---
Energy Manager Note; MDS for 07/15/2023 Complete
[2023-07-15 09:26] VITALS: BP 155/63; PULSE 86
[2023-07-15] MEDS: Metoprolol Tartrate 25 MG Tablet 12.5 MG PO ×2 (09:26→21:14)
[2023-07-15] MEDS: Ascorbic Acid 500 MG Tablet PO ×2 (09:27→17:29)
[2023-07-15] MEDS: Losartan Potassium 100 MG Tablet PO (09:28)
[2023-07-15] MEDS: Calcium Carbonate 500 MG Tablet PO ×3 (09:28→17:29)
[2023-07-15] MEDS: Cholecalciferol (Vit D3) 125 MCG CAPSULE (5,000 UNITS) PO (09:28)
[2023-07-15] MEDS: dilTIAZem CD 180 MG Capsule 360 MG PO (09:28)
--- NOTE | 2023-07-15 09:54 | CASEMGMT ---
Social Work BIMS () and PHQ-2 () completed for MDS assessment. Tierra Vera MSW OFFICE MACHINE TECHNICIAN
[2023-07-15] MEDS: Ferrous Sulfate 325 MG Tablet PO (11:54)
[2023-07-15 14:02] LABS: Hematocrit 37.5 % (37-47); Hemoglobin 12.1 g/dL (12.0-15.0)
[2023-07-15 16:00] VITALS: BP 158/76; PULSE 81; RESP 16; TEMP 36.4; O2SAT 95
[2023-07-15 21:14] VITALS: BP 149/77; PULSE 65
[2023-07-15] MEDS: Atorvastatin Calcium 10 MG Tablet PO (21:14)
[2023-07-15 22:00] VITALS: PULSE 65; RESP 18; O2SAT 96
[2023-07-16] MEDS: Acetaminophen 500 MG Tablet 1000 MG PO ×3 (05:59→20:43)
[2023-07-16] MEDS: Loperamide 2 MG Capsule PO ×3 (06:00→16:56)
[2023-07-16 06:10] VITALS: PULSE 75; RESP 16; O2SAT 95
[2023-07-16] MEDS: Ascorbic Acid 500 MG Tablet PO ×2 (08:33→16:56)
[2023-07-16] MEDS: Cholecalciferol (Vit D3) 125 MCG CAPSULE (5,000 UNITS) PO (08:33)
[2023-07-16] MEDS: Calcium Carbonate 500 MG Tablet PO ×3 (08:33→16:56)
[2023-07-16] MEDS: dilTIAZem CD 180 MG Capsule 360 MG PO (09:38)
[2023-07-16] MEDS: 0.9% Saline Lock 10 ML Syringe IV (09:38)
[2023-07-16] MEDS: Losartan Potassium 100 MG Tablet PO (09:38)
[2023-07-16 09:45] VITALS: BP 163/75; PULSE 76
[2023-07-16] MEDS: Metoprolol Tartrate 25 MG Tablet 12.5 MG PO ×2 (09:45→20:43)
[2023-07-16 09:49] LABS: Absolute Lymphocyte Count 1.35 X10^3/uL (0.83-4.51); Absolute Neutrophil Count 5.1 X10^3/uL (2.0-7.7); Basophil# 0.07 X10^3/uL; Basophil% 0.9 % (0-1); Eosinophil# 0.08 X10^3/uL; Eosinophils% 1.1 % (0-5); Hematocrit 37.6 % (37-47); Hemoglobin 11.8 g/dL (12.0-15.0); Lymphocyte # 1.35 X10^3/ul (0.83-4.51); Mean Corp Hgb Conc 31.4 g/dL (32-36); Mean Corpuscular Hgb 31.2 pg (27.0-32.0); Mean Corpuscular Volume 99.5 fL (81-99); Mean Platelet Vol. 10.1 fl (6.2-12.0); Monocyte# 0.61 X10^3/uL; Monocyte% 8.1 % (0-10); NRBC Flagged by Analyzer 0 % (0-5); Neutrophil # 5.14 X10^3/uL (2.7-7.7); Neutrophil % 68.6 % (47-70); POSITIVE MORPHOLOGY YES; Platelet Count 298 K/mm3 (150-450); RBC Distribution Width CV 18.8 % (11.6-14.6); RBC Distribution Width SD 65.6 fl (35.1-43.9); Red Blood Count 3.78 M/mm3 (4.2-5.4); White Blood Count 7.5 K/mm3 (4.4-11.0)
[2023-07-16 09:59] LABS: Differential Indicated SCAN CRITERIA MET
[2023-07-16 10:06] LABS: Anion Gap 2 (5-15); BUN 45 mg/dL (7-18); BUN/Creat Ratio 23.7 RATIO (10-20); Calcium,Total 9.2 mg/dL (8.5-10.1); Chloride 110 mmol/L (98-107); EST Glomerular Filtration Rate 27 mL/min (>60); Est Glom Filt Rate - Afr Amer 33 mL/min (>60); Estimated Creatinine Clearance 18.31 ml/min; Glucose 141 mg/dL (74-106); Potassium 4.2 mmol/L (3.5-5.1); Sodium Level 139 mmol/L (136-145)
[2023-07-16] MEDS: Ferrous Sulfate 325 MG Tablet PO (11:56)
[2023-07-16 12:10] LABS: Anisocytosis 2+; Differential Comment SCANNED; Hypochromasia 1+; Macrocytosis 1+; Microcytosis 1+
[2023-07-16] MEDS: Tuberculin,Purif.prot.deriv. 50 TU/ML Vial 0.1 ML ID (12:28)
[2023-07-16 14:53] VITALS: BP 140/69; PULSE 67; RESP 16; TEMP 36.6; O2SAT 96
[2023-07-16 20:43] VITALS: BP 137/69; PULSE 67
[2023-07-16] MEDS: Atorvastatin Calcium 10 MG Tablet PO (20:43)
[2023-07-17] MEDS: Loperamide 2 MG Capsule PO ×3 (06:05→17:00)
[2023-07-17] MEDS: Acetaminophen 500 MG Tablet 1000 MG PO ×3 (06:05→21:31)
--- NOTE | 2023-07-17 08:06 | NURSING ---
Pt noted to have rash to mid back and c/o of itching. Dr. Vegas updated and N.O. for Hydrocortisone cream 2.5% PRN BID. Order read back.
[2023-07-17 08:38] VITALS: BP 129/57; PULSE 73; RESP 17; TEMP 36.3; O2SAT 93
[2023-07-17] MEDS: Calcium Carbonate 500 MG Tablet PO ×3 (08:40→17:00)
[2023-07-17] MEDS: Ascorbic Acid 500 MG Tablet PO ×2 (08:40→17:00)
[2023-07-17] MEDS: dilTIAZem CD 180 MG Capsule 360 MG PO (08:40)
[2023-07-17] MEDS: Cholecalciferol (Vit D3) 125 MCG CAPSULE (5,000 UNITS) PO (08:40)
[2023-07-17 08:41] VITALS: PULSE 73
[2023-07-17] MEDS: Losartan Potassium 100 MG Tablet PO (08:41)
[2023-07-17] MEDS: Metoprolol Tartrate 25 MG Tablet 12.5 MG PO ×2 (08:41→21:32)
[2023-07-17] MEDS: Ferrous Sulfate 325 MG Tablet PO (13:00)
[2023-07-17] MEDS: Atorvastatin Calcium 10 MG Tablet PO (21:31)
[2023-07-17 21:32] VITALS: BP 130/63; PULSE 66
[2023-07-17 21:40] VITALS: PULSE 66; RESP 16; O2SAT 95
[2023-07-18 06:15] LABS: Anion Gap 6 (5-15); BUN 43 mg/dL (7-18); BUN/Creat Ratio 21.9 RATIO (10-20); Calcium,Total 8.6 mg/dL (8.5-10.1); Chloride 110 mmol/L (98-107); Creatinine, Serum 1.96 mg/dL (0.55-1.02); EST Glomerular Filtration Rate 26 mL/min (>60); Est Glom Filt Rate - Afr Amer 32 mL/min (>60); Estimated Creatinine Clearance 17.75 ml/min; Glucose 91 mg/dL (74-106); Potassium 4.4 mmol/L (3.5-5.1); Sodium Level 142 mmol/L (136-145)
[2023-07-18 06:17] VITALS: PULSE 80; RESP 16; O2SAT 94
[2023-07-18] MEDS: Acetaminophen 500 MG Tablet 1000 MG PO ×3 (06:31→21:16)
[2023-07-18] MEDS: Loperamide 2 MG Capsule PO ×3 (06:32→17:34)
[2023-07-18] MEDS: Cholecalciferol (Vit D3) 125 MCG CAPSULE (5,000 UNITS) PO (09:08)
[2023-07-18] MEDS: dilTIAZem CD 180 MG Capsule 360 MG PO (09:08)
[2023-07-18] MEDS: Ascorbic Acid 500 MG Tablet PO ×2 (09:08→17:34)
[2023-07-18] MEDS: Calcium Carbonate 500 MG Tablet PO ×3 (09:08→17:34)
[2023-07-18 09:09] VITALS: BP 149/63; PULSE 83
[2023-07-18] MEDS: Losartan Potassium 100 MG Tablet PO (09:09)
[2023-07-18] MEDS: Metoprolol Tartrate 25 MG Tablet 12.5 MG PO ×2 (09:09→21:17)
[2023-07-18] MEDS: Ferrous Sulfate 325 MG Tablet PO (11:55)
--- NOTE | 2023-07-18 15:05 | NURSING ---
Dr. Cunningham office contacted regarding f/u and made aware patient is still on TCU. Staff reports they will leave note in patient's chart and that Dr. Cunningham will be in office on Tuesday.
[2023-07-18 15:29] VITALS: BP 140/70; PULSE 69; RESP 18; TEMP 36.2
[2023-07-18] MEDS: 0.9% Saline Lock 10 ML Syringe IV (21:16)
[2023-07-18 21:17] VITALS: BP 133/64; PULSE 64
[2023-07-18] MEDS: Atorvastatin Calcium 10 MG Tablet PO (21:17)
[2023-07-18 21:23] VITALS: BP 133/64; PULSE 64
[2023-07-19] MEDS: Loperamide 2 MG Capsule PO ×3 (05:29→17:36)
[2023-07-19] MEDS: Acetaminophen 500 MG Tablet 1000 MG PO ×3 (05:29→21:04)
[2023-07-19 06:06] LABS: Anion Gap 8 (5-15); BUN 44 mg/dL (7-18); BUN/Creat Ratio 21.5 RATIO (10-20); Calcium,Total 8.1 mg/dL (8.5-10.1); Chloride 111 mmol/L (98-107); Creatinine, Serum 2.05 mg/dL (0.55-1.02); EST Glomerular Filtration Rate 25 mL/min (>60); Est Glom Filt Rate - Afr Amer 30 mL/min (>60); Estimated Creatinine Clearance 16.97 ml/min; Glucose 86 mg/dL (74-106); Potassium 4.4 mmol/L (3.5-5.1); Sodium Level 143 mmol/L (136-145)
--- NOTE | 2023-07-19 06:51 | MDS.RN ---
Information for the mds was obtained from review of the clinical record, interview of resident, staff, and direct observation of resident's care.
[2023-07-19] MEDS: Cholecalciferol (Vit D3) 125 MCG CAPSULE (5,000 UNITS) PO (07:58)
[2023-07-19] MEDS: Calcium Carbonate 500 MG Tablet PO ×3 (07:58→17:37)
[2023-07-19] MEDS: Ascorbic Acid 500 MG Tablet PO ×2 (07:58→17:37)
[2023-07-19 08:00] VITALS: BP 163/72; PULSE 80
[2023-07-19] MEDS: Losartan Potassium 100 MG Tablet PO (08:00)
[2023-07-19] MEDS: dilTIAZem CD 180 MG Capsule 360 MG PO (08:00)
[2023-07-19] MEDS: Metoprolol Tartrate 25 MG Tablet 12.5 MG PO ×2 (08:00→21:04)
[2023-07-19 08:55] VITALS: BMI 18.6
[2023-07-19] MEDS: Ferrous Sulfate 325 MG Tablet PO (11:15)
--- NOTE | 2023-07-19 11:28 | NURSING ---
Dr. Steiner up to see pt in room. N.O. to remove brayan 07/21 and f/u in 4 weeks.
--- NOTE | 2023-07-19 11:45 | PN.ORTHO_ITS ---
Subjective Subjective seen And examined doing well. Pain controlled ambulating with physical therapy Objective Data Objective Data Vital Signs: Vital Signs Temp Pulse Resp BP Pulse Ox O2 Del Method 97.2 F L 80 18 163/72 H 94 Room Air 07/18/23 15:29 07/19/23 08:00 07/18/23 15:29 07/19/23 08:00 07/18/23 06:17 07/18/23 15:29 Oxygen Delivery Method Room Air Weight: 105 lb 8 oz Body Mass Index (BMI) 18.6 Intake & Output: Intake and Output for Last 24 Hours 07/17/23 07/18/23 07/19/23 23:59 23:59 23:59 Intake Total 720 / 720 860 / 860 240 / 240 Balance 720 / 720 860 / 860 240 / 240 Lab / Micro Data 07/16/23 09:27 07/19/23 05:24 Labs: Laboratory Results - last 24 hr 07/19/23 05:24: Sodium 143, Potassium 4.4, Chloride 111 H, Carbon Dioxide 24.0, Anion Gap 8, BUN 44 H, Creatinine 2.05 H, Estim Creat Clear Calc 16.97, Est GFR (MDRD) Af Amer 30 L, Est GFR (MDRD) Non-Af 25 L, BUN/Creatinine Ratio 21.5 H, Glucose 86, Calcium 8.1 L Micro: Microbiology 07/11/23 05:00 Nasal Secretion SARS-CoV-2 Antigen (Rapid) - Final Physical Exam Const alert, oriented x3 and no apparent distress General Appearance: cooperative Extremity Extremity Narrative: Incisions look good no sign of infection or blood clot neurovascular intact left lower extremity Assessment & Plan Assessment/Plan (1) Orthopedic aftercare: PLAN: Plan Doing well [place] to be removed 07/21/2023 by nursing. There are 3 different incisions please get them all out continue to wash the incisions daily with antibacterial soap and warm water PT OT continue weightbearing as tolerated. Follow-up in the office 4 weeks. I did speak with patient's nurse and conveyed these instructions.
[2023-07-19] MEDS: 0.9% Saline Lock 10 ML Syringe IV ×2 (12:50→21:07)
[2023-07-19 16:00] VITALS: BP 105/60; PULSE 67; RESP 16; TEMP 36.3; O2SAT 96
[2023-07-19 21:04] VITALS: BP 145/65; PULSE 66
[2023-07-19] MEDS: Atorvastatin Calcium 10 MG Tablet PO (21:04)
[2023-07-19 21:12] VITALS: BP 145/65; PULSE 66
[2023-07-19 22:00] VITALS: PULSE 62; RESP 16; O2SAT 96
[2023-07-20] MEDS: Acetaminophen 500 MG Tablet 1000 MG PO ×3 (05:23→21:01)
[2023-07-20] MEDS: Loperamide 2 MG Capsule PO ×3 (05:27→16:51)
[2023-07-20 05:32] VITALS: PULSE 65; RESP 16; O2SAT 95
[2023-07-20 05:54] LABS: Anion Gap 6 (5-15); BUN 46 mg/dL (7-18); BUN/Creat Ratio 21.2 RATIO (10-20); Calcium,Total 8.2 mg/dL (8.5-10.1); Chloride 111 mmol/L (98-107); Creatinine, Serum 2.17 mg/dL (0.55-1.02); EST Glomerular Filtration Rate 23 mL/min (>60); Est Glom Filt Rate - Afr Amer 28 mL/min (>60); Estimated Creatinine Clearance 16.14 ml/min; Glucose 90 mg/dL (74-106); Potassium 4.4 mmol/L (3.5-5.1); Sodium Level 142 mmol/L (136-145)
[2023-07-20] MEDS: Calcium Carbonate 500 MG Tablet PO ×3 (08:19→16:51)
[2023-07-20] MEDS: Ascorbic Acid 500 MG Tablet PO ×2 (08:20→16:51)
[2023-07-20] MEDS: Cholecalciferol (Vit D3) 125 MCG CAPSULE (5,000 UNITS) PO (08:20)
[2023-07-20] MEDS: dilTIAZem CD 180 MG Capsule 360 MG PO (08:20)
[2023-07-20] MEDS: Losartan Potassium 100 MG Tablet PO (08:20)
[2023-07-20 08:21] VITALS: BP 165/67; PULSE 74
[2023-07-20] MEDS: Metoprolol Tartrate 25 MG Tablet 12.5 MG PO ×2 (08:21→21:00)
[2023-07-20] MEDS: Ferrous Sulfate 325 MG Tablet PO (11:52)
[2023-07-20 14:05] VITALS: BP 139/79; PULSE 70; RESP 16; TEMP 36; O2SAT 95
--- NOTE | 2023-07-20 14:45 | CASEMGMT ---
Social Work SW sent clinical updates on 07/19 to [facility] via [employer] (formerly [employer]). SW spoke with Kate at [facility] today whom is reviewing the updates and will notify this worker. SW received call from dtr requesting updates. SW offered for therapy to contact dtr with specific answers. SW offered to set DC date with the upcoming holiday. Dtr and pt are electing to remain until day 21 or potentially stay longer. SW relayed to therapy and will follow up with dtr/pt after conversation and outcome from [facility]. Tierra Vera, HEDIS REGISTERED NURSE RN HOOD MAKER
[2023-07-20] MEDS: 0.9% Saline Lock 10 ML Syringe IV (18:04)
[2023-07-20 21:00] VITALS: BP 128/65; PULSE 63
[2023-07-20] MEDS: Atorvastatin Calcium 10 MG Tablet PO (21:01)
[2023-07-21] MEDS: Acetaminophen 500 MG Tablet 1000 MG PO ×3 (05:27→21:16)
[2023-07-21] MEDS: Loperamide 2 MG Capsule PO ×3 (05:27→17:15)
[2023-07-21] MEDS: 0.9% Saline Lock 10 ML Syringe IV ×2 (05:30→17:19)
--- NOTE | 2023-07-21 05:34 | NURSING ---
[place] removed per order to left hip sx sites x3, patient tolerated well. No drainage, no heat, no edema, surgical sites x3 pink. Denies pain. Fluids encouraged per order. Denies requests. Call light in reach.
[2023-07-21 06:16] LABS: Anion Gap 7 (5-15); BUN 45 mg/dL (7-18); BUN/Creat Ratio 22.2 RATIO (10-20); Calcium,Total 8.5 mg/dL (8.5-10.1); Chloride 111 mmol/L (98-107); Creatinine, Serum 2.03 mg/dL (0.55-1.02); EST Glomerular Filtration Rate 25 mL/min (>60); Est Glom Filt Rate - Afr Amer 30 mL/min (>60); Estimated Creatinine Clearance 17.25 ml/min; Glucose 91 mg/dL (74-106); Potassium 4.5 mmol/L (3.5-5.1); Sodium Level 142 mmol/L (136-145)
[2023-07-21] MEDS: Calcium Carbonate 500 MG Tablet PO ×3 (08:26→17:16)
[2023-07-21 08:27] VITALS: BP 162/80; PULSE 92
[2023-07-21] MEDS: Metoprolol Tartrate 25 MG Tablet 12.5 MG PO ×2 (08:27→21:16)
[2023-07-21] MEDS: dilTIAZem CD 180 MG Capsule 360 MG PO (08:27)
[2023-07-21] MEDS: Cholecalciferol (Vit D3) 125 MCG CAPSULE (5,000 UNITS) PO (08:27)
[2023-07-21] MEDS: Ascorbic Acid 500 MG Tablet PO ×2 (11:03→17:16)
[2023-07-21] MEDS: Losartan Potassium 100 MG Tablet PO (11:03)
[2023-07-21] MEDS: Ferrous Sulfate 325 MG Tablet PO (11:04)
[2023-07-21 13:58] VITALS: BP 115/53; PULSE 76; RESP 16; TEMP 36.9; O2SAT 93
[2023-07-21 20:00] VITALS: PULSE 60; RESP 16; O2SAT 95
[2023-07-21 21:16] VITALS: BP 120/61; PULSE 60
[2023-07-21] MEDS: Atorvastatin Calcium 10 MG Tablet PO (21:16)
[2023-07-22] MEDS: Loperamide 2 MG Capsule PO ×3 (06:09→16:44)
[2023-07-22] MEDS: Acetaminophen 500 MG Tablet 1000 MG PO ×3 (06:09→21:20)
[2023-07-22 06:20] LABS: Anion Gap 6 (5-15); BUN 44 mg/dL (7-18); BUN/Creat Ratio 22.2 RATIO (10-20); Calcium,Total 8.8 mg/dL (8.5-10.1); Chloride 111 mmol/L (98-107); Creatinine, Serum 1.98 mg/dL (0.55-1.02); EST Glomerular Filtration Rate 26 mL/min (>60); Est Glom Filt Rate - Afr Amer 31 mL/min (>60); Estimated Creatinine Clearance 17.69 ml/min; Glucose 91 mg/dL (74-106); Potassium 4.8 mmol/L (3.5-5.1); Sodium Level 142 mmol/L (136-145)
[2023-07-22 08:41] VITALS: BP 142/73; PULSE 78; RESP 16; O2SAT 99
[2023-07-22] MEDS: Calcium Carbonate 500 MG Tablet PO ×3 (08:43→16:44)
[2023-07-22] MEDS: dilTIAZem CD 180 MG Capsule 360 MG PO (08:44)
[2023-07-22] MEDS: Cholecalciferol (Vit D3) 125 MCG CAPSULE (5,000 UNITS) PO (08:45)
[2023-07-22] MEDS: Ascorbic Acid 500 MG Tablet PO ×2 (08:45→16:44)
[2023-07-22] MEDS: Losartan Potassium 100 MG Tablet PO (08:45)
[2023-07-22 08:46] VITALS: PULSE 78
[2023-07-22] MEDS: Metoprolol Tartrate 25 MG Tablet 12.5 MG PO ×2 (08:46→21:20)
[2023-07-22] MEDS: Ferrous Sulfate 325 MG Tablet PO (11:43)
[2023-07-22 14:46] VITALS: BP 132/63; PULSE 70; RESP 22; TEMP 36.7; O2SAT 93
[2023-07-22 21:20] VITALS: BP 136/75; PULSE 66
[2023-07-22] MEDS: Atorvastatin Calcium 10 MG Tablet PO (21:20)
[2023-07-22 21:25] VITALS: BP 136/75; PULSE 66
[2023-07-22] MEDS: 0.9% Saline Lock 10 ML Syringe IV (21:25)
[2023-07-23] MEDS: Acetaminophen 500 MG Tablet 1000 MG PO ×3 (05:53→22:46)
[2023-07-23] MEDS: Loperamide 2 MG Capsule PO ×3 (05:53→17:08)
[2023-07-23 07:51] LABS: Absolute Lymphocyte Count 1.62 X10^3/uL (0.83-4.51); Absolute Neutrophil Count 3.8 X10^3/uL (2.0-7.7); Basophil# 0.04 X10^3/uL; Basophil% 0.7 % (0-1); Eosinophils% 1.6 % (0-5); Hematocrit 38.2 % (37-47); Hemoglobin 11.9 g/dL (12.0-15.0); Lymphocyte # 1.62 X10^3/ul (0.83-4.51); Lymphocyte % 26.6 % (19-41); Mean Corp Hgb Conc 31.2 g/dL (32-36); Mean Corpuscular Volume 102.7 fL (81-99); Mean Platelet Vol. 9.9 fl (6.2-12.0); Monocyte# 0.53 X10^3/uL; Monocyte% 8.7 % (0-10); NRBC Flagged by Analyzer 0 % (0-5); Neutrophil # 3.76 X10^3/uL (2.7-7.7); Neutrophil % 61.6 % (47-70); POSITIVE MORPHOLOGY YES; Platelet Count 322 K/mm3 (150-450); RBC Distribution Width CV 18.3 % (11.6-14.6); Red Blood Count 3.72 M/mm3 (4.2-5.4); White Blood Count 6.1 K/mm3 (4.4-11.0)
[2023-07-23 07:54] LABS: Differential Indicated SCAN CRITERIA MET
[2023-07-23 08:05] LABS: Anion Gap 4 (5-15); BUN 43 mg/dL (7-18); BUN/Creat Ratio 22.8 RATIO (10-20); Calcium,Total 9.1 mg/dL (8.5-10.1); Chloride 111 mmol/L (98-107); Creatinine, Serum 1.89 mg/dL (0.55-1.02); EST Glomerular Filtration Rate 27 mL/min (>60); Est Glom Filt Rate - Afr Amer 33 mL/min (>60); Estimated Creatinine Clearance 18.53 ml/min; Glucose 92 mg/dL (74-106); Potassium 4.5 mmol/L (3.5-5.1); Sodium Level 140 mmol/L (136-145)
[2023-07-23] MEDS: Ascorbic Acid 500 MG Tablet PO ×2 (09:28→17:08)
[2023-07-23] MEDS: Calcium Carbonate 500 MG Tablet PO ×3 (09:28→17:09)
[2023-07-23] MEDS: Cholecalciferol (Vit D3) 125 MCG CAPSULE (5,000 UNITS) PO (09:29)
[2023-07-23] MEDS: dilTIAZem CD 180 MG Capsule 360 MG PO (09:29)
[2023-07-23] MEDS: Losartan Potassium 100 MG Tablet PO (09:30)
[2023-07-23 09:31] VITALS: PULSE 85
[2023-07-23] MEDS: Metoprolol Tartrate 25 MG Tablet 12.5 MG PO ×2 (09:31→22:47)
[2023-07-23 10:05] LABS: Anisocytosis 2+; Differential Comment SCANNED; Macrocytosis 1+; Microcytosis 1+
[2023-07-23] MEDS: Ferrous Sulfate 325 MG Tablet PO (12:34)
[2023-07-23 14:08] VITALS: BP 133/68; PULSE 81; RESP 24; TEMP 36.7; O2SAT 93
[2023-07-23 22:47] VITALS: BP 156/71; PULSE 67
[2023-07-23] MEDS: Atorvastatin Calcium 10 MG Tablet PO (22:48)
[2023-07-24] MEDS: 0.9% Saline Lock 10 ML Syringe IV ×2 (05:55→22:29)
[2023-07-24] MEDS: Acetaminophen 500 MG Tablet 1000 MG PO ×3 (05:55→22:26)
[2023-07-24] MEDS: Loperamide 2 MG Capsule PO ×3 (05:55→16:50)
[2023-07-24 07:11] LABS: Anion Gap 5 (5-15); BUN 45 mg/dL (7-18); BUN/Creat Ratio 23.2 RATIO (10-20); Chloride 110 mmol/L (98-107); Creatinine, Serum 1.94 mg/dL (0.55-1.02); EST Glomerular Filtration Rate 27 mL/min (>60); Est Glom Filt Rate - Afr Amer 32 mL/min (>60); Estimated Creatinine Clearance 18.05 ml/min; Glucose 91 mg/dL (74-106); Potassium 4.7 mmol/L (3.5-5.1); Sodium Level 140 mmol/L (136-145)
[2023-07-24] MEDS: Calcium Carbonate 500 MG Tablet PO ×3 (08:34→16:50)
[2023-07-24] MEDS: Ascorbic Acid 500 MG Tablet PO ×2 (08:34→16:50)
[2023-07-24] MEDS: dilTIAZem CD 180 MG Capsule 360 MG PO (08:34)
[2023-07-24] MEDS: Cholecalciferol (Vit D3) 125 MCG CAPSULE (5,000 UNITS) PO (08:34)
[2023-07-24 08:35] VITALS: BP 160/69; PULSE 79
[2023-07-24] MEDS: Losartan Potassium 100 MG Tablet PO (08:35)
[2023-07-24] MEDS: Metoprolol Tartrate 25 MG Tablet 12.5 MG PO ×2 (08:35→22:34)
[2023-07-24 10:20] VITALS: BP 160/69; PULSE 81; RESP 18; TEMP 36.7; O2SAT 93
[2023-07-24] MEDS: Ferrous Sulfate 325 MG Tablet PO (11:45)
[2023-07-24] MEDS: APIXABAN 2.5 MG TABLET (WCH) PO (22:26)
[2023-07-24] MEDS: Atorvastatin Calcium 10 MG Tablet PO (22:28)
[2023-07-24 22:34] VITALS: BP 141/67; PULSE 68
[2023-07-25] MEDS: Acetaminophen 500 MG Tablet 1000 MG PO ×3 (06:32→21:06)
[2023-07-25] MEDS: Loperamide 2 MG Capsule PO ×3 (06:32→17:11)
[2023-07-25] MEDS: dilTIAZem CD 180 MG Capsule 360 MG PO (09:26)
[2023-07-25] MEDS: Calcium Carbonate 500 MG Tablet PO ×3 (09:26→17:12)
[2023-07-25] MEDS: Cholecalciferol (Vit D3) 125 MCG CAPSULE (5,000 UNITS) PO (09:26)
[2023-07-25] MEDS: Ascorbic Acid 500 MG Tablet PO ×2 (09:26→17:12)
[2023-07-25 09:27] VITALS: BP 157/72; PULSE 76
[2023-07-25] MEDS: APIXABAN 2.5 MG TABLET (WCH) PO ×2 (09:27→21:07)
[2023-07-25] MEDS: Metoprolol Tartrate 25 MG Tablet 12.5 MG PO ×2 (09:27→21:07)
[2023-07-25] MEDS: Losartan Potassium 100 MG Tablet PO (09:27)
[2023-07-25] MEDS: Ferrous Sulfate 325 MG Tablet PO (11:40)
[2023-07-25 15:20] VITALS: BP 123/58; PULSE 67; RESP 16; TEMP 35.7; O2SAT 95
[2023-07-25] MEDS: Atorvastatin Calcium 10 MG Tablet PO (21:06)
[2023-07-25 21:07] VITALS: BP 143/71; PULSE 65
[2023-07-25] MEDS: 0.9% Saline Lock 10 ML Syringe IV (21:15)
[2023-07-26] MEDS: Loperamide 2 MG Capsule PO ×3 (06:01→16:54)
[2023-07-26] MEDS: Acetaminophen 500 MG Tablet 1000 MG PO ×3 (06:01→21:28)
[2023-07-26] MEDS: Cholecalciferol (Vit D3) 125 MCG CAPSULE (5,000 UNITS) PO (08:08)
[2023-07-26] MEDS: Calcium Carbonate 500 MG Tablet PO ×3 (08:08→16:54)
[2023-07-26] MEDS: Ascorbic Acid 500 MG Tablet PO ×2 (08:08→16:54)
[2023-07-26] MEDS: 0.9% Saline Lock 10 ML Syringe IV (09:40)
[2023-07-26] MEDS: Losartan Potassium 100 MG Tablet PO (09:40)
[2023-07-26] MEDS: dilTIAZem CD 180 MG Capsule 360 MG PO (09:40)
[2023-07-26 09:41] VITALS: BP 148/74; PULSE 68
[2023-07-26] MEDS: APIXABAN 2.5 MG TABLET (WCH) PO ×2 (09:41→21:28)
[2023-07-26] MEDS: Metoprolol Tartrate 25 MG Tablet 12.5 MG PO ×2 (09:41→21:27)
[2023-07-26] MEDS: Ferrous Sulfate 325 MG Tablet PO (12:15)
[2023-07-26 15:00] VITALS: BMI 18.6
[2023-07-26 16:00] VITALS: BP 123/61; PULSE 66; RESP 16; TEMP 36.4; O2SAT 95
--- NOTE | 2023-07-26 18:01 | CASEMGMT ---
Addendum entered by Tierra Vera 07/27/23 12:13: [facility] is at capacity. SW referred to [facility]. [facility] is unable to accept. [facility] can accept. Orders sent to [facility]. CAN Dutton Addendum entered by Tierra Vera 07/27/23 09:05: SW left VM with [facility] for PT/OT. SW left VM with admissions at [facility] to confirm DC. STERILE PROCESSING MANAGER notified this worker pt needs a FWW. SW [facility] Original Note: Social Work SW spoke with pts dgt Nicole regarding dc plan. Per therapy, pt is doing well and would be able to return to [facility]. [facility] PT/OT recommended. Pt and dgt agreeable to dc on 07/28 back to [facility]. List of home health providers including quality and resource use data [facility]. Preferred providers are 1. [facility] 2. [facility] 3. [facility]. SW will continue to follow for dc planning. Plan: Return to [facility] with home health PT/OT on 07/28 MELISSA Becerra
[2023-07-26 21:27] VITALS: BP 140/66; PULSE 71
[2023-07-26] MEDS: Atorvastatin Calcium 10 MG Tablet PO (21:28)
[2023-07-26 22:00] VITALS: PULSE 71; RESP 16; O2SAT 96
[2023-07-27] MEDS: Acetaminophen 500 MG Tablet 1000 MG PO ×3 (05:58→20:34)
[2023-07-27] MEDS: Loperamide 2 MG Capsule PO ×3 (05:58→17:15)
[2023-07-27 06:12] VITALS: PULSE 69; RESP 16; O2SAT 95
[2023-07-27] MEDS: Ascorbic Acid 500 MG Tablet PO ×2 (08:51→17:15)
[2023-07-27] MEDS: dilTIAZem CD 180 MG Capsule 360 MG PO (08:51)
[2023-07-27] MEDS: Calcium Carbonate 500 MG Tablet PO ×3 (08:51→17:15)
[2023-07-27] MEDS: Cholecalciferol (Vit D3) 125 MCG CAPSULE (5,000 UNITS) PO (08:52)
[2023-07-27] MEDS: Losartan Potassium 100 MG Tablet PO (08:53)
[2023-07-27] MEDS: APIXABAN 2.5 MG TABLET (WCH) PO ×2 (08:53→20:33)
[2023-07-27 08:54] VITALS: BP 158/67; PULSE 69
[2023-07-27] MEDS: Metoprolol Tartrate 25 MG Tablet 12.5 MG PO ×2 (08:54→20:33)
[2023-07-27] MEDS: Ferrous Sulfate 325 MG Tablet PO (11:20)
[2023-07-27 15:00] VITALS: BP 101/56; PULSE 70; RESP 20; TEMP 36.3; O2SAT 94
--- NOTE | 2023-07-27 15:24 | NURSING ---
Daughter Nicole made aware of Covid outbreak and precautions on floor. Also spoke about time for discharge tomorrow and daughter said she plans to roller picker patient at 1000 on 07/28 to d/c to [place].
--- NOTE | 2023-07-27 19:21 | DCINST_ITS ---
Discharge Instructions Diet Discharge Diet: No restrictions Activity Discharge Activity: May Not Drive, May Shower and Use Walker Ice area for (Minutes): 15 (3 times a day) Weight Bearing Status: Full weight bearing Keep extremity elevated above heart level: Left Leg Additional Activity Instructions:: make sure to get up every hour while awake and take a walk around your house. this helps prevent stiffness and helps to control pain. Dressing / Incision Call your doctor if your incision/area has: Continuous Slow Oozing, Sudden Increased Bleeding, Increased Pain/ Swelling, Increased Redness, Foul Smelling Discharge and Swelling at the incision site Call your doctor if you observe: Fever of 101 or Higher, Numbness or Tingling, Inability to urinate, Inability to have a bowel movement, Shortness of breath, Dizziness, Fainting spells, Chest pain, Increased palpitations (irregular heartbeat), Calf discomfort and Uncontrolled pain Suture Line Care: Avoid Pulling/Pushing and Avoid Pinching/Bending Change Dressing in: no dressin Cleanse incision/area with: Soap & Water Additional Dressing/Incision Instructions:: No dressing is necessary but, it you prefer you can cover the incision with a dry dressing, meghana if there is any DC. Follow Up Care Please Follow Up With: Mario Steiner DO When: 08/19/2023 at 11 AM. Will also need to follow up with Dr. Boyer - you are to call and make an appt. Test Results: Test results from this visit will be discussed in further detail at your follow- up appointment, if applicable. Pending Tests Upon Discharge: none Discharge Plan Admission Admit Date/Time: 07/08/23 14:35 Primary Reason for Your Visit: Debility due to hip fracture/ORIF Attending Provider: Medardo Vegas Chi Primary Care Provider: Umang Boyer Instructions Patient Instructions: Hip Precautions, Pain Management After Surgery, Caring for Your Incision Additional Instructions / Restrictions: 1. Make sure to drink enough fluid to keep your urine a pale yellow in color 2. You will need to follow up with Dr. Steiner and Dr. Boyer post DC. 3. If you have a temp > [address]F call Dr. Steiner or Dr. Boyer for instructions on what to do. Also call for any burning with urination. 4. you will do much better in the long run with your rehab if you get up and take a short walk around the house every hour while awake. It helps prevent stiffness and it helps with pain control. 5. Use the walker to ambulate until you are told you can transition to a cane. Discharge Orders/Prescriptions Prescriptions: New acetaminophen 500 mg Tablet 1,000 mg PO Q8H PRN PRN (Reason: pain 1-10) Qty: 100 0RF oxycodone 5 mg Tablet 2.5 - 5 mg PO Q4H PRN PRN (Reason: Pain Score 4-10) 7 Days Qty: 10 0RF Eliquis 5 mg Tablet 2.5 mg PO BID Qty: 4 0RF Rx Instructions: Discontinue when you have taken the 4 pills prescribed Continued atorvastatin 10 mg tablet 10 mg PO QHS diltiazem HCl 180 mg capsule,extended release 24hr 360 mg PO DAILY telmisartan 80 mg tablet 80 mg PO DAILY probenecid 500 mg tablet 500 mg PO DAILY loperamide 2 mg Capsule 2 mg PO Q6H PRN PRN (Reason: Diarrhea) Qty: 0 0RF metoprolol tartrate 25 mg Tablet 12.5 mg PO BID 30 Days Qty: 30 0RF cholecalciferol (vitamin D3) 25 mcg (1,000 unit) Tablet 125 mcg PO DAILYCM Qty: 0 0RF calcium carbonate 200 mg calcium (500 mg) Tablet,Chewable 500 mg PO TIDCM Qty: 0 0RF ascorbic acid (vitamin C) 500 mg Tablet 500 mg PO BIDCM Qty: 0 0RF ferrous sulfate [FeroSul] 325 mg (65 mg iron) Tablet 325 mg PO DAILY@1200 Qty: 0 0RF aspirin 81 mg Tablet,Delayed Release (Dr/Ec) 81 mg PO DAILY Qty: 1 0RF Rx Instructions: Resume the Aspirin on Tuesday the Discontinued sennosides-docusate sodium [Stool Softener-Stimulant Laxat] 8.6-50 mg Tablet 2 tab PO BID Qty: 0 0RF polyethylene glycol 3350 17 gram Powder In Packet 17 g PO DAILY Qty: 0 0RF oxycodone 5 mg Tablet 2.5 - 5 mg PO Q4H PRN PRN (Reason: Pain Score 4-10) Qty: 0 0RF Rx Instructions: 2.5 mg for moderate pain and 5 mg for severe pain respectively. bisacodyl 10 mg Suppository 10 mg SC DAILY PRN (Reason: Severe constipation.) Qty: 0 0RF acetaminophen 500 mg Tablet 1,000 mg PO Q8 Qty: 0 0RF Rx Instructions: 1000 mg daily for 1 week and then as needed as needed for moderate pain. No Action Eliquis 2.5 mg tablet 2.5 mg PO BID Qty: 60 0RF Rx Instructions: DVT prophylaxis for 1 month for hip surgery. Referrals / Follow Up: Umang Boyer MD [Primary Care Provider] - ([facility]ter will make appt ) Mario Steiner DO [Med Staff - Active Staff] - 08/19/23 11:00 am (4 week follow-up) Disposition Disposition (needs filled in before D/C Order can be placed): Home Health Service
--- NOTE | 2023-07-27 19:45 | DS.PCM_ITS ---
Providers Date of Admission: 07/08/23 Date of Discharge: 07/28/23 Primary Care Physician: Dr. Umang Boyer MD Reason For Visit: FEMUR FRACTURE Diagnosis Discharge Diagnosis (1) Debility: Status: Acute Code(s): R53.81 - Other malaise (2) Intertrochanteric fracture of left hip: Status: Acute Code(s): S72.142A - Displaced intertrochanteric fracture of left femur, initial encounter for closed fracture Qualifiers: Encounter type: initial encounter Fracture alignment: displaced Fracture type: closed Qualified Code(s): S72.142A - Displaced intertrochanteric fracture of left femur, initial encounter for closed fracture (3) History of open reduction and internal fixation (ORIF) procedure: Status: Acute Code(s): Z98.890 - Other specified postprocedural states Plan: Cephalomedullary nail fixation by Dr. Steiner on 07/06/2023 (4) Postoperative anemia: Status: Acute Code(s): D64.9 - Anemia, unspecified (5) Gout: Status: Acute Code(s): M10.9 - Gout, unspecified (6) Hyperlipidemia: Status: Acute Code(s): E78.5 - Hyperlipidemia, unspecified Qualifiers: Hyperlipidemia type: unspecified Qualified Code(s): E78.5 - Hyperlipidemia, unspecified (7) Macular degeneration: Status: Acute Code(s): H35.30 - Unspecified macular degeneration Qualifiers: Macular degeneration type: unspecified type (8) Hypertension: Status: Chronic Code(s): I10 - Essential (primary) hypertension Qualifiers: Hypertension type: primary hypertension Qualified Code(s): I10 - Essential (primary) hypertension (9) Hypoxemia: Status: Resolved Code(s): R09.02 - Hypoxemia (10) Grade II diastolic dysfunction: Status: Chronic Code(s): I51.89 - Other ill-defined heart diseases (11) Aortic regurgitation: Status: Chronic Code(s): I35.1 - Nonrheumatic aortic (valve) insufficiency Qualifiers: Cardiac valve disease etiology: nonrheumatic Qualified Code(s): I35.1 - Nonrheumatic aortic (valve) insufficiency (12) Aortic stenosis: Status: Chronic Code(s): I35.0 - Nonrheumatic aortic (valve) stenosis Qualifiers: Cardiac valve disease etiology: nonrheumatic Qualified Code(s): I35.0 - Nonrheumatic aortic (valve) stenosis (13) Chronic heart failure with preserved ejection fraction (HFpEF): Status: Chronic Code(s): I50.32 - Chronic diastolic (congestive) heart failure Plan: EF is 65% (14) Chronic renal failure (CRF), stage 4 (severe): Status: Acute Code(s): N18.4 - Chronic kidney disease, stage 4 (severe) Plan 1. Discharge home on 08/28/2022 with home health care 2. Follow-up as scheduled with Dr. Steiner on 08/19/2022 at 11 AM. 3. Patient is to call Dr. Boyer for an appt for hospital follow up Medications at Discharge Home Medications atorvastatin 10 mg tablet 10 mg PO QHS CHOLESTEROL 07/27/22 diltiazem HCl 180 mg capsule,extended release 24 hr 360 mg PO DAILY BLOOD PRESSURE 07/27/22 probenecid 500 mg tablet 500 mg PO DAILY GOUT 07/27/22 telmisartan 80 mg tablet 80 mg PO DAILY BLOOD PRESSURE 07/27/22 loperamide 2 mg capsule 2 mg PO Q6H PRN PRN Diarrhea #0 caps 08/16/22 metoprolol tartrate 25 mg tablet 12.5 mg (1/2 x 25 mg) PO BID blood pressure 30 days #30 tabs 08/16/22 apixaban 2.5 mg tablet (Eliquis) 2.5 mg PO BID DVT Prophylaxis #60 tabs 07/08/23 ascorbic acid (vitamin C) 500 mg tablet 500 mg PO BIDCM Supplement #0 tabs 07/08/23 calcium carbonate 200 mg calcium (500 mg) chewable tablet 500 mg (2.5 x 200 mg calcium (500 mg)) PO TIDCM indigestion #0 tabs 07/08/23 cholecalciferol (vitamin D3) 25 mcg (1,000 unit) tablet 125 mcg (5 x 25 mcg (1,000 unit)) PO DAILYCM Supplement #0 tabs 07/08/23 ferrous sulfate 325 mg (65 mg iron) tablet (FeroSul) 325 mg PO DAILY@1200 Supplement #0 tabs 07/08/23 acetaminophen 500 mg tablet 1,000 mg (2 x 500 mg) PO Q8H PRN PRN pain 1-10 #100 tabs 07/27/23 apixaban 5 mg tablet (Eliquis) 2.5 mg (1/2 x 5 mg) PO BID #4 tabs 07/27/23 aspirin 81 mg tablet,delayed release 81 mg PO DAILY HEART HEALTH #1 TAB 07/27/23 oxycodone 5 mg tablet 2.5 - 5 mg (0.5 - 1 x 5 mg) PO Q4H PRN PRN Pain Score 4-10 7 days #10 tabs 07/27/23 Hospital Course Operations - (Cephalomedullary nail fixation on 07/06/2023 for left hip fracture by Dr. Steiner) Summary of Care Provided Minutes Spent on Discharge: 35 Hospital Course: Janel Gusman is a 77 YO F who had a fall on 07/05/23. Imaging showed a left hip fracture. She was admitted to the hospital and orthopedics was consulted. On 07/06/2023 Dr. Steiner performed a left hip cephalomedullary nail fixation. She was started on Eliquis 2.5 mg twice daily for 3 weeks for DVT pr ophylaxis. SCDs and ANDRIY hose were also ordered. Postoperatively the hemoglobin dropped from 10.5-8.5. HGB dropped to 7.6 and she was transfused with 2 units of PRBC's. She was started on oral iron supplement plus ascorbic acid and was given 1 dose of Venofer IV. On 07/08/2023 she was transferred to the transitional care unit at [facility] with a diagnosis of debility secondary to a fall resulting in a left hip fracture. She was admitted for strengthening and rehabilitation care to returning to [facility]. Following transfusion of 2 units of packed red blood cells the hemoglobin improved and was stable at 11.9 at discharge. Creatinine at admission to the hospital was 1.9 and at discharge was 1.98. At the time of discharge she was independent with eating and grooming. She is contact-guard assist with bathing and standby assist for upper body dressing and toilet transfer. She is contact-guard assist for tub/shower transfer, toileting and lower body dressing. She was able to ascend/descend 3 steps with 2 handrails at contact-guard assist. She had ambulated up to 180 feet with a wheeled walker at standby assist. She was discharged to [facility] with home health care for PT/OT. Physical Exam Const alert, oriented x3 and no apparent distress General Appearance: cooperative HEENT normocephalic and head/scalp atraumatic Mouth: dry mucous membranes Resp normal respiratory effort and clear to auscultation bilaterally Effort and Inspection: Negative for tachypneic, respiratory distress or labored Cardio regular rate, regular rhythm and no gallops Cardio Narrative: No ectopy GI normal to inspection, nondistended, normoactive bowel sounds, soft to palpation and non-tender GI Narrative: No guarding with palpation. Extremity no calf tenderness General Extremity: Negative for clubbing, cyanosis or edema Skin Skin Narrative: The incision is intact with no purulent discharge, no saleem-incisional erythema, no significant swelling. There is mild increased warmth to touch in the area secondary to inflammation related to fracture/surgery. Neuro CN's II-XII intact bilaterally Neuro Narrative: Generalized weakness Psych affect normal Appearance: appropriate Attitude: No agitated Activity / Motor Behavior: Negative for restless Weight / BMI Weight Weight: 105 lb Body Mass Index (BMI) 18.6 ABG / Lab / Microbiology Data 07/23/23 07:34 07/24/23 06:25 Microbiology: Microbiology 07/27/23 11:25 Nasal Secretion SARS-CoV-2 Antigen (Rapid) - Final 07/11/23 05:00 Nasal Secretion SARS-CoV-2 Antigen (Rapid) - Final D/C Instructions Discharge Diet: No restrictions Ice area for (Minutes): 15 (3 times a day) Weight Bearing Status: Full weight bearing Keep extremity elevated above heart level: Left Leg Additional Activity Instructions: make sure to get up every hour while awake and take a walk around your house. this helps prevent stiffness and helps to control pain. Call your doctor if your incision/area has: Continuous Slow Oozing, Sudden Increased Bleeding, Increased Pain/ Swelling, Increased Redness, Foul Smelling Discharge and Swelling at the incision site Call your doctor if you observe: Fever of 101 or Higher, Numbness or Tingling, Inability to urinate, Inability to have a bowel movement, Shortness of breath, Dizziness, Fainting spells, Chest pain, Increased palpitations (irregular heartbeat), Calf discomfort and Uncontrolled pain Suture Line Care: Avoid Pulling/Pushing and Avoid Pinching/Bending Cleanse incision/area with: Soap & Water Additional Dressing/Incision Instructions: No dressing is necessary but, it you prefer you can cover the incision with a dry dressing, meghana if there is any DC. Pending Tests Upon Discharge: none Please Follow Up With: Mario Steiner DO When: 08/19/2023 at 11 AM. Will also need to follow up with Dr. Boyer - you are to call and make an appt. Meaningful Use Info Meaningful Use Diagnoses (Choose all that apply): None applicable Discharge Plan Admission Admit Date/Time: 07/08/23 14:35 Primary Reason for Your Visit: Debility due to hip fracture/ORIF Attending Provider: Medardo Vegas Chi Primary Care Provider: Umang Boyer Instructions Patient Instructions: Hip Precautions, Pain Management After Surgery, Caring for Your Incision Additional Instructions / Restrictions: 1. Make sure to drink enough fluid to keep your urine a pale yellow in color 2. You will need to follow up with Dr. Steiner and Dr. Boyer post DC. 3. If you have a temp > [address]F call Dr[address] Steiner or Dr. Boyer for instructions on what to do. Also call for any burning with urination. 4. you will do much better in the long run with your rehab if you get up and take a short walk around the house every hour while awake. It helps prevent stiffness and it helps with pain control. 5. Use the walker to ambulate until you are told you can transition to a cane. Discharge Orders/Prescriptions Prescriptions: New acetaminophen 500 mg Tablet 1,000 mg PO Q8H PRN PRN (Reason: pain 1-10) Qty: 100 0RF oxycodone 5 mg Tablet 2.5 - 5 mg PO Q4H PRN PRN (Reason: Pain Score 4-10) 7 Days Qty: 10 0RF Eliquis 5 mg Tablet 2.5 mg PO BID Qty: 4 0RF Rx Instructions: Discontinue when you have taken the 4 pills prescribed Continued atorvastatin 10 mg tablet 10 mg PO QHS diltiazem HCl 180 mg capsule,extended release 24hr 360 mg PO DAILY telmisartan 80 mg tablet 80 mg PO DAILY probenecid 500 mg tablet 500 mg PO DAILY loperamide 2 mg Capsule 2 mg PO Q6H PRN PRN (Reason: Diarrhea) Qty: 0 0RF metoprolol tartrate 25 mg Tablet 12.5 mg PO BID 30 Days Qty: 30 0RF cholecalciferol (vitamin D3) 25 mcg (1,000 unit) Tablet 125 mcg PO DAILYCM Qty: 0 0RF calcium carbonate 200 mg calcium (500 mg) Tablet,Chewable 500 mg PO TIDCM Qty: 0 0RF ascorbic acid (vitamin C) 500 mg Tablet 500 mg PO BIDCM Qty: 0 0RF ferrous sulfate [FeroSul] 325 mg (65 mg iron) Tablet 325 mg PO DAILY@1200 Qty: 0 0RF aspirin 81 mg Tablet,Delayed Release (Dr/Ec) 81 mg PO DAILY Qty: 1 0RF Rx Instructions: Resume the Aspirin on Tuesday the Discontinued sennosides-docusate sodium [Stool Softener-Stimulant Laxat] 8.6-50 mg Tablet 2 tab PO BID Qty: 0 0RF polyethylene glycol 3350 17 gram Powder In Packet 17 g PO DAILY Qty: 0 0RF oxycodone 5 mg Tablet 2.5 - 5 mg PO Q4H PRN PRN (Reason: Pain Score 4-10) Qty: 0 0RF Rx Instructions: 2.5 mg for moderate pain and 5 mg for severe pain respectively. bisacodyl 10 mg Suppository 10 mg [place] DAILY PRN (Reason: Severe constipation.) Qty: 0 0RF acetaminophen 500 mg Tablet 1,000 mg PO Q8 Qty: 0 0RF Rx Instructions: 1000 mg daily for 1 week and then as needed as needed for moderate pain. No Action Eliquis 2.5 mg tablet 2.5 mg PO BID Qty: 60 0RF Rx Instructions: DVT prophylaxis for 1 month for hip surgery. Referrals / Follow Up: Umang Boyer MD [Primary Care Provider] - (Deric will make appt ) Mario Steiner DO [Med Staff - Active Staff] - 08/19/23 11:00 am (4 week follow-up) Disposition Disposition (needs filled in before D/C Order can be placed): Home Health Service Charges/Coding Visit Charges Inpatient E&M: 25698 SNF Disch >30 Min
[2023-07-27 20:33] VITALS: BP 146/71; PULSE 72
[2023-07-27] MEDS: Atorvastatin Calcium 10 MG Tablet PO (20:33)
[2023-07-28 06:00] VITALS: PULSE 65; RESP 16; O2SAT 95
[2023-07-28] MEDS: Loperamide 2 MG Capsule PO (06:07)
[2023-07-28] MEDS: Acetaminophen 500 MG Tablet 1000 MG PO (06:07)
[2023-07-28] MEDS: Calcium Carbonate 500 MG Tablet PO (08:11)
[2023-07-28 08:12] VITALS: PULSE 65
[2023-07-28] MEDS: Metoprolol Tartrate 25 MG Tablet 12.5 MG PO (08:12)
[2023-07-28] MEDS: APIXABAN 2.5 MG TABLET (WCH) PO (08:12)
[2023-07-28] MEDS: Losartan Potassium 100 MG Tablet PO (08:12)
[2023-07-28] MEDS: dilTIAZem CD 180 MG Capsule 360 MG PO (08:12)
[2023-07-28] MEDS: Ascorbic Acid 500 MG Tablet PO (08:12)
[2023-07-28] MEDS: Cholecalciferol (Vit D3) 125 MCG CAPSULE (5,000 UNITS) PO (08:15)
--- NOTE | 2023-07-28 10:01 | CASEMGMT ---
Social Work BIMS () and PHQ-2 (08/02) completed for MDS assessment. Tierra Vera MSW EDGER OPERATOR
== END 2023-07-28 10:30 | disposition home health service (06) | DRG 560 ==
PROVIDERS: Admitting Provider Family Medicine Geriatric Medicine; PCP Family Medicine; Referring Provider Family Medicine Geriatric Medicine; Visit Provider Family Medicine Geriatric Medicine
DX: S72.142D Displaced intertrochanteric fracture of left femur, subsequent encounter for closed fracture with routine healing (principal); I13.0 Hypertensive heart and chronic kidney disease with heart failure and stage 1 through stage 4 chronic kidney disease, or unspecified chronic kidney disease; N18.4 Chronic kidney disease, stage 4 (severe); I50.32 Chronic diastolic (congestive) heart failure; D50.9 Iron deficiency anemia, unspecified; H35.30 Unspecified macular degeneration; M10.9 Gout, unspecified; E55.9 Vitamin D deficiency, unspecified; E78.5 Hyperlipidemia, unspecified; W19.XXXD Unspecified fall, subsequent encounter; Z86.73 Personal history of transient ischemic attack (TIA), and cerebral infarction without residual deficits; Z87.891 Personal history of nicotine dependence; Z79.82 Long term (current) use of aspirin; Z79.899 Other long term (current) drug therapy; Z79.01 Long term (current) use of anticoagulants
CPT/HCPCS: 36415; 36430; 80048; 85014; 85018; 85025; 86850; 86900; 86901; 86920; 86922; 87811; 97110; 97116; 97162; 97166; 97530; 97535; 97802; J7040; P9016; A4216; J1940

== ENCOUNTER 2023-07-14 08:34 | Outpatient (CLI) | payer SELFPAY ==
[2023-07-14 08:50] VITALS: BP 128/55; PULSE 72; RESP 16; TEMP 36.2; O2SAT 94; BMI 18.4
[2023-07-14 09:27] VITALS: BP 116/57; PULSE 69; RESP 16; TEMP 36.6; O2SAT 95
[2023-07-14 11:57] VITALS: BP 169/76; PULSE 78; RESP 16; TEMP 36.6
[2023-07-14 12:55] VITALS: BP 132/62; PULSE 75; RESP 16; TEMP 36.6
[2023-07-14 13:10] VITALS: BP 132/58; PULSE 77; RESP 16; TEMP 36.2; O2SAT 96
[2023-07-14] MEDS: Furosemide 20 MG/2 ML VIAL IV (13:42)
== END 2023-07-14 08:35 | disposition home or self-care (01) ==
LOC: MEDOUTP 08:36
PROVIDERS: PCP Family Medicine; Referring Provider Family Medicine Geriatric Medicine; Visit Provider Family Medicine Geriatric Medicine
DX: D64.89 Other specified anemias (principal)
CPT/HCPCS: 36415; 36430; 86850; 86900; 86901; 86920; 86922; J7040; P9016; A4216; J1940

== ENCOUNTER 2024-06-18 12:17 | Emergency (ER) | payer MEDICARE, SELFPAY ==
[2024-06-18 12:19] VITALS: BP 160/97; PULSE 75; RESP 18; TEMP 36.8; O2SAT 93
[2024-06-18 12:40] LABS: Bacteria 0 SEEN /hpf (None Seen); Mucous, Urine 0 SEEN /hpf (<or=2+); Red Blood Cells-Urine 0 SEEN /hpf (0-5); Squamous Epithelial Cells - UA 0 SEEN /hpf (5-10)
[2024-06-18 12:50] LABS: Color, Urine Yellow (Yellow); Glucose, Dipstick Normal (Normal); Ketone-Dipstick Negative (Negative); Nitrite-Dipstick Negative (Negative); Occult Blood-Urine 250 /ul (Negative); Protein-Dipstick 100 mg/dl (Negative); Specific Gravity, Urine 1.015 (1.002-1.030); Urine Bilirubin Dipstick Negative (Negative); Urine Clarity Cloudy (Clear); Urine Urobilinogen Normal (Normal)
[2024-06-18 13:00] LABS: Absolute Lymphocyte Count 2.24 X10^3/uL (0.83-4.51); Basophil# 0.04 X10^3/uL; Basophil% 0.4 % (0-1); Eosinophil# 0.04 X10^3/uL; Eosinophils% 0.4 % (0-5); Hematocrit 37.5 % (37-47); Hemoglobin 12.1 g/dL (12.0-15.0); Lymphocyte # 2.24 X10^3/ul (0.83-4.51); Lymphocyte % 22.3 % (19-41); Mean Corp Hgb Conc 32.3 g/dL (32-36); Mean Corpuscular Hgb 34.4 pg (27.0-32.0); Mean Corpuscular Volume 106.5 fL (81-99); Mean Platelet Vol. 10.2 fl (6.2-12.0); Monocyte# 0.73 X10^3/uL; Monocyte% 7.3 % (0-10); NRBC Flagged by Analyzer 0 % (0-5); Neutrophil # 6.95 X10^3/uL (2.7-7.7); Neutrophil % 69.1 % (47-70); Platelet Count 224 K/mm3 (150-450); RBC Distribution Width SD 54.8 fl (35.1-43.9); Red Blood Count 3.52 M/mm3 (4.2-5.4); White Blood Count 10.1 K/mm3 (4.4-11.0)
[2024-06-18 13:07] LABS: Anion Gap 6 (5-15); BUN 46 mg/dL (7-18); BUN/Creat Ratio 19.2 RATIO (10-20); Calcium,Total 9.7 mg/dL (8.5-10.1); Chloride 109 mmol/L (98-107); Creatinine, Serum 2.39 mg/dL (0.55-1.02); EST Glomerular Filtration Rate 21 mL/min (>60); Est Glom Filt Rate - Afr Amer 25 mL/min (>60); Glucose 103 mg/dL (74-106); Potassium 4.2 mmol/L (3.5-5.1); Sodium Level 139 mmol/L (136-145)
[2024-06-18 13:22] LABS: Leukocyte Esterase-Dipstick 500 /ul (Negative); White Blood Cells >100 SEEN /hpf (0-5)
--- NOTE | 2024-06-18 14:13 | EX.ED.DYSGE1 ---
HPI History of Present Illness Chief Complaint: Complaint Detail of Chief Complaint: Something protruding from my vagina and difficulty urinating Informant: patient, family and SNF Onset/Context/Timing Onset: Today Context: Sudden Onset Timing: Continuous Quality: Mass protruding from vagina Location: Vagina Current Severity: Discomfort due to protruding mass Worsened by: When patient attempts to urinate Relieved by: Nothing Associated Symptoms Associated Symptoms: No constitutional symptoms Narrative Narrative: Patient is a 78-year-old female. She was sent from [facility] because of mass protruding from vagina and difficulty urinating. This is an acute process. She has not seen a shell freezing machine operator in years. She is never had an abnormal Pap smear. Patient denies fever, chills night sweats. Patient [place] cardiac or respiratory symptoms. Patient denies GI symptoms. She does report difficulty urinating and discomfort with urination. She cannot say with any degree of certainty whether she feels that she is emptying her bladder completely or not. Prior similar symptoms: No Recent Illness/Hospitalization: No PFSH PFSH Medical History Chronic renal failure (CRF), stage 4 (severe) Dilated aortic root Aortic regurgitation Grade II diastolic dysfunction Chronic heart failure with preserved ejection fraction (HFpEF) Hyperlipidemia On home oxygen therapy TIA (transient ischemic attack) Fall Intertrochanteric fracture of left hip Former smoker Hypertension Hypertension Aortic stenosis Macular degeneration Wrist fracture Gout Hypertension Stroke/cerebrovascular accident Home Medications ?Medication ?Instructions ?Recorded ?Last Taken ?Type atorvastatin 10 mg tablet 10 mg PO QHS CHOLESTEROL 07/27/22 07/07/23 History diltiazem HCl 180 mg 360 mg PO DAILY BLOOD PRESSURE 07/27/22 07/08/23 07:50 History capsule,extended release 24 hr probenecid 500 mg tablet 500 mg PO DAILY GOUT 07/27/22 07/27/22 History telmisartan 80 mg tablet 80 mg PO DAILY BLOOD PRESSURE 07/27/22 07/08/23 07:45 History loperamide 2 mg capsule 2 mg PO Q6H PRN PRN Diarrhea #0 08/16/22 Unknown Rx caps metoprolol tartrate 25 mg tablet 12.5 mg (1/2 x 25 mg) PO BID blood 08/16/22 07/08/23 07:45 Rx pressure 30 days #30 tabs ascorbic acid (vitamin C) 500 mg 500 mg PO BIDCM Supplement #0 tabs 07/08/23 07/08/23 07:50 Rx tablet calcium carbonate 500 mg (2.5 x 200 mg calcium (500 07/08/23 07/08/23 07:50 Rx mg)) PO TIDCM indigestion #0 tabs cholecalciferol (vitamin D3) 25 125 mcg (5 x 25 mcg (1,000 unit)) 07/08/23 07/08/23 07:50 Rx mcg (1,000 unit) tablet PO DAILYCM Supplement #0 tabs ferrous sulfate 325 mg (65 mg 325 mg PO DAILY@1200 Supplement #0 07/08/23 Unknown Rx iron) tablet (FeroSul) tabs acetaminophen 500 mg tablet 1,000 mg (2 x 500 mg) PO Q8H PRN 07/27/23 Unknown Rx PRN pain 1-10 #100 tabs aspirin 81 mg tablet,delayed 81 mg PO DAILY HEART HEALTH #1 TAB 07/27/23 07/27/22 Rx release Allergy/AdvReac Type Severity Reaction Status Date / Time No Known Allergies Allergy Verified 06/18/24 12:19 Family History Other Heart disease Surgical History History of appendectomy Social History housing: assisted living facility Smoking Status: Former smoker alcohol intake: never substance use type: does not use ROS ROS ED Constitutional Constitutional ED: Denies chills, fever(s), subjective, sweats or weight loss Eyes Eyes: Denies blurry vision or change in vision Cardiovascular Cardiovascular: Denies chest pain or palpitations Respiratory/Chest Respiratory/Chest: Denies cough, dyspnea or dyspnea on exertion Gastrointestinal Gastrointestinal: Denies abdominal pain, nausea or vomiting Genitourinary Genitourinary ED: Reports urinary frequency; Denies dysuria or hematuria Musculoskeletal Musculoskeletal: Denies back pain Integumentary Denies rash Hematologic/Lymphatic Hematologic/Lymphatic: Reports systems reviewed and no addt'l complaints, except as documented EXAM Physical Exam Const Vital Signs: 06/18/24 12:19 Temperature 98.2 F Temperature Source Oral Pulse Rate 75 Respiratory Rate 18 Blood Pressure 160/97 H Blood Pressure Mean 118 Pulse Ox 93 Oxygen Delivery Method Room Air Positive well nourished and well developed Constitutional Narrative: Pleasant elderly woman and spite of hearing aids as very hard of hearing. General Appearance ED: well developed and NAD; Negative for pallor HEENT Reports moist mucous membranes HEENT Narrative: HEENT exam is remarkable for hearing aids otherwise negative Eyes PERRL and EOMs intact bilaterally Neck no lymphadenopathy, supple and no JVD Resp normal respiratory effort and clear to auscultation bilaterally Cardio regular rate, regular rhythm, S1 normal heart sound, S2 normal heart sound and no murmurs GI normal to inspection, nondistended, normoactive bowel sounds, non-tender, non-distended and no masses; Negative for hepatosplenomegaly Narrative: Patient has prolapsed cervix/uterus. Back/Spine no CVA tenderness Extremity normal to inspection Neuro CN's II-XII intact bilaterally Sensorium / Orientation: alert Psych mental status grossly normal Skin no rashes or lesions noted and no wounds General Skin Exam: Negative for jaundice or pallor MDM MDM MDM Narrative Medical decision making narrative: Patient with prolapse of the cervix/uterus. CBC was obtained assess white count and H&H. BMP to assess renal function. Bladder scan initially read 10 cc. After the uterus was reduced patient was noted to have between 45 and greater in the 100 cc of urine postvoid on multiple times. This was not a consistent reading. Again the patient was asked if she feels as if she has to urinate and her response was no. There is question whether she feels that she is voiding/emptying completely. The uterine prolapse was easily reduced by me. Cath urine was obtained to assess for infection because of her urinary symptoms. Lab Data Attestation: I reviewed the patient's lab results. Lab results narrative: CBC is remarkable for an MCV of 106.5 otherwise unremarkable. Basic metabolic panel does an elevated BUN and creatinine. This is slightly elevated compared to prior.Patient's creatinine from July 2023 until the beginning of this year varied between 1.89 and 2.03. Estimated GFR was approximately 25-27. Estimated GFR today is 21. Labs: Laboratory Results - last 24 hr 06/18/24 06/18/24 12:37 12:51 WBC 10.1 RBC 3.52 L Hgb 12.1 Hct 37.5 MCV 106.5 H MCH 34.4 H MCHC 32.3 RDW Std Deviation 54.8 H RDW Coeff of Arnulfo 14.0 Plt Count 224 MPV 10.2 Immature Gran % (Auto) 0.500 Neut % (Auto) 69.1 Lymph % (Auto) 22.3 [place] % (Auto) 7.3 Eos % (Auto) 0.4 Baso % (Auto) 0.4 Absolute Neuts (auto) 7.0 Absolute Lymphs (auto) 2.24 Nucleated RBC % 0 Sodium 139 Potassium 4.2 Chloride 109 H Carbon Dioxide 24.0 Anion Gap 6 BUN 46 H Creatinine 2.39 H Estim Creat Clear Calc 7.00 Est GFR (MDRD) Af Amer 25 L Est GFR (MDRD) Non-Af 21 L BUN/Creatinine Ratio 19.2 Glucose 103 Calcium 9.7 Urine Color Yellow Urine Clarity Cloudy Urine pH 6.0 Ur Specific Reading 1.015 Urine Protein 100 H Urine Glucose (UA) Normal Urine Ketones Negative Urine Occult Blood 250 H Urine Nitrite Negative Urine Bilirubin Negative Urine Urobilinogen Normal Ur Leukocyte Esterase 500 H Urine RBC 0 SEEN Urine WBC >100 SEEN Ur Squamous Epith Cells 0 SEEN Urine Bacteria 0 SEEN Urine Mucus 0 SEEN Management Discussion w/another healthcare provider: Correctional Program Officer (Spoke with Dr. Sisi Quevedo who is on for [employer]ING [employer]. Her office will contact patient to schedule appointment for tomorrow for fitting and placement of a pessary. After discussion with Dr. Quevedo Sanford was placed for patient's comfort because she does not feel she is voiding/emptying completely) Discharge Plan Triage Chief Complaint: Complaint ED Provider: Blade Kathleen Dx/Rx/DC Orders Clinical Impression: Prolapse of uterus, Pyuria, Macrocytosis, Chronic kidney disease Instructions: Pelvic Organ Prolapse Nonsurg Tx, ED Sanford Catheter, Care Prescriptions: No Action atorvastatin 10 mg tablet 10 mg PO QHS diltiazem HCl 180 mg capsule,extended release 24hr 360 mg PO DAILY telmisartan 80 mg tablet 80 mg PO DAILY probenecid 500 mg tablet 500 mg PO DAILY loperamide 2 mg Capsule 2 mg PO Q6H PRN PRN (Reason: Diarrhea) Qty: 0 0RF metoprolol tartrate 25 mg Tablet 12.5 mg PO BID 30 Days Qty: 30 0RF cholecalciferol (vitamin D3) 25 mcg (1,000 unit) Tablet 125 mcg PO DAILYCM Qty: 0 0RF calcium carbonate 200 mg calcium (500 mg) Tablet,Chewable 500 mg PO TIDCM Qty: 0 0RF ascorbic acid (vitamin C) 500 mg Tablet 500 mg PO BIDCM Qty: 0 0RF ferrous sulfate [FeroSul] 325 mg (65 mg iron) Tablet 325 mg PO DAILY@1200 Qty: 0 0RF acetaminophen 500 mg Tablet 1,000 mg PO Q8H PRN PRN (Reason: pain 1-10) Qty: 100 0RF aspirin 81 mg Tablet,Delayed Release (Dr/Ec) 81 mg PO DAILY Qty: 1 0RF Rx Instructions: Resume the Aspirin on Tuesday the Primary Care Provider: Umang Boyer Referrals: Umang Boyer MD [Primary Care Provider] - Nhung Quevedo DO [Med Staff - Active Staff] - As soon as possible Print Language: Sinhala Disposition Disposition: Home, Self Care
--- NOTE | 2024-06-18 14:27 | ED.RN ---
report called to [facility]
[2024-06-18 14:28] VITALS: BP 148/96; PULSE 87; RESP 16; TEMP 36; O2SAT 94
== END 2024-06-18 14:29 | disposition home or self-care (01) ==
PROVIDERS: Emergency Provider Emergency Medicine; PCP Family Medicine; Visit Provider Emergency Medicine
DX: N81.4 Uterovaginal prolapse, unspecified (principal); N18.4 Chronic kidney disease, stage 4 (severe); I13.0 Hypertensive heart and chronic kidney disease with heart failure and stage 1 through stage 4 chronic kidney disease, or unspecified chronic kidney disease; I50.32 Chronic diastolic (congestive) heart failure; R82.81 Pyuria; D75.89 Other specified diseases of blood and blood-forming organs; E78.5 Hyperlipidemia, unspecified; M10.9 Gout, unspecified; I35.0 Nonrheumatic aortic (valve) stenosis; Z86.73 Personal history of transient ischemic attack (TIA), and cerebral infarction without residual deficits; Z79.899 Other long term (current) drug therapy; Z79.82 Long term (current) use of aspirin; Z87.891 Personal history of nicotine dependence
CPT/HCPCS: 51702; 80048; 81001; 85025; 87086; 87088; 87186; 99285; P9612; A4216